=== PATIENT | female | born 1965 ===

== ENCOUNTER 2020-02-10 14:37 | Outpatient (REF) | payer OTHER, SELFPAY | END 2020-02-10 14:38 | disposition home or self-care (01) | LOC: HO.LAB 14:37 | PROVIDERS: PCP Internal Medicine; Visit Provider Internal Medicine | DX: Z20.828 Contact with and (suspected) exposure to other viral communicable diseases (principal) | CPT/HCPCS: C9803; U0003 ==

== ENCOUNTER 2020-03-18 16:35 | Outpatient (REF) | payer OTHER, SELFPAY ==
--- NOTE | 2020-03-18 16:38 | XR_ITS ---
EXAMINATION: XR CHEST CLINICAL INFORMATION: Shortness of breath COMPARISON: Chest x-ray 04/01/2015 TECHNIQUE: 2 views of the chest were obtained. FINDINGS: Lungs are clear. No pulmonary vascular congestion. There is no pleural effusion. The heart size is normal. The cardiac and mediastinal contours are normal. There are calcifications of the thoracic aorta. There are multilevel degenerative changes of dorsal spine. XR/XR chest 2V IMPRESSION: Unremarkable examination.
== END 2020-03-18 16:36 | disposition home or self-care (01) ==
LOC: HO.HMGCX 16:35
PROVIDERS: PCP Internal Medicine; Visit Provider Nurse Practitioner Family
DX: R06.02 Shortness of breath (principal)
CPT/HCPCS: 71046

== ENCOUNTER 2020-03-23 14:25 | Outpatient (REF) | payer OTHER, SELFPAY ==
[2020-03-23 15:33] LABS: Alanine Aminotransferase 51 U/L (0-31); Albumin Level 4.6 g/dL (3.5-5.0); Alkaline Phosphatase 137 U/L (39-117); Anion Gap 11 (12-20); Aspartate Amino Transferase 35 U/L (5-31); Bilirubin Total 0.4 mg/dL (0.0-1.0); Blood Urea Nitrogen 11 mg/dL (9-16); Calcium 9.3 mg/dL (8.4-10.2); Carbon Dioxide 26 mmol/L (22-29); Chloride 106 mmol/L (96-108); Estimated Glomerular Filt Rate > 60; Glucose Random 92 mg/dL (60-115); Potassium 4.2 mmol/l (3.3-5.1); Sodium 139 mmol/L (135-145); Total Protein 7.5 g/dL (6.5-8.0)
== END 2020-03-23 14:26 | disposition home or self-care (01) ==
LOC: HO.LAB 14:25
PROVIDERS: PCP Internal Medicine; Visit Provider Student in an Organized Health Care Education/Training Program
DX: M79.7 Fibromyalgia (principal)
CPT/HCPCS: 80053

== ENCOUNTER 2020-05-04 12:24 | Outpatient (REF) | payer OTHER, SELFPAY | END 2020-05-04 12:25 | disposition home or self-care (01) | LOC: HO.LAB 12:24 | PROVIDERS: Visit Provider Internal Medicine | DX: Z20.822 Contact with and (suspected) exposure to COVID-19 (principal) | CPT/HCPCS: 36415; C9803; U0003; U0005 ==

== ENCOUNTER 2020-05-26 15:35 | Outpatient (REF) | payer OTHER, SELFPAY | END 2020-05-26 15:36 | disposition home or self-care (01) | LOC: HO.LAB 15:35 | PROVIDERS: Visit Provider Internal Medicine | DX: Z20.822 Contact with and (suspected) exposure to COVID-19 (principal) | CPT/HCPCS: 36415; C9803; U0003; U0005 ==

== ENCOUNTER → 2020-06-25 11:29 | Outpatient (BNVA) | payer OTHER, SELFPAY | PROVIDERS: PCP Internal Medicine; Visit Provider Student in an Organized Health Care Education/Training Program | DX: M79.7 Fibromyalgia (principal) | CPT/HCPCS: 99212 ==

== ENCOUNTER → 2020-08-18 08:32 | Outpatient (BNVA) | payer OTHER, SELFPAY | PROVIDERS: PCP Internal Medicine; Visit Provider Obstetrics & Gynecology ==

== ENCOUNTER 2020-10-09 10:41 | Outpatient (REF) | payer OTHER, SELFPAY ==
--- NOTE | ~2020-10-09 | MM_ITS ---
EXAMINATION: MM SCREENING DIGITAL BREAST TOMOSYNTHESIS, BILATERAL CLINICAL INFORMATION: Screening. Asymptomatic. The lifetime risk of breast cancer based on the Tyrer-Cuzick Model is 6%. COMPARISON: Mammography: 08/13/2013, 04/16/2013 TECHNIQUE: Digital mammography is performed in craniocaudal and mediolateral oblique views along with computer-aided detection (CAD). Digital breast tomosynthesis is performed in implant-displaced craniocaudal and implant-displaced mediolateral oblique views along with computer-aided detection (CAD). Synthesized 2D images are generated from the tomosynthesis. FINDINGS: The breasts are heterogeneously dense, which may obscure small masses (ACR BI-RADS breast composition Category c). There are no significant masses, abnormal calcifications, or other abnormalities. There are bilateral silicone implants with smooth contours. Prior exam shows saline implants. The axilla are unremarkable. The skin contours are smooth. MM/MM tomosynthesis screen imp BI IMPRESSION: No mammographic evidence of malignancy. ASSESSMENT: BI-RADS 1: Negative RECOMMENDATION: Routine annual mammography screening. This patient's information was entered into a reminder system with a target due date for their next mammogram.
== END 2020-10-09 10:42 | disposition home or self-care (01) ==
LOC: HO.MAMMO 10:41
PROVIDERS: Visit Provider Obstetrics & Gynecology
DX: Z12.31 Encounter for screening mammogram for malignant neoplasm of breast (principal)
CPT/HCPCS: 77063; 77067

== ENCOUNTER 2020-12-12 14:42 | Outpatient (REF) | payer OTHER, SELFPAY ==
--- NOTE | ~2020-12-12 | XR_ITS ---
EXAMINATION: XR KNEE, RIGHT CLINICAL INFORMATION: Pain COMPARISON: Previous right knee x-ray March 2015 TECHNIQUE: Four views of the right knee. FINDINGS: Bone alignment is normal. No fracture or dislocation is seen. The femoral tibial joints are normal. There are small osteophytes at the patellofemoral joint. There is a small osteophyte at the quadriceps tendon insertion to the patella. There is no joint effusion. XR/XR knee RT 4V IMPRESSION: Mild degenerative changes at the patellofemoral joint.
== END 2020-12-12 14:43 | disposition home or self-care (01) ==
LOC: HO.HMGCX 14:42
PROVIDERS: PCP Internal Medicine; Visit Provider Physician Assistant Medical
DX: Z13.89 Encounter for screening for other disorder (principal)
CPT/HCPCS: 73564

== ENCOUNTER 2021-01-21 10:15 | Outpatient (REF) | payer OTHER, SELFPAY ==
[2021-01-21 10:27] LABS: MANUAL DIFF FLAG NO
[2021-01-21 11:03] LABS: Basophils Percent Auto 0.6 % (0-2); Eosinophils Absolute Auto 0.1 X10*3/uL (0.0-0.4); Eosinophils Percent Auto 1.1 % (0-4); Hematocrit 44.4 % (37-47); Imm Gran Abs Auto 0.03 X10*3/uL (0.00-0.03); Imm Gran Pct Auto 0.4 % (0.0-0.4); Lymphocytes Absolute Auto 2.6 X10*3/uL (1.2-4.9); Lymphocytes Percent Auto 36.7 % (20-40); Mean Corpuscular HGB Conc 31.5 g/dl (31.0-35.0); Mean Corpuscular Hemoglobin 27.5 pg (27.0-33.0); Mean Corpuscular Volume 87.1 fL (80-98); Mean Platelet Volume 11.4 fL (9.4-12.3); Monocytes Absolute Auto 0.8 X10*3/uL (0.1-1.2); Monocytes Percent Auto 10.8 % (2-11); Neutrophils Absolute Auto 3.6 X10*3/uL (2.0-8.3); Neutrophils Percent Auto 50.4 % (45-73); Platelet Count 265 X10*3/uL (160-400); Red Cell Distribution Width 13.5 % (11.0-16.0); White Blood Count 7.2 X10*3/uL (4.8-10.8)
[2021-01-21 11:59] LABS: Alanine Aminotransferase 34 U/L (0-31); Albumin Level 4.4 g/dL (3.5-5.0); Alkaline Phosphatase 112 U/L (39-117); Anion Gap 13 (12-20); Aspartate Amino Transferase 29 U/L (5-31); Bilirubin Total 0.4 mg/dL (0.0-1.0); Blood Urea Nitrogen 11 mg/dL (9-16); Calcium 9.5 mg/dL (8.4-10.2); Carbon Dioxide 25 mmol/L (22-29); Chloride 108 mmol/L (96-108); Cholesterol 214 mg/dL; Estimated Glomerular Filt Rate > 60; Glucose Fasting 103 mg/dL (60-99); HDL Cholesterol 45 mg/dL; LDL Cholesterol Calculated 135 mg/dl; Potassium 5.1 mmol/L (3.3-5.1); Sodium 141 mmol/L (135-145); Total Protein 7.2 g/dL (6.5-8.0); Triglycerides 172 mg/dL
[2021-01-21 12:02] LABS: TSH reflex Free T4 1.45 uIU/mL (0.32-4.0)
== END 2021-01-21 10:16 | disposition home or self-care (01) ==
LOC: HO.LAB 10:15
PROVIDERS: PCP Internal Medicine; Visit Provider Internal Medicine
DX: Z00.01 Encounter for general adult medical examination with abnormal findings (principal); E66.09 Other obesity due to excess calories
CPT/HCPCS: 36415; 80053; 80061; 84443; 85025

== ENCOUNTER → 2021-03-29 13:00 | Outpatient (BNVA) | payer OTHER, SELFPAY | PROVIDERS: PCP Internal Medicine; Referring Provider Internal Medicine; Visit Provider Nurse Practitioner Family | DX: Z12.11 Encounter for screening for malignant neoplasm of colon (principal); K21.9 Gastro-esophageal reflux disease without esophagitis; K58.1 Irritable bowel syndrome with constipation; K59.04 Chronic idiopathic constipation; R14.0 Abdominal distension (gaseous) | CPT/HCPCS: 99212 ==

== ENCOUNTER 2021-04-26 13:28 | Outpatient (REF) | payer OTHER, SELFPAY ==
[2021-04-26 15:47] LABS: Folate 11.8 ng/mL (> or = 4.0); Vitamin B12 536 pg/mL (200-900)
[2021-04-27 18:47] LABS: Transglutaminase Ab IgG <1.0 U/mL; Transglutaminase IgA <1.0 U/mL
[2021-04-30 13:45] LABS: Vitamin D 25-OH, D2 <4 ng/mL; Vitamin D 25-OH, D3 31 ng/mL; Vitamin D 25-OH, Total 31 ng/mL (30-100)
== END 2021-04-26 13:29 | disposition home or self-care (01) ==
LOC: HO.LAB 13:28
PROVIDERS: PCP Internal Medicine; Referring Provider Internal Medicine; Visit Provider Nurse Practitioner Family
DX: K58.1 Irritable bowel syndrome with constipation (principal); K58.0 Irritable bowel syndrome with diarrhea; R10.11 Right upper quadrant pain; K59.04 Chronic idiopathic constipation; R14.0 Abdominal distension (gaseous); K21.9 Gastro-esophageal reflux disease without esophagitis; E55.9 Vitamin D deficiency, unspecified; Z87.891 Personal history of nicotine dependence; Z12.11 Encounter for screening for malignant neoplasm of colon
CPT/HCPCS: 36415; 82306; 82607; 82746; 86364; 99212

== ENCOUNTER 2021-05-04 13:02 | Outpatient (REF) | payer OTHER, SELFPAY ==
--- NOTE | ~2021-05-04 | XR_ITS ---
EXAMINATION: XR CHEST CLINICAL INFORMATION: Cough COMPARISON: Previous chest x-ray February 2020 TECHNIQUE: 2 views of the chest were obtained. FINDINGS: The cardiac and mediastinal contours are stable. There is bilateral upper lobe linear scarring or chronic subsegmental atelectasis that appears unchanged. The lungs are otherwise clear. There is no pleural effusion or pneumothorax. There are mild degenerative changes of the spine. XR/XR chest 2V IMPRESSION: No evidence for acute disease in the chest.
[2021-05-04 14:02] LABS: Binax Internal Control QC Valid; Binax Now Covid-19 Ag Negative (Negative); Binax Performed by: HO.BONILM
== END 2021-05-04 13:03 | disposition home or self-care (01) ==
LOC: HO.HMGCX 13:02
PROVIDERS: PCP Internal Medicine; Visit Provider Physician Assistant
DX: Z20.822 Contact with and (suspected) exposure to COVID-19 (principal); R07.1 Chest pain on breathing; R05.9 Cough, unspecified
CPT/HCPCS: 71046

== ENCOUNTER 2021-05-27 16:54 | Emergency (ER) | payer OTHER, SELFPAY ==
[2021-05-27 17:28] VITALS: BP 152/65; PULSE 76; RESP 18; TEMP 36.8; O2SAT 98; BMI 32.2
--- NOTE | 2021-05-27 17:48 | ED_ITS ---
HPI - General Adult General Chief complaint: Eye Problems Stated complaint: redness in the eye Time Seen by Provider: 05/27/21 17:48 Source: patient Limitations: no limitations History of Present Illness HPI narrative: Patient awoke this a.m. with some redness in the light of her eye. Patient denies any recent trauma. Patient states she wears reading glasses. Patient states some slight achy pain. Of the left eye. Patient is also states slight headache. Patient does not wear contact lenses. Patient denies any nausea vomiting or similar symptoms in the past. Patient states she has never noticed any redness in the light of her. No other complaints this time Related Data Home Medications Medication Instructions Recorded Confirmed bupropion HCl 150 mg 24 hr tablet, 150 mg PO DAILY 03/18/20 01/05/21 extended release cyclobenzaprine 5 mg tablet 5 mg PO BEDTIME 03/18/20 01/05/21 flu vacc [id number] 6mos up(PF) ml IM 03/18/20 01/05/21 ketotifen fumarate 0.025 % (0.035 1 drp OPHTHALMIC (EYE) BID 03/18/20 01/05/21 %) eye drops loratadine 10 mg tablet 10 mg PO DAILY 03/18/20 01/05/21 propranolol 20 mg tablet 20 mg PO DAILY 03/18/20 01/05/21 sumatriptan succinate 100 mg tablet 0 mg PO 03/18/20 01/05/21 sumatriptan succinate 50 mg tablet 50 mg PO DAILY PRN 03/18/20 01/05/21 buspirone 5 mg tablet 5 mg PO BID 05/04/21 fluoxetine 10 mg capsule 10 mg PO DAILY 05/04/21 Previous Rx's Medication Instructions Recorded meloxicam 15 mg tablet 7.5 mg PO DAILY 14 Days #14 tab 12/12/20 docusate sodium 100 mg capsule 100 mg PO BEDTIME #30 cap 03/29/21 pantoprazole 40 mg tablet,delayed 40 mg PO DAILY #30 tab 03/29/21 release sennosides 8.6 mg tablet (Natural 8.6 mg PO BEDTIME #30 tab 03/29/21 Senna Laxative) famotidine 40 mg tablet 40 mg PO BEDTIME #30 tab 04/26/21 plecanatide 3 mg tablet (Trulance) 3 mg PO DAILY #30 tab 04/26/21 albuterol sulfate 90 mcg/actuation 1 inh INHALATION Q4-6H PRN #6.7 g 05/04/21 aerosol inhaler (ProAir HFA) prednisone 20 mg tablet 20 mg PO DAILY 5 Days #5 tab 05/04/21 acetaminophen 650 mg 650 mg PO Q8H #90 tab 05/05/21 tablet,extended release (Arthritis Pain Relief (acetaminophen) ER) Allergies Allergy/AdvReac Type Severity Reaction Status Date / Time tramadol [TRAMADOL] Allergy Severe SEIZURES Verified 05/27/21 17:28 WHEN TAKEN WITH OTHER MEDICATIONS duloxetine [From CYMBALTA] Allergy Intermediate VOMITING Verified 05/27/21 17:28 lamotrigine [LAMOTRIGINE] Allergy Intermediate RASH Verified 05/27/21 17:28 gabapentin Allergy Unknown seizures Verified 05/27/21 17:28 meloxicam [MELOXICAM] AdvReac Intermediate GI UPSET Verified 05/27/21 17:28 Lamotrigine Allergy Unknown rash Uncoded 01/06/21 11:59 SEAFOOD Allergy Unknown UNKNOWN Uncoded 01/06/21 11:59 Review of Systems Constitutional: Constitutional: Denies chills, Denies fever(s) and Reports headache(s) Eyes: Eyes: Reports blurry vision, Denies diplopia, Denies eye discharge and Denies loss of vision Comments: Redness in the white of the eye of the left ENT: Reports headache(s) Gastrointestinal: Gastrointestinal: Denies nausea and Denies vomiting Musculoskeletal: Musculoskeletal: Denies back pain Neurologic: Reports headache(s), Denies loss of vision, Denies convulsions and Denies seizure-like activity [facility] Past Medical History Medical History Arthritis Reversal of sterilization Surgical History H/O cosmetic surgery H/O tubal ligation Social History Social History Housing: House Alcohol intake: never Patient Tobacco Use Status: Former Tobacco user (40 years ago ) Advance Directives: No Advance Directives Information Provided: No Current occupational status: disabled Physical Exam ED Vital Signs: Vital Signs - 24 hr 05/27/21 17:28 Temperature 98.3 F Pulse Rate 76 Respiratory Rate 18 Blood Pressure 152/65 H Pulse Oximetry 98 BMI result Body Mass Index 32.2 vital signs have been reviewed as normal and appeared to be correct. Blood pressure normal. Heart rate normal. Respiration rate normal. Temperature normal. Oxygen saturation normal. Appearance: Alert. Oriented X3. No acute distress. Head: Normal external exam. Normocephalic. Atraumatic. No Perez signs noted. No raccoon eyes noted Eyes: PERRLA. EOMI. Left eye positive subconjunctival hemorrhage is noted. Red reflex is present. Visual acuity is grossly intact. ENT: Pharynx normal. Uvula midline. Neck: Soft full range of motion CVS: Heart regular rate and rhythm no murmurs and rubs Respiratory: Breath sounds are clear to auscultation bilaterally. No accessory muscle use noted. Back: Full range of motion noted. Skin: Skin is warm dry and intact no rashes ecchymosis noted. Extremities: No lower extremity edema. Extremities exhibit normal range of motion. Extremities nontender. Neuro: Oriented X 3. 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 Reflexes are intact. Course Course Course Narrative: Subconjunctival hemorrhage Glaucoma Conjunctivitis Iritis Intra-ocular pressures checked left eye 2 right eye 5 Symptoms are consistent with subconjunctival hemorrhage. Discharge Plan Discharge Clinical Impression: Subconjunctival hemorrhage Patient Disposition: Home, Self-Care Instructions: Subconjunctival Hemorrhage (ED) Additional Instructions: Follow-up with Ophthalmology his symptoms do not improve Prescriptions: No Action meloxicam 15 mg tablet 7.5 mg PO DAILY 14 Days Qty: 14 0RF sumatriptan succinate 100 mg tablet 0 mg PO 0RF ketotifen fumarate 0.025 % (0.035 %) drops 1 drp ophthalmic (eye) BID 0RF propranolol 20 mg tablet 20 mg PO DAILY 0RF Fluzone Quad [id number] (PF) 60 mcg (15 mcg x 4)/0.5 mL syringe IM 0RF cyclobenzaprine 5 mg tablet 5 mg PO BEDTIME 0RF sumatriptan succinate 50 mg tablet 50 mg PO DAILY PRN0RF loratadine 10 mg tablet 10 mg PO DAILY 0RF bupropion HCl 150 mg tablet extended release 24 hr 150 mg PO DAILY 0RF fluoxetine 10 mg capsule 10 mg PO DAILY 0RF buspirone 5 mg tablet 5 mg PO BID 0RF prednisone 20 mg tablet 20 mg PO DAILY 5 Days Qty: 5 0RF albuterol sulfate [ProAir HFA] 90 mcg/actuation HFA aerosol inhaler 1 inh inhalation Q4-6H PRN (Reason: shortness of breath or wheezing) Qty: 6.7 0RF acetaminophen [Arthritis Pain Relief (acetam)] 650 mg tablet extended release 650 mg PO Q8H Qty: 90 0RF Rx Instructions: one time refill, future refill from rheum or PCP Trulance 3 mg tablet 3 mg PO DAILY Qty: 30 3RF famotidine 40 mg tablet 40 mg PO BEDTIME Qty: 30 3RF docusate sodium 100 mg capsule 100 mg PO BEDTIME Qty: 30 3RF sennosides [Natural Senna Laxative] 8.6 mg tablet 8.6 mg PO BEDTIME Qty: 30 3RF pantoprazole 40 mg tablet,delayed release (DR/EC) 40 mg PO DAILY Qty: 30 2RF Rx Instructions: take one tablet half an hour before breakfast Referrals: Tyrel Christensen [Physician] - 2 days (Left eye subconjunctival hemorrhage)
== END 2021-05-27 18:19 | disposition home or self-care (01) ==
PROVIDERS: Emergency Provider Emergency Medicine Emergency Medical Services; PCP Internal Medicine
DX: H11.32 Conjunctival hemorrhage, left eye (principal); H57.12 Ocular pain, left eye
CPT/HCPCS: 99283

== ENCOUNTER 2021-06-02 09:00 | Outpatient (REF) | payer OTHER, SELFPAY | END 2021-06-02 09:01 | disposition home or self-care (01) | LOC: HO.LNP 09:00 | PROVIDERS: Visit Provider Nurse Practitioner Family | DX: A04.8 Other specified bacterial intestinal infections (principal) | CPT/HCPCS: 87338 ==

== ENCOUNTER 2021-06-03 13:23 | Outpatient (REF) | payer OTHER, SELFPAY | END 2021-06-03 13:24 | disposition home or self-care (01) | LOC: HO.LNP 13:23 | PROVIDERS: Visit Provider Nurse Practitioner Family | DX: Z13.89 Encounter for screening for other disorder (principal) ==

== ENCOUNTER → 2021-06-23 10:01 | Outpatient (BNVA) | payer OTHER, SELFPAY | PROVIDERS: PCP Internal Medicine; Referring Provider Internal Medicine; Visit Provider Nurse Practitioner Family | DX: Z12.11 Encounter for screening for malignant neoplasm of colon (principal); K21.9 Gastro-esophageal reflux disease without esophagitis; K59.04 Chronic idiopathic constipation; R14.0 Abdominal distension (gaseous) | CPT/HCPCS: 99212 ==

== ENCOUNTER 2021-06-25 08:49 | Outpatient (REF) | payer OTHER, SELFPAY ==
--- NOTE | ~2021-06-25 | XR_ITS ---
EXAMINATION: XR CHEST CLINICAL INFORMATION: Preprocedural. COMPARISON: Chest done on 05/04/2021. TECHNIQUE: 2 views of the chest were obtained. FINDINGS: No significant abnormality is noted involving the heart, lungs, mediastinum, bony thorax or soft tissues. XR/XR chest 2V IMPRESSION: Unremarkable examination. No significant change since 05/04/2021.
--- NOTE | ~2021-06-25 | MM_ITS ---
EXAMINATION: MM SCREENING DIGITAL BREAST TOMOSYNTHESIS, BILATERAL CLINICAL INFORMATION: Screening. Asymptomatic. The lifetime risk of breast cancer based on the Tyrer-Cuzick Model is 6%. COMPARISON: Mammography: 10/09/2020, 08/13/2013, 04/16/2013 TECHNIQUE: Digital mammography is performed in craniocaudal and mediolateral oblique views along with computer-aided detection (CAD). Digital breast tomosynthesis is performed in implant-displaced craniocaudal and implant-displaced mediolateral oblique views along with computer-aided detection (CAD). Synthesized 2D images are generated from the tomosynthesis. Additional left MLO view is provided. FINDINGS: The breasts are heterogeneously dense, which may obscure small masses (ACR BI-RADS breast composition Category c). There are bilateral implants. Implant contours are smooth, similar to prior exam. There are no significant masses, abnormal calcifications, or other abnormalities. The skin contours are smooth. No significant changes. MM/MM tomosynthesis screen imp BI IMPRESSION: No mammographic evidence of malignancy. ASSESSMENT: BI-RADS 1: Negative RECOMMENDATION: Routine annual mammography screening. This patient's information was entered into a reminder system with a target due date for their next mammogram.
--- NOTE | 2021-06-25 09:05 | ECG_ITS ---
Test Reason : preop Blood Pressure : / mmHG Vent. Rate : 064 BPM Atrial Rate : 064 BPM P-R Int : 152 ms QRS Dur : 082 ms QT Int : 412 ms P-R-T Axes : 012 012 -09 degrees QTc Int : 425 ms Normal sinus rhythm Nonspecific T wave abnormality Abnormal ECG When compared with ECG of 04-SEP-2017 07:28, No significant change was found Referred By: CONCETTA NIETO Electronically Signed By:STEVE BOYER
[2021-06-25 09:12] LABS: MANUAL DIFF FLAG NO
[2021-06-25 09:48] LABS: Appearance Urine CLEAR; Color Urine YELLOW; Glucose Urine UA NEG (NEG); Leukocyte Esterase Urine NEG (NEG); Nitrite Urine NEG (NEG); Specific Gravity - Urine >= 1.030 (1.005-1.025); UACC Culture Trigger NO; Urine Blood TRACE (NEG); Urine Ketones NEG (NEG); Urine Protein NEG (NEG-TRACE)
[2021-06-25 09:50] LABS: Basophils Percent Auto 0.4 % (0-2); Eosinophils Absolute Auto 0.1 X10*3/uL (0.0-0.4); Hematocrit 42.8 % (37.0-47.0); Imm Gran Abs Auto 0.01 X10*3/uL (0.00-0.03); Imm Gran Pct Auto 0.1 % (0.0-0.4); Lymphocytes Absolute Auto 2.9 X10*3/uL (1.2-4.9); Lymphocytes Percent Auto 40.1 % (20-40); Mean Corpuscular HGB Conc 32.7 g/dl (31.0-35.0); Mean Corpuscular Hemoglobin 28.7 pg (27.0-33.0); Mean Corpuscular Volume 87.7 fL (80.0-98.0); Mean Platelet Volume 11.2 fL (9.4-12.3); Monocytes Absolute Auto 0.7 X10*3/uL (0.1-1.2); Monocytes Percent Auto 9.3 % (2-11); Neutrophils Absolute Auto 3.5 x10*3/uL (2.0-8.3); Neutrophils Percent Auto 49.1 % (45-73); Platelet Count 240 X10*3/uL (160-400); Red Blood Count 4.88 X10*6/uL (4.20-5.50); Red Cell Distribution Width 13.4 % (11.0-16.0); White Blood Count 7.1 X10*3/uL (4.8-10.8)
[2021-06-25 09:52] LABS: INTERNATIONAL NORM RATIO 0.9 (0.9-1.1); Prothrombin Time 10.7 SEC (9.9-13.0)
[2021-06-25 09:55] LABS: Partial Thromboplastin Time 34.2 SEC (24.1-38.0)
[2021-06-25 10:01] LABS: Amorphous Sediment Urine 1+ /LPF; Bacteria Urine TRACE /LPF; Mucus Urine 1+ /LPF; RBC Urine 0-2 /HPF (0); Squamous Epithelial Cell Urine 2+ /LPF
[2021-06-25 10:13] LABS: HCG Quantitative < 2 mIU/mL
[2021-06-25 10:17] LABS: Alanine Aminotransferase 41 U/L (0-31); Albumin Level 4.5 g/dL (3.5-5.0); Alkaline Phosphatase 110 U/L (39-117); Anion Gap 13 (12-20); Aspartate Amino Transferase 29 U/L (5-31); Bilirubin Total 0.6 mg/dL (0.0-1.0); Blood Urea Nitrogen 12 mg/dL (9-16); Calcium 9.8 mg/dL (8.4-10.2); Carbon Dioxide 25 mmol/L (22-29); Chloride 106 mmol/L (96-108); Estimated Glomerular Filt Rate > 60; Glucose Random 111 mg/dL (60-115); Sodium 140 mmol/L (135-145); Total Protein 7.4 g/dL (6.5-8.0)
[2021-06-25 10:28] LABS: ~Hepatitis B Surface Antibody NONREACTIVE (Nonreactive); ~Hepatitis C Antibody Nonreactive (Nonreactive)
[2021-06-25 10:47] LABS: HBc Num1 0.04 S/CO (0.00-0.79); HIV AB/AG Nonreactive (Nonreactive); HIV Num 1 0.07 S/CO (0.00-0.99); Hepatitis A Antibody IgM 0.37 Index (0-0.79); Hepatitis B Core Antibody Nonreactive (Nonreactive); Hepatitis B Surface Antigen Negative (Negative); ~Hepatitis A Antibody IgM Nonreactive (Nonreactive)
== END 2021-06-25 08:50 | disposition home or self-care (01) ==
LOC: HO.MAMMO 08:49
PROVIDERS: Absent Provider Nurse Practitioner Family; PCP Internal Medicine; Visit Provider Internal Medicine
DX: Z01.818 Encounter for other preprocedural examination (principal); Z12.31 Encounter for screening mammogram for malignant neoplasm of breast; Z12.11 Encounter for screening for malignant neoplasm of colon; R30.0 Dysuria; R79.89 Other specified abnormal findings of blood chemistry; Z20.822 Contact with and (suspected) exposure to COVID-19
CPT/HCPCS: 36415; 71046; 77063; 77067; 80053; 81001; 84702; 85025; 85610; 85730; 86704; 86706; 86709; 86803; 87340; 87389; 93005; U0003; U0005

== ENCOUNTER → 2021-06-30 10:52 | Outpatient (BNVA) | payer OTHER, SELFPAY | PROVIDERS: PCP Internal Medicine; Visit Provider Nurse Practitioner Family | DX: M79.7 Fibromyalgia (principal) | CPT/HCPCS: 99212 ==

== ENCOUNTER 2021-10-20 09:00 | Outpatient (REF) | payer OTHER, SELFPAY ==
[2021-10-20 12:25] LABS: Hematocrit 41.4 % (37.0-47.0); Hemoglobin 13.3 g/dl (12.0-16.0); Mean Corpuscular HGB Conc 32.1 g/dl (31.0-35.0); Mean Corpuscular Hemoglobin 26.9 pg (27.0-33.0); Mean Corpuscular Volume 83.8 fL (80.0-98.0); Mean Platelet Volume 11.5 fL (9.4-12.3); Platelet Count 256 X10*3/uL (160-400); Red Blood Count 4.94 X10*6/uL (4.20-5.50); Red Cell Distribution Width 14.7 % (11.0-16.0); White Blood Count 6.6 X10*3/uL (4.8-10.8)
[2021-10-20 12:28] LABS: Appearance Urine HAZY; Color Urine YELLOW; Glucose Urine UA NEG (NEG); Leukocyte Esterase Urine NEG (NEG); Nitrite Urine NEG (NEG); Specific Gravity - Urine 1.015 (1.005-1.025); Urine Blood NEG (NEG); Urine Ketones NEG (NEG); Urine Protein NEG (NEG-TRACE)
[2021-10-20 13:04] LABS: Lipase 23 U/L (8-78)
[2021-10-20 14:15] LABS: Folate 7.8 ng/mL (> or = 4.0); Vitamin B12 253 pg/mL (200-900)
[2021-10-25 14:06] LABS: Vitamin D 25-OH, D2 <4 ng/mL; Vitamin D 25-OH, D3 28 ng/mL; Vitamin D 25-OH, Total 28 ng/mL (30-100)
[2021-10-28 09:57] LABS: HPV 16 RNA NOT DETECTED (NOT DETECTED); HPV mRNA E6/E7 rflx Detected (Not Detected)
== END 2021-10-20 09:01 | disposition home or self-care (01) ==
LOC: HO.LAB 09:00
PROVIDERS: Absent Provider Nurse Practitioner Family; PCP Internal Medicine; Visit Provider Obstetrics & Gynecology
DX: Z01.419 Encounter for gynecological examination (general) (routine) without abnormal findings (principal); Z11.51 Encounter for screening for human papillomavirus (HPV); E55.9 Vitamin D deficiency, unspecified; R30.0 Dysuria; R19.7 Diarrhea, unspecified; R10.9 Unspecified abdominal pain
CPT/HCPCS: 36415; 81003; 82306; 82607; 82746; 83690; 85027; 86003; 87624; 87625; 88142; 99212

== ENCOUNTER 2021-10-25 17:48 | Outpatient (REF) | payer OTHER, SELFPAY ==
[2021-11-01 20:48] LABS: Pancreatic Elastase-1 42 mcg/g
== END 2021-10-25 17:49 | disposition home or self-care (01) ==
LOC: HO.LNP 17:48
PROVIDERS: Visit Provider Nurse Practitioner Family
DX: R10.9 Unspecified abdominal pain (principal); K21.9 Gastro-esophageal reflux disease without esophagitis
CPT/HCPCS: 82656; 87338

== ENCOUNTER → 2021-10-26 10:02 | Outpatient (BNVA) | payer OTHER, SELFPAY | PROVIDERS: PCP Internal Medicine; Visit Provider Nurse Practitioner Family | DX: M47.816 Spondylosis without myelopathy or radiculopathy, lumbar region (principal) | CPT/HCPCS: 99212 ==

== ENCOUNTER 2021-10-28 07:45 | Outpatient (REF) | payer OTHER, SELFPAY ==
--- NOTE | ~2021-10-28 | XR_ITS ---
EXAMINATION: XR SACROILIAC JOINTS CLINICAL INFORMATION: Sacrococcygeal disorder, unspecified. COMPARISON: None TECHNIQUE: 3 views of the sacroiliac joints FINDINGS: No evidence of acute fractures or malalignment. Sacroiliac joints are symmetric with mild sclerosis. No erosive changes. No significant soft tissue abnormalities. XR/XR sacroiliac joint min 3V IMPRESSION: No acute fractures or malalignment. Symmetric SI joints with mild sclerosis.
--- NOTE | ~2021-10-28 | XR_ITS ---
EXAMINATION: XR LUMBOSACRAL SPINE CLINICAL INFORMATION: Low back pain. COMPARISON: Radiograph of the lumbar spine 06/19/2018. TECHNIQUE: Three views of the lumbosacral spine. FINDINGS: No acute compression deformity or malalignment. Anterior endplate osteophytes at L3-L4 and L4-L5 redemonstrated. Facet arthropathy at L5-S1, unchanged. No significant soft tissue finding. XR/XR lumbar spine 2-3V IMPRESSION: No acute fracture or malalignment. Lumbar spondylosis, not significantly changed.
[2021-10-28 08:51] LABS: Alanine Aminotransferase 25 U/L (0-31); Aspartate Amino Transferase 25 U/L (5-31); C Reactive Protein 0.33 mg/dL (< or = 0.50); Estimated Glomerular Filt Rate > 60
[2021-10-28 09:12] LABS: Erythrocyte Sedimentation Rate 8 MM/HR (0-20)
== END 2021-10-28 07:46 | disposition home or self-care (01) ==
LOC: HO.LAB 07:45
PROVIDERS: PCP Internal Medicine; Visit Provider Nurse Practitioner Family
DX: M54.50 Low back pain, unspecified (principal); M47.816 Spondylosis without myelopathy or radiculopathy, lumbar region; M53.3 Sacrococcygeal disorders, not elsewhere classified
CPT/HCPCS: 36415; 72100; 72202; 82565; 84450; 84460; 85652; 86140

== ENCOUNTER 2021-11-15 12:46 | Outpatient (REF) | payer OTHER, SELFPAY | END 2021-11-15 12:47 | disposition home or self-care (01) | LOC: HO.LAB 12:46 | PROVIDERS: PCP Internal Medicine; Visit Provider Obstetrics & Gynecology | DX: R87.810 Cervical high risk human papillomavirus (HPV) DNA test positive (principal) | CPT/HCPCS: 57454; 88305 ==

== ENCOUNTER → 2021-12-07 14:16 | Outpatient (BNVA) | payer OTHER, SELFPAY | PROVIDERS: PCP Internal Medicine; Visit Provider Obstetrics & Gynecology | DX: R87.810 Cervical high risk human papillomavirus (HPV) DNA test positive (principal) | CPT/HCPCS: 99212 ==

== ENCOUNTER 2022-02-01 09:26 | Emergency (ER) | payer OTHER, SELFPAY ==
--- NOTE | ~2022-02-01 | XR_ITS ---
EXAMINATION: XR HIP, RIGHT CLINICAL INFORMATION: Right hip pain. COMPARISON: None TECHNIQUE: Two views of the right hip. FINDINGS: Mild bilateral hip degenerative joint changes are seen, left greater than right. Ossified density along the superior margin of the greater trochanter. There is no acute fracture XR/XR hip RT w PEL1V IMPRESSION: 1. Mild bilateral hip osteoarthritis, left greater than right. 2. Ossified density along the superior margin of the right greater trochanter is nonspecific, but does not appear acute, likely degenerative in nature or secondary to old injury.
--- NOTE | ~2022-02-01 | XR_ITS ---
EXAMINATION: XR ELBOW, RIGHT CLINICAL INFORMATION: Right elbow pain. COMPARISON: None TECHNIQUE: AP, lateral, and oblique views of the right elbow. FINDINGS: There is no acute fracture or dislocation. The joint spaces are unremarkable. There is no joint effusion. Mild degenerative spurring off of the medial humeral epicondyle. The soft tissues are unremarkable. XR/XR elbow RT 2V IMPRESSION: Mild degenerative spurring off of the medial humeral epicondyle. No acute abnormality.
[2022-02-01 09:39] VITALS: BP 142/71; PULSE 73; RESP 20; TEMP 36.4; O2SAT 96; BMI 31.8
[2022-02-01 13:15] VITALS: BP 145/77; PULSE 63; RESP 18; TEMP 36.6; O2SAT 98
--- NOTE | 2022-02-01 13:24 | ED_ITS ---
HPI - General Adult General Chief complaint: Fall Stated complaint: Fall/R hip pain & R arm pain Time Seen by Provider: 02/01/22 12:36 Source: patient Mode of arrival: ambulatory Limitations: no limitations History of Present Illness HPI narrative: Patient is a 48-year-old female who presents to the emergency department for evaluation of right elbow and right hip pain. Onset of pain was just over 3 months ago when she had a mechanical slip and fall. She states she has been seen by her primary care provider, has been taking acetaminophen without relief, naproxen with some relief. But her pain persists. She denies any new injury. Denies any numbness or tingling to her extremities. Related Data Home Medications Medication Instructions Recorded Confirmed ketotifen fumarate 0.025 % (0.035 1 drp ophthalmic (eye) BID 03/18/20 01/07/22 %) eye drops loratadine 10 mg tablet 10 mg PO DAILY 03/18/20 01/07/22 Previous Rx's Medication Instructions Recorded docusate sodium 100 mg capsule 100 mg PO BEDTIME #30 caps 03/29/21 famotidine 40 mg tablet 40 mg PO BEDTIME #30 tabs 04/26/21 linaclotide 145 mcg capsule 145 mcg PO DAILY #30 caps 06/23/21 (Linzess) bisacodyl 5 mg tablet,delayed 10 mg PO ONCE 1 day #2 tabs 10/20/21 release (Dulcolax (bisacodyl)) esomeprazole magnesium 40 mg 40 mg PO DAILY #90 caps 10/20/21 capsule,delayed release (Nexium) polyethylene glycol 3350 17 238 g PO ONCE #238 grams 10/20/21 gram/dose oral powder (Miralax) acetaminophen 650 mg 650 mg PO Q12H #60 tabs 10/26/21 tablet,extended release (Arthritis Pain Relief (acetaminophen) ER) cyclobenzaprine 5 mg tablet 5 mg PO BEDTIME #30 tabs 10/26/21 naproxen 250 mg tablet 250 mg PO BID PRN pain #60 tabs 10/26/21 [id number] 1 cap PO QID #120 caps 01/11/22 12,000-38,000-60,000 unit capsule,delayed rel (Creon) Allergies Allergy/AdvReac Type Severity Reaction Status Date / Time lamotrigine [LAMOTRIGINE] Allergy Intermediate RASH Verified 01/07/22 10:08 tramadol [TRAMADOL] AdvReac Severe SEIZURES Verified 01/07/22 10:08 WHEN TAKEN WITH OTHER MEDICATIONS duloxetine [From CYMBALTA] AdvReac Intermediate VOMITING Verified 01/07/22 10:08 meloxicam [MELOXICAM] AdvReac Intermediate GI UPSET Verified 01/07/22 10:08 gabapentin AdvReac Unknown seizures Verified 01/07/22 10:08 SEAFOOD AdvReac Unknown UNKNOWN Uncoded 01/07/22 10:08 Review of Systems Review of Systems: Musculoskeletal: Positive right elbow and right hip pain as noted in HPI Yes all other systems are reviewed and are negative PMFSH Past Medical History Attestation statement: The following information was validated with the patient. Source: old records reviewed Medical History Arthritis Environmental allergies Fibromyalgia Reversal of sterilization Surgical History H/O cosmetic surgery H/O tubal ligation Hx of colonoscopy Family History Family History Father HTN (hypertension) Blood infection Heart disease Social History Social History Household Members Other:: daughter Housing: House Alcohol intake: never Patient Tobacco Use Status: Former Tobacco user Smoked in Last 30 Days: No Use of substances other than those prescribed or required for medical reasons: No Advance Directives: No Advance Directives Information Provided: No Patient : No Current occupational status: disabled Cognitive needs: No Hearing needs: No Vision needs: No Physical Exam ED Vital Signs: Vital Signs - 24 hr 02/01/22 09:39 02/01/22 13:15 Temperature 97.5 F 97.9 F Pulse Rate 73 63 Respiratory Rate 20 18 Blood Pressure 142/71 H 145/77 H Pulse Oximetry 96 98 Oxygen Delivery Method Room Air Room Air BMI result Body Mass Index 31.8 Appearance: Alert.?Oriented to person, place and time. No acute distress.?Normal affect. Eyes: Pupils equal, round and reactive to light.? ENT: Pharynx normal.?? Neck: Normal inspection.? Neck supple.?? CVS: Heart sounds normal. Normal heart rate and rhythm.? Pulses normal.?? Respiratory: No respiratory distress.? Lung sounds clear to auscultation bilaterally?? Abdomen: Soft and non-tender. Normoactive bowel sounds. Skin: Skin warm and dry.? Normal skin color.? ?? Extremities: No lower extremity edema.? No calf ttp?full range of motion to bilateral upper and lower extremities. Neuro: Moves all extremities spontaneously. Sensation intact bilaterally. No focal neuro deficits. Ambulates with normal steady gait. Course Course Course Narrative: Patient is a 56-year-old female with a past medical history of arthritis, fibromyalgia, presenting to the emergency department for evaluation chronic right elbow and right hip pain. X-rays obtained from triage revealed no acute fracture dislocation to either, there is however degenerative changes as noted in radiologic impressions. I discussed these findings with patient. Advised that for her chronic pain management she needs to continue follow-up with her primary care provider. Advised she can take naproxen up to 500 mg twice daily, she is also prescribed cyclobenzaprine, and she can continue the use of acetaminophen with this. Reviewed worsening signs and symptoms that she should return back to the emergency department for. All questions were answered. Patient was discharged in stable condition. Medical Decision Making Medical Records Medical records reviewed: Yes I reviewed the patient's medical records. Lab Data Lab results reviewed: Yes I reviewed the patient's lab results. Imaging Data XR elbow: Radiologist's impression: XR/XR elbow RT 2V IMPRESSION: Mild degenerative spurring off of the medial humeral epicondyle. No acute abnormality. XR hip: Radiologist's impression: XR/XR hip RT w PEL1V IMPRESSION: 1.? Mild bilateral hip osteoarthritis, left greater than right. 2.? Ossified density along the superior margin of the right greater trochanter is nonspecific, but does not appear acute, likely degenerative in nature or secondary to old injury. ? Discharge Plan Discharge Clinical Impression: Right elbow tendonitis, Arthritis of right hip Patient Disposition: Home, Self-Care Additional Instructions: As we discussed, your x-rays did not reveal any fractures or dislocations today. Your pain has been ongoing for a few months since your initial fall. You should continue taking acetaminophen and naproxen as advised by your primary care provider. In addition, please contact them to arrange for follow-up for further management. You may return to the emergency department any new or worsening symptoms or concerns. Prescriptions: No Action Creon 12,000-38,000 -60,000 unit capsule,delayed release(DR/EC) 1 cap PO QID Qty: 120 3RF Rx Instructions: administer with meals and/or snacks ketotifen fumarate 0.025 % (0.035 %) drops 1 drp ophthalmic (eye) BID loratadine 10 mg tablet 10 mg PO DAILY famotidine 40 mg tablet 40 mg PO BEDTIME Qty: 30 3RF docusate sodium 100 mg capsule 100 mg PO BEDTIME Qty: 30 3RF Linzess 145 mcg capsule 145 mcg PO DAILY Qty: 30 2RF bisacodyl [Dulcolax (bisacodyl)] 5 mg tablet,delayed release (DR/EC) 10 mg PO ONCE 1 Days Qty: 2 0RF Rx Instructions: take 2 tabs at noon the day before your colonoscopy polyethylene glycol 3350 [Miralax] 17 gram/dose powder 238 g PO ONCE Qty: 238 0RF Rx Instructions: As directed by gastroenterology department at [facility] esomeprazole magnesium [Nexium] 40 mg capsule,delayed release(DR/EC) 40 mg PO DAILY Qty: 90 5RF cyclobenzaprine 5 mg tablet 5 mg PO BEDTIME Qty: 30 2RF acetaminophen [Arthritis Pain Relief (acetam)] 650 mg tablet extended release 650 mg PO Q12H Qty: 60 1RF naproxen 250 mg tablet 250 mg PO BID PRN (Reason: pain) Qty: 60 1RF Referrals: Cole Austin MD [Primary Care Provider] - Interventions: ED Discharge Assessment Last Done: 02/01/22 14:02 Discharge Date/Time: 02/01/22 14:04
== END 2022-02-01 14:04 | disposition home or self-care (01) ==
PROVIDERS: Emergency Provider Emergency Medicine; PCP Internal Medicine
DX: M77.11 Lateral epicondylitis, right elbow (principal); M16.11 Unilateral primary osteoarthritis, right hip
CPT/HCPCS: 73070; 73502; 99283; 99284

== ENCOUNTER 2022-02-23 10:29 | Day surgery (SDC) | payer OTHER, SELFPAY ==
[2022-02-15 08:48] VITALS: BMI 31.8
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
[2022-02-23 10:50] VITALS: BP 117/70; PULSE 67; RESP 18; TEMP 36.6; O2SAT 98
[2022-02-23] MEDS: Lactated Ringers 1,000 ML 100 ML IVCONT (11:02)
--- NOTE | 2022-02-23 11:41 | MHC.SHP ---
Pre-Procedural Eval Section A Date of Service: 02/23/22 Section B Chief Complaint: screening,reflux Relevant Family History (Specify if Yes): No Relevant Social History: None Present Medications: see Short Stay Collaborative assessment Medical History: Significant History (Arthritis Environmental allergies Fibromyalgia Reversal of sterilization) History of Previous Operations: Relevant previous surgery/procedure and date(s) (H/O cosmetic surgery H/O tubal ligation Hx of colonoscopy) Allergies: Allergies Allergy/AdvReac Type Severity Reaction Status Date / Time lamotrigine [LAMOTRIGINE] Allergy Intermediate RASH Verified 01/07/22 10:08 tramadol [TRAMADOL] AdvReac Severe SEIZURES Verified 01/07/22 10:08 WHEN TAKEN WITH OTHER MEDICATIONS duloxetine [From CYMBALTA] AdvReac Intermediate VOMITING Verified 01/07/22 10:08 meloxicam [MELOXICAM] AdvReac Intermediate GI UPSET Verified 01/07/22 10:08 gabapentin AdvReac Unknown seizures Verified 01/07/22 10:08 SEAFOOD AdvReac Unknown UNKNOWN Uncoded 01/07/22 10:08 Review of Systems Sugical H&P ROS: Negative: Constitution, Cardiovascular, Respiratory, Neurological, Psychiatric, Hem-Onc, Allergic/Immunologic, Gastrointestinal, Genitourinary, Musculoskeletal, Integumentary, Endocrine and Eyes/Ears/Nose/Throat Exam Surgical H&P Exam: Normal: HEENT, Normal: Heart, Normal: Lungs, Normal: Extremities, Normal: Abdomen, Normal: Skin and Normal: Neurological Plan Diagnosis/Plan: Unchanged I have reviewed the history and physical and performed a pertinent physical examination on my patient. No changes have occurred unless specified.
--- NOTE | 2022-02-23 11:43 | P.OP_ITS ---
Operative Note Operative Note Date of Service: 02/23/22 Narrative: Operative Information Procedure Description: EGD, Colonoscopy Indication: reflux, screening colonoscopy Anesthesia: MAC FLEXIBLE TRANSORAL UPPER GASTROINTESTINAL ENDOSCOPY AND COLONOSCOPY PROCEDURE NOTE UPPER ENDOSCOPY Consent: Indications for the procedure and potential complications of bleeding, perforation, reaction to medications and missed diagnosis were discussed with the patient and informed consent was obtained. Instrument: Olympus GIF H 190 J mid size upper endoscope Monitoring: Vital signs and clinical assessment, continuous EKG monitoring, Pulse oximetry, Carbon Dioxide monitoring and blood pressure monitoring were done throughout the procedure. Procedure: The patient was placed in the left lateral decubitis position and pre-procedure medications were administered and a bite block was placed. The endoscope was inserted into the mouth and advanced under direct vision to the third part of duodenum. A careful inspection was made as the upper endoscope was withdrawn including a retroflexed examination of the proximal stomach; Findings and interventions are described below. Findings: Larynx:normal Esophagus: GE junction at 34 cm, diaphragm hiatus at 37 cm, consistent with 3 cm sliding hiatal hernia, bx taken from GEJ for possible short segment barretts and laso from distal esophagus. The LES was lax. Small esophageal inlet patch noted. Stomach: Streaky gastritis. Biopsies were obtained. Grade 2 flap valve on retroflexed examination of the cardia. the cardia seemed inflammed and irregular, bx taken Duodenum: Normal bulb and descending duodenum, bx taken Intervention: Biopsies as noted above COLONOSCOPY Instrument: Olympus variable stiffness pediatric scope 190L Colonoscopy Monitoring: Vital signs and clinical assessment, continuous EKG monitoring, Pulse oximetry, Carbon Dioxide monitoring and blood pressure monitoring were done throughout the procedure. Colon withdrawal time was 14 minutes. Procedure: The patient was placed in the left lateral decubitis position and pre-procedure medications were administered. After a digital rectal examination of the ano-rectum, the video colonoscope was inserted into the rectum and advanced through the colon to the cecum/TI. The colonoscope was slowly withdrawn in a retrograde panoramic fashion and the colon mucosa was carefully examined including a retroflexed view of the rectum. Findings and interventions are described below. Procedure Difficulty: easy Findings: Terminal Ileum-normal Cecum:normal Ascending Colon: 7-8 mm sessile polyp removed with cold forceps Transverse Colon -normal Descending Colon:normal Sigmoid Colon: normal Rectum: Retroflexion with small internal hemorrhoids, grade I Anorectum - normal Colon preparation: Parrish Bowel Preparation Scale Right colon; 1-2 Transverse colon: 1-2 Left colon; 1-2 (0 = Unprepared colon segment with mucosa not seen due to solid stool that can not be cleared. 1 = Portion of mucosa of the colon segment seen, but other areas of the colon segment not well seen due to staining, residual stool and/or opaque liquid. 2 = Minor amount of residual staining, small fragments of stool and/or opaque liquid, but mucosa of colon segment seen well. 3 = Entire mucosa of colon segment seen well with no residual staining, small fragments of stool or opaque liquid) Impression and Post Procedure Diagnosis: Endoscopy Findings: lax LES possible barretts hiatal hernia gastritis Colonoscopy Findings: polyp internal hemorrhoids Plan: Await Pathology results Repeat Colonoscopy in 1-2 years due to fair prep or earlier if clinically indicated High fiber diet leaflet avoid straining at stool, epsom salts and sitz bath, anusol supps or cream try to cut down on naprosyn use, make sure taking PPI correctly, reflux precautions, Above findings were reviewed with the patient and relevant handouts were provided if indicated.
[2022-02-23 12:24] VITALS: BP 111/70; PULSE 88; RESP 16; TEMP 36.7; O2SAT 98
[2022-02-23 12:39] VITALS: BP 129/76; PULSE 68; RESP 16; TEMP 36.6; O2SAT 99
[2022-02-23 12:54] VITALS: BP 120/71; PULSE 58; RESP 16; TEMP 36.6; O2SAT 99
[2022-02-23 13:09] VITALS: BP 129/57; PULSE 65; RESP 16; TEMP 36.4; O2SAT 100
== END 2022-02-23 13:48 | disposition home or self-care (01) ==
PROVIDERS: PCP Internal Medicine; Visit Provider Internal Medicine Gastroenterology
PROC: (CPT 45380; principal; 2022-02-23 12:00)
DX: Z12.11 Encounter for screening for malignant neoplasm of colon (principal); D12.2 Benign neoplasm of ascending colon; K64.0 First degree hemorrhoids; K21.9 Gastro-esophageal reflux disease without esophagitis; K29.80 Duodenitis without bleeding; K29.50 Unspecified chronic gastritis without bleeding; K44.9 Diaphragmatic hernia without obstruction or gangrene; K22.4 Dyskinesia of esophagus; M79.7 Fibromyalgia; Z91.09 Other allergy status, other than to drugs and biological substances; Z98.890 Other specified postprocedural states
CPT/HCPCS: 45380; 43239; 88305; 88342; J2250

== ENCOUNTER → 2022-03-09 11:04 | Outpatient (BNVA) | payer OTHER, SELFPAY | PROVIDERS: PCP Internal Medicine; Visit Provider Anesthesiology | DX: M15.9 Polyosteoarthritis, unspecified (principal); G89.4 Chronic pain syndrome; K86.89 Other specified diseases of pancreas; K21.9 Gastro-esophageal reflux disease without esophagitis; K59.04 Chronic idiopathic constipation; D36.9 Benign neoplasm, unspecified site | CPT/HCPCS: 99202; 99212 ==

== ENCOUNTER 2022-04-05 10:24 | Outpatient (REF) | payer OTHER, SELFPAY ==
[2022-04-05 14:13] LABS: MANUAL DIFF FLAG NO
[2022-04-05 14:27] LABS: Basophils Absolute Auto 0.1 X10*3/uL (0.0-0.2); Basophils Percent Auto 0.6 % (0-2); Eosinophils Absolute Auto 0.2 X10*3/uL (0.0-0.4); Eosinophils Percent Auto 2.1 % (0-4); Hematocrit 43.7 % (37.0-47.0); Imm Gran Abs Auto 0.02 X10*3/uL (0.00-0.03); Imm Gran Pct Auto 0.3 % (0.0-0.4); Lymphocytes Absolute Auto 3.1 X10*3/uL (1.2-4.9); Mean Corpuscular Volume 87.4 fL (80.0-98.0); Mean Platelet Volume 11.7 fL (9.4-12.3); Monocytes Absolute Auto 0.8 X10*3/uL (0.1-1.2); Monocytes Percent Auto 10.1 % (2-11); Neutrophils Absolute Auto 3.6 x10*3/uL (2.0-8.3); Neutrophils Percent Auto 46.9 % (45-73); Platelet Count 270 X10*3/uL (160-400); Red Cell Distribution Width 13.3 % (11.0-16.0); White Blood Count 7.8 X10*3/uL (4.8-10.8)
[2022-04-05 16:13] LABS: Alanine Aminotransferase 26 U/L (0-31); Albumin Level 4.4 g/dL (3.5-5.0); Alkaline Phosphatase 107 U/L (39-117); Anion Gap 11 (12-20); Aspartate Amino Transferase 25 U/L (5-31); Bilirubin Total 0.6 mg/dL (0.0-1.0); Blood Urea Nitrogen 14 mg/dL (9-16); Calcium 9.9 mg/dL (8.4-10.2); Carbon Dioxide 25 mmol/L (22-29); Chloride 109 mmol/L (96-108); Cholesterol 230 mg/dL; Estimated Glomerular Filt Rate > 60; Glucose Fasting 97 mg/dL (60-99); HDL Cholesterol 53 mg/dL; LDL Cholesterol Calculated 154 mg/dl; Potassium 4.6 mmol/L (3.3-5.1); Sodium 140 mmol/L (135-145); Total Protein 7.3 g/dL (6.5-8.0); Triglycerides 117 mg/dL
[2022-04-05 16:31] LABS: TSH reflex Free T4 1.17 uIU/mL (0.32-4.0)
== END 2022-04-05 10:25 | disposition home or self-care (01) ==
LOC: HO.HMGCLDS 10:24
PROVIDERS: PCP Internal Medicine; Visit Provider Internal Medicine
DX: Z00.01 Encounter for general adult medical examination with abnormal findings (principal); E66.09 Other obesity due to excess calories; G89.29 Other chronic pain; K59.01 Slow transit constipation; M54.50 Low back pain, unspecified; M77.11 Lateral epicondylitis, right elbow; E78.9 Disorder of lipoprotein metabolism, unspecified
CPT/HCPCS: 36415; 80053; 80061; 84443; 85025

== ENCOUNTER 2022-05-20 10:42 | Emergency (ER) | payer OTHER, SELFPAY ==
--- NOTE | ~2022-05-20 | XR_ITS ---
EXAMINATION: XR SHOULDER RT MIN 2V XR CLAVICLE RT XR RIBS RT MIN 3V W CXR1V, CLINICAL INFORMATION: Pain status post fall on right side COMPARISON: None. TECHNIQUE: 3 views of the right shoulder Single AP view of the right clavicle PA view of the chest at 3 dedicated views of the right hemithorax FINDINGS: RIGHT SHOULDER/CLAVICLE: No acute fracture or dislocation. Small marginal osteophytes of the acromioclavicular and glenohumeral joints. No suspicious osseous lesions. Soft tissues unremarkable. RIGHT RIBS: A BB marker is present along the right posterolateral chest wall between the 10th and 11th ribs. No displaced rib fractures. Normal symmetric lung volumes. No parenchymal consolidation. No pleural effusion. No pneumothorax. Cardiomediastinal silhouette and pulmonary vascularity are within normal limits. Aorta is atherosclerotic. XR/XR shoulder RT min 2V IMPRESSION: * No acute fracture or dislocation. * Mild glenohumeral and acromioclavicular arthrosis. * No displaced rib fractures.
--- NOTE | ~2022-05-20 | XR_ITS ---
EXAMINATION: XR SHOULDER RT MIN 2V XR CLAVICLE RT XR RIBS RT MIN 3V W CXR1V, CLINICAL INFORMATION: Pain status post fall on right side COMPARISON: None. TECHNIQUE: 3 views of the right shoulder Single AP view of the right clavicle PA view of the chest at 3 dedicated views of the right hemithorax FINDINGS: RIGHT SHOULDER/CLAVICLE: No acute fracture or dislocation. Small marginal osteophytes of the acromioclavicular and glenohumeral joints. No suspicious osseous lesions. Soft tissues unremarkable. RIGHT RIBS: A BB marker is present along the right posterolateral chest wall between the 10th and 11th ribs. No displaced rib fractures. Normal symmetric lung volumes. No parenchymal consolidation. No pleural effusion. No pneumothorax. Cardiomediastinal silhouette and pulmonary vascularity are within normal limits. Aorta is atherosclerotic. XR/XR clavicle RT IMPRESSION: * No acute fracture or dislocation. * Mild glenohumeral and acromioclavicular arthrosis. * No displaced rib fractures.
--- NOTE | ~2022-05-20 | XR_ITS ---
EXAMINATION: XR SHOULDER RT MIN 2V XR CLAVICLE RT XR RIBS RT MIN 3V W CXR1V, CLINICAL INFORMATION: Pain status post fall on right side COMPARISON: None. TECHNIQUE: 3 views of the right shoulder Single AP view of the right clavicle PA view of the chest at 3 dedicated views of the right hemithorax FINDINGS: RIGHT SHOULDER/CLAVICLE: No acute fracture or dislocation. Small marginal osteophytes of the acromioclavicular and glenohumeral joints. No suspicious osseous lesions. Soft tissues unremarkable. RIGHT RIBS: A BB marker is present along the right posterolateral chest wall between the 10th and 11th ribs. No displaced rib fractures. Normal symmetric lung volumes. No parenchymal consolidation. No pleural effusion. No pneumothorax. Cardiomediastinal silhouette and pulmonary vascularity are within normal limits. Aorta is atherosclerotic. XR/XR ribs RT min 3V w CXR1V IMPRESSION: * No acute fracture or dislocation. * Mild glenohumeral and acromioclavicular arthrosis. * No displaced rib fractures.
[2022-05-20 10:48] VITALS: BP 132/82; PULSE 75; RESP 18; TEMP 36.6; O2SAT 98; BMI 32.2
--- NOTE | 2022-05-20 12:33 | ED_ITS ---
HPI - Fall General Chief Complaint: Fall Stated Complaint: R side and shoulder pain due to fall Time Seen by Provider: 05/20/22 12:19 Source: patient Mode of arrival: ambulatory History of Present Illness HPI Narrative: 56-year-old female with a past medical history of arthritis, fibromyalgia, pancreatic insufficiency, tubular adenoma, presenting to the ED complaining of right shoulder/clavicular, and right-sided rib pain s/p mechanical trip and fall in house last night landing on right side. Denies head trauma or LOC. Denies taking anticoagulation. Denies symptoms prior to fall. Also reports right- sided low back pain radiating down lower extremities with associated tingling. Denies numbness, weakness, urinary incontinence/retention, fever, hematuria, SOB MD complaint: fall Onset (ago): day(s) Related Data Home Medications Medication Instructions Recorded Confirmed ketotifen fumarate 0.025 % (0.035 1 drp ophthalmic (eye) BID 03/18/20 04/13/22 %) eye drops loratadine 10 mg tablet 10 mg PO DAILY 03/18/20 04/13/22 buspirone 5 mg tablet 5 mg PO BID anxiety 04/13/22 04/13/22 fluoxetine 10 mg capsule 10 mg PO DAILY depressive disorder 04/13/22 04/13/22 Previous Rx's Medication Instructions Recorded docusate sodium 100 mg capsule 100 mg PO BEDTIME #30 caps 03/29/21 linaclotide 145 mcg capsule 145 mcg PO DAILY #30 caps 06/23/21 (Linzess) acetaminophen 650 mg 650 mg PO Q12H #60 tabs 10/26/21 tablet,extended release (Arthritis Pain Relief (acetaminophen) ER) cyclobenzaprine 5 mg tablet 5 mg PO BEDTIME #30 tabs 10/26/21 bisacodyl 5 mg tablet,delayed 10 mg PO BEDTIME #180 tabs 03/09/22 release (Dulcolax (bisacodyl)) celecoxib 100 mg capsule (Celebrex) 100 mg PO BID 30 days #60 caps 03/09/22 esomeprazole magnesium 40 mg 40 mg PO DAILY #90 caps 03/09/22 capsule,delayed release (Nexium) [id number] 2 cap PO QID #240 caps 03/09/22 12,000-38,000-60,000 unit capsule,delayed rel (Creon) sucralfate 1 gram tablet 1 g PO BEDTIME #90 tabs 03/09/22 gabapentin 300 mg capsule 300 mg PO BEDTIME 90 days #90 caps 04/13/22 acetaminophen 500 mg tablet 500 mg PO Q6H PRN fever or pain 05/20/22 (Tylenol Extra Strength) #14 tabs cyclobenzaprine 5 mg tablet 5 mg PO Q8H PRN pain (scale score 05/20/22 7-10) 5 days #14 tabs lidocaine 5 % topical patch 1 patch topical DAILY PRN pain #30 05/20/22 (Lidoderm) ea naproxen 500 mg tablet 500 mg PO BID PRN pain 10 days #20 05/20/22 tabs Allergies Allergy/AdvReac Type Severity Reaction Status Date / Time SEAFOOD AdvReac Unknown UNKNOWN Uncoded 05/20/22 10:48 Review of Systems 2 Review of Systems: Constitutional: No Fever, No Chills ENT/Mouth: No Ear Pain, No Nasal Congestion, No sore throat, No Rhinorrhea, No Swallowing Difficulty Cardiovascular: No Chest Pain, No SOB Respiratory: No Cough, No Sputum Gastrointestinal: No Nausea, No Vomiting, No Diarrhea, No Constipation, No Abdominal pain Genitourinary: No Dysuria, No Hematuria, No Urinary Incontinence/retention, No Flank Pain Musculoskeletal: + joint pain, No Myalgias, No Joint Swelling Skin: No Skin Lesions, No rash Neuro: No Weakness, No Numbness, + Paresthesias Yes all other systems are reviewed and are negative Constitutional: Constitutional: Reports as per [facility] Past Medical History Attestation statement: The following information was validated with the patient. Medical History Arthritis Environmental allergies Fibromyalgia Pancreatic insufficiency Reversal of sterilization Tubular adenoma Surgical History H/O cosmetic surgery H/O tubal ligation Hx of colonoscopy Family History Family History Father HTN (hypertension) Blood infection Heart disease Social History Social History Household Members Other:: daughter Housing: House Alcohol intake: never Patient Tobacco Use Status: Former Tobacco user e-Cigarette/Vaping Use: Never Used Advance Directives: No Advance Directives Information Provided: No Current occupational status: disabled Cognitive needs: No Hearing needs: No Vision needs: No Physical Exam Vital Signs: Vital Signs: Last Vital Signs Temp 98 F 05/20/22 10:48 Pulse 75 05/20/22 10:48 Resp 18 05/20/22 10:48 BP 132/82 05/20/22 10:48 Pulse Ox 98 05/20/22 10:48 O2 Del Method 05/20/22 10:48 BMI result Body Mass Index 32.2 Const: General: cooperative, healthy appearing and no acute distress Orientation/consciousness: patient oriented x3 Limitations: no limitations HEENT: Head: Yes normal to inspection and Yes atraumatic Ears: hearing grossly normal bilaterally General nose exam: Normal external nose present Face and sinus: Yes normal facial exam Eyes: General: appearance normal, both eyes and all related structures EOM: EOMs intact bilaterally Neck: Neck: Yes normal visual inspection and Yes no meningeal signs Chest: Other: + tenderness to posterior lateral right-sided lower ribs reproducing subjective complaint. No flail chest. No erythema Chest palpation & inspection: normal inspection of the chest, no crepitus and tenderness Resp: Effort & Inspection: normal respiratory effort and no respiratory distress Auscultation: clear to auscultation bilaterally Cardio: Rate: regular rate Heart sounds: S1 normal heart sound present and S2 normal heart sound present GI: Inspection: Yes normal to inspection Palpation (GI): Soft to palpation, nontender, no guarding and not rigid : General: Yes no CVA tenderness Back/Spine/Pelvis: Other: No midline thoracic/lumbar spinous tenderness/step-off or deformity. + bilateral MSK tenderness to palpation Back: no CVA tenderness Skin: Rashes: no rashes Wounds: no wounds Neuro: Other: Strength intact throughout. No saddle anesthesia. Sensation intact to light touch. Neurovascular intact distally General: patient oriented x3, gait normal, tone normal, moves all extremities, no meningeal signs and no focal motor deficits Gait exam (Neuro): Normal gait present Extrem: Other: Right clavicle with proximal swelling and. Right shoulder diffusely tender with limited ROM secondary to pain. NV intact distally. Humerus/elbow/forearm and hand/wrist nontender Course Course Course Narrative: XR shoulder RT min 2V/XR ribs RT min 3V w CXR1V/XR clavicle RT IMPRESSION: *? No acute fracture or dislocation. *? Mild glenohumeral and acromioclavicular arthrosis. *? No displaced rib fractures. Results discussed with patient including worrisome signs and symptoms and strict return precautions, and when to return to the emergency department. They verbalized understanding and feel safe for discharge at this time. Medications Administered Discontinued Medications Generic Name Dose Route Start Last Admin Trade Name Lambertq PRN Reason Stop Dose Admin Cyclobenzaprine HCl 10 mg 05/20/22 12:39 05/20/22 13:15 Cyclobenzaprine Hcl 10 Mg Tablet PO 05/20/22 12:40 10 mg ONCE ONE Administration Ketorolac Tromethamine 30 mg 05/20/22 12:39 05/20/22 13:15 Ketorolac Tromethamine 30 Mg/Ml Vial IM 05/20/22 12:40 30 mg ONCE ONE Administration Medical Decision Making Medical Decision Making MDM Narrative: 56-year-old female with a past medical history of arthritis, fibromyalgia, pancreatic insufficiency, tubular adenoma, presenting to the ED complaining of right shoulder/clavicular, and right-sided rib pain s/p mechanical trip and fall in house last night landing on right side. On exam vital signs stable, NAD, nontoxic appearing, physical exam as above with noted right clavicular/shoulder tenderness and right-sided posterior lateral rib tenderness. No crepitus, no flail chest. Abdomen soft nontender. No midline spinous tenderness or red flag symptoms. Concern for fractures versus contusions. Low suspicion for intra-abdominal bleeding/hemorrhage or intrathoracic bleeding. Low suspicion for cauda equina/cord compression or epidural abscess. Plan: X-rays, pain control Please refer to course for remaining clinical decision making, interpretation of labs/imaging results, and discussions with consultants and/or family members. Differential Diagnosis Differential Diagnoses: The differential diagnosis associated with the presentation includes As above Radiology Impression Discussion of test interpretation with radiology: I have reviewed the radiologist's reading. External Record Review External record reviewed: Office record, Outpatient record, Primary care record and Outside ED record Prescription Management I considered prescription management with: Pain Medication Discharge Plan Discharge Clinical Impression: Contusion of rib, AC (acromioclavicular) arthritis Patient Disposition: Home, Self-Care Instructions: Contusion in Adults (ED), Swollen Shoulder Joint (ED) Additional Instructions: Your pain is likely musculoskeletal, your x-rays do not show any fractures/broken bones Flexeril is a muscle relaxer, take at night as it makes you drowsy, do not drive, drink alcohol, or operate machinery while taking it Naproxen as an anti-inflammatory / pain medication, take with food Lidoderm patches are numbing patches, apply to painful area In addition take Tylenol at home If symptoms persist or worsen, pain becomes unbearable, you developed urinary retention or incontinence, or weakness return to the ED Prescriptions: New acetaminophen [Tylenol Extra Strength] 500 mg tablet 500 mg PO Q6H PRN (Reason: fever or pain) Qty: 14 0RF lidocaine [Lidoderm] 5 % adhesive patch,medicated 1 patch topical DAILY MDD remove after 12 hours PRN (Reason: pain) Qty: 30 0RF Rx Instructions: leave on most painful area for up to 12 hrs naproxen 500 mg tablet 500 mg PO BID PRN (Reason: pain) 10 Days Qty: 20 0RF cyclobenzaprine 5 mg tablet 5 mg PO Q8H PRN (Reason: pain (scale score 7-10)) 5 Days Qty: 14 0RF No Action ketotifen fumarate 0.025 % (0.035 %) drops 1 drp ophthalmic (eye) BID loratadine 10 mg tablet 10 mg PO DAILY buspirone 5 mg tablet 5 mg PO BID fluoxetine 10 mg capsule 10 mg PO DAILY gabapentin 300 mg capsule 300 mg PO BEDTIME 90 Days Qty: 90 0RF celecoxib [Celebrex] 100 mg capsule 100 mg PO BID 30 Days Qty: 60 4RF docusate sodium 100 mg capsule 100 mg PO BEDTIME Qty: 30 3RF Linzess 145 mcg capsule 145 mcg PO DAILY Qty: 30 2RF esomeprazole magnesium [Nexium] 40 mg capsule,delayed release(DR/EC) 40 mg PO DAILY Qty: 90 5RF sucralfate 1 gram tablet 1 g PO BEDTIME Qty: 90 2RF bisacodyl [Dulcolax (bisacodyl)] 5 mg tablet,delayed release (DR/EC) 10 mg PO BEDTIME Qty: 180 4RF Creon 12,000-38,000 -60,000 unit capsule,delayed release(DR/EC) 2 cap PO QID Qty: 240 3RF Rx Instructions: administer with meals and/or snacks cyclobenzaprine 5 mg tablet 5 mg PO BEDTIME Qty: 30 2RF acetaminophen [Arthritis Pain Relief (acetam)] 650 mg tablet extended release 650 mg PO Q12H Qty: 60 1RF Referrals: Cole Austin MD [Primary Care Provider] - 1 week Interventions: ED Discharge Assessment Last Done: 05/20/22 14:27 Discharge Date/Time: 05/20/22 14:29
[2022-05-20] MEDS: Ketorolac Tromethamine 30 MG/ML VIAL IM (13:15)
[2022-05-20] MEDS: Cyclobenzaprine HCl 10 MG TABLET PO (13:15)
== END 2022-05-20 14:29 | disposition home or self-care (01) ==
PROVIDERS: Emergency Provider Student in an Organized Health Care Education/Training Program; PCP Internal Medicine
DX: S20.213A Contusion of bilateral front wall of thorax, initial encounter (principal); M19.012 Primary osteoarthritis, left shoulder; M19.011 Primary osteoarthritis, right shoulder; M25.511 Pain in right shoulder; R07.81 Pleurodynia; W01.0XXA Fall on same level from slipping, tripping and stumbling without subsequent striking against object, initial encounter; Y93.9 Activity, unspecified; Y92.9 Unspecified place or not applicable; Y99.9 Unspecified external cause status; Z79.899 Other long term (current) drug therapy; Z87.891 Personal history of nicotine dependence
CPT/HCPCS: 71101; 73000; 73030; 96372; 99283; 99284; J1885

== ENCOUNTER → 2022-05-31 11:04 | Outpatient (BNVA) | payer OTHER, SELFPAY | PROVIDERS: PCP Internal Medicine; Visit Provider Physician Assistant | DX: M54.16 Radiculopathy, lumbar region (principal) | CPT/HCPCS: 99202 ==

== ENCOUNTER → 2022-06-14 08:40 | Outpatient (BNVA) | payer OTHER, SELFPAY | PROVIDERS: PCP Internal Medicine; Visit Provider Nurse Practitioner Family | DX: K44.9 Diaphragmatic hernia without obstruction or gangrene (principal); K86.89 Other specified diseases of pancreas; K59.01 Slow transit constipation; K31.84 Gastroparesis | CPT/HCPCS: 99212 ==

== ENCOUNTER → 2022-06-21 11:03 | Outpatient (BNVA) | payer OTHER, SELFPAY | PROVIDERS: PCP Internal Medicine; Visit Provider Surgery | DX: K86.89 Other specified diseases of pancreas (principal); K22.70 Barrett's esophagus without dysplasia; K31.84 Gastroparesis; K44.9 Diaphragmatic hernia without obstruction or gangrene; K59.01 Slow transit constipation; G89.29 Other chronic pain; M79.7 Fibromyalgia | CPT/HCPCS: 99202 ==

== ENCOUNTER → 2022-06-30 11:06 | Outpatient (BNVA) | payer OTHER, SELFPAY | PROVIDERS: PCP Internal Medicine; Visit Provider Nurse Practitioner Family | DX: M79.7 Fibromyalgia (principal); M47.816 Spondylosis without myelopathy or radiculopathy, lumbar region | CPT/HCPCS: 99212 ==

== ENCOUNTER → 2022-07-05 08:02 | Outpatient (REF) | payer OTHER, SELFPAY ==
--- NOTE | ~2022-07-05 | NM_ITS ---
EXAMINATION: RADIONUCLIDE SOLID FOOD GASTRIC EMPTYING 4-HOUR STUDY CLINICAL INFORMATION: Gastroesophageal reflux disease without esophagitis. COMPARISON: The previous solid food gastric emptying study dated 05/09/2013 is available for comparison. TECHNIQUE: A standard meal consisting of 4 oz of Egg Beaters brand equivalent tagged with 1 mCi Tc-99m Sulfur Colloid, 8 oz water and 2 slices of toast with jelly was administered orally to the patient. Images were obtained using a dual head gamma camera in the anterior and posterior projections over of the stomach immediately post ingestion and at hourly intervals up to 4 hours post ingestion. The anterior and posterior counts at each time interval were averaged using the geometric mean and expressed as percentage of the immediate post ingestion counts. FINDINGS: There is good visualization of activity in the stomach immediately post ingestion. As the study progresses, there is good clearance of activity from the stomach and visualization of progressively increasing small bowel activity. By the end of the study, there is almost no retention noted in the stomach. Retention in the stomach at each time interval was: 1 hour 78% (normal 37%-90%) 2 hours 40% (normal 30%-60%) 3 hours 14% 4 hours 1% (normal 0%-10%) Compared to the previous study dated 05/09/2013, gastric emptying is now much more rapid. On the previous study is 42% retention at 4 hours. NM/NM gastric emptying study IMPRESSION: Normal 4-hour solid food gastric emptying study.
== END ==
LOC: HO.NUCMED 08:02
PROVIDERS: PCP Internal Medicine; Visit Provider Nurse Practitioner Family
DX: K21.9 Gastro-esophageal reflux disease without esophagitis (principal)
CPT/HCPCS: 78264; A9541

== ENCOUNTER → 2022-07-20 13:48 | Outpatient (REF) | payer OTHER, SELFPAY ==
--- NOTE | ~2022-07-20 | XR_ITS ---
EXAMINATION: XR KNEE, RIGHT CLINICAL INFORMATION: Right knee pain. COMPARISON: Right knee 12/12/2020. TECHNIQUE: Four views of the right knee. FINDINGS: There is mild reduction in the medial and patellofemoral compartment joint space without any loose bodies or bony erosive changes. There is mild superior patellar spurring. No joint effusion or bony erosive changes. No acute fracture or dislocation. XR/XR knee RT 4V IMPRESSION: Mild degenerative changes right knee unchanged to previous study 12/12/2020. No loose bodies or joint effusion seen.
== END ==
LOC: HO.SL 13:48
PROVIDERS: Absent Provider Physician Assistant; PCP Internal Medicine; Visit Provider Surgery
DX: M25.561 Pain in right knee (principal); G47.19 Other hypersomnia; R06.83 Snoring; G47.8 Other sleep disorders
CPT/HCPCS: 73564; 95806

== ENCOUNTER 2022-07-26 13:47 | Emergency (ER) | payer OTHER, SELFPAY ==
--- NOTE | ~2022-07-26 | US_ITS ---
EXAMINATION: US PELVIS CLINICAL INFORMATION: Low pelvic pain COMPARISON: Ultrasound pelvis 08/10/2016 TECHNIQUE: Ultrasound of the pelvis is performed using both transabdominal and transvaginal transducers along with Doppler. Transvaginal imaging is performed due to inadequate visualization transabdominally. FINDINGS: LMP: Postmenopausal Uterus is anteverted , measuring 6.3 x 2.3 x 3.5 cm. No focal uterine lesion. Endometrial thickness 0.2 cm. Right ovary measures 1.3 x 1.3 x 1 cm. Volume 0.9 mL. Arterial and venous doppler flow demonstrated. Left ovary measures 1.7 x 1.2 x 0.9 cm. Volume 0.6 mL. Bilateral ovaries appear unremarkable. There is vascular flow seen. No significant free fluid in the cul-de-sac. US/US pelvic and transvaginal IMPRESSION: Unremarkable pelvic ultrasound.
--- NOTE | ~2022-07-26 | XR_ITS ---
EXAMINATION: XR PELVIS CLINICAL INFORMATION: Pelvic pain COMPARISON: CT scan abdomen pelvis 04/01/2015 TECHNIQUE: AP view of the pelvis. FINDINGS: Mild degenerative spurring of the superior lateral acetabular rim of both hips. Small corticated osseous density adjacent to the greater tuberosity of both right and left femur are chronic unchanged since 2016. Mild joint space narrowing of the hip joints. Mild subchondral sclerosis and spurring of the inferior sacroiliac joints without bony ankylosis. No acute osseous abnormality. No fracture. No focal bone lesion. No dilated bowel loop. Small calcified phleboliths right side of pelvis. XR/XR pelvis 1-2V IMPRESSION: 1. No acute abnormality. 2. Mild degenerative changes of the hips and sacroiliac joints.
[2022-07-26 13:59] VITALS: BP 133/69; PULSE 72; RESP 18; TEMP 36; O2SAT 98; BMI 32.2
--- NOTE | 2022-07-26 14:00 | ED.GENADULT ---
HPI - General Adult General Chief complaint: Extremity Injury, Lower <FREDRICK Engel - Last Filed: 07/26/22 14:02> Stated complaint: Fall/Pelvic pain <FREDRICK Engel - Last Filed: 07/26/22 14:02> Time Seen by Provider: 07/26/22 16:37 <FREDRICK Engel - Last Filed: 07/26/22 14:02> Source: patient, RN notes reviewed and old records reviewed <FREDRICK Billingsley - Last Filed: 07/26/22 18:40> Mode of arrival: ambulatory <FREDRICK Billingsley - Last Filed: 07/26/22 18:40> History of Present Illness HPI narrative: 57-year-old female with a past medical history of arthritis, fibromyalgia, gastroparesis, pancreatic insufficiency, tubular adenoma, osteoarthritis, presenting to the ED complaining of bilateral groin/pelvic pain s/p catching herself after mechanical slip yesterday. Denies falling all the way to ground, head trauma, or LOC. Reports pain worse with sitting, described as constant pressure. Admits to chronic back pain, unchanged, denies incontinence/retention. Denies nausea, vomiting, dysuria/hematuria, flank pain, vaginal bleeding, vaginal discharge, concern for STI <FREDRICK Billingsley - Last Filed: 07/26/22 18:40> Onset (ago): hour(s) <FREDRICK Billingsley - Last Filed: 07/26/22 18:40> Related Data Home medications: Home Medications Medication Instructions Recorded Confirmed ketotifen fumarate 0.025 % (0.035 1 drp ophthalmic (eye) BID 03/18/20 07/01/22 %) eye drops buspirone 5 mg tablet 5 mg PO BID anxiety 04/13/22 07/01/22 fluoxetine 10 mg capsule 10 mg PO DAILY depressive disorder 04/13/22 07/01/22 Previous Rx's Medication Instructions Recorded docusate sodium 100 mg capsule 100 mg PO BEDTIME #30 caps 03/29/21 linaclotide 145 mcg capsule 145 mcg PO DAILY #30 caps 06/23/21 (Linzess) bisacodyl 5 mg tablet,delayed 10 mg PO BEDTIME #180 tabs 03/09/22 release (Dulcolax (bisacodyl)) esomeprazole magnesium 40 mg 40 mg PO DAILY #90 caps 03/09/22 capsule,delayed release (Nexium) [id number] 2 cap PO QID #240 caps 03/09/22 12,000-38,000-60,000 unit capsule,delayed rel (Creon) sucralfate 1 gram tablet 1 g PO BEDTIME #90 tabs 03/09/22 acetaminophen 500 mg tablet 500 mg PO Q6H PRN fever or pain 05/20/22 (Tylenol Extra Strength) #14 tabs cyclobenzaprine 5 mg tablet 5 mg PO Q8H PRN pain (scale score 05/20/22 7-10) 5 days #14 tabs gabapentin 300 mg capsule 600 mg PO BEDTIME 90 days #180 caps 07/01/22 loratadine 10 mg tablet 10 mg PO DAILY #90 tabs 07/01/22 acetaminophen 500 mg tablet 500 mg PO Q6H PRN fever or pain 07/26/22 (Tylenol Extra Strength) #14 tabs cyclobenzaprine 5 mg tablet 5 mg PO Q8H PRN pain (scale score 07/26/22 7-10) 5 days #14 tabs lidocaine 5 % topical patch 1 patch topical DAILY PRN pain #30 07/26/22 (Lidoderm) ea naproxen 500 mg tablet 500 mg PO BID PRN pain 10 days #20 07/26/22 tabs <FREDRICK Engel - Last Filed: 07/26/22 14:02> Allergies/adverse reactions: Allergies Allergy/AdvReac Type Severity Reaction Status Date / Time SEAFOOD AdvReac Severe UNKNOWN Uncoded 07/26/22 13:59 <FREDRICK Engel - Last Filed: 07/26/22 14:02> Review of Systems Review of Systems: Constitutional: No Fever, No Chills, No Fatigue, No Malaise ENT/Mouth: No Ear Pain, No Swallowing Difficulty Cardiovascular: No Chest Pain, No SOB Respiratory: No Cough, No Sputum, No Dyspnea Gastrointestinal: No Nausea, No Vomiting, No Diarrhea, No Constipation, + suprapubic pain Genitourinary: No irregular bleeding, No Dysuria, No Urinary Frequency, No Hematuria, No Urinary Incontinence/retention, No Urgency, No Flank Pain, No Urinary Flow Changes Musculoskeletal: + joint pain, No Myalgias, No Joint Swelling Skin: No Skin Lesions, No rash Neuro: No Weakness, No Numbness, No Paresthesias, No Loss of Consciousness, No Dizziness, No Headache <FREDRICK Billingsley - Last Filed: 07/26/22 18:40> Yes all other systems are reviewed and are negative <FREDRICK Billingsley - Last Filed: 07/26/22 18:40> Constitutional: Constitutional: Reports as per HPI <FREDRIKC Billingsley - Last Filed: 07/26/22 18:40> Neurologic: Denies Sensory deficit (Neuro) <FREDRICK Billingsley Last Filed: 07/26/22 18:40> [facility] Past Medical History Attestation statement: The following information was validated with the patient. <FREDRICK Billingsley - Last Filed: 07/26/22 18:40> Medical History: Medical History Arthritis Environmental allergies Fibromyalgia Gastroparesis Pancreatic insufficiency Reversal of sterilization Tubular adenoma <FREDRICK Engel - Last Filed: 07/26/22 14:02> Surgical History: Surgical History H/O cosmetic surgery H/O tubal ligation Hx of colonoscopy <FREDRICK Engel - Last Filed: 07/26/22 14:02> Family History Family History: Family History Father HTN (hypertension) Blood infection Heart disease <FREDRICK Engel - Last Filed: 07/26/22 14:02> Social History Social History: Social History Household Members Other:: daughter Housing: House Alcohol intake: never Patient Tobacco Use Status: Former Tobacco user e-Cigarette/Vaping Use: Never Used Advance Directives: No Advance Directives Information Provided: No service: No Current occupational status: disabled Cognitive needs: No Hearing needs: No Vision needs: No <FREDRICK Engel Last Filed: 07/26/22 14:02> Physical Exam ED Vital Signs: Vital Signs - 24 hr 07/26/22 13:59 Temperature 96.8 F Pulse Rate 72 Respiratory Rate 18 Blood Pressure 133/69 Pulse Oximetry 98 Oxygen Delivery Method Room Air BMI result Body Mass Index 32.2 <FREDRICK Engel - Last Filed: 07/26/22 14:02> Vital Signs - 24 hr 07/26/22 13:59 Temperature 96.8 F Pulse Rate 72 Respiratory Rate 18 Blood Pressure 133/69 Pulse Oximetry 98 Oxygen Delivery Method Room Air BMI result Body Mass Index 32.2 <FREDRICK Billingsley Last Filed: 07/26/22 18:40> Const General: cooperative, healthy appearing, comfortable, no acute distress, alert and awake <FREDRICK Billingsley Last Filed: 07/26/22 18:40> Orientation/consciousness: patient oriented x3 <FREDRICK Billingsley - Last Filed: 07/26/22 18:40> Limitations: no limitations <FREDRICK Billingsley - Last Filed: 07/26/22 18:40> HENMT Head: Yes normal to inspection and Yes atraumatic <FREDRICK Billingsley - Last Filed: 07/26/22 18:40> Ears: hearing grossly normal bilaterally <FREDRICK Billingsley - Last Filed: 07/26/22 18:40> General nose exam: Normal external nose present <FREDRICK Billingsley Last Filed: 07/26/22 18:40> Face and sinus: Yes normal facial exam <FREDRICK Billingsley Last Filed: 07/26/22 18:40> Eyes General: appearance normal, both eyes and all related structures <FREDRICK Billingsley Last Filed: 07/26/22 18:40> EOM: EOMs intact bilaterally <FREDRICK Billingsley Last Filed: 07/26/22 18:40> Neck Neck: Yes normal visual inspection and Yes no meningeal signs <FREDRICK Billingsley Last Filed: 07/26/22 18:40> Resp Effort & Inspection: normal respiratory effort and no respiratory distress <FREDRICK Billingsley Last Filed: 07/26/22 18:40> Cardio Rate: regular rate <FREDRICK Billingsley - Last Filed: 07/26/22 18:40> Heart sounds: S1 normal heart sound present and S2 normal heart sound present <Khalida Pouljensent, PA - Last Filed: 07/26/22 18:40> GI Inspection: Yes normal to inspection <Khalida Pouljensent, PA - Last Filed: 07/26/22 18:40> Palpation (GI): Soft to palpation, Tenderness to palpation present (GI) suprapubicly; with no rebound tenderness, no guarding and not rigid <Khalida Pouljensent, PA - Last Filed: 07/26/22 18:40> General: Yes no CVA tenderness <Khalida Pouljensent, PA - Last Filed: 07/26/22 18:40> Back/Spine/Pelvis Other: No midline cervical/thoracic/lumbar spinous tenderness/step-off or deformity. + bilateral lower lumbar MSK and buttock tenderness to palpation <Khalida Haimt, PA - Last Filed: 07/26/22 18:40> Back: no CVA tenderness <Khalida Pouljensent, PA - Last Filed: 07/26/22 18:40> Pelvis: no pain with anterior-posterior compression <Khalida Pouljensent, PA - Last Filed: 07/26/22 18:40> Skin Rashes: no rashes <Khalida Haimt PA - Last Filed: 07/26/22 18:40> Wounds: no wounds <Khalida Pouljensent, PA - Last Filed: 07/26/22 18:40> Neuro Other: Strength intact throughout. No saddle anesthesia. Sensation intact to light touch. Neurovascular intact distally <Khalida Maryuri, PA - Last Filed: 07/26/22 18:40> General: patient oriented x3, gait normal, tone normal, moves all extremities, no meningeal signs and no focal motor deficits <Khalida Pouljensent PA - Last Filed: 07/26/22 18:40> Gait exam (Neuro): Normal gait present <Khalida Pouljensent, PA - Last Filed: 07/26/22 18:40> Motor exam (neuro): 5/5 motor strength present throughout <Khalida Pouljensent PA - Last Filed: 07/26/22 18:40> Sensory Exam: No Sensory deficit (Neuro) <Khailda Pouliot, PA - Last Filed: 07/26/22 18:40> Extrem General: Yes normal to inspection <FREDRICK Billingsley - Last Filed: 07/26/22 18:40> Left lower extremity: hip/thigh Details: normal to inspection and normal ROM; no tenderness and no crepitus <FREDRICK Billingsley - Last Filed: 07/26/22 18:40> Course Course Course Narrative: RME - 57 yo with history of fibromyalgia, chronic pain syndrome presents to the ER for evaluation of bilateral groin and pelvic pain after she slipped yesterday and almost fell. Pain kept her up all night and she states is 10/10, worse with sitting. She did not actually fall. No urinary symptoms. Plan: check pelvic XR and UA <FREDRICK Engel - Last Filed: 07/26/22 14:02> RME - 57 yo with history of fibromyalgia, chronic pain syndrome presents to the ER for evaluation of bilateral groin and pelvic pain after she slipped yesterday and almost fell. Pain kept her up all night and she states is 10/10, worse with sitting. She did not actually fall. No urinary symptoms. Plan: check pelvic XR and UA -1755--no leukocytosis. Labs otherwise unremarkable. UA not infected XR pelvis 1-2V IMPRESSION: 1.? No acute abnormality. 2.? Mild degenerative changes of the hips and sacroiliac joints. US pelvic and transvaginal IMPRESSION: Unremarkable pelvic ultrasound. ? Results discussed with patient including worrisome signs and symptoms and strict return precautions, and when to return to the emergency department. They verbalized understanding and feel safe for discharge at this time. <FREDRICK Billingsley - Last Filed: 07/26/22 18:40> Medications Administered Discontinued Medications Generic Name Dose Route Start Last Admin Trade Name Freq PRN Reason Stop Dose Admin Cyclobenzaprine HCl 10 mg 07/26/22 16:54 07/26/22 16:59 Cyclobenzaprine Hcl 10 Mg Tablet PO 07/26/22 16:55 10 mg ONCE ONE Administration <FREDRICK Engel - Last Filed: 07/26/22 14:02> Medications Administered Discontinued Medications Generic Name Dose Route Start Last Admin Trade Name Freq PRN Reason Stop Dose Admin Cyclobenzaprine HCl 10 mg 07/26/22 16:54 07/26/22 16:59 Cyclobenzaprine Hcl 10 Mg Tablet PO 07/26/22 16:55 10 mg ONCE ONE Administration <FREDRICK Billingsley - Last Filed: 07/26/22 18:40> Medical Decision Making Medical Decision Making [facility] Narrative: 57-year-old female with a past medical history of arthritis, fibromyalgia, gastroparesis, pancreatic insufficiency, tubular adenoma, osteoarthritis, presenting to the ED complaining of bilateral groin/pelvic pain s/p catching herself after mechanical slip yesterday. On exam vital signs stable, NAD, nontoxic appearing, no midline spinous tenderness throughout. Bilateral lower lumbar MSK and body tenderness to palpation. Abdomen soft with suprapubic tenderness, no rebound or guarding. Hips without noted deformity. Full range of motion intact. Pain elicited on movement and position change with patient. No red flag symptoms or saddle anesthesia. Concern for groin/hip strain vs osteoarthritis vs sciatica/MSK pain vs UTI vs ?Ovarian pathology/cyst. Lower suspicion for ovarian torsion/TOA or STI. Unlikely appendicitis/diverticulitis or renal stone Plan: Labs, UA, pelvic ultrasound, x-rays, CT/NG Please refer to course for remaining clinical decision making, interpretation of labs/imaging results, and discussions with consultants and/or family members. <FREDRICK Billingsley - Last Filed: 07/26/22 18:40> Differential Diagnosis Differential Diagnoses: The differential diagnosis associated with the presentation includes <FREDRICK Billingsley - Last Filed: 07/26/22 18:40> As above <FREDRICK Billingsley - Last Filed: 07/26/22 18:40> Admission/Observation Consideration of admission/observation: Escalation of care including admission/observation considered <FREDRICK Billingsley Last Filed: 07/26/22 18:40> Lab Data [facility] Lab Attestation statement: I reviewed the patient's lab results. <FREDRICK Billingsley - Last Filed: 07/26/22 18:40> Result Diagrams: 07/26/22 17:13 07/26/22 17:13 <FREDRICK Engel - Last Filed: 07/26/22 14:02> Labs: Lab Results 07/26/22 07/26/22 07/26/22 Range/Units 09:50 17:13 17:13 WBC 8.7 (4.8-10.8) X10*3/uL RBC 4.96 (4.20-5.50) X10*6/uL Hgb 13.9 (12.0-16.0) g/dl Hct 42.7 (37.0-47.0) % MCV 86.1 (80.0-98.0) fL MCH 28.0 (27.0-33.0) pg MCHC 32.6 (31.0-35.0) g/dl RDW 13.4 (11.0-16.0) % Plt Count 262 (160-400) X10*3/uL MPV 11.1 (9.4-12.3) fL Immature Gran % (Auto) 0.3 (0.0-0.4) % Neut % (Auto) 48.3 (45-73) % Lymph % (Auto) 39.6 (20-40) % [place] % (Auto) 9.9 (2-11) % Eos % (Auto) 1.3 (0-4) % Baso % (Auto) 0.6 (0-2) % Lymph # (Auto) 3.5 (1.2-4.9) X10*3/uL [place] # (Auto) 0.9 (0.1-1.2) X10*3/uL Eos # (Auto) 0.1 (0.0-0.4) X10*3/uL Baso # (Auto) 0.1 (0.0-0.2) X10*3/uL Abs Immat Gran (auto) 0.03 (0.00-0.03) X10*3/uL Absolute Neuts (auto) 4.2 (2.0-8.3) x10*3/uL Absolute Nucleated RBC 0.000 (0.0-0.012) X10*3/uL Nucleated RBC % (auto) 0.0 (0.0-0.2) /100WBC Sodium 140 (135-145) mmol/L Potassium 4.0 (3.3-5.1) mmol/L Chloride 107 (96-108) mmol/L Carbon Dioxide 28 (22-29) mmol/L Anion Gap 9 L (12-20) BUN 14 (9-16) mg/dL Creatinine 0.69 (0.5-1.4) mg/dL Estim Creat Clear Calc 89.3 Estimated GFR > 60 Random Glucose 99 (60-115) mg/dL Calcium 9.6 (8.4-10.2) mg/dL Magnesium 2.2 (1.6-2.6) mg/dL Total Bilirubin 0.3 (0.0-1.0) mg/dL Direct Bilirubin 0.1 (0.0-0.5) mg/dL AST 29 (5-31) U/L ALT 28 (0-31) U/L Alkaline Phosphatase 122 H (39-117) U/L Total Protein 7.6 (6.5-8.0) g/dL Albumin 4.6 (3.5-5.0) g/dL Lipase 29 (8-78) U/L Urine Color Yellow Urine Appearance Clear Urine pH 6.5 (5.0-9.0) Ur Specific [place] 1.020 (1.005-1.025) Urine Protein Negative (Neg-Trace) mg/dL Urine Glucose (UA) Negative (Negative) mg/dL Urine Ketones Negative (Negative) mg/dL Urine Blood Negative (Negative) Urine Nitrite Negative (Negative) Ur Leukocyte Esterase Negative (Negative) <FREDRICK Engel - Last Filed: 07/26/22 14:02> Lab Results 07/26/22 07/26/22 07/26/22 Range/Units 09:50 17:13 17:13 WBC 8.7 (4.8-10.8) X10*3/uL RBC 4.96 (4.20-5.50) X10*6/uL Hgb 13.9 (12.0-16.0) g/dl Hct 42.7 (37.0-47.0) % MCV 86.1 (80.0-98.0) fL MCH 28.0 (27.0-33.0) pg MCHC 32.6 (31.0-35.0) g/dl RDW 13.4 (11.0-16.0) % Plt Count 262 (160-400) X10*3/uL MPV 11.1 (9.4-12.3) fL Immature Gran % (Auto) 0.3 (0.0-0.4) % Neut % (Auto) 48.3 (45-73) % Lymph % (Auto) 39.6 (20-40) % [place] % (Auto) 9.9 (2-11) % Eos % (Auto) 1.3 (0-4) % Baso % (Auto) 0.6 (0-2) % Lymph # (Auto) 3.5 (1.2-4.9) X10*3/uL [place] # (Auto) 0.9 (0.1-1.2) X10*3/uL Eos # (Auto) 0.1 (0.0-0.4) X10*3/uL Baso # (Auto) 0.1 (0.0-0.2) X10*3/uL Abs Immat Gran (auto) 0.03 (0.00-0.03) X10*3/uL Absolute Neuts (auto) 4.2 (2.0-8.3) x10*3/uL Absolute Nucleated RBC 0.000 (0.0-0.012) X10*3/uL Nucleated RBC % (auto) 0.0 (0.0-0.2) /100WBC Sodium 140 (135-145) mmol/L Potassium 4.0 (3.3-5.1) mmol/L Chloride 107 (96-108) mmol/L Carbon Dioxide 28 (22-29) mmol/L Anion Gap 9 L (12-20) BUN 14 (9-16) mg/dL Creatinine 0.69 (0.5-1.4) mg/dL Estim Creat Clear Calc 89.3 Estimated GFR > 60 Random Glucose 99 (60-115) mg/dL Calcium 9.6 (8.4-10.2) mg/dL Magnesium 2.2 (1.6-2.6) mg/dL Total Bilirubin 0.3 (0.0-1.0) mg/dL Direct Bilirubin 0.1 (0.0-0.5) mg/dL AST 29 (5-31) U/L ALT 28 (0-31) U/L Alkaline Phosphatase 122 H (39-117) U/L Total Protein 7.6 (6.5-8.0) g/dL Albumin 4.6 (3.5-5.0) g/dL Lipase 29 (8-78) U/L Urine Color Yellow Urine Appearance Clear Urine pH 6.5 (5.0-9.0) Ur Specific [place] 1.020 (1.005-1.025) Urine Protein Negative (Neg-Trace) mg/dL Urine Glucose (UA) Negative (Negative) mg/dL Urine Ketones Negative (Negative) mg/dL Urine Blood Negative (Negative) Urine Nitrite Negative (Negative) Ur Leukocyte Esterase Negative (Negative) <FREDRICK Billingsley - Last Filed: 07/26/22 18:40> Radiology Impression Discussion of test interpretation with radiology: I have reviewed the radiologist's reading. <FREDRICK Billingsley - Last Filed: 07/26/22 18:40> External Record Review External record reviewed: Inpatient record, Office record, Outpatient record, Prior outpatient labs, Prior outpatient radiology, Primary care record and Outside ED record <FREDRICK Billingsley - Last Filed: 07/26/22 18:40> Discharge Plan Discharge Clinical Impression: Groin strain, Chronic back pain <FREDRICK Engel - Last Filed: 07/26/22 14:02> Patient Disposition: Home, Self-Care <FREDRICK Engel - Last Filed: 07/26/22 14:02> Instructions: Groin Strain (ED), Chronic Back Pain (DC) <FREDRICK Engel - Last Filed: 07/26/22 14:02> Additional Instructions: Your blood work was reassuring. Your pelvic ultrasound was unremarkable Your pelvic x-ray showed some arthritic changes Flexeril is a muscle relaxer, take at night as it makes you drowsy, do not drive, drink alcohol, or operate machinery while taking it Naproxen as an anti-inflammatory / pain medication, take with food Lidoderm patches are numbing patches, apply to painful area In addition take Tylenol at home If symptoms persist or worsen, pain becomes unbearable, you developed urinary retention or incontinence, or weakness return to the ED <FREDRICK Engel - Last Filed: 07/26/22 14:02> Prescriptions: New acetaminophen [Tylenol Extra Strength] 500 mg tablet 500 mg PO Q6H PRN (Reason: fever or pain) Qty: 14 0RF lidocaine [Lidoderm] 5 % adhesive patch,medicated 1 patch topical DAILY MDD remove after 12 hours PRN (Reason: pain) Qty: 30 0RF Rx Instructions: leave on most painful area for up to 12 hrs naproxen 500 mg tablet 500 mg PO BID PRN (Reason: pain) 10 Days Qty: 20 0RF cyclobenzaprine 5 mg tablet 5 mg PO Q8H PRN (Reason: pain (scale score 7-10)) 5 Days Qty: 14 0RF No Action acetaminophen [Tylenol Extra Strength] 500 mg tablet 500 mg PO Q6H PRN (Reason: fever or pain) Qty: 14 0RF cyclobenzaprine 5 mg tablet 5 mg PO Q8H PRN (Reason: pain (scale score 7-10)) 5 Days Qty: 14 0RF ketotifen fumarate 0.025 % (0.035 %) drops 1 drp ophthalmic (eye) BID buspirone 5 mg tablet 5 mg PO BID fluoxetine 10 mg capsule 10 mg PO DAILY gabapentin 300 mg capsule 600 mg PO BEDTIME 90 Days Qty: 180 0RF loratadine 10 mg tablet 10 mg PO DAILY Qty: 90 1RF docusate sodium 100 mg capsule 100 mg PO BEDTIME Qty: 30 3RF Linzess 145 mcg capsule 145 mcg PO DAILY Qty: 30 2RF esomeprazole magnesium [Nexium] 40 mg capsule,delayed release(DR/EC) 40 mg PO DAILY Qty: 90 5RF sucralfate 1 gram tablet 1 g PO BEDTIME Qty: 90 2RF bisacodyl [Dulcolax (bisacodyl)] 5 mg tablet,delayed release (DR/EC) 10 mg PO BEDTIME Qty: 180 4RF Creon 12,000-38,000 -60,000 unit capsule,delayed release(DR/EC) 2 cap PO QID Qty: 240 3RF Rx Instructions: administer with meals and/or snacks <FREDRICK Engel - Last Filed: 07/26/22 14:02> Referrals: Cole Austin MD [Primary Care Provider] - 3 days <FREDRICK Engel - Last Filed: 07/26/22 14:02>
[2022-07-26] MEDS: Cyclobenzaprine HCl 10 MG TABLET PO (16:59)
[2022-07-26 17:18] LABS: MANUAL DIFF FLAG NO
[2022-07-26 17:26] LABS: Basophils Absolute Auto 0.1 X10*3/uL (0.0-0.2); Basophils Percent Auto 0.6 % (0-2); Eosinophils Absolute Auto 0.1 X10*3/uL (0.0-0.4); Eosinophils Percent Auto 1.3 % (0-4); Hematocrit 42.7 % (37.0-47.0); Hemoglobin 13.9 g/dl (12.0-16.0); Imm Gran Abs Auto 0.03 X10*3/uL (0.00-0.03); Imm Gran Pct Auto 0.3 % (0.0-0.4); Lymphocytes Absolute Auto 3.5 X10*3/uL (1.2-4.9); Lymphocytes Percent Auto 39.6 % (20-40); Mean Corpuscular HGB Conc 32.6 g/dl (31.0-35.0); Mean Corpuscular Volume 86.1 fL (80.0-98.0); Mean Platelet Volume 11.1 fL (9.4-12.3); Monocytes Absolute Auto 0.9 X10*3/uL (0.1-1.2); Monocytes Percent Auto 9.9 % (2-11); Neutrophils Absolute Auto 4.2 x10*3/uL (2.0-8.3); Neutrophils Percent Auto 48.3 % (45-73); Platelet Count 262 X10*3/uL (160-400); Red Blood Count 4.96 X10*6/uL (4.20-5.50); Red Cell Distribution Width 13.4 % (11.0-16.0); White Blood Count 8.7 X10*3/uL (4.8-10.8)
[2022-07-26 17:33] LABS: Appearance Urine Clear; Color Urine Yellow; Glucose Urine UA Negative (Negative); Leukocyte Esterase Urine Negative (Negative); Nitrite Urine Negative (Negative); PH 6.5 (5.0-9.0); Urine Blood Negative (Negative); Urine Ketones Negative (Negative); Urine Protein Negative (Neg-Trace)
[2022-07-26 17:41] LABS: Alanine Aminotransferase 28 U/L (0-31); Albumin Level 4.6 g/dL (3.5-5.0); Alkaline Phosphatase 122 U/L (39-117); Anion Gap 9 (12-20); Aspartate Amino Transferase 29 U/L (5-31); Bilirubin Direct 0.1 mg/dL (0.0-0.5); Bilirubin Total 0.3 mg/dL (0.0-1.0); Blood Urea Nitrogen 14 mg/dL (9-16); Calcium 9.6 mg/dL (8.4-10.2); Carbon Dioxide 28 mmol/L (22-29); Chloride 107 mmol/L (96-108); Creatinine Clr Calc Pharmacy 89.3; Estimated Glomerular Filt Rate > 60; Glucose Random 99 mg/dL (60-115); Lipase 29 U/L (8-78); Magnesium 2.2 mg/dL (1.6-2.6); Sodium 140 mmol/L (135-145); Total Protein 7.6 g/dL (6.5-8.0)
[2022-07-27 08:38] LABS: CT PCR NOT DETECTED (Not Detect.); NG PCR NOT DETECTED (Not Detect.)
== END 2022-07-26 19:14 | disposition home or self-care (01) ==
PROVIDERS: Physician Assistant; Emergency Provider Emergency Medicine Emergency Medical Services; PCP Internal Medicine
DX: S39.011A Strain of muscle, fascia and tendon of abdomen, initial encounter (principal); M54.50 Low back pain, unspecified; R10.2 Pelvic and perineal pain; N89.8 Other specified noninflammatory disorders of vagina; X58.XXXA Exposure to other specified factors, initial encounter; Y93.9 Activity, unspecified; Y92.9 Unspecified place or not applicable; Y99.9 Unspecified external cause status; Z79.899 Other long term (current) drug therapy; Z87.891 Personal history of nicotine dependence
CPT/HCPCS: 0353U; 36415; 72170; 76830; 76856; 80048; 80076; 81003; 83690; 83735; 85025; 99284

== ENCOUNTER → 2022-08-09 08:50 | Outpatient (BNVA) | payer OTHER, SELFPAY | PROVIDERS: PCP Internal Medicine; Visit Provider Nurse Practitioner Family | DX: K86.89 Other specified diseases of pancreas (principal); K59.01 Slow transit constipation; K31.84 Gastroparesis; K44.9 Diaphragmatic hernia without obstruction or gangrene | CPT/HCPCS: 99212 ==

== ENCOUNTER 2022-08-10 08:32 | Outpatient (REF) | payer OTHER, SELFPAY ==
--- NOTE | ~2022-08-10 | FL_ITS ---
EXAMINATION: FL UPPER GI SERIES CLINICAL INFORMATION: Hiatal hernia noted on upper endoscopy. Difficulty swallowing. COMPARISON: None available. TECHNIQUE: Air-contrast upper GI examination with rapid sequence views of the pharynx and cervical esophagus. FINDINGS: There is normal apposition of the vocal cords while saying E . There is normal elevation of the soft palate while saying candy . The patient swallowed thin and thick barium and a 1/2 inch diameter barium tablet without difficulty. Rapid sequence views in AP and lateral views of the cervical esophagus were performed. No nasopharyngeal reflux or tracheal aspiration identified. No Zenker's diverticulum or significant cricopharyngeal hypertrophy is seen. There is some mild impression of the cervical esophagus from degenerative change in the cervical spine without significant narrowing. Esophageal motility appeared unremarkable. No persistent stricture identified. No mucosal abnormality is seen. There is a minimal sliding hiatal hernia present. No gastroesophageal reflux was seen including with the water siphon test. The stomach demonstrates normal distensibility without abnormal mass or ulceration. There was no delay in gastric emptying. The duodenal bulb and sweep appeared unremarkable. FLUOROSCOPY TIME: 2.1 minutes DOSE AREA PRODUCT: 19.046 Gy-cm2 (griffith-centimeter squared) FL/FL upper GI series IMPRESSION: Very small sliding hiatal hernia. Otherwise unremarkable air-contrast upper GI examination.
== END 2022-08-10 08:33 | disposition home or self-care (01) ==
LOC: HO.XRAY 08:32
PROVIDERS: PCP Internal Medicine; Visit Provider Surgery
DX: K31.84 Gastroparesis (principal); K44.9 Diaphragmatic hernia without obstruction or gangrene; K59.01 Slow transit constipation; K86.89 Other specified diseases of pancreas
CPT/HCPCS: 74240

== ENCOUNTER → 2022-08-16 08:24 | Outpatient (BNVA) | payer OTHER, SELFPAY | PROVIDERS: PCP Internal Medicine; Visit Provider Surgery | DX: K22.70 Barrett's esophagus without dysplasia (principal); K44.9 Diaphragmatic hernia without obstruction or gangrene; M62.08 Separation of muscle (nontraumatic), other site; K86.89 Other specified diseases of pancreas; G89.4 Chronic pain syndrome | CPT/HCPCS: 99212 ==

== ENCOUNTER 2022-08-29 10:13 | Outpatient (REF) | payer OTHER, SELFPAY ==
--- NOTE | ~2022-08-29 | MM_ITS ---
EXAMINATION: MM SCREENING DIGITAL BREAST TOMOSYNTHESIS, BILATERAL CLINICAL INFORMATION: Screening. Asymptomatic. The lifetime risk of breast cancer based on the Tyrer-Cuzick Model is 6%. COMPARISON: Mammography: 06/25/2021, 10/09/2020, 08/13/2013, 04/16/2013 TECHNIQUE: Digital mammography is performed in craniocaudal and mediolateral oblique views along with computer-aided detection (CAD). Digital breast tomosynthesis is performed in implant-displaced craniocaudal and implant-displaced mediolateral oblique views along with computer-aided detection (CAD). Synthesized 2D images are generated from the tomosynthesis. FINDINGS: The breasts are heterogeneously dense, which may obscure small masses (ACR BI-RADS breast composition Category c). There are bilateral implants. Implant contours are smooth and similar to prior studies. There is no significant mass or architectural abnormality or developing density. Bilateral scattered random calcifications are present, symmetrically slightly increased from prior recent exams. The axilla and skin contours are unremarkable. MM/MM tomosynthesis screen imp BI IMPRESSION: No significant changes from prior exams. ASSESSMENT: BI-RADS 2: Benign RECOMMENDATION: Routine annual mammography screening. This patient's information was entered into a reminder system with a target due date for their next mammogram.
== END 2022-08-29 10:14 | disposition home or self-care (01) ==
LOC: HO.MAMMO 10:13
PROVIDERS: PCP Internal Medicine; Visit Provider Internal Medicine
DX: Z12.31 Encounter for screening mammogram for malignant neoplasm of breast (principal)
CPT/HCPCS: 77063; 77067

== ENCOUNTER 2022-09-28 13:25 | Outpatient (REF) | payer OTHER, SELFPAY ==
--- NOTE | ~2022-09-28 | XR_ITS ---
EXAMINATION: XR FINGER, RIGHT CLINICAL INFORMATION: Pain in the right finger COMPARISON: None available. TECHNIQUE: 3 views of the right thumb. FINDINGS: These radiographs are focused on the thumb. Bones have normal alignment. No fracture, subluxation or focal soft tissue swelling. Small osteophytes of the thumb interphalangeal joint. No erosions or periostitis. Small osteophytes also present at other interphalangeal joints of the hand, including 3rd PIP joint. The visualized carpal bones are normal. XR/XR finger RT min 2V IMPRESSION: * No acute osseous injury in the right thumb. * Mild osteoarthrosis of several interphalangeal joints, including the thumb IP joint.
--- NOTE | ~2022-09-28 | XR_ITS ---
EXAMINATION: XR KNEE, RIGHT CLINICAL INFORMATION: Right knee pain COMPARISON: 07/20/2022 TECHNIQUE: Two views of the right knee. FINDINGS: Bones have normal alignment and joint spaces are maintained. No fracture, subluxation or joint effusion. Small patellar osteophytes are present at the patellofemoral joint. No intra-articular osteochondral body. XR/XR knee RT 2V IMPRESSION: * Mild osteoarthritis of the patellofemoral joint. * No new findings compared to 07/20/2022.
== END 2022-09-28 13:26 | disposition home or self-care (01) ==
LOC: HO.HMGCX 13:25
PROVIDERS: PCP Internal Medicine; Visit Provider Internal Medicine
DX: M25.561 Pain in right knee (principal); M79.644 Pain in right finger(s)
CPT/HCPCS: 73140; 73560

== ENCOUNTER 2022-10-24 09:12 | Outpatient (AMB) | payer OTHER, SELFPAY ==
--- NOTE | 2022-10-24 09:20 | A.OFFVIS_ITS ---
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 No complaints. Last Pap/HPV was negative/HPV 18/45 positive, colpo/ biopsy ECC negative Last Mammogram BI-RADS 2 in 09/16 Last Colonoscopy was in 02/15, the recommendation was to repeat in 1-2 years [facility] Medical History Arthritis Environmental allergies Fibromyalgia Gastroparesis Pancreatic insufficiency Reversal of sterilization Tubular adenoma Surgical History H/O cosmetic surgery H/O tubal ligation Hx of colonoscopy Family History Father HTN (hypertension) Blood infection Heart disease Social History Household Members Other:: daughter Housing: House Alcohol intake: never Patient Tobacco Use Status: Former Tobacco user e-Cigarette/Vaping Use: Never Used service: No Current occupational status: disabled Cognitive needs: No Hearing needs: No Vision needs: No Female Reproductive History Menstrual Age of Menarche: 10 control method: permanent sterilization Total pregnancies: 6 Full term: 5 Number of Living Children: 5 Ab spontaneous: 1 Date of last pap smear: 10/21/21 History of abnormal pap smear: Yes (HPV +) Review of Systems Const All systems reviewed & are unremarkable except as noted in HPI and below Card Reports as per HPI Resp Reports as per HPI GI Reports as per HPI and Reports no additional complaints Reports as per HPI Physical Exam Vital Signs: Last Vital Signs BP 106/66 10/24/22 09:21 BMI result Body Mass Index 32.1 Const General: cooperative, healthy appearing and comfortable Chest Chest palpation & inspection: normal inspection of the chest and normal palpation of entire chest wall Breast/axilla inspection: normal inspection of the breasts and normal inspection of the axillae Breast/axilla palpation: normal palpation of the breasts, normal palpation of the axillae and no axillary lymphadenopathy Resp Effort & Inspection: normal respiratory effort Auscultation: clear to auscultation bilaterally Percussion: percussion normal Cardio Palpation: normal PMI Rate: regular rate Rhythm: regular rhythm Heart sounds: no murmurs and no rubs Peripheral pulses: Peripheral pulses 2+ throughout GI Inspection: Yes normal to inspection Palpation (GI): Soft to palpation, nontender, no guarding, not rigid and No hepatosplenomegaly present Percussion: Yes normal to percussion Auscultation: normal bowel sounds Rectal Exam - Female: deferred General: Yes bladder normal to palpation External Female Exam: No lesion Speculum Exam - Vagina: normal appearance of the vagina, normal palpation, normal vaginal discharge and not erythematous Speculum Exam - Cervix: normal appearance of the cervix and normal palpation Bimanual exam- vagina & uterus: normal bimanual exam, normal palpation, uterine size normal, bladder normal to palpation, consistency normal and normal palpation Bimanual Exam- Adnexa, other: normal adnexae, no masses and no tenderness Assessment & Plan Assessment & Plan (1) Well woman exam: Code(s): Z01.419 - Encounter for gynecological examination (general) (routine) without abnormal findings Plan: Co testing done. Counseled the patient about the recommended dietary allowance of 1200 mg of Calcium & 600 IU of vitamin D. Instruction given to patient to schedule her next screen Mammogram in 09/17 , the patient has an appointment scheduled with GI soon for screening colonoscopy . The patient was instructed to perform monthly self-breast exams and schedule annual exam in a year; all questions answered and the patient verbalized understanding. Coding Level of Care Code Est Pt Prev Care 40-64y(07000) Diagnoses Well woman exam Z01.419
[2022-10-24 09:21] VITALS: BP 106/66; BMI 32.1
== END 2022-10-24 10:00 | disposition home or self-care (01) ==
LOC: HO.HWS 09:12
PROVIDERS: PCP Internal Medicine; Visit Provider Obstetrics & Gynecology
DX: Z01.419 Encounter for gynecological examination (general) (routine) without abnormal findings (principal)
CPT/HCPCS: 99396

== ENCOUNTER 2022-10-24 09:12 | Outpatient (REF) | payer OTHER, SELFPAY ==
[2022-10-28 06:10] LABS: HPV mRNA E6/E7 rflx Not Detected (Not Detected)
== END 2022-10-24 09:13 | disposition home or self-care (01) ==
LOC: HO.LNP 09:12
PROVIDERS: PCP Internal Medicine; Visit Provider Obstetrics & Gynecology
DX: Z01.419 Encounter for gynecological examination (general) (routine) without abnormal findings (principal); Z11.51 Encounter for screening for human papillomavirus (HPV)
CPT/HCPCS: 87624; 88142

== ENCOUNTER 2022-11-17 10:53 | Outpatient (AMB) | payer OTHER, SELFPAY ==
--- NOTE | 2022-11-17 12:37 | AM.OFFWIN_ITS ---
Intake Vital Signs 11/17/22 12:52 Weight 81.647 kg BP 118/62 Blood Pressure Location Rt brachial Position Sitting Pulse 70 Pulse Source Pulse Oximeter Temp 97.5 F Temp Source Temporal Artery Scan Pulse Oximetry (%) 98 Oxygen Delivery Method Room Air Intake Visit Reasons: EP, cough, headache, COVID+ 11/16 Intake Note: Patient here because she tested positive on a at home test yesterday but has been having symptoms for about 5 days already. she states she has been having cold sweats, bodyaches, cough and headaches. Patient Tobacco Use Status: Former Tobacco user Allergies SEAFOOD Adverse Reaction (Severe, Uncoded 11/17/22 12:37) UNKNOWN Do you need a note to return to daycare/school/sports/work: No HPI HPI Comments History of Present Illness Details 1300 57-year-old female presents with fatigue, malaise, shortness of breath, frontal headache described as tightness (no visual changes or dizziness), dry cough, myalgias for the past 10 days, symptoms have been particularly bad these last 5 days, patient reports daughter at home is sick with similar symptoms. She reports yesterday she took a COVID test at home which is positive. Patient denies chest pain, nausea, vomiting, abdominal pain, diarrhea, changes in urinary habits, vision changes, dizziness. Eating and drinking well. Vaccinated with vaccine x3 Physical exam benign. Breath sounds clear. Regular rate and rhythm. Abdomen soft nontender nondistended. Neuro exam nonfocal. NIH stroke scale 0 Likely COVID-19 versus viral illness. Unlikely stroke, posterior stroke, pneumonia, PE, ACS, intracranial hemorrhage Discussed shama w/ patient, patient's symptoms ongoing for 10 days, not appropriate for this patient. Requesting inhaler will given inhaler. Educated on supportive measures and CDC guidelines. Educated patient on diagnosis and treatment plan, answered all question, patient verbalizes understanding. At this time patient will be discharged home, advised to return with new or worsening symptoms. Educated on worrisome signs and symptoms and when to return. At this time I feel comfortable discharge home. [facility] Medical History Arthritis Environmental allergies Fibromyalgia Gastroparesis Pancreatic insufficiency Reversal of sterilization Tubular adenoma Surgical History H/O cosmetic surgery H/O tubal ligation Hx of colonoscopy Family History Father HTN (hypertension) Blood infection Heart disease Social History Household Members Other:: daughter Housing: House Alcohol intake: never Patient Tobacco Use Status: Former Tobacco user e-Cigarette/Vaping Use: Never Used service: No Current occupational status: disabled Cognitive needs: No Hearing needs: No Vision needs: No Female Reproductive History Menstrual Age of Menarche: 10 Review of Systems Const Details: Constitutional : No Weight loss, No Fever, No Chills, + Fatigue, + Malaise ENT/Mouth : No sore throat, No Rhinorrhea Eyes: No Eye Pain, No Swelling, No Redness Cardiovascular : No Chest Pain, + SOB, No Dyspnea on Exertion, No Orthopnea, No Edema, No Palpitations Respiratory : + Cough, No Sputum, No Wheezing Gastrointestinal : No Nausea, No Vomiting, No Diarrhea, No Constipation, No abdominal Pain, No Hematochezia, No Melena Genitourinary : No Dysuria, No Urinary Frequency, No Hematuria, Musculoskeletal : No joint pain, + Myalgias, No Joint Swelling Skin : No Skin Lesions, No rash Neuro : No Weakness, No Numbness, No Dizziness, No Headache Psych : No Anxiety/Panic, No Depression All other systems reviewed and are negative All systems reviewed & are unremarkable except as noted in HPI and below Physical Exam Vital Signs: Last Vital Signs Temp 97.5 F 11/17/22 12:52 Pulse 70 11/17/22 12:52 BP 118/62 11/17/22 12:52 Pulse Ox 98 11/17/22 12:52 Oxygen Delivery Method Room Air 11/17/22 12:52 Vital signs stable Appearance: Alert.? Oriented X3.? No acute distress.? Head: Normocephalic, atraumatic, no step-offs or deformities Eyes: Pupils equal, round and reactive to light. CVS: Normal heart rate and rhythm.? Pulses normal.? Respiratory: No respiratory distress.? Breath sounds normal.? Abdomen: Soft and nontender.? Skin: Skin warm and dry.? Normal skin color.? Normal skin turgor.? Extremities: No lower extremity edema.? No calf ttp. 5/5 strength to bilateral upper and lower extremities Neuro: Oriented X 3.? No motor deficit.? No sensory deficit. CN 2-12 intact Assessment & Plan Assessment & Plan (1) COVID-19: Code(s): U07.1 - COVID-19 Plan Take your medications as prescribed. If you were prescribed antibiotics today, it is important that you take your medication to their entirety, do not skip any doses, do not finish them early. Today you tested positive for COVID-19. Take Ibuprofen or Tylenol as needed for fevers or body aches. Quarantine for 5 days and ensure you wear a mask. After 5 days you should wear a mask for 5 days after that. Practice social distancing and good hand hygiene. Drink plenty of fluids. Follow-up with your primary care provider this week. Return to the emergency department with new or worsening symptoms. In case of emergency call 911 You can purchase a pulse oximeter from your local pharmacy or grocery store, and monitor your oxygen saturation if it goes below 94% you should return to the emergency department for further evaluation. Coding Level of Care Code Est Pt Level 3 (85455) Diagnoses COVID-19 U07.1
[2022-11-17 12:52] VITALS: BP 118/62; PULSE 70; TEMP 36.4; O2SAT 98
== END 2022-11-17 13:09 | disposition home or self-care (01) ==
PROVIDERS: PCP Internal Medicine; Visit Provider Physician Assistant
DX: U07.1 COVID-19 (principal)
CPT/HCPCS: 99213

== ENCOUNTER 2023-01-10 10:50 | Outpatient (AMB) | payer OTHER, SELFPAY ==
--- NOTE | 2023-01-10 10:57 | MHC.OFFVIS ---
Intake Vital Signs 01/10/23 11:01 Height 5 ft 3 in Weight 180 lb BMI 31.9 BP 114/66 Blood Pressure Location Lt brachial Position Sitting Pulse 99 Intake Visit Reasons: 3 month follow up Intake Note: Patient follow up for vomit Patient cc: Vomit on and off, she is having fatigue after eating and denies any other GI. Map Clerk Required: No Accompanied by: Self / Same As Patient Allergies SEAFOOD Adverse Reaction (Severe, Uncoded 11/17/22 12:37) UNKNOWN HPI 3 month follow up HPI Details LAST VISIT Pancreatic insufficiency Will increase Creon. Patient is doing well on current dose, however patient should be on the higher dose due to her weight. Constipation by delayed colonic transit Continue Linzess 145 mcg daily. Patient states that she is doing well with that. Patient was also encouraged to increase fluid intake and activity to promote better bowel motility Gastroparesis Almost no retention of food after 4 hours seen on gastric emptying study. Previously patient had gastric emptying study in 2013 that showed 42 % fluid retention in the stomach after for hours. Now patient is moving her bowels well, taking enzymes to help diet just her food better and she is doing well. Patient reports that she no longer feels like the food is stuck in her stomach. Gastroparesis diet given to patient any way. Hiatal hernia Follow with General surgery. Patient also reports umbilical hernia. Patient states that when she is bloated she noticed that her hernia got larger in the last couple months. Patient will mention this on her next appointment with her surgeon. Area evaluate did, no tenderness, pain. Patient had abdominal plasty many years ago. Possibility that she just has weakness of muscle around that area. Patient will be seen in 3 months, sooner on as needed basis. Patient is agreeable to this plan and verbalizes understanding of instructions. She was given the opportunity to ask questions and all questions answered. TODAY'S VISIT: Patient is here today for follow-up. Patient reports that she has been feeling much better since the last time I have seen her. Patient has eliminated lot food from her diet. She has been eating healthy. Patient states that she is making smoothies. Taking Creon with each meal and states that her symptoms of abdominal pain and bloating have improved. Patient is taking Linzess daily and states that she is moving her bowels much better. Seen by general surgeon for hernia evaluation and was told that she at this time does not require surgery as her hernia is too small and it is not causing her to have any issues. Patient reports occasionally when she eats she will feel nauseous. She does not vomit. Patient states that when she takes Nexium she feels like she has epigastric discomfort. Patient states that she is having trouble with sucralfate as well. Patient denies dyspepsia, dysphagia or odynophagia. Denies any melena, hematochezia, unintentional weight loss or ribbon like stools. [facility] Medical History Arthritis Environmental allergies Fibromyalgia Gastroparesis Pancreatic insufficiency Reversal of sterilization Tubular adenoma Surgical History Hx of colonoscopy H/O tubal ligation H/O cosmetic surgery Family History Father HTN (hypertension) Blood infection Heart disease Social History Household Members Other:: daughter Housing: House Alcohol intake: never Patient Tobacco Use Status: Former Tobacco user e-Cigarette/Vaping Use: Never Used service: No Current occupational status: disabled Cognitive needs: No Hearing needs: No Vision needs: No Female Reproductive History Menstrual Age of Menarche: 10 Review of Systems Const Denies weight gain and Denies weight loss ENT Reports no additional complaints, Denies dysphagia and Denies odynophagia Card Reports no additional complaints Resp Reports no additional complaints GI Denies abdominal pain, Denies belching, Denies melena, Denies bloating, Denies change in bowel habits, Denies dysphagia, Denies excessive flatus, Denies dyspepsia, Denies heartburn, Denies diarrhea, Denies loose stools, Denies nausea, Denies odynophagia and Denies vomiting Reports no additional complaints Musc Reports no additional complaints Neuro Reports no additional complaints Psych Reports no additional complaints Endo Reports no additional complaints Physical Exam Vital Signs: Last Vital Signs Pulse 99 01/10/23 11:01 BP 114/66 01/10/23 11:01 BMI result Body Mass Index 31.9 Const General: healthy appearing, no acute distress and well developed Nutritional Appearance: obese Orientation/consciousness: patient oriented x3 HEENT Head: Yes normal to inspection, Yes normocephalic and Yes atraumatic Face and sinus: Yes normal facial exam Mouth: Normal oral and palatal mucosa present Throat: Yes posterior oropharynx normal, Yes tonsils normal and Yes uvula midline Eyes General: appearance normal, both eyes and all related structures Neck Neck: Yes normal visual inspection, Yes full ROM and Yes trachea midline Thyroid: Thyroid normal Resp Effort & Inspection: normal respiratory effort, able to speak in complete sentences, no tracheal deviation and symmetric chest movement Auscultation: clear to auscultation bilaterally Cardio Rate: regular rate Heart sounds: S1 normal heart sound present and S2 normal heart sound present GI Inspection: Yes normal to inspection, No distended and Yes obesity Palpation (GI): Soft to palpation, not firm, nontender and No hepatosplenomegaly present Auscultation: normal bowel sounds General: Yes no CVA tenderness Back/Spine/Pelvis Back: no CVA tenderness Skin General skin exam: elasticity normal, turgor normal and dry skin Neuro General: patient oriented x3 Psych Appearance: grossly normal Mental Status: mental status grossly normal Assessment & Plan Assessment & Plan (1) Pancreatic insufficiency: Code(s): K86.89 - Other specified diseases of pancreas (2) Hiatal hernia: Code(s): K44.9 - Diaphragmatic hernia without obstruction or gangrene (3) Diastasis recti: Code(s): M62.08 - Separation of muscle (nontraumatic), other site (4) Constipation by delayed colonic transit: Code(s): K59.01 - Slow transit constipation (5) IBS (irritable bowel syndrome): Code(s): K58.9 - Irritable bowel syndrome without diarrhea Qualifiers: Irritable bowel syndrome type: without diarrhea Qualified Code(s): K58.9 - Irritable bowel syndrome without diarrhea Plan Patient will continue taking Creon with meals. Continue to eat smaller meals and more often. Patient will avoid dietary triggers and late night snacking. Staying upright for minimal 3 hours after meals discussed with patient. Patient will start taking famotidine twice a day and will call the office if she continue to have symptoms. Ideally patient should be on PPI, however tried couple different medications and she was not really tolerating them well. Patient was encouraged to continue taking Linzess daily. Patient was encouraged to increase fluid intake and activity to promote better bowel motility. Patient will be seen in the office in 3 months, sooner on as needed basis. Patient is agreeable to this plan and verbalizes understanding of instructions. She was given the opportunity to ask questions and all questions answered. Thank you for allowing to participate in her care Medications: New famotidine (Pepcid) 20 mg PO BID 60 tabs 3RF K29.70 - Gastritis, unspecified, without bleeding Changed From gnhldq-[id number]-[id number] 24,000-76,000 -120,000 unit (Creon) administer with meals and/or snacks 1 cap PO QID 120 caps 4RF K86.89 - Other specified diseases of pancreas To [id number]-[id number] 24,000-76,000 -120,000 unit (Creon) administer with meals and/or snacks 2 caps PO QID 240 caps 4RF K86.89 - Other specified diseases of pancreas Discontinued esomeprazole magnesium (Nexium) Discontinued Reason: Doctor's Order 40 mg PO DAILY 90 caps 5RF K21.9 - Gastro-esophageal reflux disease without esophagitis sucralfate Discontinued Reason: Doctor's Order 1 g PO BEDTIME 90 tabs 2RF R19.7 - Diarrhea, unspecified Coding Level of Care Code Est Pt Level 4 (64042) Diagnoses Pancreatic insufficiency K86.89 Hiatal hernia K44.9 Diastasis recti M62.08 Constipation by delayed colonic transit K59.01 Irritable bowel syndrome without diarrhea K58.9 Irritable bowel syndrome type: without diarrhea Time Spent (min) 40 Comment 25 minutes patient and additional 15 minutes spent reviewing her records.
[2023-01-10 11:01] VITALS: BP 114/66; PULSE 99; BMI 31.9
== END 2023-01-10 11:31 | disposition home or self-care (01) ==
PROVIDERS: PCP Internal Medicine; Visit Provider Nurse Practitioner Family
DX: K86.89 Other specified diseases of pancreas (principal); K44.9 Diaphragmatic hernia without obstruction or gangrene; M62.08 Separation of muscle (nontraumatic), other site; K59.01 Slow transit constipation; K58.9 Irritable bowel syndrome, unspecified
CPT/HCPCS: 99214

== ENCOUNTER → 2023-01-10 10:50 | Outpatient (BNVA) | payer OTHER, SELFPAY | PROVIDERS: PCP Internal Medicine; Visit Provider Nurse Practitioner Family | DX: K44.9 Diaphragmatic hernia without obstruction or gangrene (principal); K86.89 Other specified diseases of pancreas; K59.01 Slow transit constipation; K58.9 Irritable bowel syndrome, unspecified; M62.08 Separation of muscle (nontraumatic), other site | CPT/HCPCS: 99212 ==

== ENCOUNTER 2023-01-11 10:48 | Outpatient (AMB) | payer OTHER, SELFPAY ==
--- NOTE | 2023-01-11 10:53 | A.OFFPC_ITS ---
Vital Signs 01/11/23 10:56 Height 5 ft 3 in Weight 181 lb BMI 32.1 BP 112/56 L Blood Pressure Location Rt brachial Position Sitting Pulse 91 Pulse Source Pulse Oximeter Pulse Oximetry (%) 98 Oxygen Delivery Method Room Air Intake Visit Reasons: Annual PE Allergies SEAFOOD Adverse Reaction (Severe, Uncoded 11/17/22 12:37) UNKNOWN Medication List - Last Reconciled 01/11/23 by Cole Austin MD acetaminophen (Tylenol Extra Strength) 500 mg PO Q6H PRN albuterol sulfate 90 mcg/actuation 2 puffs inhalation Q6H PRN bisacodyl (Dulcolax (bisacodyl)) 10 mg (2 x 5 mg) PO BEDTIME buspirone 5 mg PO BID cyclobenzaprine 5 mg PO Q8H PRN 5 days docusate sodium 100 mg PO BEDTIME famotidine (Pepcid) 20 mg PO BID fluoxetine 20 mg PO DAILY gabapentin Two at night and 1 in the morning 90 days ketotifen fumarate 0.025%(0.035%) 1 drp ophthalmic (eye) BID lidocaine 5% (Lidoderm) 1 patch topical DAILY PRN MDD remove after 12 hours linaclotide (Linzess) 145 mcg PO DAILY [id number] 24,000-76,000 -120,000 unit (Creon) 2 caps PO QID loratadine 10 mg PO DAILY Tobacco use date assessed: 01/11/23 Dental Screening Dental Screen Date: 01/11/23 Did you have a dental visit in the last 12 months?: Yes Did you have a dental problem in the last 6 months where you did not have access to dental care?: No Was dental information given to patient?: Patient has dentist HPI Annual PE HPI Details Patient is a 57-year-old female with a history of fibromyalgia and chronic pain syndrome 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 Failed tandem walk as well uses cane to ambulate. Currently she is taking 600 mg of gabapentin at night and 300 in the morning And also taking muscle relaxer 1 at night and 1 in the morning Mammogram is up-to-date She goes to OBGYN for breast exam and Pap smear And patient is also stab list with Gastroenterology [facility] Taking medication for GERD through Gastroenterology She is on fluoxetine for depression And red written for allergies BMI is 32.1 need to lose weight Follow-up 3 month for medication refill [facility] Medical History Gastroparesis Tubular adenoma Pancreatic insufficiency Environmental allergies Reversal of sterilization Arthritis Fibromyalgia Surgical History Hx of colonoscopy H/O tubal ligation H/O cosmetic surgery Family History Father HTN (hypertension) Blood infection Heart disease Social History Household Members Other:: daughter Housing: House Alcohol intake: never Patient Tobacco Use Status: Former Tobacco user e-Cigarette/Vaping Use: Never Used service: No Current occupational status: disabled Cognitive needs: No Hearing needs: No Vision needs: No Female Reproductive History Menstrual Age of Menarche: 10 Questionnaire PHQ-9 Over the last 2 weeks, how often have you been bothered by any of the following problems? 1. Little interest or pleasure in doing things: several days 2. Feeling down, depressed, or hopeless: more than half the days 3. Trouble falling or staying asleep, or sleeping too much: several days 4. Feeling tired or having little energy: several days 5. Poor appetite or overeating: not at all 6. Feeling bad about yourself - or that you are a failure or have let yourself or your family down: several days 7. Trouble concentrating on things, such as reading the newspaper or watching television: several days 8. Moving or speaking so slowly that other people could have noticed. Or the opposite - being so fidgety or restless that you have been moving around a lot more than usual: several days 9. Thoughts that you would be better off or of hurting yourself in some way: several days Total score: 9 Depression Screening Interpretation: Negative Depression Screening Done: Yes [id number] - PHQ-9 Billing: Yes Source: Developed by Drs. Justin Munguia, Bonnie B.W. Nick Harding and colleagues, with an educational narda from [employer]. Thrive Questionnaire Date Thrive assessed: 04/13/22 AUDIT C Alcohol Use Questionnaire (AUDIT-C) 1. How often do you have a drink containing alcohol?: Never 3. How often do you have six or more drinks on one occasion?: Never Total Score: 0 Score Reviewed/Action Taken: Yes HEATHER-7 AMB Questionnaire HEATHER-7 Date HEATHER - 7 assessed: 04/13/22 Source: Developed by Drs. Justin Munguia, Nick Lange and colleagues, with an educational narda from [employer]. Review of Systems Const Denies chills and Denies fever(s) Eyes Denies blurry vision ENT Denies nasal discharge, Denies nasal obstruction, Denies odynophagia and Denies sinus pain Card Denies chest pain at rest and Denies chest pain with activity Resp Denies cough and Denies hemoptysis GI Denies diarrhea, Denies odynophagia, Denies vomiting and Denies hematemesis Reports as per HPI Skin/Breast Reports as per HPI Neuro Denies Neuro-related abnormal movements and Denies Abnormal speech present Psych Denies mood swings and Denies paranoia Endo Reports as per HPI Marlon/Lymph Reports as per HPI Aller/Immun Reports as per HPI Physical exam (Primary Care) Vital Signs: Last Vital Signs Pulse 91 01/11/23 10:56 BP 112/56 L 01/11/23 10:56 Pulse Ox 98 01/11/23 10:56 Oxygen Delivery Method Room Air 01/11/23 10:56 BMI result Body Mass Index 32.1 Tobacco/Smoking Status: Tobacco use Status Tobacco use date assessed 01/11/23 01/11/23 10:57 Patient Tobacco Use Status Former Tobacco user 01/11/23 10:57 e-Cigarette/Vaping Use Never Used 01/11/23 10:57 PHQ-9: PHQ-9 Score PHQ-9: Total score 9 01/11/23 11:19 Depression Screening Interpretation: Negative Thrive Assessment: Date of Thrive Assessment Date Thrive assessed 04/13/22 01/11/23 10:57 Const General: cooperative, comfortable and no acute distress Orientation/consciousness: patient oriented x3 HENMT Head: Yes normocephalic and Yes atraumatic Eyes General: appearance normal, both eyes and all related structures Pupils: Equal, round and reactive pupils present EOM: EOMs intact bilaterally Neck Neck: Yes supple and No lymphadenopathy Thyroid: Thyroid normal Lymphatic: no lymphadenopathy noted Resp Effort & Inspection: normal respiratory effort and able to speak in complete sentences Auscultation: clear to auscultation bilaterally Cardio Heart sounds: S1 normal heart sound present and S2 normal heart sound present GI Palpation (GI): Soft to palpation and nontender Auscultation: normal bowel sounds General: Yes no CVA tenderness Back/Spine/Pelvis Back: no CVA tenderness Skin General skin exam: elasticity normal and turgor normal Neuro Other: Uses cane for ambulation, balance is off with eyes close General: patient oriented x3 Cranial nerves: Yes Equal, round and reactive pupils present Speech: No Abnormal speech present Extrem Other: Patient was able to lift her arms but with discomfort General: Yes normal exam except as noted and No edema Office Procedures Flu Questionnaire Does the patient have a severe egg allergy?: No Does the patient have severe life threatening allergies?: No Does the patient have a fever or illness today?: No Has the patient ever had Guillain-[place] Syndrome?: No Has the patient ever had any past reaction to a flu shot?: No Immunizations flu vacc [id number] 6mos up(PF) 60 mcg(15 mcgx4)/0.5 mL IM syringe Performing Provider: Cole Austin MD Performing Location: [facility] Administered by: Ole Pablo CMA on 01/11/23 11:18 2 Dose Route Admin Location Dispensed Lot Number Expiration Date NDC Cash Clerk 0.5 mL IM Right Deltoid 0.5 mL [id number] 09/24/23 80036-922-45 [place] VIS Given Date VIS Provided VIS Publication Date 01/11/23 Single Vaccine 20 Eligibility Eligibility Date Funding Source Not [facility] Eligible 01/11/23 Private Assessment and Plan Assessment & Plan (1) Encounter for general adult medical examination with abnormal findings: Code(s): Z00.01 - Encounter for general adult medical examination with abnormal findings (2) Obesity due to excess calories: Code(s): E66.09 - Other obesity due to excess calories Qualifiers: Body mass index: BMI 32.0-32.9 Obesity classification: adult class 1 (BMI 30 - 34.9) Serious obesity comorbidity presence: without serious comorbidity Qualified Code(s): E66.09 - Other obesity due to excess calories; Z68.32 - Body mass index [BMI] 32.0-32.9, adult (3) Major depression, recurrent: Code(s): F33.9 - Major depressive disorder, recurrent, unspecified Qualifiers: Active/Remission status: in partial remission Qualified Code(s): F33.41 - Major depressive disorder, recurrent, in partial remission (4) Headache syndrome: Code(s): G44.89 - Other headache syndrome (5) Lipid disorder: Code(s): E78.9 - Disorder of lipoprotein metabolism, unspecified (6) Chronic lumbar pain: Code(s): M54.50 - Low back pain, unspecified; G89.29 - Other chronic pain Qualifiers: Back pain laterality: bilateral Sciatica laterality: bilateral sciatica Sciatica presence: with sciatica Qualified Code(s): M54.42 - Lumbago with sciatica, left side; M54.41 - Lumbago with sciatica, right side; G89.29 - Other chronic pain (7) Constipation by delayed colonic transit: Code(s): K59.01 - Slow transit constipation (8) Osteoarthritis, generalized: Code(s): M15.9 - Polyosteoarthritis, unspecified (9) Chronic pain syndrome: Code(s): G89.4 - Chronic pain syndrome (10) Fibromyalgia: Code(s): M79.7 - Fibromyalgia (11) Hiatal hernia: Code(s): K44.9 - Diaphragmatic hernia without obstruction or gangrene Plan Patient is a 57-year-old female with a history of fibromyalgia and chronic pain syndrome Currently seeing dining service worker also has seen [facility] and was told she has scoliosis in her back Continued to have stiff joints and difficulty walking due to chronic pain in muscles Her balance is also off she was not able to stand with her eyes closed. Failed tandem walk as well uses cane to ambulate. Currently she is taking 600 mg of gabapentin at night and 300 in the morning And also taking muscle relaxer 1 at night and 1 in the morning Mammogram is up-to-date She goes to OBGYN for breast exam and Pap smear And patient is also stab list with Gastroenterology [facility] Taking medication for GERD through Gastroenterology She is on fluoxetine for depression And red written for allergies BMI is 32.1 need to lose weight Follow-up 3 month for medication refill Orders: Orders Complete Blood Count Auto Diff Today E66.09 - Other obesity due to excess calories, E78.9 - Disorder of lipoprotein metabolism, unspecified, F33.9 - Major depressive disorder, recurrent, unspecified, G44.89 - Other headache syndrome, G89.29 - Other chronic pain, G89.4 - Chronic pain syndrome, K44.9 - Diaphragmatic hernia without obstruction or gangrene, K59.01 - Slow transit constipation, M15.9 - Polyosteoarthritis, unspecified, M54.50 - Low back pain, unspecified, M79.7 - Fibromyalgia, Z00.01 - Encounter for general adult medical examination with abnormal findings Comprehensive Met. Panel Today E66.09 - Other obesity due to excess calories, E78.9 - Disorder of lipoprotein metabolism, unspecified, F33.9 - Major depressive disorder, recurrent, unspecified, G44.89 - Other headache syndrome, G89.29 - Other chronic pain, G89.4 - Chronic pain syndrome, K44.9 - Diaphragmatic hernia without obstruction or gangrene, K59.01 - Slow transit constipation, M15.9 - Polyosteoarthritis, unspecified, M54.50 - Low back pain, unspecified, M79.7 - Fibromyalgia, Z00.01 - Encounter for general adult medical examination with abnormal findings LDL Cholesterol Direct Today E66.09 - Other obesity due to excess calories, E78.9 - Disorder of lipoprotein metabolism, unspecified, F33.9 - Major depressive disorder, recurrent, unspecified, G44.89 - Other headache syndrome, G89.29 - Other chronic pain, G89.4 - Chronic pain syndrome, K44.9 - Diaphragmatic hernia without obstruction or gangrene, K59.01 - Slow transit co nstipation, M15.9 - Polyosteoarthritis, unspecified, M54.50 - Low back pain, unspecified, M79.7 - Fibromyalgia, Z00.01 - Encounter for general adult medical examination with abnormal findings Vitamin D 25-OH (D2 and D3) Today E66.09 - Other obesity due to excess calories, E78.9 - Disorder of lipoprotein metabolism, unspecified, F33.9 - Major depressive disorder, recurrent, unspecified, G44.89 - Other headache syndrome, G89.29 - Other chronic pain, G89.4 - Chronic pain syndrome, K44.9 - Diaphragmatic hernia without obstruction or gangrene, K59.01 - Slow transit constipation, M15.9 - Polyosteoarthritis, unspecified, M54.50 - Low back pain, unspecified, M79.7 - Fibromyalgia, Z00.01 - Encounter for general adult medical examination with abnormal findings Influenza [id number] Immunization Today Z23 - Encounter for immunization TSH reflex Free T4 Today E66.09 - Other obesity due to excess calories, E78.9 - Disorder of lipoprotein metabolism, unspecified, F33.9 - Major depressive disorder, recurrent, unspecified, G44.89 - Other headache syndrome, G89.29 - Other chronic pain, G89.4 - Chronic pain syndrome, K44.9 - Diaphragmatic hernia without obstruction or gangrene, K59.01 - Slow transit constipation, M15.9 - Polyosteoarthritis, unspecified, M54.50 - Low back pain, unspecified, M79.7 - Fibromyalgia, Z00.01 - Encounter for general adult medical examination with abnormal findings Vitamin B12 Today E66.09 - Other obesity due to excess calories, E78.9 - Disorder of lipoprotein metabolism, unspecified, F33.9 - Major depressive disorder, recurrent, unspecified, G44.89 - Other headache syndrome, G89.29 - Other chronic pain, G89.4 - Chronic pain syndrome, K44.9 - Diaphragmatic hernia without obstruction or gangrene, K59.01 - Slow transit constipation, M15.9 - Polyosteoarthritis, unspecified, M54.50 - Low back pain, unspecified, M79.7 - Fibromyalgia, Z00.01 - Encounter for general adult medical examination with abnormal findings Medications: Changed From cyclobenzaprine 5 mg PO Q8H 5 days PRN 14 tabs 0RF pain (scale score 7-10) To cyclobenzaprine 5 mg PO BID PRN 60 tabs 0RF pain (scale score 7-10) 30 days Refilled gabapentin Two at night and 1 in the morning 270 caps 0RF 90 days Coding Level of Care Code Est Pt Prev Care 40-64y(66699) Diagnoses Encounter for general adult medical examination with abnormal findings Z00.01 Class 1 obesity due to excess calories without serious comorbidity with body mass index (BMI) of 32.0 to 32.9 in adult E66.09; Z68.32 Body mass index: BMI 32.0-32.9 Obesity classification: adult class 1 (BMI 30 - 34.9) Serious obesity comorbidity presence: without serious comorbidity Recurrent major depressive disorder, in partial remission F33.41 Active/Remission status: in partial remission Headache syndrome G44.89 Lipid disorder E78.9 Chronic bilateral low back pain with bilateral sciatica M54.42; M54.41; G89.29 Back pain laterality: bilateral Sciatica laterality: bilateral sciatica Sciatica presence: with sciatica Constipation by delayed colonic transit K59.01 Osteoarthritis, generalized M15.9 Chronic pain syndrome G89.4 Fibromyalgia M79.7 Hiatal hernia K44.9
[2023-01-11 10:56] VITALS: BP 112/56; PULSE 91; O2SAT 98; BMI 32.1
== END 2023-01-11 11:43 | disposition home or self-care (01) ==
PROVIDERS: Visit Provider Internal Medicine
DX: Z23 Encounter for immunization (principal)
CPT/HCPCS: 90471; 90686; 99396

== ENCOUNTER 2023-01-11 11:20 | Outpatient (REF) | payer OTHER, SELFPAY ==
[2023-01-11 13:22] LABS: MANUAL DIFF FLAG NO
[2023-01-11 14:03] LABS: Basophils Percent Auto 0.6 % (0-2); Eosinophils Absolute Auto 0.1 X10*3/uL (0.0-0.4); Eosinophils Percent Auto 0.8 % (0-4); Hematocrit 43.4 % (37.0-47.0); Hemoglobin 14.4 g/dl (12.0-16.0); Imm Gran Abs Auto 0.03 X10*3/uL (0.00-0.03); Imm Gran Pct Auto 0.4 % (0.0-0.4); Lymphocytes Absolute Auto 2.5 X10*3/uL (1.2-4.9); Lymphocytes Percent Auto 34.7 % (20-40); Mean Corpuscular HGB Conc 33.2 g/dl (31.0-35.0); Mean Corpuscular Hemoglobin 28.2 pg (27.0-33.0); Mean Corpuscular Volume 84.9 fL (80.0-98.0); Mean Platelet Volume 11.2 fL (9.4-12.3); Monocytes Absolute Auto 0.7 X10*3/uL (0.1-1.2); Monocytes Percent Auto 10.3 % (2-11); Neutrophils Absolute Auto 3.8 x10*3/uL (2.0-8.3); Neutrophils Percent Auto 53.2 % (45-73); Platelet Count 268 X10*3/uL (160-400); Red Blood Count 5.11 X10*6/uL (4.20-5.50); Red Cell Distribution Width 13.7 % (11.0-16.0); White Blood Count 7.1 X10*3/uL (4.8-10.8)
[2023-01-11 14:24] LABS: Alanine Aminotransferase 29 U/L (0-31); Albumin Level 4.4 g/dL (3.5-5.0); Alkaline Phosphatase 124 U/L (39-117); Anion Gap 14 (12-20); Aspartate Amino Transferase 26 U/L (5-31); Bilirubin Total 0.4 mg/dL (0.0-1.0); Blood Urea Nitrogen 12 mg/dL (9-16); Carbon Dioxide 20 mmol/L (22-29); Chloride 109 mmol/L (96-108); Estimated Glomerular Filt Rate > 60; Glucose Random 123 mg/dL (60-115); Sodium 139 mmol/L (135-145); Total Protein 7.8 g/dL (6.5-8.0)
[2023-01-11 14:32] LABS: TSH reflex Free T4 0.99 uIU/mL (0.32-4.0)
[2023-01-11 14:47] LABS: Vitamin B12 592 pg/mL (200-900)
[2023-01-12 12:53] LABS: LDL Cholesterol Direct 134 mg/dL (<100)
[2023-01-15 14:24] LABS: Vitamin D 25-OH, D2 <4 ng/mL; Vitamin D 25-OH, D3 29 ng/mL; Vitamin D 25-OH, Total 29 ng/mL (30-100)
== END 2023-01-11 11:21 | disposition home or self-care (01) ==
LOC: HO.HMGCLDS 11:20
PROVIDERS: PCP Internal Medicine; Visit Provider Internal Medicine
DX: Z00.01 Encounter for general adult medical examination with abnormal findings (principal); E66.09 Other obesity due to excess calories; G44.89 Other headache syndrome; E78.9 Disorder of lipoprotein metabolism, unspecified; G89.29 Other chronic pain; M54.50 Low back pain, unspecified; K59.01 Slow transit constipation; M15.9 Polyosteoarthritis, unspecified; G89.4 Chronic pain syndrome; F33.9 Major depressive disorder, recurrent, unspecified; M79.7 Fibromyalgia; K44.9 Diaphragmatic hernia without obstruction or gangrene
CPT/HCPCS: 36415; 80053; 82306; 82607; 83721; 84443; 85025

== ENCOUNTER 2023-03-07 10:07 | Outpatient (AMB) | payer OTHER, SELFPAY ==
--- NOTE | 2023-03-07 10:13 | MHC.OFFVIS ---
Intake Vital Signs 03/07/23 10:14 Height 5 ft 3 in Weight 184 lb 8.43 oz BMI 32.7 BP 118/70 Blood Pressure Location Rt brachial Position Sitting Pulse 78 Pulse Source Pulse Oximeter Temp 97.7 F Temp Source Skin Pulse Oximetry (%) 96 Oxygen Delivery Method Room Air Intake Visit Reasons: lumbar spondylosis Intake Note: Patient presents today to follow up on lumbar spondylosis. Motor Vehicle License Clerk Required: No Accompanied by: Self / Same As Patient Allergies SEAFOOD Adverse Reaction (Severe, Uncoded 03/07/23 10:14) UNKNOWN HPI HPI Comments History of Present Illness Details 56-year-old female patient presents for follow-up of fibromyalgia and low back pain. Last visit was June 2022. Patient reports continued head to toe pain. She admits to sleep disturbances with multiple wake up during the night. She states that her depression is well controlled and she follows with therapist. She is currently managing her symptoms with cyclobenzaprine, gabapentin and Tylenol prescribed through PCP. She is following with Pain Management and tried Celebrex but it upset her stomach. She follows with GI and is taking Linzess for constipation. She was evaluated by Orthopedics for left hip pain and was referred back to Pain Management for her spine. She states that her most prominent symptom is low back pain at this time, and given that multiple injections were not successful she cannot have a 2nd surgery. She she finds massage therapy to be helpful and would like to continue. She follows with neurology for a history of seizures. [facility] Medical History (Updated 03/07/23 @ 10:52 by Rae Schwartz [facility]) KRISTAL positive Gastroparesis Tubular adenoma Pancreatic insufficiency Environmental allergies Reversal of sterilization Arthritis Fibromyalgia Surgical History Hx of colonoscopy H/O tubal ligation H/O cosmetic surgery Family History Father HTN (hypertension) Blood infection Heart disease Social History Household Members Other:: daughter Housing: House Alcohol intake: never Patient Tobacco Use Status: Former Tobacco user e-Cigarette/Vaping Use: Never Used service: No Current occupational status: disabled Cognitive needs: No Hearing needs: No Vision needs: No Female Reproductive History Menstrual Age of Menarche: 10 Review of Systems Const All systems reviewed & are unremarkable except as noted in HPI and below Physical Exam Vital Signs: Last Vital Signs Temp 97.7 F 03/07/23 10:14 Pulse 78 03/07/23 10:14 BP 118/70 03/07/23 10:14 Pulse Ox 96 03/07/23 10:14 Oxygen Delivery Method Room Air 03/07/23 10:14 BMI result Body Mass Index 32.7 APPEARANCE: Patient in no acute distress, antalgic gait secondary to low back pain EYES: no redness, pupils equal and reactive to light, eyelids normal EARS: External ear normal, canal clear and tympanic membrane normal. NOSE/SINUS: Airflow through both nares, no nasal discharge, no bleeding THROAT: Oral mucosa moist, no ulcerations NECK: No thyromegaly or masses, no adenopathy, trachea midline. HEART: Regular rhythm, S1-S2 heard, no murmurs, rubs or gallops. LUNG: Clear to auscultation, respiratory rate regular nonlabored. EXTREMITIES: No edema, no calf tenderness, normal peripheral pulses. NEURO: Oriented and alert x3. No focal weakness. Gait normal. SKIN: No inflammatory or neoplastic lesions. Normal color and turgor JOINT EXAM:?? Hands: Normal pain-free range of motion without tenderness, swelling, increased warmth or erythema. Able to make a full fist and has a good core finisher strength. Wrists: Normal pain-free range of motion without tenderness, swelling, increased warmth or erythema. Elbows: Normal pain-free range of motion without tenderness, swelling, increased warmth or erythema. Shoulders:? Full range of motion without pain. No tenderness, weakness, swelling, increased warmth or erythema. Hip bursa:? No tenderness. Knees:? Normal pain-free range of motion without tenderness, swelling, increased warmth or erythema.? There is no effusion or crepitation. Widespread diffuse tenderness to palpation down both shins. Ankles: LEFT: Normal pain-free range of motion. no increased warmth or erythema. RIGHT: Normal pain-free range of motion, no swelling, erythema or warmth. Feet: Normal pain-free range of motion without tenderness, swelling, increased warmth or erythema. Tender points: Tenderness to digital palpation at the occiput, trapezius, second rib, lateral epicondyle, knees, greater trochanter and gluteal area bilaterally. Assessment & Plan Assessment & Plan (1) Fibromyalgia: Code(s): M79.7 - Fibromyalgia (2) Lumbar spondylosis: Code(s): M47.816 - Spondylosis without myelopathy or radiculopathy, lumbar region Plan: Continue follow-up with pain management. (3) KRISTAL positive: Code(s): R76.8 - Other specified abnormal immunological findings in serum Plan Fibromyalgia/lower back pain: Ms. Joiner has been previously worked up for connective tissue and inflammatory disease processes and serology at best was indeterminate. Her symptoms continued to be mechanical in nature such as mild osteoporosis but significantly lumbar spondylosis. Inflammatory markers are at goal and patient continues to not appear to have any evidence of inflammatory joint disease on exam today. She does continue to have low back pain despite trial of Celebrex, naproxen and continuation of gabapentin, Tylenol and cyclobenzaprine and patient is being followed with pain management. Patient with multiple fibromyalgia tender points on exam today. Advised incorporation of light daily activity as tolerated. Referral renewed for massage therapy. Patient has mild osteoarthritis to multiple joints, as noted in imaging. Continue Tylenol, gabapentin and cyclobenzaprine as prescribed by PCP. #+KRISTAL: Previous workup was indeterminate with ANA1:40 and DsDNA 7. I will do an updated set of labs to updated evaluation. I think at this point patient can return to Primary Care for management of her fibromyalgia. I discussed with patient that given that we are really not treating her for any autoimmune or inflammatory process, I am referring her back to primary care for management of her fibromyalgia. If she develops symptoms of inflammation to include unexplained joint swelling, redness and warmth that are prolonging for more than 6 weeks she can call us for further evaluation. Orders: Orders Anti Extractable Nuclear Ag Today R76.8 - Other specified abnormal immunological findings in serum DNA Double Stranded-Crithidia Today R76.8 - Other specified abnormal immunological findings in serum C Reactive Protein Today R76.8 - Other specified abnormal immunological findings in serum Erythrocyte Sedimentation Rate Today R76.8 - Other specified abnormal immunological findings in serum KRISTAL Reflex Titer and Pattern Today R76.8 - Other specified abnormal immunological findings in serum Anti DNA DS Antibody Today R76.8 - Other specified abnormal immunological findings in serum Referrals Massage Therapy Referral M79.7 - Fibromyalgia Coding Level of Care Code Est Pt Level 3 (99724) Diagnoses Fibromyalgia M79.7 Lumbar spondylosis M47.816 KRISTAL positive R76.8
[2023-03-07 10:14] VITALS: BP 118/70; PULSE 78; TEMP 36.5; O2SAT 96; BMI 32.7
== END 2023-03-07 10:29 | disposition home or self-care (01) ==
PROVIDERS: PCP Internal Medicine; Visit Provider Nurse Practitioner Family
DX: M79.7 Fibromyalgia (principal); M47.816 Spondylosis without myelopathy or radiculopathy, lumbar region; R76.8 Other specified abnormal immunological findings in serum
CPT/HCPCS: 99213

== ENCOUNTER → 2023-03-07 10:07 | Outpatient (BNVA) | payer OTHER, SELFPAY | PROVIDERS: Visit Provider Nurse Practitioner Family | DX: M47.816 Spondylosis without myelopathy or radiculopathy, lumbar region (principal); M79.7 Fibromyalgia; R76.8 Other specified abnormal immunological findings in serum | CPT/HCPCS: 99212 ==

== ENCOUNTER 2023-03-08 10:51 | Outpatient (AMB) | payer OTHER, SELFPAY ==
[2023-03-08 10:59] VITALS: BP 103/60; PULSE 75; BMI 32.6
--- NOTE | 2023-03-08 10:59 | MHC.OFFVIS ---
Intake Vital Signs 03/08/23 10:59 Height 5 ft 3 in Weight 183 lb 13.848 oz BMI 32.6 BP 103/60 Blood Pressure Location Lt brachial Position Sitting Pulse 75 Pulse Source Pulse Oximeter Intake Visit Reasons: 2 month follow up Intake Note: Pt presents to the office today for a 2 month follow up.Pt states she is feeling well. Pt states the medication has helped with her constipation. Pt states she does get right sided abdominal bloating after she eats. Pt does get nauseous occasionally but denies vomiting. Allergies SEAFOOD Adverse Reaction (Severe, Uncoded 03/08/23 11:06) UNKNOWN HPI 2 month follow up HPI Details LAST VISIT Pancreatic insufficiency Hiatal hernia Diastasis recti Constipation by delayed colonic transit IBS (irritable bowel syndrome) Plan Patient will continue taking Creon with meals. Continue to eat smaller meals and more often. Patient will avoid dietary triggers and late night snacking. Staying upright for minimal 3 hours after meals discussed with patient. Patient will start taking famotidine twice a day and will call the office if she continue to have symptoms. Ideally patient should be on PPI, however tried couple different medications and she was not really tolerating them well. Patient was encouraged to continue taking Linzess daily. Patient was encouraged to increase fluid intake and activity to promote better bowel motility. Patient will be seen in the office in 3 months, sooner on as needed basis. Patient is agreeable to this plan and verbalizes understanding of instructions. She was given the opportunity to ask questions and all questions answered. ? Thank you for allowing to participate in her care Medications New famotidine (Pepcid) 20 mg PO BID 60 tabs 3RF K29.70 Changed Changed From oxxaxc-ogmzocbz-ftgcbuw 24,000-76,000 -120,000 unit (Creon) administer with meals and/or snacks 1 cap PO QID 120 caps 4RF K86.89 Changed To khsxlu-grgwwdga-tvqdyuw 24,000-76,000 -120,000 unit (Creon) administer with meals and/or snacks 2 caps PO QID 240 caps 4RF K86.89 Discontinued esomeprazole magnesium (Nexium) Discontinued Reason: Doctor's Order 40 mg PO DAILY 90 caps 5RF K21.9 sucralfate Discontinued Reason: Doctor's Order 1 g PO BEDTIME 90 tabs 2RF R19.7 TODAY'S VISIT: Patient is here today for follow-up. Patient reports that she has been doing better. Takes to Creon capsules with meals and states that her symptoms of abdominal bloating are much better. Patient continues to have occasional right upper quadrant discomfort. Patient states that sometimes pain is there regardless what she eats. Patient reports also bloating in med area. Patient states that she is moving her bowels. She admits that she might not be emptying her bowels well. Has bowel movement almost every day. Patient is avoiding red meat. Taking more vegetables. Tries to eat healthier. Patient denies any dyspepsia, dysphagia or odynophagia. Patient reports that overall she is feeling much better. Patient no longer has gastroparesis. [facility] Medical History (Updated 03/08/23 @ 11:34 by Minda Inman, [facility]) Gastroparesis KRISTAL positive Tubular adenoma Pancreatic insufficiency Environmental allergies Reversal of sterilization Arthritis Fibromyalgia Surgical History Hx of colonoscopy H/O tubal ligation H/O cosmetic surgery Family History Father HTN (hypertension) Blood infection Heart disease Social History Household Members Other:: daughter Housing: House Alcohol intake: never Patient Tobacco Use Status: Former Tobacco user e-Cigarette/Vaping Use: Never Used service: No Current occupational status: disabled Cognitive needs: No Hearing needs: No Vision needs: No Female Reproductive History Menstrual Age of Menarche: 10 Review of Systems Const Denies weight gain and Denies weight loss ENT Reports no additional complaints, Denies dysphagia and Denies odynophagia Card Reports no additional complaints Resp Reports no additional complaints GI Reports abdominal pain (RUQ), Denies belching, Denies melena, Reports bloating, Denies change in bowel habits, Reports constipation (Occasional), Denies dysphagia, Denies excessive flatus, Denies dyspepsia, Denies heartburn, Denies diarrhea, Denies loose stools, Denies nausea, Denies odynophagia and Denies vomiting Reports no additional complaints Musc Reports no additional complaints Neuro Reports no additional complaints Psych Reports no additional complaints Endo Reports no additional complaints Physical Exam Vital Signs: Last Vital Signs Pulse 75 03/08/23 10:59 BP 103/60 03/08/23 10:59 BMI result Body Mass Index 32.6 Const General: healthy appearing, no acute distress and well developed Nutritional Appearance: obese Orientation/consciousness: patient oriented x3 HEENT Head: Yes normal to inspection, Yes normocephalic and Yes atraumatic Face and sinus: Yes normal facial exam Mouth: Normal oral and palatal mucosa present Throat: Yes posterior oropharynx normal, Yes tonsils normal and Yes uvula midline Eyes General: appearance normal, both eyes and all related structures Neck Neck: Yes normal visual inspection, Yes full ROM and Yes trachea midline Thyroid: Thyroid normal Resp Effort & Inspection: normal respiratory effort, able to speak in complete sentences, no tracheal deviation and symmetric chest movement Auscultation: clear to auscultation bilaterally Cardio Rate: regular rate GI Inspection: Yes normal to inspection, No distended and Yes obesity Palpation (GI): Soft to palpation, not firm, nontender and No hepatosplenomegaly present Auscultation: normal bowel sounds General: Yes no CVA tenderness Back/Spine/Pelvis Back: no CVA tenderness Skin General skin exam: elasticity normal, turgor normal and dry skin Neuro General: patient oriented x3 Psych Appearance: grossly normal Mental Status: mental status grossly normal Affect: normal affect Assessment & Plan Assessment & Plan (1) RUQ abdominal pain: Code(s): R10.11 - Right upper quadrant pain (2) Hiatal hernia: Code(s): K44.9 - Diaphragmatic hernia without obstruction or gangrene (3) Diastasis recti: Code(s): M62.08 - Separation of muscle (nontraumatic), other site (4) Constipation by delayed colonic transit: Code(s): K59.01 - Slow transit constipation (5) Pancreatic insufficiency: Code(s): K86.89 - Other specified diseases of pancreas (6) IBS (irritable bowel syndrome): Code(s): K58.9 - Irritable bowel syndrome without diarrhea Qualifiers: Irritable bowel syndrome type: without diarrhea Qualified Code(s): K58.9 - Irritable bowel syndrome without diarrhea Plan Continue Creon with meals. Patient reports to be feeling better after increasing her dose. To help her move her bowels patient was encouraged to try to take MiraLax daily. Her right upper quadrant pain might be muscular or it could be related to gas trapping in hepatic flexure. Will send patient for ultrasound. Patient reports that the pain sometimes is not necessarily related to her meals. It might happen hours to 2 hours after meals. Patient will continue by bisacodyl tablets as well. Continue famotidine twice a day. Discussed with patient avoiding dietary triggers in late night snacking. Staying upright for minimal 3 hours after meals discussed with patient. I will see her in 3 months, sooner on as needed basis. Patient is agreeable to this plan and verbalizes understanding of instructions. She was given the opportunity to ask questions and all questions answered. Thank you for allowing me to participate in her care Orders: Orders US abdomen complete Today R10.11 - Right upper quadrant pain, R10.9 - Unspecified abdominal pain Medications: New polyethylene glycol 3350 (Miralax) 17 grams PO DAILY 510 grams 2RF Coding Level of Care Code Est Pt Level 4 (89660) Diagnoses RUQ abdominal pain R10.11 Hiatal hernia K44.9 Diastasis recti M62.08 Constipation by delayed colonic transit K59.01 Pancreatic insufficiency K86.89 Irritable bowel syndrome without diarrhea K58.9 Irritable bowel syndrome type: without diarrhea Time Spent (min) 35 Comment 20 minutes spent with patient and additional 15 minutes spent reviewing her records
== END 2023-03-08 11:40 | disposition home or self-care (01) ==
PROVIDERS: PCP Internal Medicine; Visit Provider Nurse Practitioner Family
DX: R10.11 Right upper quadrant pain (principal); K44.9 Diaphragmatic hernia without obstruction or gangrene; M62.08 Separation of muscle (nontraumatic), other site; K59.01 Slow transit constipation; K86.89 Other specified diseases of pancreas; K58.9 Irritable bowel syndrome, unspecified
CPT/HCPCS: 99214

== ENCOUNTER → 2023-03-08 10:51 | Outpatient (BNVA) | payer OTHER, SELFPAY | PROVIDERS: PCP Internal Medicine; Visit Provider Nurse Practitioner Family | DX: K44.9 Diaphragmatic hernia without obstruction or gangrene (principal); K59.01 Slow transit constipation; K58.9 Irritable bowel syndrome, unspecified; K86.89 Other specified diseases of pancreas; M62.08 Separation of muscle (nontraumatic), other site; R10.11 Right upper quadrant pain | CPT/HCPCS: 99212 ==

== ENCOUNTER 2023-03-29 10:37 | Outpatient (REF) | payer OTHER, SELFPAY | END 2023-03-29 10:38 | disposition home or self-care (01) | LOC: HO.HMGCX 10:37 | PROVIDERS: PCP Internal Medicine; Visit Provider Nurse Practitioner Family | DX: R10.11 Right upper quadrant pain (principal) | CPT/HCPCS: 76700 ==

== ENCOUNTER 2023-04-12 12:40 | Outpatient (AMB) | payer OTHER, SELFPAY ==
--- NOTE | 2023-04-12 12:51 | A.OFFPC_ITS ---
Vital Signs 04/12/23 12:52 Height 5 ft 3 in Weight 186 lb BMI 32.9 BP 104/68 Blood Pressure Location Lt brachial Position Sitting Pulse 74 Pulse Source Pulse Oximeter Pulse Oximetry (%) 97 Oxygen Delivery Method Room Air Intake Visit Reasons: 3 month follow up Intake Note: Pt is here today for 3 months follow up visit. Allergies SEAFOOD Adverse Reaction (Severe, Uncoded 04/12/23 12:54) UNKNOWN Medication List - Last Reconciled 04/12/23 by Cole Austin MD acetaminophen (Tylenol Extra Strength) 500 mg PO Q6H PRN albuterol sulfate 90 mcg/actuation 2 puffs inhalation Q6H PRN bisacodyl (Dulcolax (bisacodyl)) 10 mg (2 x 5 mg) PO BEDTIME buspirone 5 mg PO BID cyclobenzaprine 5 mg PO BID PRN 30 days docusate sodium 100 mg PO BEDTIME famotidine 20 mg PO BID fluoxetine 20 mg PO DAILY gabapentin 600 mg (2 x 300 mg) PO Q8H 30 days ketotifen fumarate 0.025%(0.035%) 1 drp ophthalmic (eye) BID lidocaine 5% (Lidoderm) 1 patch topical DAILY PRN MDD remove after 12 hours linaclotide (Linzess) 145 mcg PO DAILY dubsmd-ywbigwni-dtufstl 24,000-76,000 -120,000 unit (Creon) 2 caps PO QID loratadine 10 mg PO DAILY polyethylene glycol 3350 (Miralax) 17 grams PO DAILY Tobacco use date assessed: 04/12/23 Dental Screening Dental Screen Date: 04/12/23 Did you have a dental visit in the last 12 months?: Yes Did you have a dental problem in the last 6 months where you did not have access to dental care?: No Was dental information given to patient?: Patient has dentist HPI 3 month follow up HPI Details Patient is a 57-year-old female with a history of fibromyalgia, obesity, major depression headache syndrome, lipid disorder, chronic lumbar caridad n, constipation, osteoarthritis multiple joints primary, chronic pain syndrome,, hiatal hernia, environmental allergies Came in today for her 3 month follow-up appointment Complaining of feeling chest pain off and on radiating to left arm with numbness and tingling in her hand EKG done today showed normal sinus rhythm , 66 beats per minute, no acute findings She is also seeing [facility] for her lower back and right knee pain She is currently taking gabapentin 600 mg at night which is helping her with her fibromyalgia and chronic pain syndrome. Continued to complain of pain multiple joints along with numbness and tingling, I am increasing the gabapentin to 600 t.i.d. Patient is to return in 3 months for follow-up appointment Other medications patient taking are for GERD through Gastroenterology She is on fluoxetine for depression Long-acting antihistamine for allergies BMI is 32.9 need to lose weight Follow-up 3 months [facility] Medical History Gastroparesis KRISTAL positive Tubular adenoma Pancreatic insufficiency Environmental allergies Reversal of sterilization Arthritis Fibromyalgia Surgical History Hx of colonoscopy H/O tubal ligation H/O cosmetic surgery Family History Father HTN (hypertension) Blood infection Heart disease Social History Household Members Other:: daughter Housing: House Alcohol intake: never Patient Tobacco Use Status: Never used Tobacco e-Cigarette/Vaping Use: Never Used service: No Current occupational status: disabled Cognitive needs: No Hearing needs: No Vision needs: No Female Reproductive History Menstrual Age of Menarche: 10 Questionnaire PHQ-9 Over the last 2 weeks, how often have you been bothered by any of the following problems? 1. Little interest or pleasure in doing things: several days 2. Feeling down, depressed, or hopeless: several days 3. Trouble falling or staying asleep, or sleeping too much: several days 4. Feeling tired or having little energy: more than half the days 5. Poor appetite or overeating: several days 6. Feeling bad about yourself - or that you are a failure or have let yourself or your family down: several days 7. Trouble concentrating on things, such as reading the newspaper or watching television: several days 8. Moving or speaking so slowly that other people could have noticed. Or the opposite - being so fidgety or restless that you have been moving around a lot more than usual: several days 9. Thoughts that you would be better off or of hurting yourself in some way: not at all Total score: 9 Depression Screening Interpretation: Negative Depression Screening Done: Yes 84111 - PHQ-9 Billing: Yes Source: Developed by Drs. Justin Munguia, Bonnie Harding, Nick Hartley and colleagues, with an educational narda from [employer]. Thrive Questionnaire Date Thrive assessed: 04/12/23 I am a: Patient What is your living situation today?: I have a steady place to live Within the past 12 months, did the food you bought not last and you didn't have the money to get more?: Sometimes True Within the past 12 months, did you worry whether your food would run out before you got money to buy more?: Sometimes True Do you have trouble paying for medicines?: No Do you have trouble getting transportation to medical appointments?: No Do you have trouble paying your heating and electricity bill?: Yes Do you have trouble taking care of your child, family member or friend?: No Do you have trouble with day-to-day activities such as bathing, preparing meals, shopping, managing finances, etc.?: Yes Are you currently unemployed and looking for a job?: No Are you interested in more education?: No Please select the resources that you would like help with: None Currently or been in a relationship where the following occur: no concerns reported AUDIT C Alcohol Use Questionnaire (AUDIT-C) 1. How often do you have a drink containing alcohol?: Never 3. How often do you have six or more drinks on one occasion?: Never Total Score: 0 HEATHER-7 AMB Questionnaire HEATHER-7 Date HEATHER - 7 assessed: 04/12/23 Feeling nervous, anxious, or on edge: 2 = More than half the days Not being able to stop or control worryin = More than half the days Worrying too much about different things: 2 = More than half the days Trouble relaxin = More than half the days Being so restless that it is hard to sit still: 2 = More than half the days Becoming easily annoyed or irritable: 3 = Nearly every day Feeling afraid as if something awful might happen: 2 = More than half the days Total HEATHER-7 score (0-4 normal; 5-9 mild; 10-14 moderate; 15-21 severe): 15 Source: Developed by Drs. Justin Munguia, Bonnie Harding, Nick Hartley and colleagues, with an educational narda from [employer]. HEATHER-7 Assessment Billing HEATHER-7 Assessment Tool: HEATHER-7 Assessment 18897 Review of Systems Const Denies chills and Denies fever(s) ENT Denies epistaxis and Denies nasal discharge Card Denies chest pain Resp Denies chest congestion, Denies cough and Denies hemoptysis GI Denies diarrhea and Denies nausea Skin/Breast Denies rash Neuro Reports no additional complaints Psych Reports no additional complaints Endo Reports no additional complaints Physical exam (Primary Care) Vital Signs: Last Vital Signs Pulse 74 04/12/23 12:52 BP 104/68 04/12/23 12:52 Pulse Ox 97 04/12/23 12:52 Oxygen Delivery Method Room Air 04/12/23 12:52 BMI result Body Mass Index 32.9 Tobacco/Smoking Status: Tobacco use Status Tobacco use date assessed 04/12/23 04/12/23 12:57 Patient Tobacco Use Status Never used Tobacco 04/12/23 12:57 e-Cigarette/Vaping Use Never Used 04/12/23 12:57 PHQ-9: PHQ-9 Score PHQ-9: Total score 9 04/12/23 13:18 Depression Screening Interpretation: Negative Thrive Assessment: Date of Thrive Assessment Date Thrive assessed 04/12/23 04/12/23 13:18 Currently or been in a relationship where the following occur: no concerns reported Const General: cooperative, comfortable and no acute distress Orientation/consciousness: patient oriented x3 HENUT Head: Yes normocephalic Eyes General: appearance normal, both eyes and all related structures Neck Neck: Yes supple Resp Effort & Inspection: normal respiratory effort, no cough and no stridor Cardio Rhythm: regular rhythm Heart sounds: S1 normal heart sound present and S2 normal heart sound present Skin General skin exam: turgor normal Neuro General: patient oriented x3, tone normal and moves all extremities Extrem Right lower extremity: no edema Left lower extremity: no edema Office Procedures EKG [id number], Complete Assessment and Plan Assessment & Plan (1) Chest pain: Code(s): R07.9 - Chest pain, unspecified Qualifiers: Chest pain type: unspecified Qualified Code(s): R07.9 - Chest pain, unspecified (2) Fibromyalgia: Code(s): M79.7 - Fibromyalgia (3) Chronic pain syndrome: Code(s): G89.4 - Chronic pain syndrome (4) Major depression, recurrent: Code(s): F33.9 - Major depressive disorder, recurrent, unspecified Qualifiers: Active/Remission status: in partial remission Qualified Code(s): F33.41 - Major depressive disorder, recurrent, in partial remission (5) Headache syndrome: Code(s): G44.89 - Other headache syndrome (6) Lipid disorder: Code(s): E78.9 - Disorder of lipoprotein metabolism, unspecified (7) Chronic lumbar pain: Code(s): M54.50 - Low back pain, unspecified; G89.29 - Other chronic pain Qualifiers: Back pain laterality: bilateral Sciatica laterality: bilateral sciatica Sciatica presence: with sciatica Qualified Code(s): M54.42 - Lumbago with sciatica, left side; M54.41 - Lumbago with sciatica, right side; G89.29 - Other chronic pain (8) Obesity due to excess calories: Code(s): E66.09 - Other obesity due to excess calories Qualifiers: Body mass index: BMI 32.0-32.9 Obesity classification: adult class 1 (BMI 30 - 34.9) Serious obesity comorbidity presence: without serious co morbidity Qualified Code(s): E66.09 - Other obesity due to excess calories; Z68.32 - Body mass index [BMI] 32.0-32.9, adult (9) Constipation by delayed colonic transit: Code(s): K59.01 - Slow transit constipation (10) Osteoarthritis, generalized: Code(s): M15.9 - Polyosteoarthritis, unspecified (11) Hiatal hernia: Code(s): K44.9 - Diaphragmatic hernia without obstruction or gangrene (12) Lumbar radiculopathy: Code(s): M54.16 - Radiculopathy, lumbar region (13) Environmental allergies: Code(s): Z91.09 - Other allergy status, other than to drugs and biological substances Plan Patient is a 57-year-old female with a history of fibromyalgia, obesity, major depression headache syndrome, lipid disorder, chronic lumbar pain, constipation, osteoarthritis multiple joints primary, chronic pain syndrome,, hiatal hernia, environmental allergies Came in today for her 3 month follow-up appointment Complaining of feeling chest pain off and on radiating to left arm with numbness and tingling in her hand EKG done today showed normal sinus rhythm , 66 beats per minute, no acute findings She is also seeing [facility] for her lower back and right knee pain She is currently taking gabapentin 600 mg at night which is helping her with her fibromyalgia and chronic pain syndrome. Continued to complain of pain multiple joints along with numbness and tingling, I am increasing the gabapentin to 600 t.i.d. Patient is to return in 3 months for follow-up appointment Other medications patient taking are for GERD through Gastroenterology She is on fluoxetine for depression Long-acting antihistamine for allergies BMI is 32.9 need to lose weight Follow-up 3 months Orders: Orders AMB EKG-In Office Today R07.9 - Chest pain, unspecified Medications: Changed From gabapentin Two at night and 1 in the morning 90 days 270 caps 0RF To gabapentin 600 mg (2 x 300 mg) PO Q8H 180 caps 2RF 30 days Coding Level of Care Code Est Pt Level 4 (26900) Diagnoses Chest pain, unspecified type R07.9 Chest pain type: unspecified Fibromyalgia M79.7 Chronic pain syndrome G89.4 Recurrent major depressive disorder, in partial remission F33.41 Active/Remission status: in partial remission Headache syndrome G44.89 Lipid disorder E78.9 Chronic bilateral low back pain with bilateral sciatica M54.42; M54.41; G89.29 Back pain laterality: bilateral Sciatica laterality: bilateral sciatica Sciatica presence: with sciatica Class 1 obesity due to excess calories without serious comorbidity with body mass index (BMI) of 32.0 to 32.9 in adult E66.09; Z68.32 Body mass index: BMI 32.0-32.9 Obesity classification: adult class 1 (BMI 30 - 34.9) Serious obesity comorbidity presence: without serious comorbidity Constipation by delayed colonic transit K59.01 Osteoarthritis, generalized M15.9 Hiatal hernia K44.9 Lumbar radiculopathy M54.16 Environmental allergies Z91.09 CPT Codes EKG - CPT: 03588-[id number], Complete ([id number]) Additional Codes HEATHER-7 Assessment Billing - HEATHER-7 Assessment Tool: HEATHER-7 Assessment 38832 ([id number])
[2023-04-12 12:52] VITALS: BP 104/68; PULSE 74; O2SAT 97; BMI 32.9
== END 2023-04-12 14:52 | disposition home or self-care (01) ==
PROVIDERS: PCP Internal Medicine; Visit Provider Internal Medicine
DX: R07.9 Chest pain, unspecified (principal)
CPT/HCPCS: 93000; 99214

== ENCOUNTER 2023-05-09 13:22 | Outpatient (REF) | payer OTHER, SELFPAY ==
[2023-05-09 14:41] LABS: Alanine Aminotransferase 25 U/L (0-31); Albumin Level 4.5 g/dL (3.5-5.0); Alkaline Phosphatase 120 U/L (39-117); Anion Gap 11 (12-20); Aspartate Amino Transferase 23 U/L (5-31); Bilirubin Total 0.4 mg/dL (0.0-1.0); Blood Urea Nitrogen 11 mg/dL (9-16); Calcium 9.7 mg/dL (8.4-10.2); Carbon Dioxide 26 mmol/L (22-29); Chloride 110 mmol/L (96-108); Cholesterol 216 mg/dL (<200); Estimated Glomerular Filt Rate > 60; Glucose Random 106 mg/dL (60-115); HDL Cholesterol 50 mg/dL (>40); LDL Cholesterol Calculated 142 mg/dL (<100); Potassium 4.2 mmol/L (3.3-5.1); Sodium 143 mmol/L (135-145); Total Protein 7.9 g/dL (6.5-8.0); Triglycerides 122 mg/dL (<150)
== END 2023-05-09 13:23 | disposition home or self-care (01) ==
LOC: HO.LAB 13:22
PROVIDERS: PCP Internal Medicine; Visit Provider Internal Medicine Cardiovascular Disease
DX: Z71.2 Person consulting for explanation of examination or test findings (principal)
CPT/HCPCS: 36415; 80053; 80061; 84443

== ENCOUNTER 2023-06-07 11:08 | Outpatient (AMB) | payer OTHER, SELFPAY ==
[2023-06-07 11:09] VITALS: BP 113/56; PULSE 88; BMI 32.3
--- NOTE | 2023-06-07 11:09 | A.OFFVIS_ITS ---
Intake Vital Signs 06/07/23 11:09 Height 5 ft 3 in Weight 182 lb 1.629 oz BMI 32.3 BP 113/56 L Blood Pressure Location Lt brachial Position Sitting Pulse 88 Pulse Source Pulse Oximeter Intake Visit Reasons: 3 month follow up Intake Note: Pt presents to the office today for a 3 month follow up for constipation. Pt states her constipation is much better since taking the medications that were prescribed. Pt states she has a bowel movement everyday and denies any other GI concerns at this time. Allergies SEAFOOD Adverse Reaction (Severe, Uncoded 06/07/23 11:11) UNKNOWN HPI 3 month follow up HPI Details LAST VISIT: RUQ abdominal pain Hiatal hernia Diastasis recti Constipation by delayed colonic transit Pancreatic insufficiency IBS (irritable bowel syndrome) Plan Continue Creon with meals. Patient reports to be feeling better after increasing her dose. To help her move her bowels patient was encouraged to try to take MiraLax daily. Her right upper quadrant pain might be muscular or it could be related to gas trapping in hepatic flexure. Will send patient for ultrasound. Patient reports that the pain sometimes is not necessarily related to her meals. It might happen hours to 2 hours after meals. Patient will continue by bisacodyl tablets as well. Continue famotidine twice a day. Discussed with patient avoiding dietary triggers in late night snacking. Staying upright for minimal 3 hours after meals discussed with patient. I will see her in 3 months, sooner on as needed basis. Patient is agreeable to this plan and verbalizes understanding of instructions. She was given the opportunity to ask questions and all questions answered. ? Thank you for allowing me to participate in her care Orders Orders US abdomen complete Today R10.11, R10.9 Medications New polyethylene glycol 3350 (Miralax) 17 grams PO DAILY 510 grams 2RF TODAY'S VISIT Patient is here today for follow-up and to discuss ultrasound results. No acute processes found on ultrasound. Patient reports that she has been doing better now that she is taking MiraLax every day. Patient takes Dulcolax on as-needed basis. Reports that she is moving her bowels better now. Patient also takes Linzess, however she does not take it daily. Patient feels like MiraLax is working for her. Patient is trying to lose weight. Certain food will still cause her acid reflux so she is trying to avoid them. Lactose containing products and particularly. Patient however is taking famotidine twice a day and her symptoms of acid reflux are suppressed for the most part. Patient denies any nausea or vomiting. Occasional dyspepsia depending on what she eats. Patient denies melena, hematochezia, unintentional weight loss or ribbon like stools. [facility] Medical History Gastroparesis KRISTAL positive Tubular adenoma Pancreatic insufficiency Environmental allergies Reversal of sterilization Arthritis Fibromyalgia Surgical History Hx of colonoscopy H/O tubal ligation H/O cosmetic surgery Family History Father HTN (hypertension) Blood infection Heart disease Social History Household Members Other:: daughter Housing: House Alcohol intake: never Patient Tobacco Use Status: Never used Tobacco e-Cigarette/Vaping Use: Never Used service: No Current occupational status: disabled Cognitive needs: No Hearing needs: No Vision needs: No Female Reproductive History Menstrual Age of Menarche: 10 Review of Systems Const Denies weight gain and Denies weight loss ENT Reports no additional complaints, Denies dysphagia and Denies odynophagia Card Reports no additional complaints Resp Reports no additional complaints GI Denies abdominal pain, Denies belching, Denies melena, Denies bloating, Reports constipation, Denies dysphagia, Denies excessive flatus, Denies dyspepsia, Reports heartburn (Occasional), Denies diarrhea, Denies loose stools, Denies nausea, Denies odynophagia and Denies vomiting Reports no additional complaints Musc Reports no additional complaints Neuro Reports no additional complaints Psych Reports no additional complaints Endo Reports no additional complaints Physical Exam Vital Signs: Last Vital Signs Pulse 88 06/07/23 11:09 BP 113/56 L 06/07/23 11:09 BMI result Body Mass Index 32.3 Const General: healthy appearing, no acute distress and well developed Nutritional Appearance: obese Orientation/consciousness: patient oriented x3 Resp Effort & Inspection: normal respiratory effort, able to speak in complete sentences, no tracheal deviation and symmetric chest movement Auscultation: clear to auscultation bilaterally Cardio Rate: regular rate GI Inspection: Yes normal to inspection, No distended and Yes obesity Palpation (GI): Soft to palpation, not firm, nontender and No hepatosplenomegaly present Auscultation: normal bowel sounds General: Yes no CVA tenderness Back/Spine/Pelvis Back: no CVA tenderness Skin General skin exam: elasticity normal, turgor normal and dry skin Neuro General: patient oriented x3 Psych Appearance: grossly normal Mental Status: mental status grossly normal Results Reviewed Results Reviewed: Laboratory Tests 01/11/23 05/09/23 05/09/23 11:25 13:41 13:41 AST 23 ALT 25 LDL Cholesterol Direct 134 H LDL Cholesterol, Calc 142 H ABDOMINAL US IMPRESSION: 1. Increased hepatic parenchymal heterogeneity and echogenicity could be associated with hepatocellular disease/hepatic steatosis and substantially limits visualization. Correlation with liver function tests and clinical exam recommended to determine further management. 2. Borderline gallbladder wall thickening of 0.3 cm, however, gallbladder is suboptimally distended, limiting evaluation. No gallstones are visualized. Per data integrity consultant, patient stated fasted prior to exam. 3. Left renal lower pole 0.9 cm cyst with benign features. There is no indication for followup imaging. Assessment & Plan Assessment & Plan (1) Hiatal hernia: Code(s): K44.9 - Diaphragmatic hernia without obstruction or gangrene (2) Diastasis recti: Code(s): M62.08 - Separation of muscle (nontraumatic), other site (3) Constipation by delayed colonic transit: Code(s): K59.01 - Slow transit constipation (4) Pancreatic insufficiency: Code(s): K86.89 - Other specified diseases of pancreas (5) RUQ abdominal pain: Code(s): R10.11 - Right upper quadrant pain (6) IBS (irritable bowel syndrome): Code(s): K58.9 - Irritable bowel syndrome without diarrhea Qualifiers: Irritable bowel syndrome type: without diarrhea Qualified Code(s): K58.9 - Irritable bowel syndrome without diarrhea (7) Hepatic steatosis: Code(s): K76.0 - Fatty (change of) liver, not elsewhere classified Plan Continue taking MiraLax daily. Use Dulcolax on as needed basis. Continue follow low FODMAP diet. Went over recommendation as well as food to avoid. Patient will avoid lactose and carbs. Patient was encouraged to lose weight, increased echogenicity of the liver suggesting hepatic steatosis. Patient has normal liver enzymes. We will do biannual ultrasound. Continue Creon with meals. Continue famotidine twice a day. Patient was encouraged to avoid dietary triggers and late night snacking. Staying upright for minimum 3 hours after meals discussed with patient. Patient will return in 2 months so we can discuss going for colonoscopy. Suboptimal prep in 2021 recommendation was made to repeat colonoscopy in 1-2 years. Patient denies any melena, hematochezia, unintentional weight loss or ribbon like stools. She is agreeable to current plan of care and verbalizes understanding of instructions. She was given the opportunity to ask questions and all questions answered. Thank you for allowing me to participate in care Medications: Refilled bisacodyl (Dulcolax (bisacodyl)) 10 mg (2 x 5 mg) PO BEDTIME 180 tabs 4RF famotidine 20 mg PO BID 180 tabs 3RF K29.70 - Gastritis, unspecified, without bleeding linaclotide (Linzess) 145 mcg PO DAILY 90 caps 2RF acetaminophen (Tylenol Extra Strength) 500 mg PO Q6H PRN 14 tabs 0RF fever or pain lrvyxt-[id number]-hwvxbdn 24,000-76,000 -120,000 unit (Creon) administer with meals and/or snacks 2 caps PO QID 240 caps 4RF K86.89 - Other specified diseases of pancreas Discontinued docusate sodium Discontinued Reason: Doctor's Order 100 mg PO BEDTIME 30 caps 3RF K59.00 - Constipation, unspecified Coding Level of Care Code Est Pt Level 4 (95831) Diagnoses Hiatal hernia K44.9 Diastasis recti M62.08 Constipation by delayed colonic transit K59.01 Pancreatic insufficiency K86.89 RUQ abdominal pain R10.11 Irritable bowel syndrome without diarrhea K58.9 Irritable bowel syndrome type: without diarrhea Hepatic steatosis K76.0 Time Spent (min) 35 Comment 20 minutes spent with patient and additional 15 minutes spent reviewing her records
== END 2023-06-07 11:29 | disposition home or self-care (01) ==
PROVIDERS: PCP Internal Medicine; Visit Provider Nurse Practitioner Family
DX: K44.9 Diaphragmatic hernia without obstruction or gangrene (principal); M62.08 Separation of muscle (nontraumatic), other site; K59.01 Slow transit constipation; K86.89 Other specified diseases of pancreas; R10.11 Right upper quadrant pain; K58.9 Irritable bowel syndrome, unspecified; K76.0 Fatty (change of) liver, not elsewhere classified
CPT/HCPCS: 99214

== ENCOUNTER → 2023-06-07 11:08 | Outpatient (BNVA) | payer OTHER, SELFPAY | PROVIDERS: PCP Internal Medicine; Visit Provider Nurse Practitioner Family | DX: K44.9 Diaphragmatic hernia without obstruction or gangrene (principal); K59.01 Slow transit constipation; K86.89 Other specified diseases of pancreas; R10.11 Right upper quadrant pain | CPT/HCPCS: 99212 ==

== ENCOUNTER 2023-07-11 08:27 | Outpatient (AMB) | payer OTHER, SELFPAY ==
--- NOTE | 2023-07-11 08:29 | MHC.PC.OV ---
Vital Signs 07/11/23 08:32 Height 5 ft 3 in Weight 186 lb BMI 32.9 BP 118/70 Blood Pressure Location Rt brachial Position Sitting Pulse 60 Pulse Source Pulse Oximeter Pulse Oximetry (%) 98 Oxygen Delivery Method Room Air Intake Visit Reasons: 6 month follow up Allergies SEAFOOD Adverse Reaction (Severe, Uncoded 07/11/23 08:32) UNKNOWN Medication List - Last Reconciled 07/11/23 by Cole Austin MD acetaminophen (Tylenol Extra Strength) 500 mg PO Q6H PRN albuterol sulfate 90 mcg/actuation 2 puffs inhalation Q6H PRN bisacodyl (Dulcolax (bisacodyl)) 10 mg (2 x 5 mg) PO BEDTIME [body wipes As directed] buspirone 5 mg PO BID cyclobenzaprine 5 mg PO BID PRN 30 days diaper,brief,adult,disposable As directed famotidine 20 mg PO BID fluoxetine 20 mg PO DAILY gabapentin 600 mg (2 x 300 mg) PO Q8H 30 days ketotifen fumarate 0.025%(0.035%) 1 drp ophthalmic (eye) BID lidocaine 5% (Lidoderm) 1 patch topical DAILY PRN MDD remove after 12 hours linaclotide (Linzess) 145 mcg PO DAILY [id number] 24,000-76,000 -120,000 unit (Creon) 2 caps PO QID loratadine 10 mg PO DAILY polyethylene glycol 3350 (Miralax) 17 grams PO DAILY Tobacco use date assessed: 04/12/23 Dental Screening Dental Screen Date: 04/12/23 HPI 6 month follow up HPI Details Patient is a 57-year-old female with a history of fibromyalgia, obesity, major depression, headache syndrome, lipid disorder, chronic lumbar pain, constipation, osteoarthritis multiple joints primary, hiatal hernia, environmental allergies Came in today for her 3 month follow-up appointment She is also seeing [facility] for her lower back and right knee pain She is currently taking gabapentin 600 mg at night which is helping her with her fibromyalgia and chronic pain syndrome. Continued to complain of pain multiple joints along with numbness and tingling, she is now seeing gabapentin 600 mg 3 times a day Other medications patient taking are for GERD through Gastroenterology She is on fluoxetine for depression Long-acting antihistamine for allergies BMI is elevated need to lose weight Labs were done earlier this month reviewed again Follow-up 3 months [facility] [place] Medical History Gastroparesis KRISTAL positive Tubular adenoma Pancreatic insufficiency Environmental allergies Reversal of sterilization Arthritis Fibromyalgia Surgical History Hx of colonoscopy H/O tubal ligation H/O cosmetic surgery Family History Father HTN (hypertension) Blood infection Heart disease Social History Household Members Other:: daughter Housing: House Alcohol intake: never Patient Tobacco Use Status: Never used Tobacco e-Cigarette/Vaping Use: Never Used service: No Current occupational status: disabled Cognitive needs: No Hearing needs: No Vision needs: No Female Reproductive History Menstrual Age of Menarche: 10 Questionnaire Thrive Questionnaire Date Thrive assessed: 04/12/23 HEATHER-7 AMB Questionnaire HEATHER-7 Date HEATHER - 7 assessed: 04/12/23 Source: Developed by Drs. Justin Munguia, Bonnie Harding, Nick Hartley and colleagues, with an educational narda from [employer]. Review of Systems Const Denies chills and Denies fever(s) ENT Denies epistaxis and Denies nasal discharge Resp Denies chest congestion, Denies cough and Denies hemoptysis GI Denies diarrhea and Denies nausea Skin/Breast Denies rash Neuro Reports no additional complaints Psych Reports no additional complaints Endo Reports no additional complaints Physical exam (Primary Care) Vital Signs: Last Vital Signs Pulse 60 07/11/23 08:32 BP 118/70 07/11/23 08:32 Pulse Ox 98 07/11/23 08:32 Oxygen Delivery Method Room Air 07/11/23 08:32 Tobacco/Smoking Status: Tobacco use Status Tobacco use date assessed 04/12/23 07/11/23 08:31 Patient Tobacco Use Status Never used Tobacco 07/11/23 08:31 e-Cigarette/Vaping Use Never Used 07/11/23 08:31 Thrive Assessment: Date of Thrive Assessment Date Thrive assessed 04/12/23 07/11/23 08:31 Const General: cooperative, comfortable and no acute distress Orientation/consciousness: patient oriented x3 HENMT Head: Yes normocephalic Eyes General: appearance normal, both eyes and all related structures Neck Neck: Yes supple Resp Effort & Inspection: normal respiratory effort, no cough and no stridor Cardio Rhythm: regular rhythm Heart sounds: S1 normal heart sound present and S2 normal heart sound present Skin General skin exam: turgor normal Neuro General: patient oriented x3, tone normal and moves all extremities Extrem Right lower extremity: no edema Left lower extremity: no edema Assessment and Plan Assessment & Plan (1) Fibromyalgia: Code(s): M79.7 - Fibromyalgia (2) Chronic pain syndrome: Code(s): G89.4 - Chronic pain syndrome (3) Major depression, recurrent: Code(s): F33.9 - Major depressive disorder, recurrent, unspecified Qualifiers: Active/Remission status: in partial remission Qualified Code(s): F33.41 - Major depressive disorder, recurrent, in partial remission (4) Headache syndrome: Code(s): G44.89 - Other headache syndrome (5) Lipid disorder: Code(s): E78.9 - Disorder of lipoprotein metabolism, unspecified (6) Chronic lumbar pain: Code(s): M54.50 - Low back pain, unspecified; G89.29 - Other chronic pain Qualifiers: Back pain laterality: bilateral Sciatica laterality: bilateral sciatica Sciatica presence: with sciatica Qualified Code(s): M54.42 - Lumbago with sciatica, left side; M54.41 - Lumbago with sciatica, right side; G89.29 - Other chronic pain (7) Obesity due to excess calories: Code(s): E66.09 - Other obesity due to excess calories Qualifiers: Body mass index: BMI 32.0-32.9 Obesity classification: adult class 1 (BMI 30 - 34.9) Serious obesity comorbidity presence: without serious comorbidity Qualified Code(s): E66.09 - Other obesity due to excess calories; Z68.32 - Body mass index [BMI] 32.0-32.9, adult (8) Constipation by delayed colonic transit: Code(s): K59.01 - Slow transit constipation (9) Osteoarthritis, generalized: Code(s): M15.9 - Polyosteoarthritis, unspecified (10) Hiatal hernia: Code(s): K44.9 - Diaphragmatic hernia without obstruction or gangrene (11) Lumbar radiculopathy: Code(s): M54.16 - Radiculopathy, lumbar region (12) Environmental allergies: Code(s): Z91.09 - Other allergy status, other than to drugs and biological substances (13) Paresthesia of both feet: Code(s): R20.2 - Paresthesia of skin (14) KRISTAL positive: Code(s): R76.8 - Other specified abnormal immunological findings in serum Plan Patient is a 57-year-old female with a history of fibromyalgia, obesity, major depression, headache syndrome, lipid disorder, chronic lumbar pain, constipation, osteoarthritis multiple joints primary, hiatal hernia, environmental allergies Came in today for her 3 month follow-up appointment She is also seeing [facility] for her lower back and right knee pain She is currently taking gabapentin 600 mg at night which is helping her with her fibromyalgia and chronic pain syndrome. Continued to complain of pain multiple joints along with numbness and tingling, she is now taking gabapentin 600 mg t.i.d. I see that they were labs to be done from February through Gastroenterology which were not done, I have reordered those labs along with metabolic profile and CBC Patient was notified to do all labs before next visit Have also ordered EMG nerve conduction study for her feet as she continued to complain of paresthesia Prednisone 20 mg sent to be taken once a day for 5 days for pain and swelling in the joints Patient was seeing Rheumatology but they discharged her in February stating that there is nothing much they can do for the patient Other medications patient taking are for GERD through Gastroenterology She is on fluoxetine for depression Long-acting antihistamine for allergies BMI is elevated need to lose weight Labs were done earlier this month reviewed again Follow-up 3 months Orders: Orders Anti Extractable Nuclear Ag Today G44.89 - Other headache syndrome, G89.4 - Chronic pain syndrome, M54.16 - Radiculopathy, lumbar region, M79.7 - Fibromyalgia, R20.2 - Paresthesia of skin, R76.8 - Other specified abnormal immunological findings in serum Erythrocyte Sedimentation Rate Today G44.89 - Other headache syndrome, G89.4 - Chronic pain syndrome, M54.16 - Radiculopathy, lumbar region, M79.7 - Fibromyalgia, R20.2 - Paresthesia of skin, R76.8 - Other specified abnormal immunological findings in serum Comprehensive Met. Panel Today G44.89 - Other headache syndrome, G89.4 - Chronic pain syndrome, M54.16 - Radiculopathy, lumbar region, M79.7 - Fibromyalgia, R20.2 - Paresthesia of skin, R76.8 - Other specified abnormal immunological findings in serum NE electromyogram (EMG) Today R20.2 - Paresthesia of skin NE nerve conduction velocity Today R20.2 - Paresthesia of skin KRISTAL Reflex Titer and Pattern Today G44.89 - Other headache syndrome, G89.4 - Chronic pain syndrome, M54.16 - Radiculopathy, lumbar region, M79.7 - Fibromyalgia, R20.2 - Paresthesia of skin, R76.8 - Other specified abnormal immunological findings in serum Anti DNA DS Antibody Today G44.89 - Other headache syndrome, G89.4 - Chronic pain syndrome, M54.16 - Radiculopathy, lumbar region, M79.7 - Fibromyalgia, R20.2 - Paresthesia of skin, R76.8 - Other specified abnormal immunological findings in serum C Reactive Protein Today G44.89 - Other headache syndrome, G89.4 - Chronic pain syndrome, M54.16 - Radiculopathy, lumbar region, M79.7 - Fibromyalgia, R20.2 - Paresthesia of skin, R76.8 - Other specified abnormal immunological findings in serum DNA Double Stranded-Crithidia Today G44.89 - Other headache syndrome, G89.4 - Chronic pain syndrome, M54.16 - Radiculopathy, lumbar region, M79.7 - Fibromyalgia, R20.2 - Paresthesia of skin, R76.8 - Other specified abnormal immunological findings in serum Complete Blood Count Auto Diff Today G44.89 - Other headache syndrome, G89.4 - Chronic pain syndrome, M54.16 - Radiculopathy, lumbar region, M79.7 - Fibromyalgia, R20.2 - Paresthesia of skin, R76.8 - Other specified abnormal immunological findings in serum LDL Cholesterol Direct Today G44.89 - Other headache syndrome, G89.4 - Chronic pain syndrome, M54.16 - Radiculopathy, lumbar region, M79.7 - Fibromyalgia, R20.2 - Paresthesia of skin, R76.8 - Other specified abnormal immunological findings in serum Vitamin D 25-OH (D2 and D3) Today G44.89 - Other headache syndrome, G89.4 - Chronic pain syndrome, M54.16 - Radiculopathy, lumbar region, M79.7 - Fibromyalgia, R20.2 - Paresthesia of skin, R76.8 - Other specified abnormal immunological findings in serum Vitamin B12 Today G44.89 - Other headache syndrome, G89.4 - Chronic pain syndrome, M54.16 - Radiculopathy, lumbar region, M79.7 - Fibromyalgia, R20.2 - Paresthesia of skin, R76.8 - Other specified abnormal immunological findings in serum Medications: New prednisone 20 mg PO DAILY 5 tabs 0RF 5 days Refilled loratadine 10 mg PO DAILY 90 tabs 1RF gabapentin 600 mg (2 x 300 mg) PO Q8H 180 caps 2RF 30 days Coding Level of Care Code Est Pt Level 5 (95642) Diagnoses Fibromyalgia M79.7 Chronic pain syndrome G89.4 Recurrent major depressive disorder, in partial remission F33.41 Active/Remission status: in partial remission Headache syndrome G44.89 Lipid disorder E78.9 Chronic bilateral low back pain with bilateral sciatica M54.42; M54.41; G89.29 Back pain laterality: bilateral Sciatica laterality: bilateral sciatica Sciatica presence: with sciatica Class 1 obesity due to excess calories without serious comorbidity with body mass index (BMI) of 32.0 to 32.9 in adult E66.09; Z68.32 Body mass index: BMI 32.0-32.9 Obesity classification: adult class 1 (BMI 30 - 34.9) Serious obesity comorbidity presence: without serious comorbidity Constipation by delayed colonic transit K59.01 Osteoarthritis, generalized M15.9 Hiatal hernia K44.9 Lumbar radiculopathy M54.16 Environmental allergies Z91.09 Paresthesia of both feet R20.2 KRISTAL positive R76.8 Time Spent (min) 41 Comment [id number] with the patient, reviewing rheumatology note, ordering labs, charting
[2023-07-11 08:32] VITALS: BP 118/70; PULSE 60; O2SAT 98; BMI 32.9
== END 2023-07-11 09:16 | disposition home or self-care (01) ==
PROVIDERS: PCP Internal Medicine; Visit Provider Internal Medicine
DX: M79.7 Fibromyalgia (principal); G89.4 Chronic pain syndrome; F33.41 Major depressive disorder, recurrent, in partial remission; G44.89 Other headache syndrome; E78.9 Disorder of lipoprotein metabolism, unspecified; M54.42 Lumbago with sciatica, left side; M54.41 Lumbago with sciatica, right side; G89.29 Other chronic pain; E66.09 Other obesity due to excess calories; Z68.32 Body mass index [BMI] 32.0-32.9, adult; K59.01 Slow transit constipation; M15.9 Polyosteoarthritis, unspecified
CPT/HCPCS: 99215

== ENCOUNTER 2023-07-25 09:01 | Outpatient (REF) | payer OTHER, SELFPAY ==
--- NOTE | 2023-07-25 09:03 | EMG_ITS ---
Left tibial and peroneal motor studies were performed. Left superficial peroneal, sural and median and lateral plantar sensory studies were performed. Tibial H-reflex was obtained and paraspinal muscles were tested with needle. 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 MD JAY Pearson/GREER / [id number]
== END 2023-07-25 09:02 | disposition home or self-care (01) ==
LOC: HO.NEURO 09:01
PROVIDERS: PCP Internal Medicine; Visit Provider Internal Medicine
DX: R20.2 Paresthesia of skin (principal)
CPT/HCPCS: 95886; 95909

== ENCOUNTER 2023-10-10 09:29 | Outpatient (AMB) | payer OTHER, SELFPAY ==
[2023-10-10 09:31] VITALS: BP 110/66; PULSE 84; O2SAT 97; BMI 32.8
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
== END 2023-10-10 10:47 | disposition home or self-care (01) ==
PROVIDERS: PCP Internal Medicine; Visit Provider Internal Medicine
DX: R32 Unspecified urinary incontinence (principal); Z91.09 Other allergy status, other than to drugs and biological substances; M47.816 Spondylosis without myelopathy or radiculopathy, lumbar region; F33.41 Major depressive disorder, recurrent, in partial remission; E78.9 Disorder of lipoprotein metabolism, unspecified; M54.42 Lumbago with sciatica, left side; M54.41 Lumbago with sciatica, right side; G89.29 Other chronic pain; M15.9 Polyosteoarthritis, unspecified; M79.7 Fibromyalgia; M54.16 Radiculopathy, lumbar region; R76.8 Other specified abnormal immunological findings in serum
CPT/HCPCS: 99214; G2211

== ENCOUNTER 2023-11-07 09:00 | Outpatient (AMB) | payer OTHER, SELFPAY ==
--- NOTE | 2023-11-07 09:06 | A.OFFVIS_ITS ---
Vital Signs 11/07/23 09:09 Height 5 ft 3 in Weight 184 lb 11.958 oz BMI 32.7 BP 104/58 L Blood Pressure Location Rt brachial Position Sitting Pulse 68 Pulse Source Pulse Oximeter Pulse Oximetry (%) 96 Oxygen Delivery Method Room Air Intake Visit Reasons: Discuss colonoscopy Intake Note: Kristal presents in office today for a scheduled FUV to discuss possible colo s/p CC; Pt reports that they have been doing better since their last visit. Pt has been avoiding their trigger foods and has been noticing a decrease in sx. Pt reports previous hx of colo s.p. approximately 2-3 years ago. Obstetrical Tech Required: No Allergies seafood Allergy (Severe, Unverified 11/07/23 09:08) Unknown HPI HPI Discuss colonoscopy: Details: LAST VISIT Hiatal hernia Diastasis recti Constipation by delayed colonic transit Pancreatic insufficiency RUQ abdominal pain IBS (irritable bowel syndrome) Hepatic steatosis Plan Continue taking MiraLax daily. Use Dulcolax on as needed basis. Continue follow low FODMAP diet. Went over recommendation as well as food to avoid. Patient will avoid lactose and carbs. Patient was encouraged to lose weight, increased echogenicity of the liver suggesting hepatic steatosis. Patient has normal liver enzymes. We will do biannual ultrasound. Continue Creon with meals. Continue famotidine twice a day. Patient was encouraged to avoid dietary triggers and late night snacking. Staying upright for minimum 3 hours after meals discussed with patient. Patient will return in 2 months so we can discuss going for colonoscopy. Suboptimal prep in 2021 recommendation was made to repeat co lonoscopy in 1-2 years. Patient denies any melena, hematochezia, unintentional weight loss or ribbon like stools. She is agreeable to current plan of care and verbalizes understanding of instructions. She was given the opportunity to ask questions and all questions answered. ? Thank you for allowing me to participate in care Medications Refilled bisacodyl (Dulcolax (bisacodyl)) 10 mg (2 x 5 mg) PO BEDTIME 180 tabs 4RF famotidine 20 mg PO BID 180 tabs 3RF K29.70 linaclotide (Linzess) 145 mcg PO DAILY 90 caps 2RF acetaminophen (Tylenol Extra Strength) 500 mg PO Q6H PRN 14 tabs 0RF fever or pain zwefiy-zpeugjgm-sylrcgk 24,000-76,000 -120,000 unit (Creon) administer with meals and/or snacks 2 caps PO QID 240 caps 4RF K86.89 Discontinued docusate sodium Discontinued Reason: Doctor's Order 100 mg PO BEDTIME 30 caps 3RF K59.00 TODAY'S VISIT Patient is here today for follow-up and to discuss going for colonoscopy. Suboptimal prep on colonoscopy in 2021. Patient reports that currently her symptoms are better. Patient states that she had to eliminate lot of food. No longer eating red meat, milk, bread. Patient tries to avoid carbs as much as possible. Patient currently is taking Linzess in the morning and Dulcolax at night time and she is moving her bowels better. Patient is taking famotidine twice a day and her symptoms of acid reflux are suppressed for the most part, however depending on what she eats she might have epigastric discomfort and nausea. Patient denies vomiting. Denies dyspepsia, dysphagia or odynophagia. Patient states that she is taking Creon and she is no longer experiencing bloating. Patient reports that frequently she will have right upper quadrant pain postprandially. Patient feels cramping in the right upper quadrant and distension in 1 area just below her ribcage. Patient denies having issues with anesthesia in the past no history of sleep apnea. Not on any anticoagulation medication denies any cardiac or respiratory symptoms. [facility] Medical History (Updated 11/07/23 @ 09:41 by LOIS Elias-) KRISTAL positive Tubular adenoma Pancreatic insufficiency Environmental allergies Reversal of sterilization Arthritis Fibromyalgia Surgical History Hx of colonoscopy H/O tubal ligation H/O cosmetic surgery Family History Father HTN (hypertension) Blood infection Heart disease Social History Household Members Other:: daughter Housing: House Alcohol intake: never Patient Tobacco Use Status: Never used Tobacco e-Cigarette/Vaping Use: Never Used service: No Current occupational status: disabled Cognitive needs: No Hearing needs: No Vision needs: No Female Reproductive History Menstrual Age of Menarche: 10 Review of Systems Const Denies weight gain and Denies weight loss ENT Reports no additional complaints, Denies dysphagia and Denies odynophagia Card Reports no additional complaints Resp Reports no additional complaints GI Denies abdominal pain, Denies belching, Denies melena, Denies bloating, Reports constipation (Occasional), Denies dysphagia, Denies excessive flatus, Denies dyspepsia, Reports heartburn (Occasional), Denies diarrhea, Denies loose stools, Denies nausea, Denies odynophagia and Denies vomiting Reports no additional complaints Musc Reports no additional complaints Neuro Reports no additional complaints Psych Reports no additional complaints Endo Reports no additional complaints Physical Exam Vital Signs: Last Vital Signs Pulse 68 11/07/23 09:09 BP 104/58 L 11/07/23 09:09 Pulse Ox 96 11/07/23 09:09 Oxygen Delivery Method Room Air 11/07/23 09:09 BMI result Body Mass Index 32.7 Const General: healthy appearing, no acute distress and well developed Nutritional Appearance: obese Orientation/consciousness: patient oriented x3 Resp Effort & Inspection: normal respiratory effort, able to speak in complete sentences, no tracheal deviation and symmetric chest movement Auscultation: clear to auscultation bilaterally Cardio Rate: regular rate GI Inspection: Yes normal to inspection, No distended and Yes obesity Palpation (GI): Soft to palpation, not firm, nontender and No hepatosplenomegaly present Auscultation: normal bowel sounds General: Yes no CVA tenderness Back/Spine/Pelvis Back: no CVA tenderness Skin General skin exam: elasticity normal, turgor normal and dry skin Neuro General: patient oriented x3 Psych Appearance: grossly normal Mental Status: mental status grossly normal Assessment & Plan Assessment & Plan (1) Hiatal hernia: Code(s): K44.9 - Diaphragmatic hernia without obstruction or gangrene Category: Medical (2) Diastasis recti: Code(s): M62.08 - Separation of muscle (nontraumatic), other site Category: Medical (3) Constipation by delayed colonic transit: Code(s): K59.01 - Slow transit constipation Category: Medical (4) Pancreatic insufficiency: Code(s): K86.89 - Other specified diseases of pancreas Category: Medical (5) Colon cancer screening: Code(s): Z12.11 - Encounter for screening for malignant neoplasm of colon Category: Medical (6) RUQ abdominal pain: Code(s): R10.11 - Right upper quadrant pain (7) IBS (irritable bowel syndrome): Code(s): K58.9 - Irritable bowel syndrome without diarrhea Qualifiers: Irritable bowel syndrome type: with constipation Qualified Code(s): K58.1 - Irritable bowel syndrome with constipation (8) Hepatic steatosis: Code(s): K76.0 - Fatty (change of) liver, not elsewhere classified (9) GERD (gastroesophageal reflux disease): Code(s): K21.9 - Gastro-esophageal reflux disease without esophagitis Qualifiers: Esophagitis presence: esophagitis presence not specified Qualified Code(s): K21.9 - Gastro-esophageal reflux disease without esophagitis Plan Patient will continue taking famotidine as ordered. Continue avoiding dietary triggers. Low FODMAP diet as discussed on previous visits. Linzess and Dulcolax to manage her bowels. Patient continues with right upper quadrant pain, no tenderness on exam, will order HIDA scan to rule out biliary dyskinesia. Patient will be sent for upper endoscopy and colonoscopy. What to expect before during and after procedure discussed with her. Stressed the importance of clear liquid diet and good bowel prep. Patient will do 2 days of clear and split MiraLax with Dulcolax. I will see patient after the procedure, sooner on as needed basis. Patient is agreeable to this plan and verbalizes understanding of instructions. She was given the opportunity to ask questions and all questions answered. Thank you for allowing me to participate in her care Orders: Orders NM hepatobiliary w pharm Today R10.11 - Right upper quadrant pain Medications: New polyethylene glycol 3350 (Miralax) As directed by [facility] at [facility] 238 grams PO ONCE 238 grams 0RF Z12.11 - Encounter for screening for malignant neoplasm of colon Refilled bisacodyl (Dulcolax (bisacodyl)) 10 mg (2 x 5 mg) PO BEDTIME 180 tabs 4RF linaclotide (Linzess) 145 mcg PO DAILY 90 caps 2RF Coding Level of Care Code Est Pt Level 4 (06951) Diagnoses Hiatal hernia K44.9 Diastasis recti M62.08 Constipation by delayed colonic transit K59.01 Pancreatic insufficiency K86.89 Colon cancer screening Z12.11 RUQ abdominal pain R10.11 Irritable bowel syndrome with constipation K58.1 Irritable bowel syndrome type: with constipation Hepatic steatosis K76.0 Gastroesophageal reflux disease, unspecified whether esophagitis present K21.9 Esophagitis presence: esophagitis presence not specified Time Spent (min) 35 Comment 20 minutes spent with patient and additional 15 minutes spent her records
[2023-11-07 09:09] VITALS: BP 104/58; PULSE 68; O2SAT 96; BMI 32.7
== END 2023-11-07 09:48 | disposition home or self-care (01) ==
PROVIDERS: PCP Internal Medicine; Visit Provider Nurse Practitioner Family
DX: K44.9 Diaphragmatic hernia without obstruction or gangrene (principal); M62.08 Separation of muscle (nontraumatic), other site; K59.01 Slow transit constipation; K86.89 Other specified diseases of pancreas; Z12.11 Encounter for screening for malignant neoplasm of colon; R10.11 Right upper quadrant pain; K58.1 Irritable bowel syndrome with constipation; K76.0 Fatty (change of) liver, not elsewhere classified; K21.9 Gastro-esophageal reflux disease without esophagitis
CPT/HCPCS: 99214

== ENCOUNTER → 2023-11-07 09:00 | Outpatient (BNVA) | payer OTHER, SELFPAY | PROVIDERS: PCP Internal Medicine; Visit Provider Nurse Practitioner Family | DX: K44.9 Diaphragmatic hernia without obstruction or gangrene (principal); M62.08 Separation of muscle (nontraumatic), other site; K59.01 Slow transit constipation; K58.1 Irritable bowel syndrome with constipation; K21.9 Gastro-esophageal reflux disease without esophagitis; K76.0 Fatty (change of) liver, not elsewhere classified; R10.11 Right upper quadrant pain; K86.89 Other specified diseases of pancreas; Z12.11 Encounter for screening for malignant neoplasm of colon | CPT/HCPCS: 99212 ==

== ENCOUNTER 2023-12-11 08:32 | Outpatient (AMB) | payer OTHER, SELFPAY ==
[2023-12-11 08:33] VITALS: BP 110/70; BMI 32.4
--- NOTE | 2023-12-11 08:33 | MHC.OFFVIS ---
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 No complaints. Last Pap/HPV was negative in 11/16 Last Mammogram was BI-RADS 2 in 09/16 Last screening colonoscopy was in 02/15 the recommendation was to repeat in 1-2 years, the patient is scheduled for another screening colonoscopy in 03/19 [facility] Medical History KRISTAL positive Tubular adenoma Pancreatic insufficiency Environmental allergies Reversal of sterilization Arthritis Fibromyalgia Surgical History Hx of colonoscopy H/O tubal ligation H/O cosmetic surgery Family History Father HTN (hypertension) Blood infection Heart disease Social History Household Members Other:: daughter Housing: House Alcohol intake: never Patient Tobacco Use Status: Never used Tobacco e-Cigarette/Vaping Use: Never Used service: No Current occupational status: disabled Cognitive needs: No Hearing needs: No Vision needs: No Female Reproductive History Menstrual Age of Menarche: 10 control method: permanent sterilization Total pregnancies: 9 Full term: 5 Ab spontaneous: 4 Date of last pap smear: 10/25/22 Date of Mammogram: 08/29/22 Review of Systems Const All systems reviewed & are unremarkable except as noted in HPI and below Card Reports as per HPI Resp Reports as per HPI GI Reports as per HPI and Reports no additional complaints Reports as per HPI Physical Exam Vital Signs: Last Vital Signs BP 110/70 12/11/23 08:33 BMI result Body Mass Index 32.4 Const General: cooperative, healthy appearing and comfortable Chest Chest palpation & inspection: normal inspection of the chest and normal palpation of entire chest wall Breast/axilla inspection: normal inspection of the breasts and normal inspection of the axillae Breast/axilla palpation: normal palpation of the breasts, normal palpation of the axillae and no axillary lymphadenopathy Resp Effort & Inspection: normal respiratory effort Auscultation: clear to auscultation bilaterally Percussion: percussion normal Cardio Palpation: normal PMI Rate: regular rate Rhythm: regular rhythm Heart sounds: no murmurs and no rubs Peripheral pulses: Peripheral pulses 2+ throughout GI Inspection: Yes normal to inspection Palpation (GI): Soft to palpation, nontender, no guarding, not rigid and No hepatosplenomegaly present Percussion: Yes normal to percussion Auscultation: normal bowel sounds Rectal Exam - Female: deferred General: Yes bladder normal to palpation External Female Exam: No lesion Speculum Exam - Vagina: normal appearance of the vagina, normal palpation, normal vaginal discharge and not erythematous Speculum Exam - Cervix: normal appearance of the cervix and normal palpation Bimanual exam- vagina & uterus: normal bimanual exam, normal palpation, uterine size normal, bladder normal to palpation, consistency normal and normal palpation Bimanual Exam- Adnexa, other: normal adnexae, no masses and no tenderness Assessment & Plan Assessment & Plan (1) Well woman exam: Code(s): Z01.419 - Encounter for gynecological examination (general) (routine) without abnormal findings Category: Medical Plan: Co testing not indicated this year. Counseled the patient about the recommended dietary allowance of 1200 mg of Calcium & 600 IU of vitamin D. Mammogram ordered. T The patient was instructed to perform monthly self-breast exams and schedule annual exam in a year. All questions answered and the patient verbalized understanding. Orders: Orders MM tomosynthesis screening BI Today Z12.31 - Encounter for screening mammogram for malignant neoplasm of breast Coding Level of Care Code Est Pt Prev Care 40-64y(73580) Diagnoses Well woman exam Z01.419
== END 2023-12-11 08:55 | disposition home or self-care (01) ==
LOC: HO.HWS 08:32
PROVIDERS: PCP Internal Medicine; Visit Provider Obstetrics & Gynecology
DX: Z01.419 Encounter for gynecological examination (general) (routine) without abnormal findings (principal)
CPT/HCPCS: 99396

== ENCOUNTER → 2023-12-11 08:32 | Outpatient (BNVA) | payer OTHER, SELFPAY | PROVIDERS: PCP Internal Medicine; Visit Provider Obstetrics & Gynecology ==

== ENCOUNTER 2023-12-12 09:51 | Outpatient (AMB) | payer OTHER, SELFPAY ==
--- NOTE | 2023-12-12 10:00 | A.OFFVIS_ITS ---
Intake Visit Reasons: nocturia/ urinary incontinence Intake Note: New Patient presents for initial visit for Incontinence and Nocturia Urology Medications: none Blood Thinner: none PVR: 0ml's Rn Urgent Care Required: No Accompanied by: Self / Same As Patient Allergies seafood Allergy (Severe, Unverified 12/12/23 10:35) Unknown Medication List - Last Reconciled 12/12/23 by LOIS Franco-ROSA acetaminophen (Tylenol Extra Strength) 500 mg PO Q6H PRN albuterol sulfate 90 mcg/actuation 2 puffs inhalation Q6H PRN bisacodyl (Dulcolax (bisacodyl)) 10 mg (2 x 5 mg) PO BEDTIME [body wipes As directed] buspirone 5 mg PO BID cyclobenzaprine 5 mg PO BID PRN 30 days diaper,brief,adult,disposable As directed famotidine 20 mg PO BID fluoxetine 20 mg PO DAILY gabapentin 600 mg (2 x 300 mg) PO Q8H 30 days ketotifen fumarate 0.025%(0.035%) 1 drp ophthalmic (eye) BID lidocaine 5% (Lidoderm) 1 patch topical DAILY PRN MDD remove after 12 hours linaclotide (Linzess) 145 mcg PO DAILY aghmuu-hnuwtltz-krgcgoy 24,000-76,000 -120,000 unit (Creon) 2 caps PO QID loratadine 10 mg PO DAILY polyethylene glycol 3350 (Miralax) 17 grams PO DAILY polyethylene glycol 3350 (Miralax) 238 grams PO ONCE HPI Comments Details: Jolene is a very pleasant 58-year-old female patient of Dr. Austin. She has a past medical history of fibromyalgia and arthritis. She presents to the office today as a new patient for nocturia as well as mixed urinary incontinence. In discussion with the patient today she reports symptoms have been present for quite some time however feels they are worsening giving her decreased mobility related to her arthritis and fibromyalgia. She reports having seeked emergency room care after a fall in the middle of the night when waking up to utilize the bathroom. She reports having followed up with her PCP regarding this issue at which time recommendations were made for urology referral for further assessment evaluation. She does endorse to be drinking fluids up until/prior to bed as well as in the middle of the night as she reports many of her medications for her fibromyalgia and arthritis caused her dry mouth. In office urinalysis results reviewed with the patient today. Microscopic hematuria noted. She denies any previous history of nicotine dependence and or workplace chemical exposure. PVR 0 mL. We discussed at length potential causes of mixed urinary incontinence patient is experiencing as well as nocturia. We discussed further treatment options to include retroperitoneal ultrasound for further assessment evaluation. We also discussed pelvic floor therapy versus med management. Patient discusses her reluctancy to taking more medications. She discusses utilizing bed pads to decrease episodes of falls at night. We discussed possible near future in office cystoscopy and or urodynamics for further assessment evaluation. She otherwise denies urinary urgency, urinary frequency, hematuria, dysuria, foul smelling urine, changes to urinary stream, flank pain, fever, and or chills. [facility] Medical History KRISTAL positive Tubular adenoma Pancreatic insufficiency Environmental allergies Reversal of sterilization Arthritis Fibromyalgia Surgical History Hx of colonoscopy H/O tubal ligation H/O cosmetic surgery Family History Father HTN (hypertension) Blood infection Heart disease Social History Household Members Other:: daughter Housing: House Alcohol intake: never Patient Tobacco Use Status: Never used Tobacco e-Cigarette/Vaping Use: Never Used service: No Current occupational status: disabled Cognitive needs: No Hearing needs: No Vision needs: No Female Reproductive History Menstrual Age of Menarche: 10 Review of Systems Const All systems reviewed & are unremarkable except as noted in HPI and below Physical Exam Const General: cooperative, healthy appearing, comfortable, no acute distress, well developed, alert and awake Orientation/consciousness: patient oriented x3 Limitations: no limitations HEENT Head: Yes normal to inspection, Yes normocephalic and Yes atraumatic Ears: hearing grossly normal bilaterally Eyes General: appearance normal, both eyes and all related structures Neck Neck: Yes normal visual inspection and Yes trachea midline Chest Chest palpation & inspection: normal inspection of the chest Resp Effort & Inspection: normal respiratory effort and able to speak in complete sentences Cardio Rate: regular rate GI Inspection: Yes normal to inspection General: Yes no CVA tenderness Back/Spine/Pelvis Back: no CVA tenderness Skin General skin exam: no rashes or lesions noted Neuro General: patient oriented x3 Extrem General: Yes normal to inspection Psych Appearance: grossly normal and well kempt Mental Status: mental status grossly normal Speech and movement: Normal speech and movement present and Clear speech present Affect: normal affect Attitude: cooperative Thought process: Normal thought process present Thought content: Normal thought content present Insight: Fair insight present (Psych) Judgement: Fair judgement present (Psych) Office Procedures Post Void Residual Post Residual Void Post Void Residual (PVR): 0 27439-Evsz Void Residual by ultrasound Results AMB Urinalysis, Automated UA Leukoctes 0 Van/uL Last Edit by Javier Manzo on 12/12/23 10:20 UA Nitrite Last Edit by Javier MadsenCloudability on 12/12/23 10:20 UA Urobilinogen 0.2 mg/dL Last Edit by [employer] on 12/12/23 10:20 UA Protein 0 mg/dL Last Edit by Chandra[employer] Harbors[employer]in MadsenCloudability on 12/12/23 10:20 UA pH 6.0 Last Edit by ChandrakantEpicrisis Tena[employer] on 12/12/23 10:20 UA Blood 10 Alessio/uL Last Edit by Javier Manzo on 12/12/23 10:20 UA Specific [place] 1.025 Last Edit by Chandrak[employer] Harborsmartin MadsenCloudability on 12/12/23 10:20 UA Ketone Last Edit by [employer] on 12/12/23 10:20 UA Bilirubin 0 mg/dL Last Edit by [employer] on 12/12/23 10:20 UA Glucose 1 mg/dL Last Edit by [employer] on 12/12/23 10:20 Results Reviewed Results Reviewed: Laboratory Last Values Urine pH (Auto) 6.0 12/12/23 10:08 Specific [place] (Auto) 1.025 12/12/23 10:08 Urine Protein (Auto) 0 mg/dL 12/12/23 10:08 Glucose (UA)(Auto) 1 mg/dL 12/12/23 10:08 Urine Blood (Auto) 10 Alessio/uL 12/12/23 10:08 Urine Bilirubin (Auto) 0 mg/dL 12/12/23 10:08 Urine Urobilinogen (Auto) 0.2 mg/dL 12/12/23 10:08 Leukocyte Esterase (Auto) 0 Van/uL 12/12/23 10:08 Assessment & Plan Assessment & Plan (1) Urine incontinence: Code(s): R32 - Unspecified urinary incontinence Category: Medical Qualifiers: Urinary Incontinence type: unspecified incontinence Qualified Code(s): R32 - Unspecified urinary incontinence (2) Nocturia: Code(s): R35.1 - Nocturia Category: Medical (3) Mixed incontinence urge and stress: Code(s): N39.46 - Mixed incontinence Category: Medical (4) Microscopic hematuria: Code(s): R31.29 - Other microscopic hematuria Category: Medical Plan In office urinalysis results reviewed with the patient today; as noted above. PVR-0ml's. Will send for urine cytology. Discussed at length potential causes of nocturia, mixed urinary incontinence, and microscopic hematuria; we discussed further workup to include retroperitoneal ultrasound, urine cytology, and in office cystoscopy; risks and benefits of these interventions were discussed. Will send supplies to [facility] for incontinent pads. Discussed possible near future in office urodynamics for further assessment evaluation. Discussed pelvic floor exercises; information provided; also discussed pelvic floor therapy. Patient does not wish to currently undergo further treatment options for mixed urinary incontinence. Were discussed bladder triggers/irritants. Discussed, educated, stressed the importance of limiting fluids 2-3 hours prior to bed to decrease episodes of nocturia. Follow-up in 1-3 months with imaging to be completed prior; or sooner with any issues, concerns, and or questions. Orders: Orders AMB Post Void Residual by ultrasound Today R32 - Unspecified urinary incontinence Urine Cytology Today Z13.9 - Encounter for screening, unspecified AMB Urinalysis Automated Today Z13.9 - Encounter for screening, unspecified US retroperitoneal comp Today N39.46 - Mixed incontinence, R32 - Unspecified urinary incontinence, R35.1 - Nocturia Patient Instructions: The patient had an opportunity to ask questions regarding the treatment plan. All questions were answered. Physical exam, labs, and imaging were discussed and reviewed in detail. As well as risks, benefits, and discussion of treatment choices. No major barriers to understanding were identified. The patient expressed understanding and agreement with the above treatment plan. The patient was made aware they should contact our office by phone for worsening of their current condition, the appearance of new symptoms, or with any questions or concerns. Compliance is encouraged with any medications and follow up testing that is ordered. It is a privilege to be allowed the opportunity to participate in? your urological care.? Again, if you have any questions or concerns If you have any questions or concerns please do not hesitate to contact me. The office is [phone]. This note is constructed using voice recognition software. While every effort has been made to ensure accuracy quarter inspector errors may have been included. Yours sincerely, PATSY Franco Coding Level of Care Code New Pt Level 4 (62980) Diagnoses Urinary incontinence, unspecified type R32 Urinary Incontinence type: unspecified incontinence Nocturia R35.1 Mixed incontinence urge and stress N39.46 Microscopic hematuria R31.29 CPT Codes Post Residual Void - PVR CPT Code: 22522-Ltqe Void Residual by ultrasound ([id number]) Time Spent (min) 35
== END 2023-12-12 10:36 | disposition home or self-care (01) ==
PROVIDERS: PCP Internal Medicine; Visit Provider Nurse Practitioner Family
DX: N39.46 Mixed incontinence (principal); R35.1 Nocturia; R31.29 Other microscopic hematuria; Z13.9 Encounter for screening, unspecified; R32 Unspecified urinary incontinence
CPT/HCPCS: 99204

== ENCOUNTER 2023-12-12 09:51 | Outpatient (REF) | payer OTHER, SELFPAY ==
[2023-12-12 16:45] LABS: Urine Cytology See Pathology rpt
== END 2023-12-12 09:52 | disposition home or self-care (01) ==
LOC: HO.LNP 09:51
PROVIDERS: PCP Internal Medicine; Visit Provider Nurse Practitioner Family
DX: N39.46 Mixed incontinence (principal); R35.1 Nocturia; R31.29 Other microscopic hematuria
CPT/HCPCS: 51798; 81003; 88112; 99202

== ENCOUNTER → 2023-12-18 07:56 | Outpatient (REF) | payer OTHER, SELFPAY | LOC: HO.NUCMED 07:56 | PROVIDERS: PCP Internal Medicine; Visit Provider Nurse Practitioner Family | DX: Z13.89 Encounter for screening for other disorder (principal) ==

== ENCOUNTER 2023-12-22 10:41 | Outpatient (REF) | payer OTHER, SELFPAY ==
--- NOTE | ~2023-12-22 | MM_ITS ---
EXAMINATION: MM SCREENING DIGITAL BREAST TOMOSYNTHESIS, BILATERAL CLINICAL INFORMATION: Screening. Asymptomatic. COMPARISON: Mammography: Comparison is made with relevant avialable priors. TECHNIQUE: Digital mammography is performed in craniocaudal and mediolateral oblique views along with computer-aided detection (CAD). Digital breast tomosynthesis is performed in implant-displaced craniocaudal and implant-displaced mediolateral oblique views along with computer-aided detection (CAD). FINDINGS: The breasts are heterogeneously dense, which may obscure small masses (ACR BI-RADS breast composition Category c). Bilateral prepectoral slightly distorted implants are stable from priors. Left: There are no significant masses, abnormal calcifications, or other abnormalities. Right: Focal asymmetry upper outer breast posterior depth only seen on implant displaced views. No suspicious calcifications or other abnormal findings. MM/MM tomosynthesis screen imp BI IMPRESSION: Focal asymmetry in the upper outer right breast. Additional imaging is recommended at this time. ASSESSMENT: BI-RADS BI-RADS 0 - Incomplete: Needs additional Imaging. RECOMMENDATION: 1. Additional views of the right breast 2. Targeted ultrasound if warranted after review of the additional views. 3. Radiology department staff will contact the patient for additional imaging. Additional Imaging required This patient's information was entered into a reminder system with a target due date for their next mammogram. Electronically signed by: Nadiya Dietz DO 01/01/2024 05:56 PM EDT
== END 2023-12-22 10:42 | disposition home or self-care (01) ==
LOC: HO.MAMMO 10:41
PROVIDERS: PCP Internal Medicine; Visit Provider Obstetrics & Gynecology
DX: Z12.31 Encounter for screening mammogram for malignant neoplasm of breast (principal)
CPT/HCPCS: 77063; 77067

== ENCOUNTER → 2023-12-22 10:45 | Outpatient (BNV) | payer OTHER, SELFPAY | PROVIDERS: PCP Internal Medicine; Visit Provider Internal Medicine | DX: Z12.31 Encounter for screening mammogram for malignant neoplasm of breast (principal) | CPT/HCPCS: 77063; 77067 ==

== ENCOUNTER 2024-01-03 10:50 | Outpatient (REF) | payer OTHER, SELFPAY ==
--- NOTE | ~2024-01-03 | US_ITS ---
EXAMINATION: MM DIAGNOSTIC DIGITAL BREAST TOMOSYNTHESIS, RIGHT US BREAST LIMITED, RIGHT MAMMOGRAPHY: CLINICAL INFORMATION: Evaluate focal asymmetric density right breast seen on implant displaced CC and MLO views, posterior depth, upper outer quadrant. COMPARISON: Mammography: Screening mammography 12/22/2023. 08/29/2022. 06/25/2021, and 10/09/2020. TECHNIQUE: Digital breast tomosynthesis is performed in the following views: Implant displaced 3-D right CC and MLO views x2. Computer-aided diagnosis was used for this study. This was followed by targeted right breast ultrasound. FINDINGS: The breasts are heterogeneously dense, which may obscure small masses (ACR BI-RADS breast composition Category c). Spot compression views demonstrate 2 circumscribed oval masses in the upper outer right breast, the larger measuring 11 mm, the smaller measuring 10 mm. These correlate with the original mammographic finding of concern. These will be evaluated with ultrasound. ULTRASOUND: CLINICAL INFORMATION: As above. COMPARISON: None TECHNIQUE: Targeted sonographic evaluation was performed using a high frequency linear transducer. Attention was given to the upper outer quadrant of the right breast. Selected archived documentation. FINDINGS: RIGHT BREAST: There is a minimally complicated cysts measuring 1.1 x 0.5 x 1.1 cm in the 9:00 axis right breast, with good through transmission, a few low-level specular echoes internally, but no suspicious features. This is benign. There is a second similar minimally complicated cyst in the 11:00 axis right breast, measuring 1.2 x 0.5 x 0.8 cm. This also demonstrates good through transmission, a few low-level specular echoes internally, but no suspicious features. This is benign. Both of these findings correlate with the findings on diagnostic mammography described above. Grossly no implant abnormality noted. US/US breast RT limited mamm only IMPRESSION: -There are no findings suspicious for malignancy right breast. -There are 2 benign cysts on ultrasound correlating with mammographic foci of concern. No further follow-up recommended. -Recommend the patient return to routine annual screening. OVERALL ASSESSMENT: Mammography: BI-RADS 2 - Benign Findings Ultrasound: BI-RADS 2 - Benign Findings RECOMMENDATION: 1 year F/U This patient's information was entered into a reminder system with a target due date for their next mammogram. . Electronically signed by: Balta Martinez MD 01/03/2024 12:34 PM EDT RP
== END 2024-01-03 10:51 | disposition home or self-care (01) ==
LOC: HO.MAMMO 10:50
PROVIDERS: PCP Internal Medicine; Visit Provider Obstetrics & Gynecology
DX: N64.89 Other specified disorders of breast (principal)
CPT/HCPCS: 76642; 77061; 77065

== ENCOUNTER → 2024-01-03 11:00 | Outpatient (BNV) | payer OTHER, SELFPAY | PROVIDERS: PCP Internal Medicine; Visit Provider Radiology Diagnostic Radiology | DX: N63.15 Unspecified lump in the right breast, overlapping quadrants (principal) | CPT/HCPCS: 76642; 77065; G0279 ==

== ENCOUNTER 2024-01-19 09:57 | Outpatient (AMB) | payer OTHER, SELFPAY ==
[2024-01-19 10:03] VITALS: BP 110/68; PULSE 73; O2SAT 97; BMI 32.3
--- NOTE | 2024-01-19 10:03 | MHC.PC.OV ---
Vital Signs 01/19/24 10:03 Height 5 ft 3 in Weight 182 lb 8 oz BMI 32.3 BP 110/68 Blood Pressure Location Rt brachial Position Sitting Pulse 73 Pulse Source Pulse Oximeter Pulse Oximetry (%) 97 Oxygen Delivery Method Room Air Intake Visit Reasons: Annual PE Allergies seafood Allergy (Severe, Verified 01/19/24 10:04) Unknown Medication List - Last Reconciled 01/19/24 by Cole Austin MD acetaminophen (Tylenol Extra Strength) 500 mg PO Q6H PRN albuterol sulfate 90 mcg/actuation 2 puffs inhalation Q6H PRN bisacodyl (Dulcolax (bisacodyl)) 10 mg (2 x 5 mg) PO BEDTIME [body wipes As directed] buspirone 5 mg PO BID cyclobenzaprine 5 mg PO BID PRN 30 days diaper,brief,adult,disposable As directed famotidine 20 mg PO BID fluoxetine 20 mg PO DAILY gabapentin 600 mg (2 x 300 mg) PO Q8H 30 days ketotifen fumarate 0.025%(0.035%) 1 drp ophthalmic (eye) BID linaclotide (Linzess) 145 mcg PO DAILY heuoie-hoyokwrc-suthipq 24,000-76,000 -120,000 unit (Creon) 2 caps PO QID loratadine 10 mg PO DAILY polyethylene glycol 3350 (Miralax) 17 grams PO DAILY polyethylene glycol 3350 (Miralax) 238 grams PO ONCE underpads (Maxicare Underpads) As directed, 3 nightly Tobacco use date assessed: 01/19/24 Dental Screening Dental Screen Date: 01/19/24 Did you have a dental visit in the last 12 months?: Yes Did you have a dental problem in the last 6 months where you did not have access to dental care?: No Was dental information given to patient?: Patient has dentist HPI Annual PE HPI Details Patient is 58-year-old female came in today for physical examination She has a history of fibromyalgia, obesity, major depression, headache syndrome, lipid disorder, chronic lumbar pain, constipation, osteoarthritis multiple joints primary, hiatal hernia, environmental allergies Established with [facility] for lumbar radiculitis left side which continues She is currently taking gabapentin 600 mg t.i.d. for fibromyalgia and whole-body pain through PCP office Other medications patient taking are for GERD through Gastroenterology She is on fluoxetine for depression Long-acting antihistamine for allergies BMI is elevated need to lose weight Lab order placed to be done fasting Mammogram is up-to-date [facility] Patient is established with gastroenterology as well Follow-up 3 months [facility] Medical History KRISTAL positive Tubular adenoma Pancreatic insufficiency Environmental allergies Reversal of sterilization Arthritis Fibromyalgia Surgical History Hx of colonoscopy H/O tubal ligation H/O cosmetic surgery Family History Father HTN (hypertension) Blood infection Heart disease Social History Household Members Other:: daughter Housing: House Alcohol intake: never Patient Tobacco Use Status: Never used Tobacco e-Cigarette/Vaping Use: Never Used service: No Current occupational status: disabled Cognitive needs: No Hearing needs: No Vision needs: No Female Reproductive History Menstrual Age of Menarche: 10 Questionnaire Thrive Questionnaire Date Thrive assessed: 10/10/23 I am a: Patient What is your living situation today?: I have a place to live, but I am worried about losing it in the future Within the past 12 months, did the food you bought not last and you didn't have the money to get more?: Often true Within the past 12 months, did you worry whether your food would run out before you got money to buy more?: Often true Do you have trouble paying for medicines?: Yes Do you have trouble getting transportation to medical appointments?: No Do you have trouble paying your heating and electricity bill?: Yes Do you have trouble taking care of your child, family member or friend?: No Do you have trouble with day-to-day activities such as bathing, preparing meals, shopping, managing finances, etc.?: Yes Are you currently unemployed and looking for a job?: No Are you interested in more education?: No THRIVE Score: 4 HEATHER-7 AMB Questionnaire HEATHER-7 Date HEATHER - 7 assessed: 10/10/23 Source: Developed by Drs. Justin Munguia, Bonnie B.W. Nick Harding and colleagues, with an educational narda from [employer] Review of Systems Const Denies chills, Denies fever(s) and Denies headache(s) Eyes Denies blurry vision ENT Denies headache(s), Denies nasal discharge, Denies nasal obstruction, Denies odynophagia and Denies sinus pain Card Denies chest pain at rest and Denies chest pain with activity Resp Denies cough and Denies hemoptysis GI Denies diarrhea, Denies odynophagia, Denies vomiting and Denies hematemesis Reports as per HPI Skin/Breast Reports as per HPI Neuro Denies Abnormal speech present and Denies headache(s) Psych Denies mood swings and Denies paranoia Endo Reports as per HPI Marlon/Lymph Reports as per HPI Aller/Immun Reports as per HPI Physical exam (Primary Care) Vital Signs: Last Vital Signs Pulse 73 01/19/24 10:03 BP 110/68 01/19/24 10:03 Pulse Ox 97 01/19/24 10:03 Oxygen Delivery Method Room Air 01/19/24 10:03 BMI result Body Mass Index 32.3 Tobacco/Smoking Status: Tobacco use Status Tobacco use date assessed 01/19/24 01/19/24 10:08 Patient Tobacco Use Status Never used Tobacco 01/19/24 10:08 e-Cigarette/Vaping Use Never Used 01/19/24 10:08 Thrive Assessment: Date of Thrive Assessment Date Thrive assessed 10/10/23 01/19/24 10:08 Const General: cooperative, comfortable and no acute distress Orientation/consciousness: patient oriented x3 HENMT Head: Yes normocephalic and Yes atraumatic Eyes General: appearance normal, both eyes and all related structures Pupils: Equal, round and reactive pupils present EOM: EOMs intact bilaterally Neck Neck: Yes supple and No lymphadenopathy Thyroid: Thyroid normal Lymphatic: no lymphadenopathy noted Resp Effort & Inspection: normal respiratory effort and able to speak in complete sentences Auscultation: clear to auscultation bilaterally Cardio Heart sounds: S1 normal heart sound present and S2 normal heart sound present GI Palpation (GI): Soft to palpation and nontender Auscultation: normal bowel sounds General: Yes no CVA tenderness Back/Spine/Pelvis Back: no CVA tenderness Skin General skin exam: elasticity normal and turgor normal Neuro General: patient oriented x3 Cranial nerves: Yes Equal, round and reactive pupils present Speech: No Abnormal speech present Coordination: tandem gait normal and Romberg test negative Extrem General: Yes normal exam except as noted and No edema Coding Level of Care Code Est Pt Level 3 (95791) Est Pt Prev Care 40-64y(50215) Diagnoses Encounter for general adult medical examination with abnormal findings Z00.01 Fibromyalgia M79.7 Environmental allergies Z91.09 Lumbar radiculopathy M54.16 Chronic pain syndrome G89.4 Osteoarthritis, generalized M15.9 Lipid disorder E78.9 Abnormal tandem walk R26.9 Balance problem R26.89 Assessment & Plan Assessment & Plan (1) Encounter for general adult medical examination with abnormal findings: Code(s): Z00.01 - Encounter for general adult medical examination with abnormal findings Category: Medical (2) Fibromyalgia: Code(s): M79.7 - Fibromyalgia Category: Medical (3) Environmental allergies: Code(s): Z91.09 - Other allergy status, other than to drugs and biological substances Category: Medical (4) Lumbar radiculopathy: Code(s): M54.16 - Radiculopathy, lumbar region Category: Medical (5) Chronic pain syndrome: Code(s): G89.4 - Chronic pain syndrome Category: Medical (6) Osteoarthritis, generalized: Code(s): M15.9 - Polyosteoarthritis, unspecified Category: Medical (7) Lipid disorder: Code(s): E78.9 - Disorder of lipoprotein metabolism, unspecified Category: Medical (8) Abnormal tandem walk: Code(s): R26.9 - Unspecified abnormalities of gait and mobility Category: Medical (9) Balance problem: Code(s): R26.89 - Other abnormalities of gait and mobility Category: Medical Plan Patient is 58-year-old female came in today for physical examination She has a history of fibromyalgia, obesity, major depression, headache syndrome, lipid disorder, chronic lumbar pain, constipation, osteoarthritis multiple joints primary, hiatal hernia, environmental allergies Established with [facility] for lumbar radiculitis left side which continues She is currently taking gabapentin 600 mg t.i.d. for fibromyalgia and whole-body pain through PCP office Other medications patient taking are for GERD through Gastroenterology She is on fluoxetine for depression Long-acting antihistamine for allergies BMI is elevated need to lose weight Lab order placed to be done fasting Mammogram is up-to-date [facility] Patient is established with gastroenterology as well Her balance is off patient was not able to perform Romberg's test or tandem walk She uses cane for ambulation Follow-up 3 months Orders: Orders Vitamin D 25-OH (D2 and D3) Today E78.9 - Disorder of lipoprotein metabolism, unspecified, M15.9 - Polyosteoarthritis, unspecified, M54.16 - Radiculopathy, lumbar region, M79.7 - Fibromyalgia, R26.89 - Other abnormalities of gait and mobility, R26.9 - Unspecified abnormalities of gait and mobility, Z91.09 - Other allergy status, other than to drugs and biological substances Vitamin B12 Today E78.9 - Disorder of lipoprotein metabolism, unspecified, M15.9 - Polyosteoarthritis, unspecified, M54.16 - Radiculopathy, lumbar region, M79.7 - Fibromyalgia, R26.89 - Other abnormalities of gait and mobility, R26.9 - Unspecified abnormalities of gait and mobility, Z91.09 - Other allergy status, other than to drugs and biological substances UA CC w/rflx Micro + Cult Today E78.9 - Disorder of lipoprotein metabolism, unspecified, M15.9 - Polyosteoarthritis, unspecified, M54.16 - Radiculopathy, lumbar region, M79.7 - Fibromyalgia, R26.89 - Other abnormalities of gait and mobility, R26.9 - Unspecified abnormalities of gait and mobility, Z91.09 - Other allergy status, other than to drugs and biological substances Complete Blood Count Auto Diff Today E78.9 - Disorder of lipoprotein metabolism, unspecified, M15.9 - Polyosteoarthritis, unspecified, M54.16 - Radiculopathy, lumbar region, M79.7 - Fibromyalgia, R26.89 - Other abnormalities of gait and mobility, R26.9 - Unspecified abnormalities of gait and mobility, Z91.09 - Other allergy status, other than to drugs and biological substances Comprehensive [place]. Panel Fast Today E78.9 - Disorder of lipoprotein metabolism, unspecified, M15.9 - Polyosteoarthritis, unspecified, M54.16 - Radiculopathy, lumbar region, M79.7 - Fibromyalgia, R26.89 - Other abnormalities of gait and mobility, R26.9 - Unspecified abnormalities of gait and mobility, Z91.09 - Other allergy status, other than to drugs and biological substances Lipid Panel Today E78.9 - Disorder of lipoprotein metabolism, unspecified, M15.9 - Polyosteoarthritis, unspecified, M54.16 - Radiculopathy, lumbar region, M79.7 - Fibromyalgia, R26.89 - Other abnormalities of gait and mobility, R26.9 - Unspecified abnormalities of gait and mobility, Z91.09 - Other allergy status, other than to drugs and biological substances Medications: Refilled gabapentin 600 mg (2 x 300 mg) PO Q8H 30 days 180 caps 2RF Discontinued polyethylene glycol 3350 (Miralax) Discontinued Reason: Duplicate 17 grams PO DAILY 510 grams 2RF
== END 2024-01-19 11:54 | disposition home or self-care (01) ==
PROVIDERS: PCP Internal Medicine; Visit Provider Internal Medicine
DX: Z00.00 Encounter for general adult medical examination without abnormal findings (principal); M79.7 Fibromyalgia; Z91.09 Other allergy status, other than to drugs and biological substances; M54.16 Radiculopathy, lumbar region; G89.4 Chronic pain syndrome; M15.9 Polyosteoarthritis, unspecified; E78.9 Disorder of lipoprotein metabolism, unspecified; R26.89 Other abnormalities of gait and mobility

== ENCOUNTER → 2024-01-19 09:57 | Outpatient (BNVA) | payer OTHER, SELFPAY | PROVIDERS: PCP Internal Medicine; Visit Provider Internal Medicine | DX: Z00.01 Encounter for general adult medical examination with abnormal findings (principal); M79.7 Fibromyalgia; M54.16 Radiculopathy, lumbar region; M15.9 Polyosteoarthritis, unspecified; G89.4 Chronic pain syndrome; E78.9 Disorder of lipoprotein metabolism, unspecified; R26.9 Unspecified abnormalities of gait and mobility; R26.89 Other abnormalities of gait and mobility; Z91.09 Other allergy status, other than to drugs and biological substances | CPT/HCPCS: 99396 ==

== ENCOUNTER 2024-01-22 12:34 | Outpatient (REF) | payer OTHER, SELFPAY ==
[2024-01-22 12:50] LABS: MANUAL DIFF FLAG NO
[2024-01-22 13:02] LABS: Basophils Percent Auto 0.6 % (0-2); Eosinophils Absolute Auto 0.1 X10*3/uL (0.0-0.4); Hematocrit 42.7 % (37.0-47.0); Hemoglobin 14.1 g/dl (12.0-16.0); Imm Gran Abs Auto 0.02 X10*3/uL (0.00-0.03); Imm Gran Pct Auto 0.3 % (0.0-0.4); Lymphocytes Absolute Auto 2.5 X10*3/uL (1.2-4.9); Lymphocytes Percent Auto 35.6 % (20-40); Mean Corpuscular Hemoglobin 28.5 pg (27.0-33.0); Mean Corpuscular Volume 86.4 fL (80.0-98.0); Mean Platelet Volume 10.7 fL (9.4-12.3); Monocytes Absolute Auto 0.7 X10*3/uL (0.1-1.2); Monocytes Percent Auto 10.3 % (2-11); Neutrophils Absolute Auto 3.7 x10*3/uL (2.0-8.3); Neutrophils Percent Auto 52.2 % (45-73); Platelet Count 262 X10*3/uL (160-400); Red Blood Count 4.94 X10*6/uL (4.20-5.50); Red Cell Distribution Width 13.7 % (11.0-16.0)
[2024-01-22 13:15] LABS: Appearance Urine Clear; Color Urine Yellow; Glucose Urine UA Negative (Negative); Leukocyte Esterase Urine Negative (Negative); Nitrite Urine Negative (Negative); Specific Gravity - Urine 1.015 (1.005-1.025); Urine Blood Negative (Negative); Urine Ketones Negative (Negative); Urine Protein Negative (Neg-Trace)
[2024-01-22 13:38] LABS: Erythrocyte Sedimentation Rate 8 MM/HR (0-20)
[2024-01-22 13:47] LABS: Alanine Aminotransferase 31 U/L (0-31); Albumin Level 4.4 g/dL (3.5-5.0); Alkaline Phosphatase 102 U/L (39-117); Anion Gap 11 (12-20); Aspartate Amino Transferase 28 U/L (5-31); Bilirubin Total 0.5 mg/dL (0.0-1.0); Blood Urea Nitrogen 10 mg/dL (9-16); C Reactive Protein 0.19 mg/dL (< or = 0.50); Calcium 9.7 mg/dL (8.4-10.2); Carbon Dioxide 23 mmol/L (22-29); Chloride 109 mmol/L (96-108); Cholesterol 214 mg/dL (<200); Estimated Glomerular Filt Rate > 60; Glucose Fasting 104 mg/dL (60-99); Glucose Random 105 mg/dL (60-115); HDL Cholesterol 51 mg/dL (>40); LDL Cholesterol Calculated 145 mg/dL (<100); Sodium 139 mmol/L (135-145); Total Protein 7.6 g/dL (6.5-8.0); Triglycerides 92 mg/dL (<150)
[2024-01-22 14:04] LABS: TSH reflex Free T4 1.58 uIU/mL (0.32-4.0)
[2024-01-22 14:10] LABS: Vitamin B12 977 pg/mL (200-900)
[2024-01-23 14:28] LABS: Anti DNA DS Antibody 4 IU/mL; SM/Ribonucleoprotein Ab <1.0 NEG AI (<1.0 NEG); Smith Protein <1.0 NEG AI (<1.0 NEG)
[2024-01-23 19:19] LABS: LDL Cholesterol Direct 145 mg/dL (<100)
[2024-01-25 12:08] LABS: Anti Nuclear Antibody Screen NEGATIVE (NEGATIVE)
[2024-01-25 17:49] LABS: DNAds, Crithidia Antibody Negative (Negative)
[2024-01-26 14:19] LABS: Vitamin D 25-OH, D2 <4 ng/mL; Vitamin D 25-OH, D3 23 ng/mL; Vitamin D 25-OH, Total 23 ng/mL (30-100)
== END 2024-01-22 12:35 | disposition home or self-care (01) ==
LOC: HO.LAB 12:34
PROVIDERS: PCP Internal Medicine; Visit Provider Internal Medicine
DX: Z00.01 Encounter for general adult medical examination with abnormal findings (principal); R76.8 Other specified abnormal immunological findings in serum; R20.2 Paresthesia of skin; M79.7 Fibromyalgia; M54.16 Radiculopathy, lumbar region; G89.4 Chronic pain syndrome; G44.89 Other headache syndrome; E66.09 Other obesity due to excess calories; E78.9 Disorder of lipoprotein metabolism, unspecified; R26.9 Unspecified abnormalities of gait and mobility; R26.89 Other abnormalities of gait and mobility; Z91.09 Other allergy status, other than to drugs and biological substances; M15.9 Polyosteoarthritis, unspecified
CPT/HCPCS: 36415; 80053; 80061; 81003; 82306; 82607; 83721; 84443; 85025; 85652; 86038; 86140; 86225; 86235; 86255

== ENCOUNTER → 2024-01-29 07:49 | Outpatient (REF) | payer OTHER, SELFPAY ==
--- NOTE | ~2024-01-29 | NM_ITS ---
EXAMINATION: BILIARY TRACT IMAGING STUDY WITH CCK CLINICAL INFORMATION: Right upper quadrant pain.. COMPARISON: None. TECHNIQUE: Serial gamma scintillation camera images were obtained over the abdomen for a total observation period of 90 minutes following the intravenous administration of 5.2 mCi Tc-99m mebrofenin. FINDINGS: There is good concentration of activity in the liver by 5 minutes post injection. Biliary activity is visualized by 30 minutes. The gallbladder is well visualized by 25 minutes. Small bowel is well visualized by 30 minutes. At 6 minutes post radiopharmaceutical injection, a 30-minute infusion of 1.7 micrograms Sincalide was then begun and an additional 40 minutes of images were obtained. There is good emptying of the gallbladder. By the end of the study there is good clearance of activity from the liver and visualization of diffuse small bowel activity. The calculated gallbladder ejection fraction is 92% (normal gallbladder ejection fraction is greater than 35%). NM/NM hepatobiliary w pharm IMPRESSION: Visualization of the gallbladder is evidence of a patent cystic duct and strong evidence against the diagnosis of acute cholecystitis. The common bile duct is patent. Gallbladder emptying and ejection fraction are normal. Liver function appears normal. Electronically signed by: Kuldip Rouse MD 01/29/2024 04:17 PM [facility]
== END ==
LOC: HO.NUCMED 07:49
PROVIDERS: PCP Internal Medicine; Visit Provider Nurse Practitioner Family
DX: R10.11 Right upper quadrant pain (principal)
CPT/HCPCS: 78227; A9537; J2805

== ENCOUNTER 2024-02-05 08:52 | Outpatient (REF) | payer OTHER, SELFPAY | END 2024-02-05 08:53 | disposition home or self-care (01) | LOC: HO.HMGCX 08:52 | PROVIDERS: PCP Internal Medicine; Visit Provider Nurse Practitioner Family | DX: R35.1 Nocturia (principal); N39.46 Mixed incontinence | CPT/HCPCS: 76775 ==

== ENCOUNTER 2024-02-06 09:34 | Outpatient (REF) | payer OTHER, SELFPAY ==
--- NOTE | ~2024-02-06 | US_ITS ---
EXAMINATION: US PELVIS LIMITED (BLADDER) CLINICAL INFORMATION: Incontinence, nocturia and urgency. COMPARISON: None available. TECHNIQUE: Real-time imaging of the bladder. FINDINGS: BLADDER: Well distended and normal. Bilateral ureteral jets are demonstrated. Prevoid bladder volume is 472 mL. Postvoid bladder volume is 2.1 mL. US/US bladder IMPRESSION: Normal-appearing bladder. Electronically signed by: Sen English MD 02/26/2024 10:03 PM [facility]
== END 2024-02-06 09:35 | disposition home or self-care (01) ==
LOC: HO.HMGCX 09:34
PROVIDERS: PCP Internal Medicine; Visit Provider Nurse Practitioner Family
DX: N39.46 Mixed incontinence (principal); R35.1 Nocturia; M54.50 Low back pain, unspecified
CPT/HCPCS: 76857; 81003; 99212

== ENCOUNTER 2024-02-06 10:28 | Outpatient (AMB) | payer OTHER, SELFPAY ==
[2024-02-06 11:46] VITALS: BP 116/70; PULSE 65; TEMP 36.6; O2SAT 97; BMI 32.4
--- NOTE | 2024-02-06 11:46 | MHC.OFFWIV ---
Intake Vital Signs 02/06/24 11:46 Height 5 ft 3 in Weight 183 lb BMI 32.4 BP 116/70 Blood Pressure Location Rt brachial Position Sitting Pulse 65 Pulse Source Pulse Oximeter Temp 97.9 F Temp Source Oral Pulse Oximetry (%) 97 Oxygen Delivery Method Room Air Intake Visit Reasons: EP Back pain spreading to hips [phone] Intake Note: Pt is here today c/o Rt side of hip pain into abdomen Patient Tobacco Use Status: Never used Tobacco Allergies seafood Allergy (Severe, Verified 02/06/24 11:49) Unknown HPI HPI Comments History of Present Illness Details Patient is a 58-year-old female complaining of 5 days of left-sided low back pain that radiates into her abdomen and groin. She tells me that she has had this kind of pain before many times. She tells me she has been the last 5 days in bed because of the pain. She says the pain is worse when she tries to stand up and with movement. She told me she has used ?all the creams in her house and Tylenol and ibuprofen and it does not help at all. She denies a history of kidney stones or blood in her urine, she denies any fevers, nausea, vomiting, changes in her urinary habits or bowel habits. She states she can eat and drink normally. [facility] Medical History KRISTAL positive Tubular adenoma Pancreatic insufficiency Environmental allergies Reversal of sterilization Arthritis Fibromyalgia Surgical History Hx of colonoscopy H/O tubal ligation H/O cosmetic surgery Family History Father HTN (hypertension) Blood infection Heart disease Social History Household Members Other:: daughter Housing: House Alcohol intake: never Patient Tobacco Use Status: Never used Tobacco e-Cigarette/Vaping Use: Never Used service: No Current occupational status: disabled Cognitive needs: No Hearing needs: No Vision needs: No Female Reproductive History Menstrual Age of Menarche: 10 Review of Systems Const All systems reviewed & are unremarkable except as noted in HPI and below Physical Exam Vital Signs: Last Vital Signs Temp 97.9 F 02/06/24 11:46 Pulse 65 02/06/24 11:46 BP 116/70 02/06/24 11:46 Pulse Ox 97 02/06/24 11:46 Oxygen Delivery Method Room Air 02/06/24 11:46 BMI result Body Mass Index 32.4 Const General: cooperative, healthy appearing and comfortable Orientation/consciousness: patient oriented x3 HEENT Head: Yes normal to inspection and Yes normocephalic General nose exam: Normal external nose present Face and sinus: Yes normal facial exam Eyes General: appearance normal, both eyes and all related structures Resp Effort & Inspection: normal respiratory effort and able to speak in complete sentences General: Yes CVA tenderness on the left Back/Spine/Pelvis Back: CVA tenderness Cervical Spine: normal cervical lordosis, cervical ROM normal and No Cervical spine tenderness Thoracic/Lumbar Spine: thoracic and lumbar spine normal to inspection, paraspinal muscle tenderness on the left, thoraco-lumbar ROM limited, No thoracic spinal tenderness and No lumbar spinal tenderness Neuro General: patient oriented x3 Extrem Other: Straight leg raise test negative on right; Straight leg raise test negative on left; Reflexes normal ankle and knee bilaterally; motor strength normal bilaterally Results AMB Urinalysis, Automated UA Leukoctes 0 Van/uL Last Edit by Ole Pablo CMA on 02/06/24 12:22 UA Nitrite Negative Last Edit by Ole Pablo CMA on 02/06/24 12:22 UA Urobilinogen 0.2 mg/dL Last Edit by Ole Pablo CMA on 02/06/24 12:22 UA Protein 0 mg/dL Last Edit by Ole Pablo CMA on 02/06/24 12:22 UA pH 6.0 Last Edit by Ole Pablo CMA on 02/06/24 12:22 UA Blood 0 Alessio/uL Last Edit by Ole Pablo CMA on 02/06/24 12:22 UA Specific [place] 1.025 Last Edit by Ole Pablo CMA on 02/06/24 12:22 UA Ketone Negative Last Edit by Ole Pablo CMA on 02/06/24 12:22 UA Bilirubin 0 mg/dL Last Edit by Ole Pablo CMA on 02/06/24 12:22 UA Glucose 0 mg/dL Last Edit by Ole Pablo CMA on 02/06/24 12:22 Results Reviewed Results Reviewed: Laboratory Last Values Urine pH (Auto) 6.0 02/06/24 12:21 Specific [place] (Auto) 1.025 02/06/24 12:21 Urine Protein (Auto) 0 mg/dL 02/06/24 12:21 Glucose (UA)(Auto) 0 mg/dL 02/06/24 12:21 Urine Ketones (Auto) Negative 02/06/24 12:21 Urine Blood (Auto) 0 Alessio/uL 02/06/24 12:21 Urine Nitrite (Auto) Negative 02/06/24 12:21 Urine Bilirubin (Auto) 0 mg/dL 02/06/24 12:21 Urine Urobilinogen (Auto) 0.2 mg/dL 02/06/24 12:21 Leukocyte Esterase (Auto) 0 Van/uL 02/06/24 12:21 Assessment & Plan Assessment & Plan (1) Back pain: Code(s): M54.9 - Dorsalgia, unspecified Qualifiers: Back pain laterality: left Back pain location: low back pain Chronicity: acute Sciatica presence: without sciatica Qualified Code(s): M54.50 - Low back pain, unspecified Plan: Vital signs stable, patient appears to be in a fair amount of pain, urinalysis negative for blood, no history of kidney stones though she was CVA positive on the left side. We will prescribe meloxicam, encouraged patient to continue with her gabapentin and Tylenol. If no relief in her symptoms, she may need physical therapy so she should follow up with her PCP. Plan See above Orders: Orders AMB Urinalysis Automated 02/06/24 Z13.9 - Encounter for screening, unspecified Medications: New meloxicam 15 mg PO DAILY 10 tabs 0RF Coding Level of Care Code Est Pt Level 4 (26846) Diagnoses Acute left-sided low back pain without sciatica M54.50 Back pain laterality: left Back pain location: low back pain Chronicity: acute Sciatica presence: without sciatica
== END 2024-02-06 13:03 | disposition home or self-care (01) ==
PROVIDERS: PCP Internal Medicine; Visit Provider Physician Assistant
DX: M54.50 Low back pain, unspecified (principal)

== ENCOUNTER 2024-02-13 11:25 | Outpatient (AMB) | payer OTHER, SELFPAY ==
--- NOTE | 2024-02-13 11:27 | A.OFFVIS_ITS ---
Intake Visit Reasons: 2m/US(set) Intake Note: Patient presents for follow up on: Incontinence, Nocturia, and ultrasound results Imaging Completed: 02/06/24 Urology Medications: none Blood Thinner: none PVR: 0ml's Physician Recruiter Required: No Accompanied by: Self / Same As Patient Allergies seafood Allergy (Severe, Verified 02/13/24 22:32) Unknown Medication List - Last Reconciled 02/13/24 by LOIS Franco-ROSA acetaminophen (Tylenol Extra Strength) 500 mg PO Q6H PRN albuterol sulfate 90 mcg/actuation 2 puffs inhalation Q6H PRN bisacodyl (Dulcolax (bisacodyl)) 10 mg (2 x 5 mg) PO BEDTIME [body wipes As directed] buspirone 5 mg PO BID diaper,brief,adult,disposable As directed famotidine 20 mg PO BID fluoxetine 20 mg PO DAILY gabapentin 600 mg (2 x 300 mg) PO Q8H 30 days ketotifen fumarate 0.025%(0.035%) 1 drp ophthalmic (eye) BID qfzpyy-wjyjkyhs-asivezx 24,000-76,000 -120,000 unit (Creon) 2 caps PO QID loratadine 10 mg PO DAILY meloxicam 15 mg PO DAILY polyethylene glycol 3350 (Miralax) 238 grams PO ONCE underpads (Maxicare Underpads) As directed, 3 nightly HPI Comments Details: Jolene is a very pleasant 58-year-old female patient of Dr. Austin. She has a past medical history of fibromyalgia and arthritis. She presents to the office today for follow-up. Of note, patient was seen approximately 2 months ago as a new patient for nocturia as well as mixed urinary incontinence at which time a retroperitoneal ultrasound was ordered for further assessment evaluation. These results were reviewed with the patient today. The bladder is well distended and normal. Bladder jets are demonstrated. Pre void bladder volume is approximately 470 mL. Postvoid bladder volume is approximately 2 mL. Normal appearing bladder. We discussed further treatment options of mixed urinary incontinence as well as nocturia. However patient does not feel symptoms are bothersome at this time and would like to continue with surveillance monitoring. She discusses her ongoing issues with her fibromyalgia and bilateral lower extremity weakness. In office urinalysis results reviewed with the patient today. Microscopic hematuria noted. She denies any previous history of nicotine dependence and or workplace chemical exposure. PVR 0 mL. Patient continues to discusses her reluctancy to taking more medications. She discusses utilizing bed pads to decrease episodes of falls at night. We discussed in office cystoscopy and or urodynamics for further assessment evaluation however she declines at this. Previous urine cytology results reviewed with the patient today 12/18 Negative for high-grade urothelial carcinoma. She otherwise denies urinary urgency, urinary frequency, hematuria, dysuria, foul smelling urine, changes to urinary stream, flank pain, fever, and or chills. [facility] Medical History KRISTAL positive Tubular adenoma Pancreatic insufficiency Environmental allergies Reversal of sterilization Arthritis Fibromyalgia Surgical History Hx of colonoscopy H/O tubal ligation H/O cosmetic surgery Family History Father HTN (hypertension) Blood infection Heart disease Social History Household Members Other:: daughter Housing: House Alcohol intake: never Patient Tobacco Use Status: Never used Tobacco e-Cigarette/Vaping Use: Never Used service: No Current occupational status: disabled Cognitive needs: No Hearing needs: No Vision needs: No Female Reproductive History Menstrual Age of Menarche: 10 Review of Systems Const All systems reviewed & are unremarkable except as noted in HPI and below Physical Exam Const General: cooperative, healthy appearing, comfortable, no acute distress, well developed, alert and awake Orientation/consciousness: patient oriented x3 Limitations: no limitations HEENT Head: Yes normal to inspection, Yes normocephalic and Yes atraumatic Ears: hearing grossly normal bilaterally Eyes General: appearance normal, both eyes and all related structures Neck Neck: Yes normal visual inspection and Yes trachea midline Chest Chest palpation & inspection: normal inspection of the chest Resp Effort & Inspection: normal respiratory effort and able to speak in complete sentences Cardio Rate: regular rate GI Inspection: Yes normal to inspection General: Yes no CVA tenderness Back/Spine/Pelvis Back: no CVA tenderness Skin General skin exam: no rashes or lesions noted Neuro General: patient oriented x3 Extrem General: Yes normal to inspection Psych Appearance: grossly normal and well kempt Mental Status: mental status grossly normal Speech and movement: Normal speech and movement present and Clear speech present Affect: normal affect Attitude: cooperative Thought process: Normal thought process present Thought content: Normal thought content present Insight: Fair insight present (Psych) Judgement: Fair judgement present (Psych) Office Procedures Post Void Residual Post Residual Void Post Void Residual (PVR): 0 [id number] Void Residual by ultrasound Results AMB Urinalysis, Automated UA Leukoctes 0 Van/uL Last Edit by [employer] on 02/13/24 11:50 UA Nitrite Last Edit by [employer] on 02/13/24 11:50 UA Urobilinogen 0.2 mg/dL Last Edit by [employer] on 02/13/24 11:50 UA Protein 0 mg/dL Last Edit by [employer] on 02/13/24 11:50 UA pH 6.0 Last Edit by [employer] on 02/13/24 11:50 UA Blood 10 Alessio/uL Last Edit by [employer] on 02/13/24 11:50 UA Specific [place] 1.030 Last Edit by [employer] on 02/13/24 11:50 UA Ketone Last Edit by [employer] on 02/13/24 11:50 UA Bilirubin 0 mg/dL Last Edit by [employer] on 02/13/24 11:50 UA Glucose 0 mg/dL Last Edit by [employer] on 02/13/24 11:50 Results Reviewed Results Reviewed: Laboratory Last Values Urine pH (Auto) 6.0 02/13/24 11:49 Specific [place] (Auto) 1.030 02/13/24 11:49 Urine Protein (Auto) 0 mg/dL 02/13/24 11:49 Glucose (UA)(Auto) 0 mg/dL 02/13/24 11:49 Urine Blood (Auto) 10 Alessio/uL 02/13/24 11:49 Urine Bilirubin (Auto) 0 mg/dL 02/13/24 11:49 Urine Urobilinogen (Auto) 0.2 mg/dL 02/13/24 11:49 Leukocyte Esterase (Auto) 0 Van/uL 02/13/24 11:49 Date of Service: 02/06/24 EXAMINATION: US PELVIS LIMITED (BLADDER) FINDINGS: BLADDER: Well distended and normal. Bilateral ureteral jets are demonstrated. Prevoid bladder volume is 472 mL. Postvoid bladder volume is 2.1 mL. IMPRESSION: Normal-appearing bladder. Assessment & Plan Assessment & Plan Plan In office urinalysis results reviewed with the patient today; as noted above. PVR 0 mL. Previous urine cytology results reviewed with the patient today; as noted above. Reason retroperitoneal ultrasound results reviewed with the patient today; as noted above. Patient does not wish to undergo further treatment options of mixed urinary incontinence at this time. We discussed in office cystoscopy and or urodynamics for further assessment evaluation. Follow-up in 6 months with PVR; or sooner with any issues, concerns, and or questions. Orders: Orders AMB Urinalysis Automated 02/13/24 Z13.9 - Encounter for screening, unspecified AMB Post Void Residual by ultrasound 02/13/24 N39.46 - Mixed incontinence Patient Instructions: The patient had an opportunity to ask questions regarding the treatment plan. All questions were answered. Physical exam, labs, and imaging were discussed and reviewed in detail. As well as risks, benefits, and discussion of treatment choices. No major barriers to understanding were identified. The patient expressed understanding and agreement with the above treatment plan. The patient was made aware they should contact our office by phone for worsening of their current condition, the appearance of new symptoms, or with any questions or concerns. Compliance is encouraged with any medications and follow up testing that is ordered. It is a privilege to be allowed the opportunity to participate in? your urological care.? Again, if you have any questions or concerns If you have any questions or concerns please do not hesitate to contact me. The office is [phone]. This note is constructed using voice recognition software. While every effort has been made to ensure accuracy visual design lead errors may have been included. Yours sincerely, PATSY Franco Coding Level of Care Code Est Pt Level 3 (07499) CPT Codes Post Residual Void - PVR CPT Code: 08442-Egtk Void Residual by ultrasound ([id number])
== END 2024-02-13 12:00 | disposition home or self-care (01) ==
PROVIDERS: PCP Internal Medicine; Visit Provider Nurse Practitioner Family
DX: Z13.9 Encounter for screening, unspecified (principal)

== ENCOUNTER → 2024-02-13 11:25 | Outpatient (BNVA) | payer OTHER, SELFPAY | PROVIDERS: PCP Internal Medicine; Visit Provider Nurse Practitioner Family | DX: N39.46 Mixed incontinence (principal); R35.1 Nocturia | CPT/HCPCS: 51798; 81003; 99212 ==

== ENCOUNTER 2024-03-05 07:32 | Day surgery (SDC) | payer OTHER, SELFPAY ==
[2024-03-01 14:40] VITALS: BMI 32.4
--- NOTE | 2024-03-04 09:01 | HO.ANESPROP2 ---
Documented by User: Denisse Blakely NP 03/04/24 09:02 HPI - Anesthesia Eval Consult details Narrative: 58yo F for Upper Endoscopy and Colonoscopy PMFSH Active Problems Active Problems: All Active Problems Back pain (Acute) Balance problem (Acute) Abnormal tandem walk (Acute) Microscopic hematuria (Acute) Nocturia (Acute) Mixed incontinence urge and stress (Acute) Urine incontinence (Acute) Paresthesia of both feet (Acute) Chest pain (Acute) Pain of right thumb (Acute) Knee pain, right (Acute) Hiatal hernia (Acute) Diastasis recti (Acute) Hip pain, left (Acute) Non-restorative sleep (Acute) Lumbar radiculopathy (Acute) Major depression, recurrent (Acute) Fibromyalgia (Acute) Elbow pain, right (Acute) Hip pain, right (Acute) Chronic pain syndrome (Acute) Osteoarthritis, generalized (Acute) Constipation by delayed colonic transit (Acute) Chronic lumbar pain (Acute) Right tennis elbow (Acute) Lipid disorder (Acute) Cervical high risk HPV (human papillomavirus) test positive (Acute) Lumbar spondylosis (Acute) Maxillary sinusitis, acute (Acute) Breast screening (Acute) Pre-op evaluation (Acute) Headache syndrome (Acute) Colon cancer screening (Acute) Encounter for general adult medical examination with abnormal findings (Acute) Obesity due to excess calories (Acute) Knee pain (Acute) Well woman exam (Acute) Shortness of breath (Acute) KRISTAL positive (Acute) Environmental allergies (Acute) Fibromyalgia (Acute) Tubular adenoma (Acute) Pancreatic insufficiency (Acute) Past Medical History Medical History (Updated 03/01/24 @ 14:37 by Jill Murrieta RN) Dyslipidemia Depression Lumbar radiculopathy KRISTAL positive Tubular adenoma Pancreatic insufficiency Environmental allergies Arthritis Fibromyalgia Family History Family History Father HTN (hypertension) Blood infection Heart disease Family history of problems with anesthesia: No Surgical History Surgical History (Updated 03/01/24 @ 14:37 by Jill Murrieta RN) History of reversal of tubal ligation Hx of colonoscopy H/O tubal ligation H/O cosmetic surgery History of Problems with Anesthesia: No Social History Social History Household Members Other:: daughter Housing: House Alcohol intake: never Patient Tobacco Use Status: Former Tobacco user e-Cigarette/Vaping Use: Never Used Use of substances other than those prescribed or required for medical reasons: No Are you DNR?: No Advance Directives: No Advance Directives Information Provided: Yes Recently lost weight without trying: No service: No Current occupational status: disabled Cognitive needs: No Hearing needs: No Vision needs: No Meds Allergies Allergy/AdvReac Type Severity Reaction Status Date / Time seafood Allergy Severe Unknown Verified 02/13/24 22:32 adhesive tape AdvReac Redness of Verified 03/05/24 08:00 Skin Home Medications ?Medication ?Instructions ?Recorded ?Confirmed ?Last Taken ?Type ketotifen fumarate 0.025 % (0.035 1 drp ophthalmic (eye) BID 03/18/20 03/05/24 Unknown History %) eye drops buspirone 5 mg tablet 5 mg PO BID anxiety 04/13/22 03/05/24 Unknown History fluoxetine 20 mg capsule 20 mg PO DAILY 01/11/23 03/05/24 Unknown History Exam Height,Weight and Vital Signs: Height 5 ft 3 in Weight 83.007 kg Assessment and Plan Assessment Anesthesia Assessment: Chart Reviewed Final Anesthetic Review Family History of Problems with Anesthesia: No History of Problems with Anesthesia: No Documented by User: Emilio Joyce MD 03/05/24 08:33 [facility] Past Medical History Medical History (Updated 03/01/24 @ 14:37 by Jill Murrieta RN) Dyslipidemia Depression Lumbar radiculopathy KRISTAL positive Tubular adenoma Pancreatic insufficiency Environmental allergies Arthritis Fibromyalgia Family History Family History Father HTN (hypertension) Blood infection Heart disease Surgical History Surgical History (Updated 03/01/24 @ 14:37 by Jill Murrieta RN) History of reversal of tubal ligation Hx of colonoscopy H/O tubal ligation H/O cosmetic surgery Social History Social History Household Members Other:: daughter Housing: House Alcohol intake: never Patient Tobacco Use Status: Former Tobacco user e-Cigarette/Vaping Use: Never Used Use of substances other than those prescribed or required for medical reasons: No Are you DNR?: No Advance Directives: No Advance Directives Information Provided: Yes Recently lost weight without trying: No service: No Current occupational status: disabled Cognitive needs: No Hearing needs: No Vision needs: No Meds Allergies Allergy/AdvReac Type Severity Reaction Status Date / Time seafood Allergy Severe Unknown Verified 02/13/24 22:32 adhesive tape AdvReac Redness of Verified 03/05/24 08:00 Skin Home Medications ?Medication ?Instructions ?Recorded ?Confirmed ?Last Taken ?Type ketotifen fumarate 0.025 % (0.035 1 drp ophthalmic (eye) BID 03/18/20 03/05/24 Unknown History %) eye drops buspirone 5 mg tablet 5 mg PO BID anxiety 04/13/22 03/05/24 Unknown History fluoxetine 20 mg capsule 20 mg PO DAILY 01/11/23 03/05/24 Unknown History Exam Airway Mallampati Class: II TM Dist: >3cm Neck ROM: Full Assessment and Plan Assessment Anesthesia Assessment: Anesthesia Plan Discussed Final Anesthetic Review NPO: Yes ASA Class: II Final Preanesthetic Review: No Changes in Pt Med Stat, Meds/Allgs Chart Reviewed, Consent Obtained/Reviewed and Anes Risks/Benef Reviewed Patient Risk: Low Procedure Risk: Low Anesthetic Plan Anesthetic Plan: TIVA Disposition: Standard PACU
[2024-03-05] VITALS (13 sets, daily range): BP systolic 104–137; BP diastolic 64–86; PULSE 60–96; RESP 15–32; TEMP 36.2–36.9; O2SAT 86–99; BMI 31.7
--- NOTE | 2024-03-05 08:13 | P.HPSUR_ITS ---
Pre-Procedural Eval Section A - 24 Hr Update-Section A only Date of Service: 03/05/24 Section B - Complete if H&P > 30 days Chief Complaint: IBS,gerd,Slow transit constipation,R upper pain Relevant Family History (Specify if Yes): No Relevant Social History: None Present Medications: see Short Stay Collaborative assessment Medical History: Significant History (Dyslipidemia Depression Lumbar radiculopat hy KRISTAL positive Tubular adenoma Pancreatic insufficiency Environmental allergies Arthritis Fibromyalgia) History of Previous Operations: Relevant previous surgery/procedure and date(s) (History of reversal of tubal ligation Hx of colonoscopy H/O tubal ligation H/O cosmetic surgery) Allergies: Allergies Allergy/AdvReac Type Severity Reaction Status Date / Time seafood Allergy Severe Unknown Verified 02/13/24 22:32 adhesive tape AdvReac Redness of Verified 03/05/24 08:00 Skin Review of Systems Sugical H&P ROS: Negative: Constitution, Cardiovascular, Respiratory, Neurological, Psychiatric, Hem-Onc, Allergic/Immunologic, Gastrointestinal, G enitourinary, Musculoskeletal, Integumentary, Endocrine and Eyes/Ears/Nose/Throat Exam Surgical H&P Exam: Normal: HEENT, Normal: Heart, Normal: Lungs, Normal: Extremities, Normal: Abdomen, Normal: Skin and Normal: Neurological Plan Diagnosis/Plan: Unchanged I have reviewed the history and physical and performed a pertinent physical examination on my patient. No changes have occurred unless specified. Time Spent With Patient Time: Total time managing care of this patient today ____ minutes.
[2024-03-05] MEDS: Lactated Ringers 1,000 ML 100 ML IVCONT (08:36)
--- NOTE | 2024-03-05 09:43 | P.OP_ITS ---
Operative Note Operative Note Date of Service: 03/05/24 Narrative: Operative Information Procedure Description: EGD, Colonoscopy Indication: hx of barretts, hx of colon polyp Anesthesia: MAC FLEXIBLE TRANSORAL UPPER GASTROINTESTINAL ENDOSCOPY AND COLONOSCOPY PROCEDURE NOTE UPPER ENDOSCOPY Consent: Indications for the procedure and potential complications of bleeding, perforation, reaction to medications and missed diagnosis were discussed with the patient and informed consent was obtained. Instrument: Olympus GIF H 190 J mid size upper endoscope Monitoring: Vital signs and clinical assessment, continuous EKG monitoring, Pulse oximetry, Carbon Dioxide monitoring and blood pressure monitoring were done throughout the procedure. Procedure: The patient was placed in the left lateral decubitis position and pre-procedure medications were administered and a bite block was placed. The endoscope was inserted into the mouth and advanced under direct vision to the third part of duodenum. A careful inspection was made as the upper endoscope was withdrawn including a retroflexed examination of the proximal stomach; Findings and interventions are described below. Findings: Larynx:normal Esophagus: GE junction at 34 cm, diaphragm hiatus at 37 cm, consistent with 3 cm sliding hiatal hernia, bx taken from GEJ for possible short segment barretts and also from distal and proximal esophagus. The LES was lax. Small esophageal inlet patch noted. Stomach: Streaky gastritis in mid stomach. Biopsies were obtained. Grade 2 flap valve on retroflexed examination of the cardia. Duodenum: Normal bulb and descending duodenum, Intervention: Biopsies as noted above--sent for tissue cypher as well COLONOSCOPY Instrument: Olympus variable stiffness pediatric scope 190L Colonoscopy Monitoring: Vital signs and clinical assessment, continuous EKG monitoring, Pulse oximetry, Carbon Dioxide monitoring and blood pressure monitoring were done throughout the procedure. Colon withdrawal time was 9 minutes. Procedure: The patient was placed in the left lateral decubitis position and pre-procedure medications were administered. After a digital rectal examination of the ano-rectum, the video colonoscope was inserted into the rectum and advanced through the colon to the cecum/TI. The colonoscope was slowly withdrawn in a retrograde panoramic fashion and the colon mucosa was carefully examined including a retroflexed view of the rectum. Findings and interventions are described below. Procedure Difficulty:moderate Findings: Terminal Ileum-not intubated Cecum:normal Ascending Colon: 8-9 mm sessile polyp removed with cold snare Transverse Colon -normal Descending Colon:normal Sigmoid Colon: normal Rectum: Retroflexion with small internal hemorrhoids, grade I Anorectum - normal Colon preparation: [place] Bowel Preparation Scale Right colon; 1-2 Transverse colon: 2 Left colon; 1-2 (0 = Unprepared colon segment with mucosa not seen due to solid stool that cannot be cleared. 1 = Portion of mucosa of the colon segment seen, but other areas of the colon segment not well seen due to staining, residual stool and/or opaque liquid. 2 = Minor amount of residual staining, small fragments of stool and/or opaque liquid, but mucosa of colon segment seen well. 3 = Entire mucosa of colon segment seen well with no residual staining, small fragments of stool or opaque liquid) Impression and Post Procedure Diagnosis: Endoscopy Findings: possible barretts hiatal hernia gastritis Colonoscopy Findings: polyp internal hemorrhoids Plan: Await Pathology results Repeat Colonoscopy in 1 year due to fair prep or earlier if clinically indicated High fiber diet leaflet avoid straining at stool, epsom salts and sitz bath, anusol supps or cream Above findings were reviewed with the patient and relevant handouts were provided if indicated.
[2024-03-05] MEDS: Midazolam HCl/PF 2 MG/2 ML VIAL IVPUSH (10:19)
[2024-03-05] MEDS: Midazolam HCl/PF 2 MG/2 ML VIAL 1 MG IVPUSH (10:51)
--- OUTSIDE RECORDS SUMMARY | 2024-03-06 18:35 | XMS_ITS | Continuity of Care Document ---
Author Organization [facility] Address [address] [place] [address] Phone Care Team Providers Care Development Geologist Name Role Phone Huey SNYDER, RVT, KASSANDRA, [...] E&M Established 15 Mins [facility], [address] [place] [address] Dr Eli 1000SuTrever abdalla [place], [id number], [place] tel:[phone] [place] Venous insufficiency (chronic) (peripheral)Ne vus, non-neoplastic 4 Huey SNYDER RVT, KASSANDRA Anderson. [address] [place] [address], [facility], [place], [id number] , [place]. tel: [phone] [facility], [address] [place] [address] Dr Eli [address]Suite [place], [id number], [place] tel:[phone] [place] Nevus, non-neoplastic 4 Mollperico Garces . [address] [place] [address], [facility], [place], [id number] , [place]. tel: [phone] Office/Outpt E&M Established 15 Mins [facility], [address] [place] [address] Dr Eli 1000SuTrever abdalla [place], [id number], [place] tel:[phone] [place] Venous insufficiency (chronic) (peripheral)Ne vus, non-neoplastic 4 Huey SNYDER RVT, KASSANDRA Anderson. [address] [place] [address], [facility], [place], [id number] , [place]. tel: [phone] Office/Outpt E&M Established 15 Mins [facility], [address] [place] [address] Dr Eli 1000SuTrever abdalla [place], [id number], [place] tel:[phone] CV[place] Chronic venous hypertension (idiopathic) without complications of left lower extremityObesi ty, unspecified 4 Huey SNYDER RVT, KASSANDRA Anderson. [address] [place] [address], [place] [address], [facility], [place], [id number] , [place]. tel: [phone] [facility] MD M[place], [address] [place] [address] Dr Eli 1000SuTrever abdalla [place], [id number], [place] tel:[phone] [place] Varicose veins of left lower extremity with pain 4 Huey SNYDER RVT, RPVI Robert. [address] [place] [address], Suite [facility], [facility] [place] [place], [id number] , [place]. tel:[phone] Referring Provider: Justin Arzate MD, RVT, KASSANDRA, [address] [place] [address] [facility], [place], [address] . tel:[phone] [facility], [address] [place] [address] Dr Eli [address] 1000[place]ver [place], [id number], [place] tel:[phone] [place] Encounter for follow-up examination after completed treatment for conditions other than malignant neoplasm 3 Hung Betancourt. [address] [place] [address], [place] [address], [facility] [place], [address], [place]. tel:[phone] Referring Provider: Justin Arzate MD, RVT, KASSANDRA, [address] [place] [address] [facility], [place], [address] . tel:[phone] [facility], [address] [place] [address] Dr Eli [address] 1000[place], [id number], tel:[phone] CVR [place] Varicose veins of left lower extremity with inflammation 3 Huey SNYDER RVT, RPVI Robert. [address] [place] [address], [place], [id number] , [place]. tel:[phone] Referring Provider: Justin Arzate MD, RVT, KASSANDRA, [address] [place] [address] [facility], [place], [address] . tel:[phone] [facility], [address] [place] [address] Dr Eli [address] 1000[place], [id number], tel:[phone] [place] Chronic venous hypertension (idiopathic) with inflammation of left lower extremity 3 Huey SNYDER RVT, RPVI Robert. [address] [place] [address], [place] [address], [facility] [place] [place], [id number] , [place]. [phone] Referring Provider: Justin Arzate MD, RVT, [facility], [address] [place] [address], [place], [address] . tel:[phone] Offic/outpt E&m Estab 5 Min Trial - Telemedicine [facility], [address] [place] [address] [facility] [address], [place], [id number], [place] tel:[phone] CV[place] Chronic venous hypertension (idiopathic) with other complications of bilateral lower extremity Oct-2 3- 3 Huey SNYDER, RVT, FABIO Anderson. [address] [place] [address], [place] [address], [place], [id number] , [place]. tel:[phone] Referring Provider: Avelino Persaud MD FACS T [facility], [address] [place] [address], [place], [address]. tel:[phone] [facility], [address] [place] [address] [address], [place], [id number], [place] tel:[phone] CV[place] Chronic venous htn w oth comp of bilateral low extrm Sep-0 3 Hung SNYDER FACS DEBBIE Betancourt. [address] [place] [address], [place] [address], [place], [address], [place]. tel:[phone] Referring Provider: Avelino Persaud MD FACS T [facility], [address] [place] [address], [place], [address]. tel:[phone] Office/Oupt E&M New Pt 30 Mins [facility], [address] [place] [address] [address], [id number], [place] tel:[phone] CV[place] Varicose veins of left lower extremities w oth complicationsL ocalized edemaCramp and spasmPruritus, unspecified Sep-0 8- 3 Hung BOSST KASSANDRA Betancourt. [address] [place] [address], [place] [address], [facility] [place], [address], [place]. tel:[phone] Referring Provider: Avelino Persaud MD FACS T [facility], [address], [place], [address]. tel:[phone] Family History Family Member Type Diagnosis Age At Onset No Information Payers Payer name Insurance type Covered republican ID Authorbell tiankur(s) Self Pay 09 Social History Type [...] Body mass index (BMI) 32.0-32.9, adult) ordered Appointment Marisel Davey BOOKED Appointment Marisel Davey BOOKED History Of Present Illness Encounter Date Complaint [...] of bilateral lower extremity assessment Nevus, non-neoplastic 4 Patient Care Teams Name Effective Dates (start - stop) Status Members No Information
== END 2024-03-05 12:47 | disposition home or self-care (01) ==
PROVIDERS: PCP Internal Medicine; Visit Provider Internal Medicine Gastroenterology
PROC: (CPT 45385; principal; 2024-03-05 09:10)
DX: Z12.11 Encounter for screening for malignant neoplasm of colon (principal); Z86.0101 Personal history of adenomatous and serrated colon polyps; D12.2 Benign neoplasm of ascending colon; K64.0 First degree hemorrhoids; K59.01 Slow transit constipation; K58.1 Irritable bowel syndrome with constipation; R10.11 Right upper quadrant pain; K29.50 Unspecified chronic gastritis without bleeding; K20.80 Other esophagitis without bleeding; K21.9 Gastro-esophageal reflux disease without esophagitis; K44.9 Diaphragmatic hernia without obstruction or gangrene; K86.89 Other specified diseases of pancreas; Z87.19 Personal history of other diseases of the digestive system; Q39.8 Other congenital malformations of esophagus; M79.7 Fibromyalgia; E78.5 Hyperlipidemia, unspecified; F32.A Depression, unspecified; L23.1 Allergic contact dermatitis due to adhesives
CPT/HCPCS: 45385; 43239; 88305; 88313; 88342; J1100; J1596; J2003; J2250; J2704

== ENCOUNTER → 2024-03-05 07:32 | Outpatient (BNV) | payer OTHER, SELFPAY | PROVIDERS: PCP Internal Medicine; Visit Provider Internal Medicine Gastroenterology | DX: Z12.11 Encounter for screening for malignant neoplasm of colon (principal); Z86.0100 Personal history of colon polyps, unspecified; K64.0 First degree hemorrhoids; K29.70 Gastritis, unspecified, without bleeding; D12.2 Benign neoplasm of ascending colon | CPT/HCPCS: 43239; 45385 ==

== ENCOUNTER 2024-03-18 12:56 | Outpatient (AMB) | payer OTHER, SELFPAY ==
--- NOTE | 2024-03-18 13:07 | A.OFFVIS_ITS ---
Vital Signs 03/18/24 13:08 Height 5 ft 3 in Weight 182 lb 8.684 oz BMI 32.3 BP 98/54 L Blood Pressure Location Rt brachial Position Sitting Pulse 76 Pulse Source Pulse Oximeter Pulse Oximetry (%) 96 Oxygen Delivery Method Room Air Intake Visit Reasons: s/p egd/colon Intake Note: ESTABLISHED PATIENT Kristal presents in office today for a scheduled s/p FUV. Meds and Allergies reviewed? Y No recent or relevant surgeries? Duo w/ TH Any significant concerns or new changes? Pt reports having palpitations and fatigue w/ any consumption. However, she states that sx are worse with any intake of carbs. Pt has seen cardio previously Pharmacy verified? [facility] [employer] [facility] Required: No Allergies seafood Allergy (Severe, Verified 03/18/24 13:09) Unknown adhesive tape Adverse Reaction (Verified 03/18/24 13:09) Redness of Skin HPI HPI s/p egd/colon: Details: LAST VISIT: Hiatal hernia Diastasis recti Constipation by delayed colonic transit Pancreatic insufficiency Colon cancer screening RUQ abdominal pain IBS (irritable bowel syndrome) Hepatic steatosis GERD (gastroesophageal reflux disease) Plan Patient will continue taking famotidine as ordered. Continue avoiding dietary triggers. Low FODMAP diet as discussed on previous visits. Linzess and Dulcolax to manage her bowels. Patient continues with right upper quadrant pain, no tenderness on exam, will order HIDA scan to rule out biliary dyskinesia. Patient will be sent for upper endoscopy and colonoscopy. What to expect before during and after procedure discussed with her. Stressed the importance of clear liquid diet and good bowel prep. Patient will do 2 days of clear and split MiraLax with Dulcolax. I will see patient after the procedure, sooner on as needed basis. Patient is agreeable to this plan and verbalizes understanding of instructions. She was given the opportunity to ask questions and all questions answered. ? Thank you for allowing me to participate in her care Orders Orders NM hepatobiliary w pharm Today R10.11 Medications New polyethylene glycol 3350 (Miralax) As directed by gastroenterology department at [facility] 238 grams PO ONCE 238 grams 0RF Z12.11 Refilled bisacodyl (Dulcolax (bisacodyl)) 10 mg (2 x 5 mg) PO BEDTIME 180 tabs 4RF linaclotide (Linzess) 145 mcg PO DAILY 90 caps 2RF UPPER ENDOSCOPY AND COLONOSCOPY: Findings: Larynx:normal Esophagus: GE junction at 34 cm, diaphragm hiatus at 37 cm, consistent with 3 cm sliding hiatal hernia, bx taken from GEJ for possible short segment barretts and also from distal and proximal esophagus. The LES was lax. Small esophageal inlet patch noted. Stomach: Streaky gastritis in mid stomach. Biopsies were obtained. Grade 2 flap valve on retroflexed examination of the cardia. Duodenum: Normal bulb and descending duodenum, Intervention: Biopsies as noted above--sent for tissue cypher as well COLONOSCOPY Instrument: Olympus variable stiffness pediatric scope 190L Colonoscopy Monitoring: Vital signs and clinical assessment, continuous EKG monitoring, Pulse oximetry, Carbon Dioxide monitoring and blood pressure monitoring were done throughout the procedure. Colon withdrawal time was 9 minutes. Procedure: The patient was placed in the left lateral decubitis position and pre-procedure medications were administered. After a digital rectal examination of the ano-rectum, the video colonoscope was inserted into the rectum and advanced through the colon to the cecum/TI. The colonoscope was slowly withdrawn in a retrograde panoramic fashion and the colon mucosa was carefully examined including a retroflexed view of the rectum. Findings and interventions are described below. Procedure Difficulty:moderate Findings: Terminal Ileum-not intubated Cecum:normal Ascending Colon: 8-9 mm sessile polyp removed with cold snare Transverse Colon -normal Descending Colon:normal Sigmoid Colon: normal Rectum: Retroflexion with small internal hemorrhoids, grade I Anorectum - normal Colon preparation: [place] Bowel Preparation Scale Right colon; 1-2 Transverse colon: 2 Left colon; 1-2 (0 = Unprepared colon segment with mucosa not seen due to solid stool that cannot be cleared. 1 = Portion of mucosa of the colon segment seen, but other areas of the colon segment not well seen due to staining, residual stool and/or opaque liquid. 2 = Minor amount of residual staining, small fragments of stool and/or opaque liquid, but mucosa of colon segment seen well. 3 = Entire mucosa of colon segment seen well with no residual staining, small fragments of stool or opaque liquid) Impression and Post Procedure Diagnosis: Endoscopy Findings: possible barretts hiatal hernia gastritis Colonoscopy Findings: polyp internal hemorrhoids Plan: Await Pathology results Repeat Colonoscopy in 1 year due to fair prep or earlier if clinically indicated High fiber diet leaflet avoid straining at stool, epsom salts and sitz bath, anusol supps or cream PATHOLOGY RESULTS: Diagnosis A. GE junction, biopsy: - Cardiac-type mucosa with moderate chronic inactive inflammation; no intestinal metaplasia seen. - Squamous mucosa within normal limits. B. Esophagus, distal, biopsy: Squamous mucosa within normal limits. C. Esophagus, proximal, biopsy: Squamous mucosa within normal limits. D. Stomach, biopsy: Antral-type mucosa with moderate chronic inactive inflammation and focal intestinal metaplasia; negative for dysplasia; no Helicobacter organisms seen. E. Colon, ascending, polypectomy: Tubular adenoma; negative for high-grade dysplasia or carcinoma TODAY'S VISIT Patient is here today for follow-up and to discuss upper endoscopy and colonosc opy results. Patient denies any ill effects from the prep, anesthesia or procedure itself. Patient reports to be feeling well. However patient does report that she feels like she gets palpitations and dizziness when she eats carbs. However patient does reports that she suffers from anxiety. Patient has seen cardiology in the past. Patient denies any shortness of breath or chest pain with or without activities. Reports that her bloating has gone much better. However she still is having trouble moving her bowels. Patient is taking MiraLax and Dulcolax. Patient had suboptimal prep and will have to repeat colonoscopy in 1 year. One tubular adenoma saw in ascending colon. No high-grade dysplasia or carcinoma. Biopsy of GE junction showed moderate chronic inactive inflammation without intestinal metaplasia. Normal esophagus. Patient reports that her symptoms of acid reflux are suppressed for the most part. She is taking famotidine twice a day. Patient is taking Creon with meals and bloating has been improved. Patient denies dyspepsia, dysphagia or odynophagia. [facility] Medical History Dyslipidemia Depression Lumbar radiculopathy KRISTAL positive Tubular adenoma Pancreatic insufficiency Environmental allergies Arthritis Fibromyalgia Surgical History History of reversal of tubal ligation Hx of colonoscopy H/O tubal ligation H/O cosmetic surgery Family History Father HTN (hypertension) Blood infection Heart disease Social History Household Members Other:: daughter Housing: House Alcohol intake: never Patient Tobacco Use Status: Former Tobacco user e-Cigarette/Vaping Use: Never Used service: No Current occupational status: disabled Cognitive needs: No Hearing needs: No Vision needs: No Female Reproductive History Menstrual Age of Menarche: 10 Review of Systems Const Denies weight gain and Denies weight loss ENT Reports no additional complaints, Denies dysphagia and Denies odynophagia Card Reports no additional complaints Resp Reports no additional complaints GI Denies abdominal pain, Denies belching, Denies melena, Reports bloating, Reports constipation (Occasional), Denies dysphagia, Denies excessive flatus, Denies dyspepsia, Reports heartburn (Occasional), Denies diarrhea, Denies loose stools, Denies nausea, Denies odynophagia and Denies vomiting Reports no additional complaints Musc Reports no additional complaints Neuro Reports no additional complaints Psych Reports no additional complaints Endo Reports no additional complaints Physical Exam Vital Signs: Last Vital Signs Pulse 76 03/18/24 13:08 BP 98/54 L 03/18/24 13:08 Pulse Ox 96 03/18/24 13:08 Oxygen Delivery Method Room Air 03/18/24 13:08 BMI result Body Mass Index 32.3 Const General: healthy appearing, no acute distress and well developed Nutritional Appearance: obese Orientation/consciousness: patient oriented x3 Resp Effort & Inspection: normal respiratory effort, able to speak in complete sentences, no tracheal deviation and symmetric chest movement Auscultation: clear to auscultation bilaterally Cardio Rate: regular rate GI Inspection: Yes normal to inspection, No distended and Yes obesity Palpation (GI): Soft to palpation, not firm, nontender and No hepatosplenomegaly present Auscultation: normal bowel sounds General: Yes no CVA tenderness Back/Spine/Pelvis Back: no CVA tenderness Skin General skin exam: elasticity normal, turgor normal and dry skin Neuro General: patient oriented x3 Psych Appearance: grossly normal Mental Status: mental status grossly normal Assessment & Plan Assessment & Plan (1) Hiatal hernia: Code(s): K44.9 - Diaphragmatic hernia without obstruction or gangrene Category: Medical (2) Diastasis recti: Code(s): M62.08 - Separation of muscle (nontraumatic), other site Category: Medical (3) Constipation by delayed colonic transit: Code(s): K59.01 - Slow transit constipation Category: Medical (4) Pancreatic insufficiency: Code(s): K86.89 - Other specified diseases of pancreas Category: Medical (5) Colon cancer screening: Code(s): Z12.11 - Encounter for screening for malignant neoplasm of colon Category: Medical (6) RUQ abdominal pain: Code(s): R10.11 - Right upper quadrant pain (7) IBS (irritable bowel syndrome): Code(s): K58.9 - Irritable bowel syndrome, unspecified Qualifiers: Irritable bowel syndrome type: with constipation Qualified Code(s): K58.1 - Irritable bowel syndrome with constipation (8) Hepatic steatosis: Code(s): K76.0 - Fatty (change of) liver, not elsewhere classified (9) GERD (gastroesophageal reflux disease): Code(s): K21.9 - Gastro-esophageal reflux disease without esophagitis Qualifiers: Esophagitis presence: without esophagitis Qualified Code(s): K21.9 - Gastro-esophageal reflux disease without esophagitis Plan Patient will continue taking famotidine twice a day. Avoid dietary triggers and late night snacking. Staying upright for minimum 3 hours after meals discussed with patient. Patient will follow low FODMAP diet. List of food recommended as well as list of food to avoid discussed with her. Patient will start taking Trulance and will add Dulcolax in the evening if no bowel movement. Patient was also recommended to try Benefiber with probiotic. Increase fluid intake and activity to promote better bowel motility. Patient will follow-up in 3 months, sooner on as needed basis. She is agreeable to this plan and verbalizes understanding of instructions. She was given the opportunity to ask questions and all questions answered. Thank you for allowing me to participate in her care Medications: New plecanatide (Trulance) 3 mg PO DAILY 30 tabs 3RF K59.09 - Other constipation bisacodyl (Dulcolax (bisacodyl)) 10 mg (2 x 5 mg) PO BEDTIME 180 tabs 4RF wheat dextrin (Benefiber Sugar Free (dextrin)) chew thoroughly before swallowing; do not swallow whole 1 tab PO DAILY 90 tabs 1RF lactobacillus combination no.9 (Adult 50 Plus Probiotic) administer with a meal 4,000 mmu cells PO DAILY 90 caps 3RF Coding Level of Care Code Est Pt Level 4 (48169) Complex EM visit Add On G2211 Diagnoses Hiatal hernia K44.9 Diastasis recti M62.08 Constipation by delayed colonic transit K59.01 Pancreatic insufficiency K86.89 Colon cancer screening Z12.11 RUQ abdominal pain R10.11 Irritable bowel syndrome with constipation K58.1 Irritable bowel syndrome type: with constipation Hepatic steatosis K76.0 Gastroesophageal reflux disease without esophagitis K21.9 Esophagitis presence: without esophagitis Time Spent (min) 35 Comment 25 minutes spent with patient and additional 10 minutes spent reviewing her records
[2024-03-18 13:08] VITALS: BP 98/54; PULSE 76; O2SAT 96; BMI 32.3
== END 2024-03-18 13:49 | disposition home or self-care (01) ==
PROVIDERS: PCP Internal Medicine; Visit Provider Nurse Practitioner Family
DX: K58.1 Irritable bowel syndrome with constipation (principal); K21.9 Gastro-esophageal reflux disease without esophagitis; K86.89 Other specified diseases of pancreas; K76.0 Fatty (change of) liver, not elsewhere classified; M62.08 Separation of muscle (nontraumatic), other site
CPT/HCPCS: 99214; G2211

== ENCOUNTER → 2024-03-18 12:56 | Outpatient (BNVA) | payer OTHER, SELFPAY | PROVIDERS: PCP Internal Medicine; Visit Provider Nurse Practitioner Family | DX: Z12.11 Encounter for screening for malignant neoplasm of colon (principal); K58.1 Irritable bowel syndrome with constipation; M62.08 Separation of muscle (nontraumatic), other site; K59.01 Slow transit constipation; K44.9 Diaphragmatic hernia without obstruction or gangrene; K86.89 Other specified diseases of pancreas; K76.0 Fatty (change of) liver, not elsewhere classified; K21.9 Gastro-esophageal reflux disease without esophagitis; R10.11 Right upper quadrant pain | CPT/HCPCS: 99212 ==

== ENCOUNTER 2024-04-12 11:43 | Outpatient (AMB) | payer OTHER, SELFPAY ==
[2024-04-12 11:53] VITALS: BP 110/72; PULSE 89; O2SAT 97; BMI 33.7
--- NOTE | 2024-04-12 11:53 | A.OFFPC_ITS ---
Vital Signs 04/12/24 11:53 Height 5 ft 2 in Weight 184 lb 2 oz BMI 33.7 BP 110/72 Blood Pressure Location Lt brachial Position Sitting Pulse 89 Pulse Source Pulse Oximeter Pulse Oximetry (%) 97 Oxygen Delivery Method Room Air Intake Visit Reasons: 3 month f/u Allergies seafood Allergy (Severe, Verified 04/12/24 11:54) Unknown adhesive tape Adverse Reaction (Verified 04/12/24 11:54) Redness of Skin Medication List - Last Reconciled 04/12/24 by Cole Austin MD acetaminophen (Tylenol Extra Strength) 500 mg PO Q6H PRN albuterol sulfate 90 mcg/actuation 2 puffs inhalation Q6H PRN bisacodyl (Dulcolax (bisacodyl)) 10 mg (2 x 5 mg) PO BEDTIME [body wipes As directed] buspirone 5 mg PO BID diaper,brief,adult,disposable As directed famotidine 20 mg PO BID fluoxetine 20 mg PO DAILY gabapentin 600 mg (2 x 300 mg) PO Q8H 30 days ketotifen fumarate 0.025%(0.035%) 1 drp ophthalmic (eye) BID lactobacillus combination no.9 (Adult 50 Plus Probiotic) 4,000 mmu cells PO DAILY [id number] 24,000-76,000 -120,000 unit (Creon) 2 caps PO QID loratadine 10 mg PO DAILY meloxicam 15 mg PO DAILY plecanatide (Trulance) 3 mg PO DAILY underpads (Maxicare Underpads) As directed, 3 nightly wheat dextrin (Benefiber Sugar Free (dextrin)) 1 tab PO DAILY Tobacco use date assessed: 04/12/24 Dental Screening Dental Screen Date: 04/12/24 Did you have a dental visit in the last 12 months?: Yes Did you have a dental problem in the last 6 months where you did not have access to dental care?: No Was dental information given to patient?: Patient has dentist HPI 3 month f/u HPI Details Patient is a 58-year-old female with a history of fibromyalgia, obesity, major depression, headache syndrome, lipid disorder, chronic lumbar pain, constipation, osteoarthritis multiple joints primary, hiatal hernia, environmental allergies Came in today for her 3 month follow-up appointment Requesting script for Flonase nasal spray Continued to have pain all over her body she has a diagnosis of fibromyalgia has been evaluated by Rheumatology once Complaining of joint pains all over body and is requesting follow-up with Rheumatology again Patient also have a urine incontinence and at night she can not hold her urine She is also seeing [facility] for her lower back and right knee pain She is currently taking gabapentin 600 mg at night 300 mg in the morning and 300 mg in the afternoon which is helping her with her fibromyalgia and chronic pain syndrome. Other medications patient taking are for GERD through Gastroenterology She is on fluoxetine for depression Long-acting antihistamine for allergies BMI is elevated need to lose weight Follow-up 3 months [facility] Medical History Dyslipidemia Depression Lumbar radiculopathy KRISTAL positive Tubular adenoma Pancreatic insufficiency Environmental allergies Arthritis Fibromyalgia Surgical History History of reversal of tubal ligation Hx of colonoscopy H/O tubal ligation H/O cosmetic surgery Family History Father HTN (hypertension) Blood infection Heart disease Social History Household Members Other:: daughter Housing: House Alcohol intake: never Patient Tobacco Use Status: Former Tobacco user e-Cigarette/Vaping Use: Never Used service: No Current occupational status: disabled Cognitive needs: No Hearing needs: No Vision needs: No Female Reproductive History Menstrual Age of Menarche: 10 Questionnaire PHQ-9 Over the last 2 weeks, how often have you been bothered by any of the following problems? 1. Little interest or pleasure in doing things: several days 2. Feeling down, depressed, or hopeless: several days 3. Trouble falling or staying asleep, or sleeping too much: nearly every day 4. Feeling tired or having little energy: several days 5. Poor appetite or overeating: more than half the days 6. Feeling bad about yourself - or that you are a failure or have let yourself or your family down: several days 7. Trouble concentrating on things, such as reading the newspaper or watching television: more than half the days 8. Moving or speaking so slowly that other people could have noticed. Or the opposite - being so fidgety or restless that you have been moving around a lot more than usual: several days 9. Thoughts that you would be better off or of hurting yourself in some way: not at all Total score: 12 Depression Screening Interpretation: Positive Depression Screening Follow-up: Existing condition and In treatment Depression Screening Done: Yes 32665 - PHQ-9 Billing: Yes Source: Developed by Drs. Justin Munguia, Bonnie Harding, Nick Hartley and colleagues, with an educational narda from [employer]. Thrive Questionnaire Date Thrive assessed: 04/12/24 I am a: Patient What is your living situation today?: I have a place to live, but I am worried about losing it in the future Within the past 12 months, did the food you bought not last and you didn't have the money to get more?: Sometimes True Within the past 12 months, did you worry whether your food would run out before you got money to buy more?: Sometimes True Do you have trouble paying for medicines?: Yes Do you have trouble getting transportation to medical appointments?: I choose not to answer this question Do you have trouble paying your heating and electricity bill?: Yes Do you have trouble taking care of your child, family member or friend?: I choose not to answer this question Do you have trouble with day-to-day activities such as bathing, preparing meals, shopping, managing finances, etc.?: Yes Are you currently unemployed and looking for a job?: No Are you interested in more education?: No Please select the resources that you would like help with: Food, Utilities and Daily support Currently or been in a relationship where the following occur: Controlled Financially THRIVE Score: 5 AUDIT C Alcohol Use Questionnaire (AUDIT-C) 1. How often do you have a drink containing alcohol?: Never 3. How often do you have six or more drinks on one occasion?: Never Total Score: 0 Score Reviewed/Action Taken: Yes HEATHER-7 AMB Questionnaire HEATHER-7 Date HEATHER - 7 assessed: 04/12/24 Feeling nervous, anxious, or on edge: 1 = Several days Not being able to stop or control worryin = Several days Worrying too much about different things: 1 = Several days Trouble relaxin = Several days Being so restless that it is hard to sit still: 1 = Several days Becoming easily annoyed or irritable: 1 = Several days Feeling afraid as if something awful might happen: 1 = Several days Total HEATHER-7 score (0-4 normal; 5-9 mild; 10-14 moderate; 15-21 severe): 7 Source: Developed by Drs. Justin Munguia, Bonnie Harding, Nick Hartley and colleagues, with an educational narda from [employer]. HEATHER-7 Assessment Billing HEATHER-7 Assessment Tool: HEATHER-7 Assessment 22577 Review of Systems Const Denies chills and Denies fever(s) ENT Denies epistaxis Card Denies chest pain Resp Denies chest congestion, Denies cough and Denies hemoptysis GI Denies diarrhea and Denies nausea Skin/Breast Denies rash Neuro Reports no additional complaints Psych Reports no additional complaints Endo Reports no additional complaints Physical exam (Primary Care) Vital Signs: Last Vital Signs Pulse 89 04/12/24 11:53 BP 110/72 04/12/24 11:53 Pulse Ox 97 04/12/24 11:53 Oxygen Delivery Method Room Air 04/12/24 11:53 BMI result Body Mass Index 33.7 Tobacco/Smoking Status: Tobacco use Status Tobacco use date assessed 04/12/24 04/12/24 11:56 Patient Tobacco Use Status Former Tobacco user 04/12/24 11:56 e-Cigarette/Vaping Use Never Used 04/12/24 11:56 PHQ-9: PHQ-9 Score PHQ-9: Total score 12 04/12/24 12:12 Depression Screening Interpretation: Positive Depression Screening Follow-up: Existing condition and In treatment Thrive Assessment: Date of Thrive Assessment Date Thrive assessed 04/12/24 04/12/24 11:56 Currently or been in a relationship where the following occur: Controlled Financially Const General: cooperative, comfortable and no acute distress Orientation/consciousness: patient oriented x3 HENMT Head: Yes normocephalic Eyes General: appearance normal, both eyes and all related structures Neck Neck: Yes supple Resp Effort & Inspection: normal respiratory effort, no cough and no stridor Cardio Rhythm: regular rhythm Heart sounds: S1 normal heart sound present and S2 normal heart sound present Skin General skin exam: turgor normal Neuro General: patient oriented x3, tone normal and moves all extremities Extrem Right lower extremity: no edema Left lower extremity: no edema Coding Level of Care Code Est Pt Level 4 (82322) Complex EM visit Add On G2211 Diagnoses Multiple joint pain M25.50 Fibromyalgia M79.7 Environmental allergies Z91.09 Lumbar radiculopathy M54.16 Chronic pain syndrome G89.4 Osteoarthritis, generalized M15.9 Lipid disorder E78.9 Urinary incontinence, unspecified type R32 Urinary Incontinence type: unspecified incontinence KRISTAL positive R76.8 Additional Codes HEATHER-7 Assessment Billing - HEATHER-7 Assessment Tool: HEATHER-7 Assessment 79919 ([id number]) PHQ-9 - 29328 - PHQ-9 Billing: Yes ([id number]) Assessment & Plan Assessment & Plan (1) Multiple joint pain: Code(s): M25.50 - Pain in unspecified joint Category: Medical (2) Fibromyalgia: Code(s): M79.7 - Fibromyalgia Category: Medical (3) Environmental allergies: Code(s): Z91.09 - Other allergy status, other than to drugs and biological substances Category: Medical (4) Lumbar radiculopathy: Code(s): M54.16 - Radiculopathy, lumbar region Category: Medical (5) Chronic pain syndrome: Code(s): G89.4 - Chronic pain syndrome Category: Medical (6) Osteoarthritis, generalized: Code(s): M15.9 - Polyosteoarthritis, unspecified Category: Medical (7) Lipid disorder: Code(s): E78.9 - Disorder of lipoprotein metabolism, unspecified Category: Medical (8) Urine incontinence: Code(s): R32 - Unspecified urinary incontinence Category: Medical Qualifiers: Urinary Incontinence type: unspecified incontinence Qualified Code(s): R32 - Unspecified urinary incontinence (9) KRISTAL positive: Code(s): R76.8 - Other specified abnormal immunological findings in serum Category: Medical Plan Patient is a 58-year-old female with a history of fibromyalgia, obesity, major depression, headache syndrome, lipid disorder, chronic lumbar pain, constipation, osteoarthritis multiple joints primary, hiatal hernia, environmental allergies Came in today for her 3 month follow-up appointment Requesting script for Flonase nasal spray Continued to have pain all over her body she has a diagnosis of fibromyalgia has been evaluated by Rheumatology once Complaining of joint pains all over body and is requesting follow-up with Rheumatology again Patient also have a urine incontinence and at night she can not hold her urine She is also seeing [facility] for her lower back and right knee pain She is currently taking gabapentin 600 mg at night 300 mg in the morning and 300 mg in the afternoon which is helping her with her fibromyalgia and chronic pain syndrome. Other medications patient taking are for GERD through Gastroenterology She is on fluoxetine for depression Long-acting antihistamine for allergies BMI is elevated need to lose weight Follow-up 3 months Orders: Referrals Rheumatology Referral M25.50 - Pain in unspecified joint Medications: New fluticasone propionate 50 mcg/actuation (Flonase Allergy Relief) administer into each nostril 1 spray intranasal DAILY 16 grams 0RF Discontinued meloxicam Discontinued Reason: Doctor's Order 15 mg PO DAILY 10 tabs 0RF
== END 2024-04-12 14:08 | disposition home or self-care (01) ==
PROVIDERS: PCP Internal Medicine; Visit Provider Internal Medicine
DX: M25.50 Pain in unspecified joint (principal); M79.7 Fibromyalgia; Z91.09 Other allergy status, other than to drugs and biological substances; M54.16 Radiculopathy, lumbar region; G89.4 Chronic pain syndrome; M15.9 Polyosteoarthritis, unspecified; E78.9 Disorder of lipoprotein metabolism, unspecified; R32 Unspecified urinary incontinence; R76.8 Other specified abnormal immunological findings in serum

== ENCOUNTER → 2024-04-12 11:43 | Outpatient (BNVA) | payer OTHER, SELFPAY | PROVIDERS: PCP Internal Medicine; Visit Provider Internal Medicine | DX: M25.50 Pain in unspecified joint (principal); M79.7 Fibromyalgia; M54.16 Radiculopathy, lumbar region; G89.4 Chronic pain syndrome; M15.9 Polyosteoarthritis, unspecified; E78.9 Disorder of lipoprotein metabolism, unspecified; R32 Unspecified urinary incontinence; E76.8 Other disorders of glucosaminoglycan metabolism; Z91.09 Other allergy status, other than to drugs and biological substances | CPT/HCPCS: 96127; 99212 ==

== ENCOUNTER 2024-04-24 08:01 | Outpatient (AMB) | payer OTHER, SELFPAY ==
--- OUTSIDE RECORDS SUMMARY | 2024-04-24 08:06 | XMS_ITS | Clinical Summary ---
Author Organization [facility] Address [address] [place] [address] Care Team Providers Care Hospital Wellness Coordinator Name Role Phone Pcp, No Primary Care Provider Unavailabl e Social History Tobacco Use Types Packs/Day Years Used Date Smoking Tobacco: Never Assessed Sex and Gender Information Value Date Recorded Sex Assigned at Not on file Gender Identity Not on file Sexual Orientation Not on file Plan of Treatment Health Maintenance Due Date Last Done Comments Hepatitis C Virus Screening 1965 HIV Screening 07/16/1976 DTaP/Tdap/Td Vaccines (1 - Tdap) 07/16/1982 Pneumococcal Vaccines 50+ (1 of 1 - PCV) 07/16/2013 Zoster (Shingles) Vaccine (1 of 2) 07/16/2013 COVID-19 Vaccine ( - 2023-2 5 season) 2023 RSV Vaccine 60 years and old er and Patients (1 - 1-dose 75+ series) 07/16/2038 Hepatitis B Vaccines Aged Out No long er eligible based on patient's age to complete this topic Pneumococcal Vaccine: Pediat leighton (0-5 Years) and At-Risk Patients (6 to 49 Years) Aged Out No longer eligible b ased on patient's age to complete this topic Care Teams Hospital Wellness Coordinator Relationship Specialty Start Date End Date Pcp, No PCP - General General Medicine 04/18/23
--- OUTSIDE RECORDS SUMMARY | 2024-04-24 08:06 | XMS_ITS | Continuity of Care Document ---
Author Organization [facility] Address [address] [place] [address] Phone Care Team Providers Care Civil Cad Designer Name Role Phone Huey SNYDER, RVT, KASSANDRA, [...] E&M Established 15 Mins [facility], [address] [place] [address] Dr Eli [address] [place]alla [place], [id number], [place] tel:[phone] CVR [place] Venous insufficiency (chronic) (peripheral)Ne vus, non-neoplastic 4 Huey SNYDER RVT, KASSANDRA Anderson. [address] [place] [address], [facility], [place], [id number] , [place]. tel: [phone] [facility], [address] [place] [address] Dr Eli [address] [place], [id number], [place] tel:[phone] CVR [place] Nevus, non-neoplastic 4 Mollperico Garces . [address] [place] [address], [facility], [place], [id number] , [place]. tel: [phone] Office/Outpt E&M Established 15 Mins [facility], [address] [place] [address] Dr Eli [address] abdalla [place], [id number], [place] tel:[phone] CV[place] Venous insufficiency (chronic) (peripheral)Ne vus, non-neoplastic 4 Huey SNYDER RVT, KASSANDRA Anderson. [address] [place] [address], [facility], [place], [id number] , [place]. tel: [phone] Office/Outpt E&M Established 15 Mins [facility], [address] [place] [address] Dr Eli [address]Su[address], [id number], [place] tel:[phone] CV[place] Chronic venous hypertension (idiopathic) without complications of left lower extremityObesi ty, unspecified 4 Huey SNYDER RVT, KASSANDRA Anderson. [address] [place] [address], [place] [address], [facility], [place], [id number] , [place]. tel: [phone] [facility], [address] [place] [address] Dr Eli [address]Su[address]ver [place]alla [place], [id number], [place] tel:[phone] CVR [place] Varicose veins of left lower extremity with pain 4 Huey SNYDER RVT, RPVI Robert. [address] [place] [address], [address] [facility], [facility] [place], [id number] , [place]. tel:[phone] Referring Provider: Justin Arzate MD, RVT, KASSANDRA, [address] [place] [address] Suite [facility], [place], [address] . tel:[phone] [facility], [address] [place] [address] Dr Eli [address], [id number], [place] tel:[phone] CV[place] Encounter for follow-up examination after completed treatment for conditions other than malignant neoplasm 3 Hung Betancourt. [address] [place] [address], [place] [address], [facility] [place], [address], [place]. tel:[phone] Referring Provider: Justin Arzate MD, RVT, KASSANDRA, [address] [place] [address] Suite [facility], [place], [address] . tel:[phone] [place] [facility], [address] [place] [address] Dr Eli [address], [id number], tel:[phone] CVR [place] Varicose veins of left lower extremity with inflammation 3 Huey SNYDER RVT, RPVI Robert. [address] [place] [address], [place], [id number] , [place]. tel:[phone] Referring Provider: Justin Arzate MD, RVT, KASSANDRA, [address] [place] [address] Suite [facility], [facility] [place], [address] . tel:[phone] [facility], [address] [place] [address] Dr Eli [address], [id number], tel:[phone] CV[place] Chronic venous hypertension (idiopathic) with inflammation of left lower extremity 3 Huey SNYDER RVT, RPVI Robert. [address] [place] [address], [place] [address], [facility] [place] [place], [id number] , [place]. [phone] Referring Provider: Justin Arzate MD, RVT, [facility], [address] [place] [address], [place], [address] . tel:[phone] Offic/outpt E&m Estab 5 Min Trial - Telemedicine [facility], [address] [place] [address] [facility] [address], [place], [id number], [place] tel:[phone] CVR - [place] Chronic venous hypertension (idiopathic) with other complications of bilateral lower extremity Oct-2 3- 3 Huey SNYDER, RVT, FABIO Anderson. [address] [place] [address], [place] [address], [place], [id number] , [place]. tel:[phone] Referring Provider: Avelino Persaud MD FACS T [facility], [address] [place] [address], [place], [address]. tel:[phone] [place] [facility], [address] [place] [address] [address], [place], [id number], [place] tel:[phone] CVR - [place] Chronic venous htn w oth comp of bilateral low extrm Sep-0 3 Hung SNYDER FACS DEBBIE Betancourt. [address] [place] [address], [place] [address], [place], [address], [place]. tel:[phone] Referring Provider: Avelino Persaud MD FACS T [facility], [address] [place] [address], [place], [address]. tel:[phone] Office/Oupt E&M New Pt 30 Mins [facility], [address] [place] [address] [address], [id number], [place] tel:[phone] [place] Varicose veins of left lower extremities w oth complicationsL ocalized edemaCramp and spasmPruritus, unspecified Sep-0 8- 3 Hung BOSST KASSANDRA Betancourt. [address] [place] [address], [place] [address], [facility] [place], [address], [place]. tel:[phone] Referring Provider: Avelino Persaud MD FACS RVT [facility], [address], [place], [address]. tel:[phone] Family History Family Member Type Diagnosis Age [...]
--- NOTE | 2024-04-24 08:13 | MHC.OFFVIS ---
Intake Visit Reasons: left breast lump ok per dr. schaffer White Sugar Supervisor: White Sugar Supervisor Present (Dora) Accompanied by: Self / Same As Patient Allergies seafood Allergy (Severe, Verified 04/24/24 08:21) Unknown adhesive tape Adverse Reaction (Verified 04/24/24 08:21) Redness of Skin HPI Comments Details: Presenting complaining of bilateral breast tender lumps. Last mammogram/ultrasound in 01/17 was BI-RADS 2, no additional symptoms no nipple discharge PFSH Medical History Dyslipidemia Depression Lumbar radiculopathy KRISTAL positive Tubular adenoma Pancreatic insufficiency Environmental allergies Arthritis Fibromyalgia Surgical History History of reversal of tubal ligation Hx of colonoscopy H/O tubal ligation H/O cosmetic surgery Family History Father HTN (hypertension) Blood infection Heart disease Social History Household Members Other:: daughter Housing: House Alcohol intake: never Patient Tobacco Use Status: Former Tobacco user e-Cigarette/Vaping Use: Never Used service: No Current occupational status: disabled Cognitive needs: No Hearing needs: No Vision needs: No Female Reproductive History Menstrual Age of Menarche: 10 Physical Exam Chest Chest palpation & inspection: normal inspection of the chest Breast/axilla inspection: normal inspection of the breasts Breast/axilla palpation: abnormal palpation of the breast (R breast @ 3', 3 cm from the nipple L breast@ 5 , 12 cm from the nipple) Assessment & Plan Assessment & Plan (1) Breast lump: Comment: Right breast @ 3', 3 cm from the nipple Left breast@ 5 , 12 cm from the nipple Code(s): N63.0 - Unspecified lump in unspecified breast Category: Medical Plan: Discussed with the patient the finding on Breast exam (bilateral breast lumps, ) .The differential diagnosis includes but not limited to lump/cyst/pre cancer/cancer or dense breast tissue. The work up includes breast US and diagnostic mammogram and referred the patient for surgical breast consult. Orders: Orders US breast RT complete Today N63.0 - Unspecified lump in unspecified breast MM tomosynthesis diag imp BI Today N63.0 - Unspecified lump in unspecified breast US breast LT complete Today N63.0 - Unspecified lump in unspecified breast Referrals General Surgery Referral N63.0 - Unspecified lump in unspecified breast Coding Level of Care Code Est Pt Level 3 (22799) Diagnoses Breast lump N63.0
== END 2024-04-24 08:31 | disposition home or self-care (01) ==
LOC: HO.HWS 08:01
PROVIDERS: PCP Internal Medicine; Visit Provider Obstetrics & Gynecology
DX: N63.0 Unspecified lump in unspecified breast (principal)
CPT/HCPCS: 99213

== ENCOUNTER → 2024-04-24 08:01 | Outpatient (BNVA) | payer OTHER, SELFPAY | PROVIDERS: PCP Internal Medicine; Visit Provider Obstetrics & Gynecology | DX: N63.25 Unspecified lump in the left breast, overlapping quadrants (principal); N63.15 Unspecified lump in the right breast, overlapping quadrants | CPT/HCPCS: 99212 ==

== ENCOUNTER → 2024-05-01 14:24 | Outpatient (REF) | payer OTHER, SELFPAY ==
--- NOTE | ~2024-05-01 | US_ITS ---
EXAMINATION: MM DIAGNOSTIC DIGITAL BREAST TOMOSYNTHESIS, BILATERAL Bilateral Limited ultrasound. CLINICAL INFORMATION: Bilateral palpable breast lumps. COMPARISON: Mammography: Comparison is made with available prior examinations. TECHNIQUE: Digital mammography is performed in craniocaudal and mediolateral oblique views. Digital breast tomosynthesis is performed in implant-displaced craniocaudal and implant-displaced mediolateral oblique views. Synthesized 2D images are generated from the tomosynthesis. Computer-aided detection (CAD) is performed for this exam. Bilateral Limited ultrasound. FINDINGS: The breasts are heterogeneously dense, which may obscure small masses (ACR BI-RADS breast composition Category c). Right:: Right prepectoral implant is stable appearing. BB marker in the lower outer right breast without underlying abnormality. Oval mass in the upper outer right breast again seen not significant change from prior. No suspicious masses calcifications or other abnormal findings. Targeted color Doppler ultrasound scanning in the lower outer quadrant 4- 8:00 area of patient's palpable lump demonstrates normal fibronodular breast tissue. Targeted color Doppler ultrasound scanning in the upper outer quadrant demonstrates again seen at 9:00 2 adjacent minimally complicated simple cysts which are benign measuring up to 13 mm and 12 mm. Left: Distorted prepectoral implant is changed from prior consistent with probable implant rupture. No suspicious masses calcifications or other abnormal findings. Targeted color Doppler ultrasound scanning in the area the patient's palpable lump from 4- 8: Demonstrates normal fibroglandular breast tissue. Results are provided to the patient at time of visit by the technologist. US/US breast BI limited mamm only IMPRESSION: Right: 1. No mammographic or sonographic abnormality to account for the patient's palpable lump. Recommend clinical evaluation and follow-up. 2. Simple to minimally complicated cysts at 9:00 on ultrasound. Benign. Left: 1. No mammographic or sonographic abnormality to account for the patient's palpable lump. Recommend clinical evaluation and follow-up. 2. Findings of probable left implant rupture. Recommend clinical evaluation follow-up. ASSESSMENT: BI-RADS BI-RADS 2 - Benign Findings RECOMMENDATION: 1 year F/U Clinical evaluation and follow-up. This patient's information was entered into a reminder system with a target due date for their next mammogram. Electronically signed by: Nadiya Dietz DO 05/02/2024 08:03 AM JAE HILLIARD
--- OUTSIDE RECORDS SUMMARY | 2024-05-01 15:35 | XMS_ITS | Continuity of Care Document ---
Author Organization [facility] Address [address] [place] [address] Phone Care Team Providers Care Teenage Babysitter Name Role Phone Huey SNYDER, RVT, KASSANDRA, [...] Established 15 Mins May Sngl/mx Inj Scleros-veins; [facility] Office/Outpt E&M Established 15 Mins Mar No [...] E&M Established 15 Mins [facility], [address] [place] [address] Dr Eli 1000SuTrever abdalla [place], [id number], [place] tel:[phone] [place] Venous insufficiency (chronic) (peripheral)Ne vus, non-neoplastic 4 Huey SNYDER RVT, KASSANDRA Anderson. [address] [place] [address], [facility], [place], [id number] , [place]. tel: [phone] [facility], [address] [place] [address] Dr Eli 1000Suite [place], [id number], [place] tel:[phone] [place] Nevus, non-neoplastic 4 Mollperico Garces . [address] [place] [address], [facility], [place], [id number] , [place]. tel: [phone] Office/Outpt E&M Established 15 Mins [facility], [address] [place] [address] Dr Eli 1000SuTrever abdalla MD, [id number], [place] tel:[phone] [place] Venous insufficiency (chronic) (peripheral)Ne vus, non-neoplastic 4 Huey SNYDER RVT, KASSANDRA Anderson. [address] [place] [address], [facility], [place], [id number] , [place]. tel: [phone] Office/Outpt E&M Established 15 Mins [facility], [address] [place] [address] Dr Eli 1000SuTrever abdalla MD, [id number], [place] tel:[phone] [place] Chronic venous hypertension (idiopathic) without complications of left lower extremityObesi ty, unspecified 4 Huey SNYDER RVT, KASSANDRA Anderson. [address] [place] [address], [place] [address], [facility], [place], [id number] , [place]. tel: [phone] [facility], [address] [place] [address] Dr Eli 1000SuTrever abdalla MD, [id number], [place] tel:[phone] [place] Varicose veins of left lower extremity with pain 4 Huey SNYDER RVT, RPVI Robert. [address] [place] [address], Suite [facility], [facility] [place], [id number] , [place]. tel:[phone] Referring Provider: Justin Arzate MD, RVT, KASSANDRA, [address] [place] [address] Suite [facility], [place], [address] . tel:[phone] [facility], [address] [place] [address] Dr Eli [address] 1000[place]ver [place], [id number], [place] tel:[phone] [place] Encounter for follow-up examination after completed treatment for conditions other than malignant neoplasm 3 Hung Betancourt. [address] [place] [address], [place] [address], [place], [address], [place]. tel:[phone] Referring Provider: Justin Arzate MD, RVT, KASSANDRA, [address] [place] [address] Suite [facility], [place], [address] . tel:[phone] [facility], [address] [place] [address] Dr Eli [address] 1000[place], [id number], tel:[phone] [place] Varicose veins of left lower extremity with inflammation 3 Huey SNYDER RVT, RPVI Robert. [address] [place] [address], [place], [id number] , [place]. tel:[phone] Referring Provider: Justin Arzate MD, RVT, KASSANDRA, [address] [place] [address] Suite [facility], [place], [address] . tel:[phone] [facility], [address] [place] [address] Dr Eli [address] 1000[place], [id number], tel:[phone] [place] Chronic venous hypertension (idiopathic) with inflammation of left lower extremity 3 Huey SNYDER RVT, RPVI Robert. [address] [place] [address], [place] [address], [facility] [place] [place], [id number] , [place]. [phone] Referring Provider: Justin Arzate MD, RVT, [facility], [address] [place] [address], [place], [address] . tel:[phone] Offic/outpt E&m Estab 5 Min Trial - Telemedicine [facility], [address] [place] [address] [facility] [address], [place], [id number], [place] tel:[phone] [place] Chronic venous hypertension (idiopathic) with other complications of bilateral lower extremity Oct-2 3- 3 Huey SNYDER, RVT, FABIO Anderson. [address] [place] [address], [place] [address], [place], [id number] , [place]. tel:[phone] Referring Provider: Avelino Persaud MD FACS T [facility], [address] [place] [address], [place], [address]. tel:[phone] [place] [facility], [address] [place] [address] [address], [place], [id number], [place] tel:[phone] [place] Chronic venous htn w oth comp of bilateral low extrm Sep-0 3 Hung SNYDER FACS DEBBIE Betancourt. [address] [place] [address], [place] [address], [place], [address], [place]. tel:[phone] Referring Provider: Avelino Persaud MD FACS T [facility], [address] [place] [address], [place], [address]. tel:[phone] Office/Oupt E&M New Pt 30 Mins [facility], [address] [place] [address] [address], [id number], [place] tel:[phone] [place] Varicose veins of left lower extremities w oth complicationsL ocalized edemaCramp and spasmPruritus, unspecified Sep-0 8- 3 Hung BOSST KASSANDRA Betancourt. [address] [place] [address], [place] [address], [place], [address], [place]. tel:[phone] Referring Provider: Avelino Persaud MD FACS RVT [facility], [address], [place], [address]. tel:[phone] Family History Family Member Type Diagnosis Age At Onset No Information Payers Payer name Insurance type Covered democrat ID Authoriza tiankur(s) Self Pay 09 Social [...]
--- OUTSIDE RECORDS SUMMARY | 2024-05-01 15:35 | XMS_ITS | Clinical Summary ---
Author Organization [facility] Address [address] [place] [address] Care Team Providers Care General Farmer Name Role Phone Pcp, No Primary Care [...] age to complete this topic Care Teams General Farmer Relationship Specialty Start Date End Date Pcp, No PCP - General General Medicine 04/18/23
== END | disposition home or self-care (01) ==
LOC: HO.MAMMO 14:24
PROVIDERS: PCP Internal Medicine; Visit Provider Obstetrics & Gynecology
DX: N60.01 Solitary cyst of right breast (principal); N63.25 Unspecified lump in the left breast, overlapping quadrants; Z98.82 Breast implant status
CPT/HCPCS: 76642; 77062; 77066

== ENCOUNTER → 2024-05-01 14:30 | Outpatient (BNV) | payer OTHER, SELFPAY | PROVIDERS: PCP Internal Medicine; Visit Provider Internal Medicine | DX: N63.10 Unspecified lump in the right breast, unspecified quadrant (principal); N63.20 Unspecified lump in the left breast, unspecified quadrant | CPT/HCPCS: 76642; 77066; G0279 ==

== ENCOUNTER 2024-05-08 10:21 | Outpatient (REF) | payer OTHER, SELFPAY ==
--- NOTE | 2024-05-08 | ECG_ITS ---
Test Reason : preop Blood Pressure : */* mmHG Vent. Rate : 65 BPM Atrial Rate : 65 BPM P-R Int : 156 ms QRS Dur : 80 ms QT Int : 426 ms P-R-T Axes : 10 7 2 degrees QTcB Int : 443 ms Normal sinus rhythm Normal ECG When compared with ECG of 25-Jun-2021 09:20, No significant change was found Referred By: Anitra Malin Electronically Signed By: MELANIE HUYNH MD
--- NOTE | ~2024-05-08 | XR_ITS ---
EXAMINATION: XR CHEST CLINICAL INFORMATION: PREPROCEDURAL, BREAST AUGMENTATION COMPARISON: May 20, 2022 TECHNIQUE: 2 views of the chest were obtained. FINDINGS: No consolidation, pleural effusion or pneumothorax. Cardiomegaly is to silhouette size is normal. Calcified plaque thoracic aortic arch. Multilevel thoracic and upper lumbar spondylosis. Degenerative changes in the shoulders. Probable breast implants bilaterally. XR/XR chest 2V IMPRESSION: No acute airspace disease. Electronically signed by: Flash Best MD 05/08/2024 11:29 AM JAE HILLIARD
[2024-05-08 10:47] LABS: MANUAL DIFF FLAG NO
[2024-05-08 12:03] LABS: Basophils Percent Auto 0.6 % (0-2); Eosinophils Absolute Auto 0.1 X10*3/uL (0.0-0.4); Eosinophils Percent Auto 1.3 % (0-4); Hematocrit 42.1 % (37.0-47.0); Hemoglobin 13.8 g/dl (12.0-16.0); Imm Gran Abs Auto 0.01 X10*3/uL (0.00-0.03); Imm Gran Pct Auto 0.1 % (0.0-0.4); Lymphocytes Absolute Auto 2.6 X10*3/uL (1.2-4.9); Lymphocytes Percent Auto 38.4 % (20-40); Mean Corpuscular HGB Conc 32.8 g/dl (31.0-35.0); Mean Corpuscular Hemoglobin 28.7 pg (27.0-33.0); Mean Corpuscular Volume 87.5 fL (80.0-98.0); Mean Platelet Volume 11.4 fL (9.4-12.3); Monocytes Absolute Auto 0.6 X10*3/uL (0.1-1.2); Monocytes Percent Auto 9.4 % (2-11); Neutrophils Absolute Auto 3.4 x10*3/uL (2.0-8.3); Neutrophils Percent Auto 50.2 % (45-73); Platelet Count 275 X10*3/uL (160-400); Red Blood Count 4.81 X10*6/uL (4.20-5.50); Red Cell Distribution Width 13.4 % (11.0-16.0); White Blood Count 6.8 X10*3/uL (4.8-10.8)
[2024-05-08 12:06] LABS: INTERNATIONAL NORM RATIO 0.9 (0.9-1.1); Prothrombin Time 10.5 SEC (10.9-12.4)
[2024-05-08 12:09] LABS: Partial Thromboplastin Time 30.6 SEC (26.0-36.8)
--- OUTSIDE RECORDS SUMMARY | 2024-05-08 12:09 | XMS_ITS | Clinical Summary ---
Author Organization [facility] Address [address] [place] [address] Care Team Providers Care Senior Design Engineering Specialist Name Role Phone Pcp, No Primary Care [...] age to complete this topic Care Teams Senior Design Engineering Specialist Relationship Specialty Start Date End Date Pcp, No PCP - General General Medicine 04/18/23
--- OUTSIDE RECORDS SUMMARY | 2024-05-08 12:09 | XMS_ITS | Continuity of Care Document ---
Author Organization [facility] Address [address] [place] [address] Phone Care Team Providers Care Director Of Outpatient Services Name Role Phone Huey SNYDRE, RVT, KASSANDRA, Justin Unavailable U navailable Allergies, [...] E&M Established 15 Mins [facility], [address] [place] [address] Dr Eli 1000SuTrever abdalla MD, [id number], [place] tel:[phone] CVR - [place] Venous insufficiency (chronic) (peripheral)Ne vus, non-neoplastic 4 Huey SNYDER RVT, KASSANDRA Anderson. [address] [place] [address], [facility], [place], [id number] , [place]. tel: [phone] [facility], [address] [place] [address] Dr Eli 1000Suite [place], [id number], [place] tel:[phone] CVR - [place] Nevus, non-neoplastic 4 Mollperico Garces . [address] [place] [address], [facility], [place], [id number] , [place]. tel: [phone] Office/Outpt E&M Established 15 Mins [facility], [address] [place] [address] Dr Eli 1000SuTrever abdalla MD, [id number], [place] tel:[phone] CVR - [place] Venous insufficiency (chronic) (peripheral)Ne vus, non-neoplastic 4 Huey SNYDER RVT, KASSANDRA Anderson. [address] [place] [address], [facility], [place], [id number] , [place]. tel: [phone] Office/Outpt E&M Established 15 Mins [facility], [address] [place] [address] Dr Eli 1000SuTrever abdalla MD, [id number], [place] tel:[phone] [place] Chronic venous hypertension (idiopathic) without complications of left lower extremityObesi ty, unspecified 4 Huey SNYDER RVT, KASSANDRA Anderson. [address] [place] [address], [place] [address], [facility], [place], [id number] , [place]. tel: [phone] [facility], [address] [place] [address] Dr Eli 1000SuTrever abdalla [place], [id number], [place] tel:[phone] [place] Varicose veins of left lower extremity with pain 4 Huey SNYDER RVT, RPVI Robert. [address] [place] [address], Suite [facility], [facility] [place] [place], [id number] , [place]. tel:[phone] Referring Provider: Justin Arzate MD, RVT, KASSANDRA, [address] [place] [address] Suite [facility], [place], [address] . tel:[phone] [facility], [address] [place] [address] Dr Eli [address] 1000[place], [id number], [place] tel:[phone] CVR - [place] Encounter for follow-up examination after completed treatment for conditions other than malignant neoplasm 3 Hung Betancourt. [address] [place] [address], [place] [address], [facility] [place], [address], [place]. tel:[phone] Referring Provider: Justin Arzate MD, RVT, KASSANDRA, [address] [place] [address] Suite [facility], [place], [address] . tel:[phone] [facility], [address] [place] [address] Dr Eli [address] 1000[place], [id number], tel:[phone] [place] Varicose veins of left lower extremity with inflammation 3 Huey SNYDER RVT, RPVI Robert. [address] [place] [address], [place], [id number] , [place]. tel:[phone] Referring Provider: Justin Arzate MD, RVT, KASSANDRA, [address] [place] [address] Suite [facility], [facility] [place], [address] . tel:[phone] [facility], [address] [place] [address] Dr Eli [address] 1000[place], [id number], tel:[phone] [place] Chronic venous hypertension (idiopathic) with inflammation of left lower extremity 3 Huey SNYDER RVT, RPVI Robert. [address] [place] [address], [place] [address], [facility] [place] [place], [id number] , [place]. [phone] Referring Provider: Justin Arzate MD, RVT, [facility], [address] [place] [address], [place], [address] . tel:[phone] Offic/outpt E&m Estab 5 Min Trial - Telemedicine [facility], [address] [place] [address] [facility] [address], [place], [id number], [place] tel:[phone] CV[place] Chronic venous hypertension (idiopathic) with other complications of bilateral lower extremity Oct-2 3- 3 Huey SNYDER, RVT, FABIO Anderson. [address] [place] [address], [place] [address], [place], [id number] , [place]. tel:[phone] Referring Provider: Avelino Persaud MD FACS T [facility], [address] [place] [address], [place], [address]. tel:[phone] [facility] [place] [facility], [address] [place] [address] [address], [place], [id number], [place] tel:[phone] [place] Chronic venous htn w oth comp of bilateral low extrm Sep-0 3 Hung SNYDER FACS DEBBIE Betancourt. [address] [place] [address], [place] [address], [place], [address], [place]. tel:[phone] Referring Provider: Avelino Persaud MD FACS T [facility], [address] [place] [address], [place], [address]. tel:[phone] Office/Oupt E&M New Pt 30 Mins [facility], [address] [place] [address] [address] 1000[place], [id number], [place] tel:[phone] [place] Varicose veins of left lower extremities w oth complicationsL ocalized edemaCramp and spasmPruritus, unspecified Sep-0 8- 3 Hung BOSST KASSANDRA Betancourt. [address] [place] [address], [place] [address], [facility] [place], [address], [place]. tel:[phone] Referring Provider: Avelino Persaud MD FACS RVT [facility], [address], [place], [address]. tel:[phone] Family History Family Member Type Diagnosis Age At Onset No Information Payers Payer name Insurance type Covered alliance party ID Authoriza tiankur(s) Self Pay 09 [...]
[2024-05-08 12:20] LABS: Alanine Aminotransferase 32 U/L (0-31); Albumin Level 4.2 g/dL (3.5-5.0); Alkaline Phosphatase 101 U/L (39-117); Anion Gap 12 (12-20); Aspartate Amino Transferase 28 U/L (5-31); Bilirubin Total 0.4 mg/dL (0.0-1.0); Blood Urea Nitrogen 13 mg/dL (9-16); Calcium 9.1 mg/dL (8.4-10.2); Carbon Dioxide 24 mmol/L (22-29); Chloride 109 mmol/L (96-108); Estimated Glomerular Filt Rate > 60; Glucose Random 90 mg/dL (60-115); Potassium 3.8 mmol/L (3.3-5.1); Sodium 141 mmol/L (135-145); Total Protein 7.6 g/dL (6.5-8.0)
[2024-05-08 12:30] LABS: HCG Quantitative < 2 mIU/mL
[2024-05-08 12:44] LABS: Appearance Urine Clear; Color Urine Yellow; Glucose Urine UA Negative (Negative); Leukocyte Esterase Urine Negative (Negative); Nitrite Urine Negative (Negative); Specific Gravity - Urine 1.025 (1.005-1.025); Urine Blood Negative (Negative); Urine Ketones Negative (Negative); Urine Protein Negative (Neg-Trace)
[2024-05-12 19:13] LABS: HIV RNA PCR Qn Copies Not Detected Copies/mL; HIV RNA PCR Qn Log Copies Not Detected Log cps/mL
== END 2024-05-08 10:22 | disposition home or self-care (01) ==
LOC: HO.XRAY 10:21
PROVIDERS: PCP Internal Medicine; Visit Provider Specialist
DX: Z01.812 Encounter for preprocedural laboratory examination (principal)
CPT/HCPCS: 36415; 71046; 80053; 81003; 84702; 85025; 85610; 85730; 87536; 87900; 93005

== ENCOUNTER → 2024-05-08 10:28 | Outpatient (BNV) | payer OTHER, SELFPAY | PROVIDERS: PCP Internal Medicine; Visit Provider Internal Medicine Cardiovascular Disease | DX: T85.43XA Leakage of breast prosthesis and implant, initial encounter (principal) | CPT/HCPCS: 93010 ==

== ENCOUNTER → 2024-05-08 10:52 | Outpatient (BNV) | payer OTHER, SELFPAY | PROVIDERS: PCP Internal Medicine; Visit Provider Radiology Diagnostic Radiology | DX: Z41.1 Encounter for cosmetic surgery (principal) | CPT/HCPCS: 71046 ==

== ENCOUNTER 2024-05-09 09:37 | Outpatient (AMB) | payer OTHER, SELFPAY ==
--- NOTE | 2024-05-09 09:41 | MHC.OFFVIS ---
Intake Visit Reasons: breast U/S follow up Diamond Setter Apprentice: Diamond Setter Apprentice Present (Dora) Accompanied by: Self / Same As Patient Allergies seafood Allergy (Severe, Verified 05/09/24 09:42) Unknown adhesive tape Adverse Reaction (Verified 05/09/24 09:42) Redness of Skin HPI Comments Details: Presenting for bilateral breast ultrasound and diagnostic mammogram follow-up which showed the following: IMPRESSION: Right: 1. No mammographic or sonographic abnormality to account for the patient's palpable lump. Recommend clinical evaluation and follow-up. 2. Simple to minimally complicated cysts at 9:00 on ultrasound. Benign. Left: 1. No mammographic or sonographic abnormality to account for the patient's palpable lump. Recommend clinical evaluation and follow-up. 2. Findings of probable left implant rupture. Recommend clinical evaluation follow-up. ASSESSMENT: BI-RADS BI-RADS 2 - Benign Findings RECOMMENDATION: 1 year F/U Clinical evaluation and follow-up. This patient's information was entered into a reminder system with a target due date for their next mammogram. The patient has an appointment schedule with General surgery soon for a consult and an appointment with plastic surgeon who performed her breast implants for further management [facility] Medical History Dyslipidemia Depression Lumbar radiculopathy KRISTAL positive Tubular adenoma Pancreatic insufficiency Environmental allergies Arthritis Fibromyalgia Surgical History History of reversal of tubal ligation Hx of colonoscopy H/O tubal ligation H/O cosmetic surgery Family History Father HTN (hypertension) Blood infection Heart disease Social History Household Members Other:: daughter Housing: House Alcohol intake: never Patient Tobacco Use Status: Former Tobacco user e-Cigarette/Vaping Use: Never Used service: No Current occupational status: disabled Cognitive needs: No Hearing needs: No Vision needs: No Female Reproductive History Menstrual Age of Menarche: 10 Review of Systems Const All systems reviewed & are unremarkable except as noted in HPI and below Reports as per HPI and Reports no additional complaints GI Reports no additional complaints Reports no additional complaints Assessment & Plan Assessment & Plan (1) Cyst of right breast: Code(s): N60.01 - Solitary cyst of right breast Category: Medical Plan: Discussed with the patient the results the bilateral mammogram and ultrasound, BI-RADS 2, the sensitivity, specificity, false-positive false-negative rate were discussed with the patient. Also discussed with the patient the to minimally complicated cyst of the right breast, the patient has an appointment with General surgery for further management. All questions answered, the patient verbalized understanding (2) Ruptured left breast implant: Code(s): T85.43XA - Leakage of breast prosthesis and implant, initial encounter Category: Medical Plan: Discussed with the patient the rupture of the left breast implant, the patient has an appointment schedule with her plastic surgeon for further management. Coding Level of Care Code Est Pt Level 3 (15806) Diagnoses Cyst of right breast N60.01 Ruptured left breast implant T85.43XA
--- OUTSIDE RECORDS SUMMARY | 2024-05-09 10:09 | XMS_ITS | Continuity of Care Document ---
Author Organization [facility] Address [address] [place] [address] Phone Care Team Providers Care Engagement Engineer Name Role Phone Huey SNYEDR, RVT, KASSANDRA, Justin Unavailable U navailable Allergies, [...] E&M Established 15 Mins [facility], [address] [place] [address] Dr Eli 1000SuTrever abdalla [place], [id number], [place] tel:[phone] [place] Venous insufficiency (chronic) (peripheral)Ne vus, non-neoplastic 4 Huey SNYDER RVT, KASSANDRA Anderson. [address] [place] [address], [facility], [place], [id number] , [place]. tel: [phone] [facility], [address] [place] [address] Dr Eli 1000Suite [place], [id number], [place] tel:[phone] CVR - [place] Nevus, non-neoplastic 4 Mollperico Garces . [address] [place] [address], [facility], [place], [id number] , [place]. tel: [phone] Office/Outpt E&M Established 15 Mins [facility], [address] [place] [address] Dr Eli 1000SuTrever abdalla MD, [id number], [place] tel:[phone] CVR [place] Venous insufficiency (chronic) (peripheral)Ne vus, non-neoplastic 4 Huey SNYDER RVT, KASSANDRA Anderson. [address] [place] [address], [facility], [place], [id number] , [place]. tel: [phone] Office/Outpt E&M Established 15 Mins [facility], [address] [place] [address] Dr Eli 1000SuTrever abdalla [place], [id number], [place] tel:[phone] CVR - [place] Chronic venous hypertension (idiopathic) without complications of left lower extremityObesi ty, unspecified 4 Huey SNYDER RVT, KASSANDRA Anderson. [address] [place] [address], [place] [address], [facility], [place], [id number] , [place]. tel: [phone] [facility], [address] [place] [address] Dr Eli 1000SuTrever abdalla [place], [id number], [place] tel:[phone] CVR - [place] Varicose veins of left lower extremity with pain 4 Huey SNYDER RVT, RPVI Robert. [address] [place] [address], Suite [facility] [place] [place], [id number] , [place]. tel:[phone] Referring Provider: Justin Arzate MD, RVT, KASSANDRA, [address] [place] [address] Suite [facility], [place], [address] . tel:[phone] [facility], [address] [place] [address] Dr Eli 1000[address] 1000[place], [id number], [place] tel:[phone] CVR [place] Encounter for follow-up examination after completed treatment for conditions other than malignant neoplasm 3 Hung Betancourt. [address] [place] [address], [place] [address], [facility] [place], [address], [place]. tel:[phone] Referring Provider: Justin Arzate MD, RVT, KASSANDRA, [address] [place] [address] Suite [facility], [place], [address] . tel:[phone] [facility], [address] [place] [address] Dr Eli 1000[address] 1000[place], [id number], tel:[phone] CVR - [place] Varicose veins of left lower extremity with inflammation 3 Huey SNYDER RVT, RPVI Robert. [address] [place] [address], [place], [id number] , [place]. tel:[phone] Referring Provider: Justin Arzate MD, RVT, KASSANDRA, [address] [place] [address] Suite [facility] [place], [address] . tel:[phone] [facility], [address] [place] [address] Dr Eli 1000Suite 1000[place], [id number], tel:[phone] CVR - [place] Chronic venous hypertension (idiopathic) with inflammation of left lower extremity 3 Huey SNYDER RVT, RPVI Robert. [address] [place] [address], [place] [address], [facility] [place] [place], [id number] , [place]. [phone] Referring Provider: Justin Arzate MD, RVT, [facility], [address] [place] [address], [place], [address] . tel:[phone] Offic/outpt E&m Estab 5 Min Trial - Telemedicine [facility], [address] [place] [address] [facility] [address], [place], [id number], [place] tel:[phone] CVR - [place] Chronic venous hypertension (idiopathic) with other complications of bilateral lower extremity Oct-2 3- 3 Huey SNYDER, RVT, FABIO Anderson. [address] [place] [address], [place] [address], [place], [id number] , [place]. tel:[phone] Referring Provider: Avelino Persaud MD FACS T [facility], [address] [place] [address], [place], [address]. tel:[phone] [facility], [address] [place] [address] [address], [place], [id number], [place] tel:[phone] CVR - [place] Chronic venous htn w oth comp of bilateral low extrm Sep-0 3 Hung SNYDER FACS DEBBIE Betancourt. [address] [place] [address], [place] [address], [place], [address], [place]. tel:[phone] Referring Provider: Avelino Persaud MD FACS T [facility], [address] [place] [address], [place], [address]. tel:[phone] Office/Oupt E&M New Pt 30 Mins [facility], [address] [place] [address] [address], [id number], [place] tel:[phone] CVR - [place] Varicose veins of left lower extremities w oth complicationsL ocalized edemaCramp and spasmPruritus, unspecified Sep-0 8- 3 Hung BOSST KASSANDRA Betancourt. [address] [place] [address], [place] [address], [facility] [place], [address], [place]. tel:[phone] Referring Provider: Avelino Persaud MD FACS RVT [facility], [address], [place], [address]. tel:[phone] Family History Family Member Type Diagnosis Age At Onset No Information Payers Payer name Insurance type Covered green party ID Authoriza tiankur(s) Self Pay 09 [...]
--- OUTSIDE RECORDS SUMMARY | 2024-05-09 10:09 | XMS_ITS | Clinical Summary ---
Author Organization [facility] Address [address] [place] [address] Care Team Providers Care Photogravure Press Operator Name Role Phone Pcp, No Primary Care [...] age to complete this topic Care Teams Photogravure Press Operator Relationship Specialty Start Date End Date Pcp, No PCP - General General Medicine 04/18/23
== END 2024-05-09 09:54 | disposition home or self-care (01) ==
LOC: HO.HWS 09:37
PROVIDERS: PCP Internal Medicine; Visit Provider Obstetrics & Gynecology
DX: N60.01 Solitary cyst of right breast (principal); T85.43XA Leakage of breast prosthesis and implant, initial encounter
CPT/HCPCS: 99213

== ENCOUNTER → 2024-05-09 09:37 | Outpatient (BNVA) | payer OTHER, SELFPAY | PROVIDERS: PCP Internal Medicine; Visit Provider Obstetrics & Gynecology | DX: T85.43XA Leakage of breast prosthesis and implant, initial encounter (principal); N60.01 Solitary cyst of right breast | CPT/HCPCS: 99212 ==

== ENCOUNTER 2024-05-10 08:41 | Outpatient (AMB) | payer OTHER, SELFPAY ==
[2024-05-10 08:43] VITALS: BP 100/66; PULSE 73; TEMP 36.6; O2SAT 97; BMI 33.5
--- NOTE | 2024-05-10 08:43 | MHC.PC.OV ---
Vital Signs 05/10/24 08:43 Height 5 ft 2 in Weight 183 lb BMI 33.5 BP 100/66 Blood Pressure Location Lt brachial Position Sitting Pulse 73 Pulse Source Pulse Oximeter Temp 97.8 F Temp Source Oral Pulse Oximetry (%) 97 Intake Visit Reasons: Implant breast surgery on 05/20 Allergies seafood Allergy (Severe, Verified 05/10/24 08:44) Unknown adhesive tape Adverse Reaction (Verified 05/10/24 08:44) Redness of Skin Medication List - Last Reconciled 05/10/24 by Cole Austin MD acetaminophen (Tylenol Extra Strength) 500 mg PO Q6H PRN albuterol sulfate 90 mcg/actuation 2 puffs inhalation Q6H PRN bisacodyl (Dulcolax (bisacodyl)) 10 mg (2 x 5 mg) PO BEDTIME [body wipes As directed] buspirone 5 mg PO BID diaper,brief,adult,disposable As directed famotidine 20 mg PO BID fluoxetine 20 mg PO DAILY fluticasone propionate 50 mcg/actuation (Flonase Allergy Relief) 1 spray intranasal DAILY gabapentin 600 mg (2 x 300 mg) PO Q8H 30 days ketotifen fumarate 0.025%(0.035%) 1 drp ophthalmic (eye) BID lactobacillus combination no.9 (Adult 50 Plus Probiotic) 4,000 mmu cells PO DAILY sccpxt-vyyececp-myjjykf 24,000-76,000 -120,000 unit (Creon) 2 caps PO QID loratadine 10 mg PO DAILY plecanatide (Trulance) 3 mg PO DAILY underpads (Maxicare Underpads) As directed, 3 nightly wheat dextrin (Benefiber Sugar Free (dextrin)) 1 tab PO DAILY Tobacco use date assessed: 04/12/24 Dental Screening Dental Screen Date: 04/12/24 HPI Implant breast surgery on 05/20 HPI Details Patient is a 58-year-old female with a history of fibromyalgia, obesity, major depression, headache syndrome, lipid disorder, chronic lumbar pain, constipation, osteoarthritis multiple joints primary, hiatal hernia, environmental allergies Came in for preop clearance Patient will be having breast implants removed later in this month in [place] Labs reviewed Chest x-ray reviewed Breast ultrasound and mammogram up-to-date EKG up-to-date Some of the labs are pending rechecked them later today Patient is stable for breast implant removal surgery later this month. [facility] Medical History Dyslipidemia Depression Lumbar radiculopathy KRISTAL positive Tubular adenoma Pancreatic insufficiency Environmental allergies Arthritis Fibromyalgia Surgical History History of reversal of tubal ligation Hx of colonoscopy H/O tubal ligation H/O cosmetic surgery Family History Father HTN (hypertension) Blood infection Heart disease Social History Household Members Other:: daughter Housing: House Alcohol intake: never Patient Tobacco Use Status: Former Tobacco user e-Cigarette/Vaping Use: Never Used service: No Current occupational status: disabled Cognitive needs: No Hearing needs: No Vision needs: No Female Reproductive History Menstrual Age of Menarche: 10 Questionnaire Thrive Questionnaire Date Thrive assessed: 04/12/24 I am a: Patient What is your living situation today?: I have a place to live, but I am worried about losing it in the future Within the past 12 months, did the food you bought not last and you didn't have the money to get more?: Sometimes True Within the past 12 months, did you worry whether your food would run out before you got money to buy more?: Sometimes True Do you have trouble paying for medicines?: Yes Do you have trouble getting transportation to medical appointments?: I choose not to answer this question Do you have trouble paying your heating and electricity bill?: Yes Do you have trouble taking care of your child, family member or friend?: I choose not to answer this question Do you have trouble with day-to-day activities such as bathing, preparing meals, shopping, managing finances, etc.?: Yes Are you currently unemployed and looking for a job?: No Are you interested in more education?: No Currently or been in a relationship where the following occur: Controlled Financially THRIVE Score: 5 AUDIT C Alcohol Use Questionnaire (AUDIT-C) 3. How often do you have six or more drinks on one occasion?: Never Total Score: 0 HEATHER-7 AMB Questionnaire HEATHER-7 Date HEATHER - 7 assessed: 04/12/24 Source: Developed by Drs. Justin Munguia, Bonnie Harding, Nick Hartley and colleagues, with an educational narda from [employer]. Review of Systems Const Denies chills, Denies fever(s) and Denies headache(s) Eyes Denies blurry vision ENT Denies headache(s), Denies nasal discharge, Denies nasal obstruction, Denies odynophagia and Denies sinus pain Card Denies chest pain at rest and Denies chest pain with activity Resp Denies cough and Denies hemoptysis GI Denies diarrhea, Denies odynophagia, Denies vomiting and Denies hematemesis Reports as per HPI Musc Denies abnormal gait Skin/Breast Reports as per HPI Neuro Denies Neuro-related abnormal movements, Denies Abnormal speech present, Denies abnormal gait and Denies headache(s) Psych Denies mood swings and Denies paranoia Endo Reports as per HPI Marlon/Lymph Reports as per HPI Aller/Immun Reports as per HPI Physical exam (Primary Care) Vital Signs: Last Vital Signs Temp 97.8 F 05/10/24 08:43 Pulse 73 05/10/24 08:43 BP 100/66 05/10/24 08:43 Pulse Ox 97 05/10/24 08:43 BMI result Body Mass Index 33.5 Tobacco/Smoking Status: Tobacco use Status Tobacco use date assessed 04/12/24 05/10/24 08:46 Patient Tobacco Use Status Former Tobacco user 05/10/24 08:46 e-Cigarette/Vaping Use Never Used 05/10/24 08:46 Thrive Assessment: Date of Thrive Assessment Date Thrive assessed 04/12/24 05/10/24 08:46 Currently or been in a relationship where the following occur: Controlled Financially Const General: cooperative, comfortable and no acute distress Orientation/consciousness: patient oriented x3 HENMT Head: Yes normocephalic and Yes atraumatic Eyes General: appearance normal, both eyes and all related structures Pupils: Equal, round and reactive pupils present EOM: EOMs intact bilaterally Neck Neck: Yes supple and No lymphadenopathy Thyroid: Thyroid normal Lymphatic: no lymphadenopathy noted Resp Effort & Inspection: normal respiratory effort and able to speak in complete sentences Auscultation: clear to auscultation bilaterally Cardio Heart sounds: S1 normal heart sound present and S2 normal heart sound present GI Palpation (GI): Soft to palpation and nontender Auscultation: normal bowel sounds General: Yes no CVA tenderness Back/Spine/Pelvis Back: no CVA tenderness Skin General skin exam: elasticity normal and turgor normal Neuro General: patient oriented x3 and gait normal Cranial nerves: Yes Equal, round and reactive pupils present Speech: No Abnormal speech present Coordination: tandem gait normal and Romberg test negative Extrem General: Yes normal exam except as noted and No edema Coding Level of Care Code Est Pt Level 5 (05388) Diagnoses Pre-op evaluation Z01.818 Rupture of implant of left breast, initial encounter T85.43XA Encounter type: initial encounter Assessment & Plan Assessment & Plan (1) Pre-op evaluation: Code(s): Z01.818 - Encounter for other preprocedural examination Category: Medical (2) Ruptured left breast implant: Code(s): T85.43XA - Leakage of breast prosthesis and implant, initial encounter Category: Medical Qualifiers: Encounter type: initial encounter Qualified Code(s): T85.43XA - Leakage of breast prosthesis and implant, initial encounter Plan Patient is a 58-year-old female with a history of fibromyalgia, obesity, major depression, headache syndrome, lipid disorder, chronic lumbar pain, constipation, osteoarthritis multiple joints primary, hiatal hernia, environmental allergies Came in for preop clearance Patient will be having breast implants removed later in this month in [place] Labs reviewed Chest x-ray reviewed Breast ultrasound and mammogram up-to-date EKG up-to-date Some of the labs are pending rechecked them later today Patient is stable for breast implant removal surgery later this month. 45 minute spent in care of this patient, [id number], reviewing all labs imaging, documentation, gathering all documents for the patient Medications: Changed From gabapentin 600 mg (2 x 300 mg) PO Q8H 30 days 180 caps 2RF To gabapentin 300 mg PO Q8H 90 caps 2RF 30 days
--- OUTSIDE RECORDS SUMMARY | 2024-05-10 08:56 | XMS_ITS | Clinical Summary ---
Author Organization [facility] Address [address] [place] [address] Care Team Providers Care Well Puller Name Role Phone Pcp, No Primary Care [...] age to complete this topic Care Teams Well Puller Relationship Specialty Start Date End Date Pcp, No PCP - General General Medicine 04/18/23
--- OUTSIDE RECORDS SUMMARY | 2024-05-10 08:56 | XMS_ITS | Continuity of Care Document ---
Author Organization [facility] Address [address] [place] [address] Phone Care Team Providers Care Cold Type Artist Name Role Phone Huey SNYDER, RVT, KASSANDRA, [...] E&M Established 15 Mins [facility], [address] [place] [address] Dr Eli 1000SuTrever abdalla [place], [id number], [place] tel:[phone] CVR - [place] Venous insufficiency (chronic) (peripheral)Ne vus, non-neoplastic 4 Huey SNYDER RVT, KASSANDRA Anderson. [address] [place] [address], [facility], [place], [id number] , [place]. tel: [phone] [facility], [address] [place] [address] Dr Eli 1000Suite [place], [id number], [place] tel:[phone] CVR - [place] Nevus, non-neoplastic 4 Mollperico Garces . [address] [place] [address], [facility], [place], [id number] , [place]. tel: [phone] Office/Outpt E&M Established 15 Mins [facility], [address] [place] [address] Dr Eli 1000SuTrever abdalla MD, [id number], [place] tel:[phone] CVR - [place] Venous insufficiency (chronic) (peripheral)Ne vus, non-neoplastic 4 Huey SNYDER RVT, KASSANDRA Anderson. [address] [place] [address], [facility], [place], [id number] , [place]. tel: [phone] Office/Outpt E&M Established 15 Mins [facility], [address] [place] [address] Dr Eli 1000SuTrever abdalla MD, [id number], [place] tel:[phone] CVR - [place] Chronic venous hypertension (idiopathic) without complications of left lower extremityObesi ty, unspecified 4 Huey SNYDER RVT, KASSANDRA Anderson. [address] [place] [address], [place] [address], [facility], [place], [id number] , [place]. tel: [phone] [facility], [address] [place] [address] Dr Eli 1000SuTrever abdalla [place], [id number], [place] tel:[phone] CVR - [place] Varicose veins of left lower extremity with pain 4 Huey SNYDER RVT, RPVI Robert. [address] [place] [address], Suite [facility] [place] [place], [id number] , [place]. tel:[phone] Referring Provider: Justin Arzate MD, RVT, KASSANDRA, [address] [place] [address] Suite [facility], [place], [address] . tel:[phone] [facility], [address] [place] [address] Dr Eli 1000[address] 1000[place]ver [place], [id number], [place] tel:[phone] CV[place] Encounter for follow-up examination after completed treatment for conditions other than malignant neoplasm 3 Hung Betancourt. [address] [place] [address], [place] [address], [facility] [place], [address], [place]. tel:[phone] Referring Provider: Justin Arzate MD, RVT, KASSANDRA, [address] [place] [address] Suite [facility], [place], [address] . tel:[phone] [facility], [address] [place] [address] Dr Eli 1000[address] 1000[place], [id number], tel:[phone] CVR - [place] Varicose veins of left lower extremity with inflammation 3 Huey SNYDER RVT, RPVI Robert. [address] [place] [address], [place], [id number] , [place]. tel:[phone] Referring Provider: Justin Arzate MD, RVT, KASSANDRA, [address] [place] [address] Suite [facility] [place], [address] . tel:[phone] [facility], [address] [place] [address] Dr Eli 1000Suite 1000[place] MD, [id number], tel:[phone] CVR - [place] Chronic venous hypertension (idiopathic) with inflammation of left lower extremity 3 Huey SNYDER RVT, RPVI Robert. [address] [place] [address], [place] [address], [facility] [place], [id number] , [place]. [phone] Referring Provider: Justin Arzate MD, RVT, [facility], [address] [place] [address], [place], [address] . tel:[phone] Offic/outpt E&m Estab 5 Min Trial - Telemedicine [facility], [address] [place] [address] [facility] [address], [place], [id number], [place] tel:[phone] CVR - [place] Chronic venous hypertension (idiopathic) with other complications of bilateral lower extremity Oct-2 3- 3 Huey SNYDER, RVT, FABIO Anderson. [address] [place] [address], [place] [address], [place], [id number] , [place]. tel:[phone] Referring Provider: Avelino Persaud MD FACS T [facility], [address] [place] [address], [place], [address]. tel:[phone] [facility], [address] [place] [address] [address], [place], [id number], [place] tel:[phone] CVR - [place] Chronic venous htn w oth comp of bilateral low extrm Sep-0 3 Hung SNYDER FACS DEBBIE Betancourt. [address] [place] [address], [place] [address], [place], [address], [place]. tel:[phone] Referring Provider: Avelino Persaud MD FACS T [facility], [address] [place] [address], [place], [address]. tel:[phone] Office/Oupt E&M New Pt 30 Mins [facility], [address] [place] [address] [address] 1000[place], [id number], [place] tel:[phone] CVR - [place] Varicose veins of left lower extremities w oth complicationsL ocalized edemaCramp and spasmPruritus, unspecified Sep-0 8- 3 Hung BOSST KASSANDRA Betancourt. [address] [place] [address], [place] [address], [facility] [place], [address], [place]. tel:[phone] Referring Provider: Avelino Persaud MD FACS RVT [facility], [address], [place], [address]. tel:[phone] Family History Family Member Type Diagnosis Age At Onset No Information Payers Payer name Insurance type Covered green party ID Authoriza tion(s) Self Pay 09 [...]
== END 2024-05-10 10:34 | disposition home or self-care (01) ==
PROVIDERS: PCP Internal Medicine; Visit Provider Internal Medicine
DX: T85.43XA Leakage of breast prosthesis and implant, initial encounter (principal); Z01.818 Encounter for other preprocedural examination

== ENCOUNTER → 2024-05-10 08:41 | Outpatient (BNVA) | payer OTHER, SELFPAY | PROVIDERS: PCP Internal Medicine; Visit Provider Internal Medicine | DX: Z01.818 Encounter for other preprocedural examination (principal); T85.43XA Leakage of breast prosthesis and implant, initial encounter | CPT/HCPCS: 99212 ==

== ENCOUNTER 2024-06-17 11:44 | Outpatient (AMB) | payer OTHER, SELFPAY ==
--- NOTE | 2024-06-17 11:46 | MHC.OFFVIS ---
Vital Signs 06/17/24 11:57 Height 5 ft 2 in Weight 181 lb 3.52 oz BMI 33.1 BP 114/56 L Blood Pressure Location Rt brachial Position Sitting Pulse 68 Pulse Source Pulse Oximeter Pulse Oximetry (%) 98 Oxygen Delivery Method Room Air Intake Visit Reasons: 3 month follow up Intake Note: ESTABLISHED PATIENT mgmt of GERD, CIC Chief Complaint; Pt reports sx well controlled currently. Confirmed taking all GI meds as instructed. Avoiding trigger foods (ie certain proteins, processed foods, spices, etc.) No additional notes or concerns at this time. Whipped Topping Mixer Required: No Accompanied by: Self / Same As Patient Allergies seafood Allergy (Severe, Verified 06/17/24 11:46) Unknown adhesive tape Adverse Reaction (Verified 06/17/24 11:46) Redness of Skin HPI HPI 3 month follow up: Details: LAST VISIT Hiatal hernia Diastasis recti Constipation by delayed colonic transit Pancreatic insufficiency Colon cancer screening RUQ abdominal pain IBS (irritable bowel syndrome) Hepatic steatosis GERD (gastroesophageal reflux disease) Plan Patient will continue taking famotidine twice a day. Avoid dietary triggers and late night snacking. Staying upright for minimum 3 hours after meals discussed with patient. Patient will follow low FODMAP diet. List of food recommended as well as list of food to avoid discussed with her. Patient will start taking Trulance and will add Dulcolax in the evening if no bowel movement. Patient was also recommended to try Benefiber with probiotic. Increase fluid intake and activity to promote better bowel motility. Patient will follow-up in 3 months, sooner on as needed basis. She is agreeable to this plan and verbalizes understanding of instructions. She was given the opportunity to ask questions and all questions answered. ? Thank you for allowing me to participate in her care Medications New plecanatide (Trulance) 3 mg PO DAILY 30 tabs 3RF K59.09 bisacodyl (Dulcolax (bisacodyl)) 10 mg (2 x 5 mg) PO BEDTIME 180 tabs 4RF wheat dextrin (Benefiber Sugar Free (dextrin)) chew thoroughly before swallowing; do not swallow whole 1 tab PO DAILY 90 tabs 1RF lactobacillus combination no.9 (Adult 50 Plus Probiotic) administer with a meal 4,000 mmu cells PO DAILY 90 caps 3RF TODAY'S VISIT: Patient is here today for follow-up. Patient reports that since last time I have seen her she has been doing better. Patient is avoiding dietary triggers. Patient is avoiding lactose, fast food. Reports that she is moving her bowels better now that she is taking Trulance in the morning and occasionally Dulcolax in the afternoon. Patient is taking Creon with meals. Denies dyspepsia, dysphagia or odynophagia. Her acid reflux has been controlled she is taking famotidine 20 mg twice a day. Patient denies any dyspepsia, dysphagia or odynophagia. Denies any melena, hematochezia, unintentional weight loss or ribbon like stools. Patient reports to be doing fairly well. Denies any postprandial abdominal bloating, however only when she eats certain food. [facility] Medical History Dyslipidemia Depression Lumbar radiculopathy KRISTAL positive Tubular adenoma Pancreatic insufficiency Environmental allergies Arthritis Fibromyalgia Surgical History History of reversal of tubal ligation Hx of colonoscopy H/O tubal ligation H/O cosmetic surgery Family History Father HTN (hypertension) Blood infection Heart disease Social History Household Members Other:: daughter Housing: House Alcohol intake: never Patient Tobacco Use Status: Former Tobacco user e-Cigarette/Vaping Use: Never Used service: No Current occupational status: disabled Cognitive needs: No Hearing needs: No Vision needs: No Female Reproductive History Menstrual Age of Menarche: 10 Review of Systems Const Denies weight gain and Denies weight loss ENT Reports no additional complaints, Denies dysphagia and Denies odynophagia Card Reports no additional complaints Resp Reports no additional complaints GI Denies abdominal pain, Denies belching, Denies melena, Denies bloating, Denies change in bowel habits, Denies dysphagia, Denies excessive flatus, Denies dyspepsia, Denies heartburn, Denies diarrhea, Denies loose stools, Denies nausea, Denies odynophagia and Denies vomiting Musc Reports no additional complaints Neuro Reports no additional complaints Psych Reports no additional complaints Endo Reports no additional complaints Physical Exam Vital Signs: Last Vital Signs Pulse 68 06/17/24 11:57 BP 114/56 L 06/17/24 11:57 Pulse Ox 98 06/17/24 11:57 Oxygen Delivery Method Room Air 06/17/24 11:57 BMI result Body Mass Index 33.1 Const General: healthy appearing, no acute distress and well developed Nutritional Appearance: obese Orientation/consciousness: patient oriented x3 Resp Effort & Inspection: normal respiratory effort, able to speak in complete sentences, no tracheal deviation and symmetric chest movement Auscultation: clear to auscultation bilaterally Cardio Rate: regular rate GI Inspection: Yes normal to inspection, No distended and Yes obesity Palpation (GI): Soft to palpation, not firm, nontender and No hepatosplenomegaly present Auscultation: normal bowel sounds General: Yes no CVA tenderness Back/Spine/Pelvis Back: no CVA tenderness Skin General skin exam: elasticity normal, turgor normal and dry skin Neuro General: patient oriented x3 Psych Appearance: grossly normal Mental Status: mental status grossly normal Assessment & Plan Assessment & Plan (1) Hiatal hernia: Code(s): K44.9 - Diaphragmatic hernia without obstruction or gangrene Category: Medical (2) Diastasis recti: Code(s): M62.08 - Separation of muscle (nontraumatic), other site Category: Medical (3) Constipation by delayed colonic transit: Code(s): K59.01 - Slow transit constipation Category: Medical (4) Pancreatic insufficiency: Code(s): K86.89 - Other specified diseases of pancreas Category: Medical (5) Colon cancer screening: Code(s): Z12.11 - Encounter for screening for malignant neoplasm of colon Category: Medical (6) RUQ abdominal pain: Code(s): R10.11 - Right upper quadrant pain (7) IBS (irritable bowel syndrome): Code(s): K58.9 - Irritable bowel syndrome, unspecified Qualifiers: Irritable bowel syndrome type: without diarrhea Qualified Code(s): K58.9 - Irritable bowel syndrome, unspecified (8) Hepatic steatosis: Code(s): K76.0 - Fatty (change of) liver, not elsewhere classified (9) GERD (gastroesophageal reflux disease): Code(s): K21.9 - Gastro-esophageal reflux disease without esophagitis Qualifiers: Esophagitis presence: esophagitis presence not specified Qualified Code(s): K21.9 - Gastro-esophageal reflux disease without esophagitis Plan Continue famotidine twice a day. Avoid dietary triggers and late night snacking. Staying upright for minimum 3 hours after meals discussed with patient. Patient will continue taking Creon with meals. Continue low FODMAP diet. Will refill her Trulance, patient can take Dulcolax as needed. Increase fluid intake and activity to promote better bowel motility. Patient will return in 6 months we will discuss going for colonoscopy. She is agreeable to this plan and verbalizes understanding of instructions. She was given the opportunity to ask questions and all questions answered. Thank you for allowing me to participate in her care Medications: Changed From cybxfx-kfkaiagc-zezcrdn 24,000-76,000 -120,000 unit administer with meals and/or snacks 2 caps PO QID 240 caps 4RF K86.89 - Other specified diseases of pancreas To fioesu-dohzmhcq-dqtouql 24,000-76,000 -120,000 unit (Creon) administer with meals and/or snacks 2 caps PO QID 240 caps 4RF K86.89 - Other specified diseases of pancreas Refilled famotidine 20 mg PO BID 180 tabs 3RF K29.70 - Gastritis, unspecified, without bleeding plecanatide (Trulance) 3 mg PO DAILY 90 tabs 3RF K59.09 - Other constipation bisacodyl (Dulcolax (bisacodyl)) 10 mg (2 x 5 mg) PO BEDTIME 180 tabs 4RF Coding Level of Care Code Est Pt Level 4 (22381) Complex EM visit Add On G2211 Diagnoses Hiatal hernia K44.9 Diastasis recti M62.08 Constipation by delayed colonic transit K59.01 Pancreatic insufficiency K86.89 Colon cancer screening Z12.11 RUQ abdominal pain R10.11 Irritable bowel syndrome without diarrhea K58.9 Irritable bowel syndrome type: without diarrhea Hepatic steatosis K76.0 Gastroesophageal reflux disease, unspecified whether esophagitis present K21.9 Esophagitis presence: esophagitis presence not specified Time Spent (min) 40 Comment 25 minutes spent with patient and additional 15 minutes spent reviewing her records
[2024-06-17 11:57] VITALS: BP 114/56; PULSE 68; O2SAT 98; BMI 33.1
== END 2024-06-17 12:18 | disposition home or self-care (01) ==
LOC: HO.HGI 11:45
PROVIDERS: PCP Internal Medicine; Visit Provider Nurse Practitioner Family
DX: K21.9 Gastro-esophageal reflux disease without esophagitis (principal); K86.89 Other specified diseases of pancreas; K58.1 Irritable bowel syndrome with constipation; K76.0 Fatty (change of) liver, not elsewhere classified; M62.08 Separation of muscle (nontraumatic), other site
CPT/HCPCS: 99214; G2211

== ENCOUNTER → 2024-06-17 11:44 | Outpatient (BNVA) | payer OTHER, SELFPAY | PROVIDERS: PCP Internal Medicine; Visit Provider Nurse Practitioner Family | DX: K21.9 Gastro-esophageal reflux disease without esophagitis (principal); K44.9 Diaphragmatic hernia without obstruction or gangrene; M62.08 Separation of muscle (nontraumatic), other site; K58.1 Irritable bowel syndrome with constipation; K59.01 Slow transit constipation; K86.89 Other specified diseases of pancreas; R10.11 Right upper quadrant pain; K76.0 Fatty (change of) liver, not elsewhere classified; K29.70 Gastritis, unspecified, without bleeding; K59.09 Other constipation | CPT/HCPCS: 99212 ==

== ENCOUNTER 2024-08-12 10:27 | Outpatient (REF) | payer OTHER, SELFPAY ==
--- OUTSIDE RECORDS SUMMARY | 2024-08-12 11:28 | XMS_ITS | Clinical Summary ---
Author Organization [facility] Address [address] [place] [address] Care Team Providers Care Decorator Mannequin Name Role Phone Pcp, No Primary Care [...] age to complete this topic Care Teams Decorator Mannequin Relationship Specialty Start Date End Date Pcp, No PCP - General General Medicine 04/18/23
--- OUTSIDE RECORDS SUMMARY | 2024-08-12 11:28 | XMS_ITS | Continuity of Care Document ---
Author Organization [facility] Address [address] [place] [address] Phone Care Team Providers Care Eyeglass Maker Name Role Phone Huey SNYDER, RVT, KASSANDRA, [...] Scan-extrem Veins; Uni/ Duplex Scan-extrem Veins; Uni/ 23 Varithena, Single Truncal Vein Varithena, Multiple Truncal [...] Established 15 Mins [facility], [address] [place] [address] Dr Eli 1000SuTrever abdalla [place], [id number], [place] tel:[phone] CVR - [place] Venous insufficiency (chronic) (peripheral)Ne vus, non-neoplastic 4 Huey SNYDER RVT, KASSANDRA Anderson. [address] [place] [address], [facility], [place], [id number] , [place]. tel: [phone] [facility], [address] [place] [address] Dr Eli [address]Suite [place], [id number], [place] tel:[phone] CVR - [place] Nevus, non-neoplastic 4 Mollperico Garces . [address] [place] [address], [facility], [place], [id number] , [place]. tel: [phone] Office/Outpt E&M Established 15 Mins [facility], [address] [place] [address] Dr Eli 1000SuTrever abdalla [place], [id number], [place] tel:[phone] CVR - [place] Venous insufficiency (chronic) (peripheral)Ne vus, non-neoplastic 4 Huey SNYDER RVT, KASSANDRA Anderson. [address] [place] [address], [facility], [place], [id number] , [place]. tel: [phone] Office/Outpt E&M Established 15 Mins [facility], [address] [place] [address] Dr Eli 1000SuTrever abdalla [place], [id number], [place] tel:[phone] CVR - [place] Chronic venous hypertension (idiopathic) without complications of left lower extremityObesi ty, unspecified 4 Huey SNYDER RVT, KASSANDRA Anderson. [address] [place] [address], [place] [address], [facility], [place], [id number] , [place]. tel: [phone] [facility], [address] [place] [address] Dr Eli 1000SuTrever abdalla [place], [id number], [place] tel:[phone] CVR - [place] Varicose veins of left lower extremity with pain 4 Huey SNYDER RVT, RPVI Robert. [address] [place] [address], Suite [facility] [place] [place], [id number] , [place]. tel:[phone] Referring Provider: Justin Arzate MD, RVT, KASSANDRA, [address] [place] [address] Suite [facility], [place], [address] . tel:[phone] [facility], [address] [place] [address] Dr Eli [address] 1000[place], [id number], [place] tel:[phone] CVR - [place] Encounter for follow-up examination after completed treatment for conditions other than malignant neoplasm 3 Hung Betancourt. [address] [place] [address], [place] [address], [facility] [place], [address], [place]. tel:[phone] Referring Provider: Justin Arzate MD, RVT, KASSANDRA, [address] [place] [address] Suite [facility], [place], [address] . tel:[phone] [facility], [address] [place] [address] Dr Eli [address] 1000[place]ver [place], [id number], tel:[phone] CVR - [place] Varicose veins of left lower extremity with inflammation 3 Huey SNYDER RVT, RPVI Robert. [address] [place] [address], [place], [id number] , [place]. tel:[phone] Referring Provider: Justin Arzate MD, RVT, KASSANDRA, [address] [place] [address] Suite [facility], [place], [address] . tel:[phone] [facility], [address] [place] [address] Dr Eli [address] 1000[place], [id number], tel:[phone] CVR - [place] Chronic venous hypertension (idiopathic) with inflammation of left lower extremity 3 Huey SNYDER RVT, RPVI Robert. [address] [place] [address], [place] [address], [facility] [place], [id number] , [place]. [phone] Referring Provider: Justin Arzate MD, RVT, [facility], [address] [place] [address], [place], [address] . tel:[phone] Offic/outpt E&m Estab 5 Min Trial - Telemedicine [facility], [address] [place] [address] [facility] [address], [place], [id number], [place] tel:[phone] CVR - [place] Chronic venous hypertension (idiopathic) with other complications of bilateral lower extremity Oct-2 3- 3 Huey SNYDER, RVT, FABIO Anderson. [address] [place] [address], [place] [address], [place], [id number] , [place]. tel:[phone] Referring Provider: Avelino Persaud MD FACS T [facility], [address] [place] [address], [place], [address]. tel:[phone] [facility], [address] [place] [address] [address], [place], [id number], [place] tel:[phone] CVR - [place] Chronic venous htn w oth comp of bilateral low extrm Sep-0 3 Hung SNYDER FACS DEBBIE Betancourt. [address] [place] [address], [place] [address], [place], [address], [place]. tel:[phone] Referring Provider: Avelino Persaud MD FACS T [facility], [address] [place] [address], [place], [address]. tel:[phone] Office/Oupt E&M New Pt 30 Mins [facility], [address] [place] [address] [address], [id number], [place] tel:[phone] CVR - [place] Varicose veins of left lower extremities w oth complicationsL ocalized edemaCramp and spasmPruritus, unspecified Sep-0 8- 3 Hung BOSST KASSANDRA Betancourt. [address] [place] [address], [place] [address], [facility] [place], [address], [place]. tel:[phone] Referring Provider: Avelino Persaud MD FACS RVT [facility], [address], [place], [address]. tel:[phone] Family History Family Member Type Diagnosis Age At Onset No Information Payers Payer name Insurance type Covered republican ID Authoriza tiankur(s) Self Pay 09 Social [...]
== END 2024-08-12 10:28 | disposition home or self-care (01) ==
LOC: HO.LAB 10:27
PROVIDERS: PCP Internal Medicine; Visit Provider Nurse Practitioner Family
DX: N39.46 Mixed incontinence (principal); N39.0 Urinary tract infection, site not specified; R30.0 Dysuria
CPT/HCPCS: 51798; 81003; 87086; 99212

== ENCOUNTER 2024-08-12 10:27 | Outpatient (AMB) | payer OTHER, SELFPAY ==
--- NOTE | 2024-08-12 10:32 | A.OFFVIS_ITS ---
Intake Visit Reasons: 6m/PVR Intake Note: Pt presents to the office today for a 6 month follow up/PVR. Urology Meds:None PVR:0ml Allergies seafood Allergy (Severe, Verified 08/12/24 10:57) Unknown adhesive tape Adverse Reaction (Verified 08/12/24 10:57) Redness of Skin Medication List - Last Reconciled 08/12/24 by LOIS Franco- acetaminophen (Tylenol Extra Strength) 500 mg PO Q6H PRN albuterol sulfate 90 mcg/actuation 2 puffs inhalation Q6H PRN bisacodyl (Dulcolax (bisacodyl)) 10 mg (2 x 5 mg) PO BEDTIME [body wipes As directed] buspirone 5 mg PO BID diaper,brief,adult,disposable As directed famotidine 20 mg PO BID fluoxetine 20 mg PO DAILY fluticasone propionate 50 mcg/actuation (Flonase Allergy Relief) 1 spray intr anasal DAILY gabapentin 300 mg PO Q8H 30 days ketotifen fumarate 0.025%(0.035%) 1 drp ophthalmic (eye) BID lactobacillus combination no.9 (Adult 50 Plus Probiotic) 4,000 mmu cells PO DAILY ygfbwk-xvtjkytp-qhqhgrj 24,000-76,000 -120,000 unit (Creon) 2 caps PO QID loratadine 10 mg PO DAILY phenazopyridine (Azo Urinary Pain Relief) 99.5 mg PO TID PRN plecanatide (Trulance) 3 mg PO DAILY sodium fluoride-pot nitrate 1.1-5 % 1 appl PO DAILY underpads (Maxicare Underpads) As directed, 3 nightly wheat dextrin (Benefiber Sugar Free (dextrin)) 1 tab PO DAILY HPI Comments Details: Marisel is a very pleasant 59-year-old female patient of Dr. Austin. She has a past medical history of fibromyalgia and arthritis. She presents to the office today for follow-up. In discussion with the patient today she reports noting episodes of urinary urgency, urinary frequency, feeling of incomplete bladder emptying, and dysuria over the last 1-2 weeks. She reports having initiated azo etjz-wfr-rhzifip without relief. She discusses knowing she had today's appointment and therefore did not seek any medical treatment. In office urinalysis results reviewed with the patient today 2+ leukocytes positive nitrates no microscopic hematuria noted. We discussed potential for urinary tract infection and will send urine today for urine culture. PVR today 0 mL. Previous workup has included a retroperitoneal ultrasound 02/17 noting the bladder is well distended and normal. Bladder jets are demonstrated. Pre void bladder volume is approximately 470 mL. Postvoid bladder volume is approximately 2 mL. Normal appearing bladder. Right kidney with no calculus, hydronephrosis, or masses noted. Left kidney with lower pole 0.9 mm cyst otherwise no hydronephrosis or masses noted. She continues to experience mixed urinary incontinence as well as nocturia. We discussed further treatment options of mixed urinary incontinence as well as nocturia. However patient does not feel symptoms are bothersome at this time and would like to continue with surveillance monitoring. She discusses her ongoing issues with her fibromyalgia and bilateral lower extremity weakness. Patient continues to discusses her reluctancy to taking more medications. She discusses utilizing bed pads to decrease episodes of falls at night. We discussed in office cystoscopy and or urodynamics for further assessment evaluation however she declines at this. Previous urine cytology results reviewed with the patient today 12/18 Negative for high-grade urothelial carcinoma. She otherwise denies gross/visible hematuria, foul smelling urine, changes to urinary stream, fever, and or chills. [facility] Medical History Dyslipidemia Depression Lumbar radiculopathy MARISEL positive Tubular adenoma Pancreatic insufficiency Environmental allergies Arthritis Fibromyalgia Surgical History History of reversal of tubal ligation Hx of colonoscopy H/O tubal ligation H/O cosmetic surgery Family History Father HTN (hypertension) Blood infection Heart disease Social History Household Members Other:: daughter Housing: House Alcohol intake: never Patient Tobacco Use Status: Former Tobacco user e-Cigarette/Vaping Use: Never Used service: No Current occupational status: disabled Cognitive needs: No Hearing needs: No Vision needs: No Female Reproductive History Menstrual Age of Menarche: 10 Review of Systems Const All systems reviewed & are unremarkable except as noted in HPI and below Physical Exam Const General: cooperative, healthy appearing, comfortable, no acute distress, well developed, alert and awake Orientation/consciousness: patient oriented x3 Limitations: no limitations HEENT Head: Yes normal to inspection, Yes normocephalic and Yes atraumatic Ears: hearing grossly normal bilaterally Eyes General: appearance normal, both eyes and all related structures Neck Neck: Yes normal visual inspection and Yes trachea midline Chest Chest palpation & inspection: normal inspection of the chest Resp Effort & Inspection: normal respiratory effort and able to speak in complete sentences Cardio Rate: regular rate GI Inspection: Yes normal to inspection General: Yes no CVA tenderness Back/Spine/Pelvis Back: no CVA tenderness Skin General skin exam: no rashes or lesions noted Neuro General: patient oriented x3 Extrem General: Yes normal to inspection Psych Appearance: grossly normal and well kempt Mental Status: mental status grossly normal Speech and movement: Normal speech and movement present and Clear speech present Affect: normal affect Attitude: cooperative Thought process: Normal thought process present Thought content: Normal thought content present Insight: Fair insight present (Psych) Judgement: Fair judgement present (Psych) Office Procedures Post Void Residual Post Residual Void Post Void Residual (PVR): 0 [id number] Void Residual by ultrasound Results AMB Urinalysis, Automated UA Leukoctes 125 Van/uL Last Edit by Pao Madrid CMA on 08/12/24 10:41 UA Nitrite Positive Last Edit by Pao Madrid CMA on 08/12/24 10:41 UA Urobilinogen 2 mg/dL Last Edit by Pao Madrid CMA on 08/12/24 10:41 UA Protein 15 mg/dL Last Edit by Pao Madrid CMA on 08/12/24 10:41 UA pH 6.0 Last Edit by Pao Madrid CMA on 08/12/24 10:41 UA Blood 0 Alessio/uL Last Edit by Pao Madrid CMA on 08/12/24 10:41 UA Specific [place] 1.020 Last Edit by Pao Madrid CMA on 08/12/24 10:41 UA Ketone Positive Last Edit by Pao Madrid CMA on 08/12/24 10:41 UA Bilirubin 2 mg/dL Last Edit by Pao Madrid CMA on 08/12/24 10:41 UA Glucose 100 mg/dL Last Edit by Pao Madrid CMA on 08/12/24 10:41 Results Reviewed Results Reviewed: Laboratory Last Values Urine pH (Auto) 6.0 08/12/24 10:39 Specific [place] (Auto) 1.020 08/12/24 10:39 Urine Protein (Auto) 15 mg/dL 08/12/24 10:39 Glucose (UA)(Auto) 100 mg/dL 08/12/24 10:39 Urine Ketones (Auto) Positive 08/12/24 10:39 Urine Blood (Auto) 0 Alessio/uL 08/12/24 10:39 Urine Nitrite (Auto) Positive 08/12/24 10:39 Urine Bilirubin (Auto) 2 mg/dL 08/12/24 10:39 Urine Urobilinogen (Auto) 2 mg/dL 08/12/24 10:39 Leukocyte Esterase (Auto) 125 Van/uL 08/12/24 10:39 Assessment & Plan Assessment & Plan (1) Mixed incontinence urge and stress: Code(s): N39.46 - Mixed incontinence Category: Medical (2) Urinary tract infection: Code(s): N39.0 - Urinary tract infection, site not specified Category: Medical (3) Dysuria: Code(s): R30.0 - Dysuria Category: Medical Plan In office urinalysis results reviewed with the patient today; as noted above; will send for urine culture. PVR 0 mL. We discussed importance of calling office with UTI like symptoms when they arise. Start Bactrim as discussed and prescribed. We discussed further treatment options of mixed urinary incontinence and risks and benefits of these interventions. Will obtain renal ultrasound for further assessment evaluation. We discussed importance of adequate hydration relation to lower urinary tract symptoms as well as overall health and well-being We also discussed worsening symptoms. Follow-up in 1-3 months with imaging and PVR; or sooner with any issues, concerns, and or questions. Orders: Orders AMB Post Void Residual by ultrasound Today R32 - Unspecified urinary incontinence Urine Culture Today R32 - Unspecified urinary incontinence AMB Urinalysis Automated Today R20.2 - Paresthesia of skin US renal BI Today N20.0 - Calculus of kidney Medications: New sulfamethoxazole-trimethoprim 800-160 mg (Bactrim DS) 1 tab PO BID 10 tabs 0RF 5 days N39.0 - Urinary tract infection, site not specified Patient Instructions: The patient had an opportunity to ask questions regarding the treatment plan. All questions were answered. Physical exam, labs, and imaging were discussed and reviewed in detail. As well as risks, benefits, and discussion of treatment choices. No major barriers to understanding were identified. The patient expressed understanding and agreement with the above treatment plan. The patient was made aware they should contact our office by phone for worsening of their current condition, the appearance of new symptoms, or with any questions or concerns. Compliance is encouraged with any medications and follow up testing that is ordered. It is a privilege to be allowed the opportunity to participate in? your urological care.? Again, if you have any questions or concerns If you have any questions or concerns please do not hesitate to contact me. The office is [phone]. This note is constructed using voice recognition software. While every effort has been made to ensure accuracy powerhouse electrician errors may have been included. Yours sincerely, PATSY Franco Coding Level of Care Code Est Pt Level 4 (17367) Complex EM visit Add On G2211 Diagnoses Mixed incontinence urge and stress N39.46 Urinary tract infection N39.0 Dysuria R30.0 CPT Codes Post Residual Void - PVR CPT Code: 66023-Akhf Void Residual by ultrasound ([id number])
--- OUTSIDE RECORDS SUMMARY | 2024-08-12 11:03 | XMS_ITS | Clinical Summary ---
Author Organization [facility] Address [address] [place] [address] Care Team Providers Care Ornament Maker Hand Name Role Phone Pcp, No Primary Care Provider Unavailabl e Social History Tobacco Use Types Packs/Day Years Used Date Smoking Tobacco: Never Assessed Comments Unknown Sex and Gender Information Value Date Recorded Sex Assigned at Not on file Legal Sex Female 6:34 PM EST Gender Identity Not on file Sexual Orientation [...] age to complete this topic Care Teams Ornament Maker Hand Relationship Specialty Start Date End Date Pcp, No PCP - General General Medicine 04/18/23
== END 2024-08-12 10:57 | disposition home or self-care (01) ==
LOC: HO.HUSH 10:28
PROVIDERS: PCP Internal Medicine; Visit Provider Nurse Practitioner Family
DX: N39.46 Mixed incontinence (principal); N39.0 Urinary tract infection, site not specified; R30.0 Dysuria; R20.2 Paresthesia of skin
CPT/HCPCS: 99214; G2211

== ENCOUNTER 2024-11-06 07:37 | Outpatient (REF) | payer OTHER, SELFPAY ==
--- NOTE | ~2024-11-06 | US_ITS ---
CLINICAL HISTORY: N20.0 - Calculus of kidney US Renal Comparison: US/SR - US KIDNEY BILATERAL - 02/05/24 08:59 EST Findings: Right kidney normal size and echotexture, 11.6 cm length. Left kidney normal size and echotexture, 11.3 cm length. 1 cm lower pole cyst. No collecting system dilatation of either kidney. Normal color Doppler. IMPRESSION: No evidence of kidney stone. This document has been electronically signed by: Eleazar Lopez MD on 11/06/2024 12:39:27
--- OUTSIDE RECORDS SUMMARY | 2024-11-06 07:39 | XMS_ITS | Clinical Summary ---
Author Organization [facility] Address [address] [place] [address] Care Team Providers Care Business Intelligence Reporting Analyst Name Role Phone Pcp, No Primary Care [...] age to complete this topic Care Teams Business Intelligence Reporting Analyst Relationship Specialty Start Date End Date Pcp, No PCP - General General Medicine 04/18/23
== END 2024-11-06 07:38 | disposition home or self-care (01) ==
LOC: HO.US 07:37
PROVIDERS: PCP Internal Medicine; Visit Provider Nurse Practitioner Family
DX: N20.0 Calculus of kidney (principal)
CPT/HCPCS: 76775

== ENCOUNTER → 2024-11-06 07:39 | Outpatient (BNV) | payer OTHER, SELFPAY | PROVIDERS: PCP Internal Medicine; Visit Provider Nuclear Medicine | DX: N28.1 Cyst of kidney, acquired (principal) | CPT/HCPCS: 76775 ==

== ENCOUNTER 2024-11-13 09:22 | Outpatient (REF) | payer OTHER, SELFPAY | END 2024-11-13 09:23 | disposition home or self-care (01) | LOC: HO.LAB 09:22 | PROVIDERS: PCP Internal Medicine; Visit Provider Nurse Practitioner Family | DX: R31.29 Other microscopic hematuria (principal); N39.0 Urinary tract infection, site not specified; R30.0 Dysuria; Z13.89 Encounter for screening for other disorder; Z79.899 Other long term (current) drug therapy; N32.81 Overactive bladder | CPT/HCPCS: 51798; 81003; 88112; 99212 ==

== ENCOUNTER 2024-11-13 09:22 | Outpatient (AMB) | payer OTHER, SELFPAY ==
--- OUTSIDE RECORDS SUMMARY | 2023-05-30 08:45 | XMS_ITS | Continuity of Care Document ---
Author Organization [facility] Address [address] [place] [address] Phone Care Team Providers Care Seo Expert Name Role Phone Huey SNYDER, RVT, KASSANDRA, [...] E&M Established 15 Mins [facility], [address] [place] [address] Dr Eli 1000SuTrever abdalla [place], [id number], [place] tel:[phone] CVR - [place] - [place] Venous insufficiency (chronic) (peripheral)Ne vus, non-neoplastic 4 Huey SNYDER RVT, KASSANDRA Anderson. [address] [place] [address], [facility], [place], [id number] , [place]. tel: [phone] [facility], [address] [place] [address] Dr Eli 1000Suite [place], [id number], [place] tel:[phone] CVR - [place] Nevus, non-neoplastic 4 Mollperico Garces . [address] [place] [address], [facility], [place], [id number] , [place]. tel: [phone] Office/Outpt E&M Established 15 Mins [facility], [address] [place] [address] Dr Eli 1000SuTrever abdalla [place], [id number], [place] tel:[phone] CVR - [place] Venous insufficiency (chronic) (peripheral)Ne vus, non-neoplastic 4 Huey SNYDER RVT, KASSANDRA Anderson. [address] [place] [address], [facility], [place], [id number] , [place]. tel: [phone] Office/Outpt E&M Established 15 Mins [facility], [address] [place] [address] Dr Eli 1000SuTrever abdalla [place], [id number], [place] tel:[phone] CVR - [place] Chronic venous hypertension (idiopathic) without complications of left lower extremityObesi ty, unspecified 4 Huey SNYDER RVT, KASSANDRA Anderson. [address] [place] [address], [place] [address], [facility], [place], [id number] , [place]. tel: [phone] [facility] MD MOMIN, [address] [place] [address] Dr Eli 1000SuTrever abdalla [place], [id number], [place] tel:[phone] CVR - [place] Varicose veins of left lower extremity with pain 4 Huey SNYDER RVT, RPVI Robert. [address] [place] [address], Suite [facility], [facility] [place] [place], [id number] , [place]. tel:[phone] Referring Provider: Justin Arzate MD, RVT, KASSANDRA, [address] [place] [address] Suite [facility], [place], [address] . tel:[phone] [facility], [address] [place] [address] Dr Eli [address] 1000[place]ver [place], [id number], [place] tel:[phone] CVR - [place] Encounter for follow-up examination after completed treatment for conditions other than malignant neoplasm 3 Hung Betancourt. [address] [place] [address], [place] [address], [facility] [place], [address], [place]. tel:[phone] Referring Provider: Justin Arzate MD, RVT, KASSANDRA, [address] [place] [address] Suite [facility], [place], [address] . tel:[phone] [facility], [address] [place] [address] Dr Eli [address] 1000[place]ver [place], [id number], tel:[phone] CVR - [place] Varicose veins of left lower extremity with inflammation 3 Huey SNYDER RVT, RPVI Robert. [address] [place] [address], [place], [id number] , [place]. tel:[phone] Referring Provider: Justin Arzate MD, RVT, KASSANDRA, [address] [place] [address] Suite [facility], [facility] [place], [address] . tel:[phone] [facility], [address] [place] [address] Dr Eli [address] 1000[place]ver [place], [id number], tel:[phone] CVR - [place] Chronic venous hypertension (idiopathic) with inflammation of left lower extremity 3 Huey SNYDER RVT, RPVI Robert. [address] [place] [address], [place] [address], [facility] [place] [place], [id number] , [place]. [phone] Referring Provider: Justin Arzate MD, RVT, [facility], [address] [place] [address], [place], [address] . tel:[phone] Offic/outpt E&m Estab 5 Min Trial - Telemedicine [facility], [address] [place] [address] [facility] [address], [place], [id number], [place] tel:[phone] CVR - [place] Chronic venous hypertension (idiopathic) with other complications of bilateral lower extremity Oct-2 3- 3 Huey SNYDER, RVT, FABIO Anderson. [address] [place] [address], [place] [address], [place], [id number] , [place]. tel:[phone] Referring Provider: Avelino Persaud MD FACS T [facility], [address] [place] [address], [place], [address]. tel:[phone] [facility], [address] [place] [address] [address], [place], [id number], [place] tel:[phone] CVR - [place] Chronic venous htn w oth comp of bilateral low extrm Sep-0 3 Hung SNYDER FACS DEBBIE Betancourt. [address] [place] [address], [place] [address], [place], [address], [place]. tel:[phone] Referring Provider: Avelino Persaud MD FACS T [facility], [address] [place] [address], [place], [address]. tel:[phone] Office/Oupt E&M New Pt 30 Mins [facility], [address] [place] [address] [address], [id number], [place] tel:[phone] CVR - [place] Varicose veins of left lower extremities w oth complicationsL ocalized edemaCramp and spasmPruritus, unspecified Sep-0 8- 3 Hung BOSST KASSANDRA Betancourt. [address] [place] [address], [place] [address], [facility] [place], [address], [place]. tel:[phone] Referring Provider: Avelino Persaud MD FACS RVT [facility], [address], [place], [address]. tel:[phone] Family History Family Member Type Diagnosis Age At Onset No Information Payers Payer name Insurance type Covered constitution party ID Authoriza tiankur(s) Self Pay 09 Social History Type Description [...] adult Patient education booklet given Related to Chrn Vns Hyprtnsn w/Compl (Pain Edema Swelling); BILAT Continue compression stocking us e Related to [...]
--- NOTE | 2024-11-13 09:26 | A.OFFVIS_ITS ---
Intake Visit Reasons: 3m/US/PVR Intake Note: Patient is present for 3M/US/PVR Urology Medication:NONE Antibiotic Allergy:NONE Blood Thinner:NONE Last PVR:OML'S Todays PVR:0ML'S Communication Studies Professor Required: No Allergies seafood Allergy (Severe, Verified 11/13/24 12:39) Unknown adhesive tape Adverse Reaction (Verified 11/13/24 12:39) Redness of Skin Medication List - Last Reconciled 11/13/24 by PATSY Franco acetaminophen (Tylenol Extra Strength) 500 mg PO Q6H PRN bisacodyl (Dulcolax (bisacodyl)) 10 mg (2 x 5 mg) PO BEDTIME buspirone 5 mg PO BID diaper,brief,adult,disposable As directed estradiol 0.01%(0.1mg/gram) (Estrace) 1 g vaginal 3XW 90 days famotidine 20 mg PO BID fluoxetine 20 mg PO DAILY fluticasone propionate 50 mcg/actuation (Flonase Allergy Relief) 1 spray intranasal DAILY gabapentin 300 mg PO Q8H 30 days ketotifen fumarate 0.025%(0.035%) 1 drp ophthalmic (eye) BID kgyvoa-yzvyrscy-nqisfcy 24,000-76,000 -120,000 unit (Creon) 2 caps PO QID loratadine 10 mg PO DAILY phenazopyridine (Azo Urinary Pain Relief) 99.5 mg PO TID PRN plecanatide (Trulance) 3 mg PO DAILY sodium fluoride-pot nitrate 1.1-5 % 1 appl PO DAILY sulfamethoxazole-trimethoprim 400-80 mg (Bactrim) 1 tab PO BID 7 days underpads (Maxicare Underpads) As directed, 3 nightly. wheat dextrin (Benefiber Sugar Free (dextrin)) 1 tab PO DAILY HPI Comments Details: Marisel is a very pleasant 59-year-old female patient of Dr. Austin. She has a past medical history of fibromyalgia, dyslipidemia, depression, lumbar radiculopathy, environmental allergies and arthritis. She presents to the office today for follow-up. In discussion with the patient today she reports noting episodes of urinary urgency, urinary frequency, feeling of incomplete bladder emptying, and dysuria over the last week. She reports after her last office visit here she had completed antibiotic therapy as prescribed and felt symptoms improved however most recently has been experiencing bladder pressure and straining with urination. In office urinalysis results reviewed with the patient today 1+ leukocytes positive nitrates. During last office visit urine culture noted 08/18 noted 50,000 to 100,000 cfu/ml Mixed bacterial flor characteristic of urogenital contamination. Recent renal imaging results reviewed with the patient today. Bilateral kidneys are normal in size and echotexture. No collecting system dilatation of either kidney. Normal color Doppler. 1 cm lower pole renal cysts. She does also continue to report mixed urinary incontinence as well as nocturia. We did discussed further treatment options of these urological conditions as well as risks and benefits of these interventions. Patient continues to discusses her reluctancy to taking more medications. She discusses utilizing bed pads to decrease episodes of falls at night. We discussed in office cystoscopy and or urodynamics for further assessment evaluation however she declines at this. Previous urine cytology results reviewed with the patient today 12/18 Negative for high-grade urothelial carcinoma. She otherwise denies gross/visible hematuria, foul smelling urine, changes to urinary stream, fever, and or chills. [facility] Medical History Dyslipidemia Depression Lumbar radiculopathy MARISEL positive Tubular adenoma Pancreatic insufficiency Environmental allergies Arthritis Fibromyalgia Surgical History History of reversal of tubal ligation Hx of colonoscopy H/O tubal ligation H/O cosmetic surgery Family History Father HTN (hypertension) Blood infection Heart disease Social History Household Members Other:: daughter Housing: House Alcohol intake: never Patient Tobacco Use Status: Former Tobacco user e-Cigarette/Vaping Use: Never Used service: No Current occupational status: disabled Cognitive needs: No Hearing needs: No Vision needs: No Female Reproductive History Menstrual Age of Menarche: 10 Review of Systems Const All systems reviewed & are unremarkable except as noted in HPI and below Physical Exam Const General: cooperative, healthy appearing, comfortable, no acute distress, well developed, alert and awake Orientation/consciousness: patient oriented x3 Limitations: no limitations HEENT Head: Yes normal to inspection, Yes normocephalic and Yes atraumatic Ears: hearing grossly normal bilaterally Eyes General: appearance normal, both eyes and all related structures Neck Neck: Yes normal visual inspection and Yes trachea midline Chest Chest palpation & inspection: normal inspection of the chest Resp Effort & Inspection: normal respiratory effort and able to speak in complete sentences Cardio Rate: regular rate GI Inspection: Yes normal to inspection General: Yes no CVA tenderness Back/Spine/Pelvis Back: no CVA tenderness Skin General skin exam: no rashes or lesions noted Neuro General: patient oriented x3 Extrem General: Yes normal to inspection Psych Appearance: grossly normal and well kempt Mental Status: mental status grossly normal Speech and movement: Normal speech and movement present and Clear speech present Affect: normal affect Attitude: cooperative Thought process: Normal thought process present Thought content: Normal thought content present Insight: Fair insight present (Psych) Judgement: Fair judgement present (Psych) Office Procedures Post Void Residual Post Residual Void Post Void Residual (PVR): 0 59622-[id number] Void Residual by ultrasound Results AMB Urinalysis, Automated UA Leukoctes 70 Van/uL Last Edit by ZECHARIAH Yu on 11/13/24 12:27 UA Nitrite Positive Last Edit by ZECHARIAH Yu on 11/13/24 12:27 UA Urobilinogen 1 mg/dL Last Edit by ZECHARIAH Yu on 11/13/24 12:27 UA Protein 15 mg/dL Last Edit by ZECHARIAH Yu on 11/13/24 12:27 UA pH 6.0 Last Edit by ZECHARIAH Yu on 11/13/24 12:27 UA Blood 0 Alessio/uL Last Edit by ZECHARIAH Yu on 11/13/24 12:27 UA Specific [place] 1.025 Last Edit by ZECHARIAH Yu on 11/13/24 12: 27 UA Ketone Negative Last Edit by ZECHARIAH Yu on 11/13/24 12:27 UA Bilirubin 1 mg/dL Last Edit by ZECHARIAH Yu on 11/13/24 12:27 UA Glucose 0 mg/dL Last Edit by Brandon Painting CCM on 11/13/24 12:27 Results Reviewed Results Reviewed: Laboratory Last Values Urine pH (Auto) 6.0 11/13/24 10:24 Specific [place] (Auto) 1.025 11/13/24 10:24 Urine Protein (Auto) 15 mg/dL 11/13/24 10:24 Glucose (UA)(Auto) 0 mg/dL 11/13/24 10:24 Urine Ketones (Auto) Negative 11/13/24 10:24 Urine Blood (Auto) 0 Alessio/uL 11/13/24 10:24 Urine Nitrite (Auto) Positive 11/13/24 10:24 Urine Bilirubin (Auto) 1 mg/dL 11/13/24 10:24 Urine Urobilinogen (Auto) 1 mg/dL 11/13/24 10:24 Leukocyte Esterase (Auto) 70 Van/uL 11/13/24 10:24 Date of Service: 11/06/24 Procedure(s): US renal BI Findings: Right kidney normal size and echotexture, 11.6 cm length. Left kidney normal size and echotexture, 11.3 cm length. 1 cm lower pole cyst. No collecting system dilatation of either kidney. Normal color Doppler. IMPRESSION: No evidence of kidney stone. Assessment & Plan Assessment & Plan (1) Microscopic hematuria: Code(s): R31.29 - Other microscopic hematuria Category: Medical Plan In office urinalysis results reviewed with the patient today; as noted above; will send for microgen PVR 0 mL. Recent renal imaging results reviewed with the patient today; as noted above. Start Bactrim as discussed and prescribed. Start Estrace cream as discussed and prescribed. We discussed correlation of constipation in urinary tract infections. Discussed UTI prevention with D mannose supplement, vitamin-C, increasing fluid intake, behavioral therapy with timed voiding, perineal hygiene and postcoital voiding, and management of constipation with stool softeners and increased fiber intake. Follow-up in 1-2 months with PVR; or sooner with any issues, concerns, and or questions. Orders: Orders AMB Urinalysis Automated Today Z13.9 - Encounter for screening, unspecified Urine Cytology Today R31.29 - Other microscopic hematuria Medications: New estradiol 0.01%(0.1mg/gram) (Estrace) Apply a PSAs amount to urethra daily x1 month and then 3 times per week thereafter 1 g vaginal 3XW 42.5 grams 1RF 90 days sulfamethoxazole-trimethoprim 400-80 mg (Bactrim) 1 tab PO BID 14 tabs 0RF 7 days N32.81 - Overactive bladder, N39.0 - Urinary tract infection, site not specified Patient Instructions: The patient had an opportunity to ask questions regarding the treatment plan. All questions were answered. Physical exam, labs, and imaging were discussed and reviewed in detail. As well as risks, benefits, and discussion of treatment choices. No major barriers to understanding were identified. The patient expres sed understanding and agreement with the above treatment plan. The patient was made aware they should contact our office by phone for worsening of their current condition, the appearance of new symptoms, or with any questions or concerns. Compliance is encouraged with any medications and follow up testing that is ordered. It is a privilege to be allowed the opportunity to participate in? your urological care.? Again, if you have any questions or concerns If you have any questions or concerns please do not hesitate to contact me. The office is [phone]. This note is constructed using voice recognition software. While every effort has been made to ensure accuracy honey blender errors may have been included. Yours sincerely, PATSY Franco Coding Level of Care Code Est Pt Level 4 (43060) Complex EM visit Add On G2211 Diagnoses Microscopic hematuria R31.29 CPT Codes Post Residual Void - PVR CPT Code: 00618-Syzu Void Residual by ultrasound ([id number])
--- OUTSIDE RECORDS SUMMARY | 2024-11-13 10:05 | XMS_ITS | Clinical Summary ---
Author Organization [facility] Address [address] [place] [address] Care Team Providers Care Desulfurizer Operator Name Role Phone Pcp, No Primary [...] age to complete this topic Care Teams Desulfurizer Operator Relationship Specialty Start Date End Date Pcp, No PCP - General General Medicine 04/18/23
== END 2024-11-13 10:10 | disposition home or self-care (01) ==
LOC: HO.HUSH 09:23
PROVIDERS: PCP Internal Medicine; Visit Provider Nurse Practitioner Family
DX: R31.29 Other microscopic hematuria (principal); Z13.9 Encounter for screening, unspecified
CPT/HCPCS: 99214; G2211

== ENCOUNTER 2024-12-18 08:45 | Outpatient (AMB) | payer OTHER, SELFPAY ==
--- NOTE | 2024-12-18 08:52 | A.OFFVIS_ITS ---
Vital Signs 12/18/24 09:01 Height 5 ft 2 in Weight 180 lb BMI 32.9 BP 90/56 L Blood Pressure Location Rt brachial Position Sitting Pulse 74 Pulse Source Pulse Oximeter Pulse Oximetry (%) 96 Oxygen Delivery Method Room Air Intake Visit Reasons: 6 mo f/u Gerd, Discuss [place] Intake Note: ESTABLISHED PATIENT mgmt of GERD, CIC Chief Complaint; C.O. isolated N+V episode x3 days within the last 2 weeks. Pt states that it has not returned since then. Pt also reports abnormal sensation in the umbilical region, pt has concern for umbilical hernia. Generation Engineering Technologist Required: No Accompanied by: Self / Same As Patient Allergies seafood Allergy (Severe, Verified 12/18/24 08:53) Unknown adhesive tape Adverse Reaction (Verified 12/18/24 08:53) Redness of Skin HPI HPI 6 mo f/u Gerd, Discuss [place]: Details: LAST VISIT Hiatal hernia Diastasis recti Constipation by delayed colonic transit Pancreatic insufficiency Colon cancer screening RUQ abdominal pain IBS (irritable bowel syndrome) Hepatic steatosis GERD (gastroesophageal reflux disease) Plan Continue famotidine twice a day. Avoid dietary triggers and late night snacking. Staying upright for minimum 3 hours after meals discussed with patient. Patient will continue taking Creon with meals. Continue low FODMAP diet. Will refill her Trulance, patient can take Dulcolax as needed. Increase fluid intake and activity to promote better bowel motility. Patient will return in 6 months we will discuss going for colonoscopy. She is agreeable to this plan and verbalizes understanding of instructions. She was given the opportunity to ask questions and all questions answered. ? Thank you for allowing me to participate in her care Changed Changed From [id number] 24,000-76,000 -120,000 unit administer with meals and/or snacks 2 caps PO QID 240 caps 4RF K86.89 Changed To [id number] 24,000-76,000 -120,000 unit (Creon) administer with meals and/or snacks 2 caps PO QID 240 caps 4RF K86.89 Refilled famotidine 20 mg PO BID 180 tabs 3RF K29.70 plecanatide (Trulance) 3 mg PO DAILY 90 tabs 3RF K59.09 bisacodyl (Dulcolax (bisacodyl)) 10 mg (2 x 5 mg) PO BEDTIME 180 tabs 4RF TODAY'S VISIT: Patient is here today for follow-up and to discuss going for upper endoscopy and colonoscopy. Patient had suboptimal prep last colonoscopy. Patient will try to do 2 days of clears with extra Dulcolax. Currently patient is moving her bowels better. She is taking Trulance and occasionally Dulcolax as needed. Patient denies melena, hematochezia, unintentional weight loss or ribbon like stools. Patient reports abdominal discomfort and periumbilical hernia. Patient reports that it is visible more than before. Patient reports about 20 years ago she had abdominoplasty. Patient reports that she has normal muscle tone. Patient denies dyspepsia, dysphagia or odynophagia. Patient is taking famotidine twice a day. In denies any acid reflux. She is taking Creon with meals. Denies any abdominal bloating or pain. Patient reports that she had to start eating any bread or start. Patient was getting nausea, vomiting and palpitation. [facility] Medical History Dyslipidemia Depression Lumbar radiculopathy KRISTAL positive Tubular adenoma Pancreatic insufficiency Environmental allergies Arthritis Fibromyalgia Surgical History History of reversal of tubal ligation Hx of colonoscopy H/O tubal ligation H/O cosmetic surgery Family History Father HTN (hypertension) Blood infection Heart disease Social History Household Members Other:: daughter Housing: House Alcohol intake: never Patient Tobacco Use Status: Former Tobacco user e-Cigarette/Vaping Use: Never Used service: No Current occupational status: disabled Cognitive needs: No Hearing needs: No Vision needs: No Female Reproductive History Menstrual Age of Menarche: 10 Review of Systems Const Denies weight gain and Denies weight loss ENT Reports no additional complaints, Denies dysphagia and Denies odynophagia Card Reports no additional complaints Resp Reports no additional complaints GI Denies abdominal pain, Denies belching, Denies melena, Denies bloating, Denies change in bowel habits, Reports constipation (Occasional), Denies dysphagia, Denies excessive flatus, Denies dyspepsia, Reports heartburn (Occasional), Denies diarrhea, Denies loose stools, Denies nausea, Denies odynophagia and Denies vomiting Reports no additional complaints Musc Reports no additional complaints Neuro Reports no additional complaints Psych Reports no additional complaints Endo Reports no additional complaints Physical Exam Vital Signs: Last Vital Signs Pulse 74 12/18/24 09:01 BP 90/56 L 12/18/24 09:01 Pulse Ox 96 12/18/24 09:01 Oxygen Delivery Method Room Air 12/18/24 09:01 BMI result Body Mass Index 32.9 Const General: healthy appearing, no acute distress and well developed Nutritional Appearance: obese Orientation/consciousness: patient oriented x3 Resp Effort & Inspection: normal respiratory effort, able to speak in complete sentences, no tracheal deviation and symmetric chest movement Auscultation: clear to auscultation bilaterally Cardio Rate: regular rate GI Inspection: No distended, Yes obesity and Yes visible herniation Palpation (GI): Soft to palpation, not firm, nontender, No hepatosplenomegaly present and Hernia present umbilical Auscultation: normal bowel sounds General: Yes no CVA tenderness Back/Spine/Pelvis Back: no CVA tenderness Skin General skin exam: elasticity normal, turgor normal and dry skin Neuro General: patient oriented x3 Psych Appearance: grossly normal Mental Status: mental status grossly normal Assessment & Plan Assessment & Plan (1) Pancreatic insufficiency: Code(s): K86.89 - Other specified diseases of pancreas Category: Medical (2) Colon cancer screening: Code(s): Z12.11 - Encounter for screening for malignant neoplasm of colon Category: Medical (3) Constipation by delayed colonic transit: Code(s): K59.01 - Slow transit constipation Category: Medical (4) Hiatal hernia: Code(s): K44.9 - Diaphragmatic hernia without obstruction or gangrene Category: Medical (5) Irritable bowel syndrome: Code(s): K58.9 - Irritable bowel syndrome, unspecified Qualifiers: Irritable bowel syndrome type: without diarrhea Qualified Code(s): K58.9 - Irritable bowel syndrome, unspecified (6) Steatosis of liver: Code(s): K76.0 - Fatty (change of) liver, not elsewhere classified (7) Gastroesophageal reflux disease: Code(s): K21.9 - Gastro-esophageal reflux disease without esophagitis Qualifiers: Esophagitis presence: esophagitis presence not specified Qualified Code(s): K21.9 - Gastro-esophageal reflux disease without esophagitis Plan Patient will continue taking famotidine twice a day. Avoid dietary triggers in late night snacking. Patient will be sent for upper endoscopy. Continue with GERD precautions. Continue Creon. What to expect before during and after procedure discussed with patient. Stressed the importance of good bowel prep and clear liquid diet day for procedure. Patient will do 2 days of clear and will take additional Dulcolax 1 week before procedure. Periumbilical hernia palpated, referral to General surgery. I will see patient after the procedure, sooner on as needed basis. She is agreeable to this plan and verbalizes understanding of instructions. She was given the opportunity to ask questions and all questions answered. Orders: Referrals GI Procedure Notification K21.9 - Gastro-esophageal reflux disease without esophagitis, Z12.11 - Encounter for screening for malignant neoplasm of colon General Surgery Referral K42.9 - Umbilical hernia without obstruction or gangrene Medications: New polyethylene glycol 3350 (Miralax) As directed by gastroenterology department at [facility] 238 grams PO ONCE 238 grams 0RF Z12.11 - Encounter for screening for malignant neoplasm of colon Refilled bisacodyl (Dulcolax (bisacodyl)) 10 mg (2 x 5 mg) PO BEDTIME 180 tabs 4RF Coding Level of Care Code Est Pt Level 4 (22476) Complex EM visit Add On G2211 Diagnoses Pancreatic insufficiency K86.89 Colon cancer screening Z12.11 Constipation by delayed colonic transit K59.01 Hiatal hernia K44.9 Irritable bowel syndrome without diarrhea K58.9 Irritable bowel syndrome type: without diarrhea Steatosis of liver K76.0 Gastroesophageal reflux disease, unspecified whether esophagitis present K21.9 Esophagitis presence: esophagitis presence not specified Time Spent (min) 40 Comment 25 minutes spent with patient and additional 15 minutes spent reviewing her records
[2024-12-18 09:01] VITALS: BP 90/56; PULSE 74; O2SAT 96; BMI 32.9
--- OUTSIDE RECORDS SUMMARY | 2024-12-18 09:54 | XMS_ITS ---
[facility] Encounters Encounter Type Encounter Reason Primary Diagnosis Location Date Ambulatory [facility] 04/18/2023 Care Team Organization Name Specialty Phone Email Start Date End [facility] 04/18/2023 06/12/2024 [facility]18[facility]2023 [facility] NO PCP Primary Care 04/18/2023
--- OUTSIDE RECORDS SUMMARY | 2024-12-18 09:54 | XMS_ITS | Clinical Summary ---
Author Organization [facility] Address [address] [place] [address] Care Team Providers Care Resin Painter Name Role Phone Pcp, No Primary Care [...] COVID-19 Vaccine ( - 2023-2 5 season) 2024 RSV Vaccine 60 years and old er and Patients (1 - 1-dose 75+ series) 07/16/2038 Hepatitis B Vaccines Aged Out No long er eligible based on patient's age to complete this topic Care Teams Resin Painter Relationship Specialty Start Date End Date Pcp, No PCP - General General Medicine 04/18/23
== END 2024-12-18 11:14 | disposition home or self-care (01) ==
LOC: HO.HGI 08:45
PROVIDERS: PCP Internal Medicine; Visit Provider Nurse Practitioner Family
DX: K86.89 Other specified diseases of pancreas (principal); K59.01 Slow transit constipation; K44.9 Diaphragmatic hernia without obstruction or gangrene; K58.9 Irritable bowel syndrome, unspecified; K76.0 Fatty (change of) liver, not elsewhere classified
CPT/HCPCS: 99214; G2211

== ENCOUNTER → 2024-12-18 08:45 | Outpatient (BNVA) | payer OTHER, SELFPAY | PROVIDERS: PCP Internal Medicine; Visit Provider Nurse Practitioner Family | DX: Z12.11 Encounter for screening for malignant neoplasm of colon (principal); K86.89 Other specified diseases of pancreas; K59.01 Slow transit constipation; K44.9 Diaphragmatic hernia without obstruction or gangrene; K58.9 Irritable bowel syndrome, unspecified; K76.0 Fatty (change of) liver, not elsewhere classified; K21.9 Gastro-esophageal reflux disease without esophagitis | CPT/HCPCS: 99212 ==

== ENCOUNTER 2025-01-21 13:40 | Outpatient (AMB) | payer OTHER, SELFPAY ==
[2025-01-21 13:47] VITALS: BP 100/60; PULSE 76; RESP 16; TEMP 36.8; O2SAT 96; BMI 33.1
--- NOTE | 2025-01-21 13:47 | MHC.PC.OV ---
Vital Signs 01/21/25 13:47 Height 5 ft 2 in Weight 181 lb BMI 33.1 BP 100/60 Blood Pressure Location Rt brachial Position Sitting Respiration 16 Pulse 76 Pulse Source Pulse Oximeter Temp 98.3 F Temp Source Oral Pulse Oximetry (%) 96 Oxygen Delivery Method Room Air Intake Visit Reasons: Annual PE Allergies seafood Allergy (Severe, Verified 12/18/24 08:53) Unknown adhesive tape Adverse Reaction (Verified 12/18/24 08:53) Redness of Skin Medication List - Last Reconciled 01/21/25 by Cole Austin MD acetaminophen (Tylenol Extra Strength) 500 mg PO Q6H PRN bisacodyl (Dulcolax (bisacodyl)) 10 mg (2 x 5 mg) PO BEDTIME buspirone 5 mg PO BID diaper,brief,adult,disposable As directed duloxetine 30 mg PO BID estradiol 0.01%(0.1mg/gram) (Estrace) 1 g vaginal 3XW 90 days famotidine 20 mg PO BID fluoxetine 20 mg PO DAILY fluticasone propionate 50 mcg/actuation (Flonase Allergy Relief) 1 spray intranasal DAILY gabapentin 300 mg PO Q8H 30 days ketotifen fumarate 0.025%(0.035%) 1 drp ophthalmic (eye) BID umvcqr-fzxyltok-qmmwxnc (pork) 24,000-76,000 -120,000 unit (Creon) 2 caps PO QID loratadine 10 mg PO DAILY 90 days phenazopyridine (Azo Urinary Pain Relief) 99.5 mg PO TID PRN plecanatide (Trulance) 3 mg PO DAILY polyethylene glycol 3350 (Miralax) 238 grams PO ONCE sodium fluoride-pot nitrate 1.1-5 % 1 appl PO DAILY underpads (Maxicare Underpads) As directed, 3 nightly. wheat dextrin (Benefiber Sugar Free (dextrin)) 1 tab PO DAILY Tobacco use date assessed: 04/12/24 Dental Screening Dental Screen Date: 04/12/24 HPI Annual PE HPI Details History of Present Illness The patient is a 59-year-old female presenting for a physical examination. Fall: - The patient reports a fall approximately one week ago. - The fall occurred when getting out of bed; she does not recall if she was dizzy but notes having a lot of numbness in her leg at the time. 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 she was able to get up her self - The fall resulted in ecchymosis near her eye and a sensation of an electric shock in her hand. which is improving - She did not seek medical attention immediately after the incident. Chronic Pain Syndrome and Fibromyalgia: - The patient has a history of chronic pain syndrome, fibromyalgia, and generalized osteoarthritis. - She reports a recent, severe exacerbation of her pain - The pain is significantly disrupting her sleep, causing her to wake up as frequently as every 15 minutes. - Specific areas of pain include her shoulder, which is getting progressively worse and is associated with nocturnal numbness, and her feet, which are described as extremely painful. - Her current medications for these conditions include duloxetine 30 mg twice daily and gabapentin 300 mg at night. Anxiety: - The patient has a history of anxiety, for which she takes buspirone, duloxetine, and fluoxetine. - Her psychiatric medications are managed by a psychiatrist. History of tubular adenoma: - The patient has a history of tubular adenoma and is established with a soft water mechanic for colonoscopy surveillance. Obesity: - The patient's BMI is elevated at 33.1, and she is actively trying to lose weight. Other Chronic Conditions: - Additional chronic conditions include allergies, urge incontinence (managed by urology), lumbar radiculopathy, chronic constipation (managed by gastroenterology), headache syndrome, chronic vertigo, paresthesia in both feet, and a positive KRISTAL. Medical History: - Anxiety - Chronic pain syndrome - Fibromyalgia - Allergies - Urge incontinence - Lumbar radiculopathy - Generalized osteoarthritis - Chronic constipation - Headache syndrome - Obesity (BMI 33.1) - Positive KRISTAL - History of tubular adenoma - Chronic vertigo - Paresthesia in both feet - Negative for history of seizures or epilepsy Social History: - Lives at home with family. - Patient is attempting to lose weight. Health Maintenance - Vaccinations: Last tetanus vaccine was in 2013 and is currently due. - Zoster vaccine was administered in 2023. - Patient reports having received the influenza vaccine at a pharmacy. - Cancer Screening: Last mammogram was in December of the previous year, and she has an appointment scheduled for this year. - Breast exams are performed by her DIRECTOR VIDEO. - She follows with gastroenterology for colonoscopies due to a history of tubular adenoma. 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 [place] of Care - The patient sees a soft water mechanic for chronic constipation and colonoscopies. - She is managed by a urologist for urge incontinence. - She receives care from an DIRECTOR VIDEO at [facility] - psychiatrist. Patient Instructions - We will give you a tetanus vaccine injection today because your last one was in 2013. - After your visit, please go to the lab to have blood tests done. - I am sending a prescription for Tramadol to your pharmacy for your pain. Take it only at nighttime. - Be very careful when taking Tramadol, as it can make you dizzy. We do not want you to fall again. - Please book your next appointment at the [facility]. - Gabapentine script sent as well f/u 3 M Review of Systems - General: No fever no chills - Ear nose throat: No sore throat no hearing difficulty no ear pain - Cardiovascular: No syncope, no chest pain, no palpitations - Gastrointestinal: No nausea vomiting or diarrhea - Skin: No new complaints Physical Exam General: Cooperative, healthy appearing, comfortable, no acute distress Orientation: Patient oriented x3 Head: Normal to inspection Ears: Within normal limit visually Nose: Normal external nose present Face and sinus: Normal facial exam, except mild eccyhmosis under left eye JERONIMO, EOMI . Neck: Normal visual inspection and supple Respiratory: Normal respiratory effort and able to speak in complete sentences. Clear to auscultation, no stridor Cardiovascular: S1 and S2 RRR GI: Normal to inspection. Soft to palpation and nontender Skin: Turgor normal, no acute findings. Neuro: Patient oriented x3, motor , Balance off Extremities: Normal to inspection limited ROM both shoulders [ chronic ] . [facility] Medical History Dyslipidemia Depression Lumbar radiculopathy KRISTAL positive Tubular adenoma Pancreatic insufficiency Environmental allergies Arthritis Fibromyalgia Surgical History History of reversal of tubal ligation Hx of colonoscopy H/O tubal ligation H/O cosmetic surgery Family History Father HTN (hypertension) Blood infection Heart disease Social History Household Members Other:: daughter Housing: House Alcohol intake: never Patient Tobacco Use Status: Former Tobacco user e-Cigarette/Vaping Use: Never Used service: No Current occupational status: disabled Cognitive needs: No Hearing needs: No Vision needs: No Female Reproductive History Menstrual Age of Menarche: 10 Questionnaire Thrive Questionnaire Date Thrive assessed: 04/12/24 I am a: Patient What is your living situation today?: I have a place to live, but I am worried about losing it in the future Within the past 12 months, did the food you bought not last and you didn't have the money to get more?: Sometimes True Within the past 12 months, did you worry whether your food would run out before you got money to buy more?: Sometimes True Do you have trouble paying for medicines?: Yes Do you have trouble getting transportation to medical appointments?: I choose not to answer this question Do you have trouble paying your heating and electricity bill?: Yes Do you have trouble taking care of your child, family member or friend?: I choose not to answer this question Do you have trouble with day-to-day activities such as bathing, preparing meals, shopping, managing finances, etc.?: Yes Are you currently unemployed and looking for a job?: No Are you interested in more education?: No Currently or been in a relationship where the following occur: Controlled Financially THRIVE Score: 5 HEATHER-7 AMB Questionnaire HEATHER-7 Date HEATHER - 7 assessed: 04/12/24 Source: Developed by Drs. Justin Munguia, Bonnie Harding, Nick Hartley and colleagues, with an educational narda from [facility]. Physical exam (Primary Care) Vital Signs: Last Vital Signs Temp 98.3 F 01/21/25 13:47 Pulse 76 01/21/25 13:47 Resp 16 01/21/25 13:47 BP 100/60 01/21/25 13:47 Pulse Ox 96 01/21/25 13:47 Oxygen Delivery Method Room Air 01/21/25 13:47 BMI result Body Mass Index 33.1 Tobacco/Smoking Status: Tobacco use Status Tobacco use date assessed 04/12/24 01/21/25 13:48 Patient Tobacco Use Status Former Tobacco user 01/21/25 13:48 e-Cigarette/Vaping Use Never Used 01/21/25 13:48 Thrive Assessment: Date of Thrive Assessment Date Thrive assessed 04/12/24 01/21/25 13:48 Currently or been in a relationship where the following occur: Controlled Financially Immunizations Boostrix Tdap 2.5 Lf unit-8 mcg-5 Lf/0.5 mL intramuscular syringe Performing Provider: Cole Austin MD Performing Location: [facility] Administered by: Krystin Canchola CMA on 01/21/25 14:51 Dose Route Admin Location Dispensed Lot Number Expiration Date NDC Photographer Assistant 0.5 mL IM Right Deltoid 0.5 mL [id number] 05/17/26 58469-608-94 [employer] Total Dispensed Waste 0.5 mL 0 % VIS Given Date VIS Provided VIS Publication Date 01/21/25 Single Vaccine 20 Eligibility Eligibility Date Funding Source Not [facility] Eligible 01/21/25 Private Coding Level of Care Code Est Pt Level 4 (97744) Est Pt Prev Care 40-64y(09141) Diagnoses Encounter for general adult medical examination with abnormal findings Z00.01 Traumatic ecchymosis of face, sequela S00.83XS Encounter type: sequela Facial injury, sequela S09.93XS Encounter type: sequela Fall, initial encounter W19.XXXA Encounter type: initial encounter Chronic pain syndrome G89.4 Lumbar spondylosis M47.816 Lipid disorder E78.9 Fibromyalgia M79.7 KRISTAL positive R76.8 Tubular adenoma D36.9 Urinary incontinence, unspecified type R32 Urinary Incontinence type: unspecified incontinence Class 1 obesity due to excess calories without serious comorbidity with body mass index (BMI) of 32.0 to 32.9 in adult E66.09; Z68.32 Body mass index: BMI 32.0-32.9 Obesity classification: adult class 1 (BMI 30 - 34.9) Serious obesity comorbidity presence: without serious comorbidity Recurrent major depressive disorder, in partial remission F33.41 Active/Remission status: in partial remission Environmental allergies Z91.09 Immunizations incomplete Z28.39 Assessment & Plan Assessment & Plan (1) Encounter for general adult medical examination with abnormal findings: Code(s): Z00.01 - Encounter for general adult medical examination with abnormal findings Category: Medical (2) Traumatic ecchymosis of face: Code(s): S00.83XA - Contusion of other part of head, initial encounter Category: Medical Qualifiers: Encounter type: sequela Qualified Code(s): S00.83XS - Contusion of other part of head, sequela (3) Facial trauma: Code(s): S09.93XA - Unspecified injury of face, initial encounter Category: Medical Qualifiers: Encounter type: sequela Qualified Code(s): S09.93XS - Unspecified injury of face, sequela (4) Fall: Code(s): W19.XXXA - Unspecified fall, initial encounter Category: Medical Qualifiers: Encounter type: initial encounter Qualified Code(s): W19.XXXA - Unspecified fall, initial encounter (5) Chronic pain syndrome: Code(s): G89.4 - Chronic pain syndrome Category: Medical (6) Lumbar spondylosis: Code(s): M47.816 - Spondylosis without myelopathy or radiculopathy, lumbar region Category: Medical (7) Lipid disorder: Code(s): E78.9 - Disorder of lipoprotein metabolism, unspecified Category: Medical (8) Fibromyalgia: Code(s): M79.7 - Fibromyalgia Category: Medical (9) KRISTAL positive: Code(s): R76.8 - Other specified abnormal immunological findings in serum Category: Medical (10) Tubular adenoma: Code(s): D36.9 - Benign neoplasm, unspecified site Category: Medical (11) Urine incontinence: Code(s): R32 - Unspecified urinary incontinence Category: Medical Qualifiers: Urinary Incontinence type: unspecified incontinence Qualified Code(s): R32 - Unspecified urinary incontinence (12) Obesity due to excess calories: Code(s): E66.09 - Other obesity due to excess calories Category: Medical Qualifiers: Body mass index: BMI 32.0-32.9 Obesity classification: adult class 1 (BMI 30 - 34.9) Serious obesity comorbidity presence: without serious comorbidity Qualified Code(s): E66.09 - Other obesity due to excess calories; Z68.32 - Body mass index [BMI] 32.0-32.9, adult (13) Major depression, recurrent: Code(s): F33.9 - Major depressive disorder, recurrent, unspecified Category: Medical Qualifiers: Active/Remission status: in partial remission Qualified Code(s): F33.41 - Major depressive disorder, recurrent, in partial remission (14) Environmental allergies: Code(s): Z91.09 - Other allergy status, other than to drugs and biological substances Category: Medical (15) Immunizations incomplete: Code(s): Z28.39 - Other underimmunization status Category: Medical Plan Fall: - The patient reports a fall approximately one week ago. - The fall occurred when getting out of bed; she does not recall if she was dizzy but notes having a lot of numbness in her leg at the time. 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 she was able to get up her self - The fall resulted in ecchymosis near her eye and a sensation of an electric shock in her hand. which is improving - She did not seek medical attention immediately after the incident. Chronic Pain Syndrome and Fibromyalgia: - The patient has a history of chronic pain syndrome, fibromyalgia, and generalized osteoarthritis. - She reports a recent, severe exacerbation of her pain - The pain is significantly disrupting her sleep, causing her to wake up as frequently as every 15 minutes. - Specific areas of pain include her shoulder, which is getting progressively worse and is associated with nocturnal numbness, and her feet, which are described as extremely painful. - Her current medications for these conditions include duloxetine 30 mg twice daily and gabapentin 300 mg at night. Anxiety: - The patient has a history of anxiety, for which she takes buspirone, duloxetine, and fluoxetine. - Her psychiatric medications are managed by a psychiatrist. History of tubular adenoma: - The patient has a history of tubular adenoma and is established with a soft water mechanic for colonoscopy surveillance. Obesity: - The patient's BMI is elevated at 33.1, and she is actively trying to lose weight. Other Chronic Conditions: - Additional chronic conditions include allergies, urge incontinence (managed by urology), lumbar radiculopathy, chronic constipation (managed by gastroenterology), headache syndrome, chronic vertigo, paresthesia in both feet, and a positive KRISTAL. Medical History: - Anxiety - Chronic pain syndrome - Fibromyalgia - Allergies - Urge incontinence - Lumbar radiculopathy - Generalized osteoarthritis - Chronic constipation - Headache syndrome - Obesity (BMI 33.1) - Positive KRISTAL - History of tubular adenoma - Chronic vertigo - Paresthesia in both feet - Negative for history of seizures or epilepsy Social History: - Lives at home with family. - Patient is attempting to lose weight. Health Maintenance - Vaccinations: Last tetanus vaccine was in 2013 and is currently due. - Zoster vaccine was administered in 2023. - Patient reports having received the influenza vaccine at a pharmacy. - Cancer Screening: Last mammogram was in December of the previous year, and she has an appointment scheduled for this year. - Breast exams are performed by her DIRECTOR VIDEO. - She follows with gastroenterology for colonoscopies due to a history of tubular adenoma. 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 [place] of Care - The patient sees a soft water mechanic for chronic constipation and colonoscopies. - She is managed by a urologist for urge incontinence. - She receives care from an DIRECTOR VIDEO at [facility] - psychiatrist. Patient Instructions - We will give you a tetanus vaccine injection today because your last one was in 2013. - After your visit, please go to the lab to have blood tests done. - I am sending a prescription for Tramadol to your pharmacy for your pain. Take it only at nighttime. - Be very careful when taking Tramadol, as it can make you dizzy. We do not want you to fall again. - Please book your next appointment at the [facility]. - Gabapentine script sent as well f/u 3 M Orders: Orders Complete Blood Count Auto Diff Today D36.9 - Benign neoplasm, unspecified site, E66.09 - Other obesity due to excess calories, E78.9 - Disorder of lipoprotein metabolism, unspecified, F33.41 - Major depressive disorder, recurrent, in partial remission, G89.4 - Chronic pain syndrome, K86.89 - Other specified diseases of pancreas, M47.816 - Spondylosis without myelopathy or radiculopathy, lumbar region, M79.7 - Fibromyalgia, R32 - Unspecified urinary incontinence, R76.8 - Other specified abnormal immunological findings in serum, Z00.01 - Encounter for general adult medical examination with abnormal findings, Z68.32 - Body mass index [BMI] 32.0-32.9, adult, Z91.09 - Other allergy status, other than to drugs and biological substances Comprehensive Met. Panel Today D36.9 - Benign neoplasm, unspecified site, E66.09 - Other obesity due to excess calories, E78.9 - Disorder of lipoprotein metabolism, unspecified, F33.41 - Major depressive disorder, recurrent, in partial remission, G89.4 - Chronic pain syndrome, K86.89 - Other specified diseases of pancreas, M47.816 - Spondylosis without myelopathy or radiculopathy, lumbar region, M79.7 - Fibromyalgia, R32 - Unspecified urinary incontinence, R76.8 - Other specified abnormal immunological findings in serum, Z00.01 - Encounter for general adult medical examination with abnormal findings, Z68.32 - Body mass index [BMI] 32.0-32.9, adult, Z91.09 - Other allergy status, other than to drugs and biological substances LDL Cholesterol Direct Today D36.9 - Benign neoplasm, unspecified site, E66.09 - Other obesity due to excess calories, E78.9 - Disorder of lipoprotein metabolism, unspecified, F33.41 - Major depressive disorder, recurrent, in partial remission, G89.4 - Chronic pain syndrome, K86.89 - Other specified diseases of pancreas, M47.816 - Spondylosis without myelopathy or radiculopathy, lumbar region, M79.7 - Fibromyalgia, R32 - Unspecified urinary incontinence, R76.8 - Other specified abnormal immunological findings in serum, Z00.01 - Encounter for general adult medical examination with abnormal findings, Z68.32 - Body mass index [BMI] 32.0-32.9, adult, Z91.09 - Other allergy status, other than to drugs and biological substances TSH reflex Free T4 Today D36.9 - Benign neoplasm, unspecified site, E66.09 - Other obesity due to excess calories, E78.9 - Disorder of lipoprotein metabolism, unspecified, F33.41 - Major depressive disorder, recurrent, in partial remission, G89.4 - Chronic pain syndrome, K86.89 - Other specified diseases of pancreas, M47.816 - Spondylosis without myelopathy or radiculopathy, lumbar region, M79.7 - Fibromyalgia, R32 - Unspecified urinary incontinence, R76.8 - Other specified abnormal immunological findings in serum, Z00.01 - Encounter for general adult medical examination with abnormal findings, Z68.32 - Body mass index [BMI] 32.0-32.9, adult, Z91.09 - Other allergy status, other than to drugs and biological substances TDaP Immunization Today Z23 - Encounter for immunization Medications: New tramadol 50 mg PO BEDTIME PRN 90 tabs 0RF pain 90 days Refilled gabapentin 300 mg PO Q8H 90 caps 0RF 30 days
--- OUTSIDE RECORDS SUMMARY | 2025-01-21 17:45 | XMS_ITS | Clinical Summary ---
Author Organization [facility] Address [address] [place] [address] Care Team Providers Care Relay Repairer Name Role Phone Pcp, No Primary Care [...] - 2023-2 5 season) 2024 RSV Vaccine 50 years and old er and Patients (1 - 1-dose 75+ series) 07/16/2038 Hepatitis B Vaccines Aged Out No long er eligible based on patient's age to complete this topic Care Teams Relay Repairer Relationship Specialty Start Date End Date Pcp, No PCP - General General Medicine 04/18/23
== END 2025-01-21 14:33 | disposition home or self-care (01) ==
LOC: HO.HMCC 13:41
PROVIDERS: PCP Internal Medicine; Visit Provider Internal Medicine
DX: Z00.01 Encounter for general adult medical examination with abnormal findings (principal); S00.83XA Contusion of other part of head, initial encounter; S09.93XA Unspecified injury of face, initial encounter; W19.XXXA Unspecified fall, initial encounter; G89.4 Chronic pain syndrome; M47.816 Spondylosis without myelopathy or radiculopathy, lumbar region; M79.7 Fibromyalgia; E66.09 Other obesity due to excess calories; Z68.32 Body mass index [BMI] 32.0-32.9, adult; D36.9 Benign neoplasm, unspecified site; R32 Unspecified urinary incontinence; Z23 Encounter for immunization

== ENCOUNTER 2025-01-21 13:40 | Outpatient (REF) | payer OTHER, SELFPAY ==
[2025-01-21 16:28] LABS: MANUAL DIFF FLAG NO
[2025-01-21 16:56] LABS: Hematocrit 44.7 % (37.0-47.0); Hemoglobin 14.3 g/dl (12.0-16.0); Imm Gran Abs Auto 0.03 X10*3/uL (0.00-0.03); Imm Gran Pct Auto 0.3 % (0.0-0.4); Lymphocytes Absolute Auto 3.3 X10*3/uL (1.2-4.9); Mean Corpuscular HGB Conc 32.0 g/dl (31.0-35.0); Mean Corpuscular Hemoglobin 28.1 pg (27.0-33.0); Mean Corpuscular Volume 87.8 fL (80.0-98.0); NRBC Abs Auto 0.000 X10*3/uL (0.0-0.012); NRBC Pct Auto 0.0 /100WBC (0.0-0.2); Platelet Count 283 X10*3/uL (160-400); Red Blood Count 5.09 X10*6/uL (4.20-5.50); White Blood Count 8.7 X10*3/uL (4.8-10.8)
[2025-01-21 17:18] LABS: Alanine Aminotransferase 32 U/L (0-31); Albumin Level 4.8 g/dL (3.5-5.0); Alkaline Phosphatase 121 U/L (39-117); Anion Gap 11 (12-20); Aspartate Amino Transferase 32 U/L (5-31); Blood Urea Nitrogen 13 mg/dL (9-16); Calcium 9.8 mg/dL (8.4-10.2); Carbon Dioxide 26 mmol/L (22-29); Chloride 109 mmol/L (96-108); Estimated Glomerular Filt Rate > 60; Potassium 4.3 mmol/L (3.3-5.1); Sodium 142 mmol/L (135-145); Total Protein 8.1 g/dL (6.5-8.0)
== END 2025-01-21 13:41 | disposition home or self-care (01) ==
LOC: HO.HMGCLDS 13:40
PROVIDERS: PCP Internal Medicine; Visit Provider Internal Medicine
DX: Z00.01 Encounter for general adult medical examination with abnormal findings (principal); Z23 Encounter for immunization; M47.816 Spondylosis without myelopathy or radiculopathy, lumbar region; M79.7 Fibromyalgia; G89.4 Chronic pain syndrome; D36.9 Benign neoplasm, unspecified site; R32 Unspecified urinary incontinence; K86.89 Other specified diseases of pancreas; E66.09 Other obesity due to excess calories; E78.9 Disorder of lipoprotein metabolism, unspecified; F33.41 Major depressive disorder, recurrent, in partial remission; S09.93XS Unspecified injury of face, sequela; Z91.09 Other allergy status, other than to drugs and biological substances; R76.89 Other specified abnormal immunological findings in serum; Z28.39 Other underimmunization status; Z79.899 Other long term (current) drug therapy
CPT/HCPCS: 36415; 80053; 83721; 84443; 85025; 90471; 90715; 99212; 99396

== ENCOUNTER 2025-01-22 10:35 | Outpatient (AMB) | payer OTHER, SELFPAY ==
--- NOTE | 2025-01-22 10:56 | MHC.OFFVIS ---
Vital Signs 01/22/25 10:57 Height 5 ft 2 in Weight 180 lb 15.992 oz BMI 33.1 Intake Visit Reasons: umbilical hernia Intake Note: This patient presents for an assessment for an umbilical hernia. Pt c/o; Onset 2 years, increased in size, bulge. Director Oncology Required: Yes Director Oncology Language: Logger Services: Director Oncology Offered & Declined Accompanied by: Self / Same As Patient Allergies seafood Allergy (Severe, Verified 01/22/25 11:10) Unknown adhesive tape Adverse Reaction (Verified 01/22/25 11:10) Redness of Skin Medication List - Last Reconciled 01/22/25 by Serafin Roland MD acetaminophen (Tylenol Extra Strength) 500 mg PO Q6H PRN bisacodyl (Dulcolax (bisacodyl)) 10 mg (2 x 5 mg) PO BEDTIME buspirone 5 mg PO BID diaper,brief,adult,disposable As directed duloxetine 30 mg PO BID estradiol 0.01%(0.1mg/gram) (Estrace) 1 g vaginal 3XW 90 days famotidine 20 mg PO BID fluoxetine 20 mg PO DAILY fluticasone propionate 50 mcg/actuation (Flonase Allergy Relief) 1 spray intranasal DAILY gabapentin 300 mg PO Q8H 30 days ketotifen fumarate 0.025%(0.035%) 1 drp ophthalmic (eye) BID glbbze-dcxhozdd-rzaezqr (pork) 24,000-76,000 -120,000 unit (Creon) 2 caps PO QID loratadine 10 mg PO DAILY 90 days phenazopyridine (Azo Urinary Pain Relief) 99.5 mg PO TID PRN plecanatide (Trulance) 3 mg PO DAILY polyethylene glycol 3350 (Miralax) 238 grams PO ONCE sodium fluoride-pot nitrate 1.1-5 % 1 appl PO DAILY tramadol 50 mg PO BEDTIME PRN 90 days underpads (Maxicare Underpads) As directed, 3 nightly. wheat dextrin (Benefiber Sugar Free (dextrin)) 1 tab PO DAILY HPI HPI umbilical hernia: Details: [age] year old female referred for a question of an umbilical hernia. She says that she notices this protuberant on her umbilicus for years now. She feels that this has increasing. She denies any GI complaints. She does have a history of an abdominoplasty procedure about 19 years ago. She says she is healthy overall. [facility] Medical History (Updated 01/22/25 @ 11:22 by Serafin Roland MD) Umbilical mass Dyslipidemia Depression Lumbar radiculopathy KRSITAL positive Tubular adenoma Pancreatic insufficiency Environmental allergies Arthritis Fibromyalgia Surgical History History of reversal of tubal ligation Hx of colonoscopy H/O tubal ligation H/O cosmetic surgery Family History Father HTN (hypertension) Blood infection Heart disease Social History Household Members Other:: daughter Housing: House Alcohol intake: never Patient Tobacco Use Status: Former Tobacco user e-Cigarette/Vaping Use: Never Used service: No Current occupational status: disabled Cognitive needs: No Hearing needs: No Vision needs: No Female Reproductive History Menstrual Age of Menarche: 10 Review of Systems Const Denies chills and Denies fever(s) Card Denies chest pain, Denies dyspnea and Denies dyspnea on exertion Resp Denies cough, Denies dyspnea and Denies dyspnea on exertion GI Denies hematochezia and Denies change in bowel habits Denies hematuria Musc Denies back pain and Denies limited range of motion Neuro Denies focal weakness and Denies convulsions Psych Denies depression and Denies mood swings Physical Exam Vital Signs: BMI result Body Mass Index 33.1 Const General: comfortable and no acute distress Orientation/consciousness: patient oriented x3 Neck Neck: Yes no lymphadenopathy Resp Auscultation: clear to auscultation bilaterally Cardio Rhythm: regular rhythm GI Other: Protuberant on the abdominal wall around the umbilicus with Valsalva, no obvious fascial defect Palpation (GI): Soft to palpation, nontender and no guarding Neuro General: patient oriented x3 Assessment & Plan Assessment & Plan (1) Umbilical mass: Code(s): R19.09 - Other intra-abdominal and pelvic swelling, mass and lump Category: Medical Plan: She has this vague protuberant of the abdominal wall around the umbilicus with Valsalva. I do not feel any obvious fascial defect. I am uncertain as to whether this is a hernias so I am going to send her for a CAT scan of the abdomen and pelvis I will see her in the office again to review her CAT scan and we will plan on the next step in her care after that She is comfortable with the plan. Coding Level of Care Code New Pt Level 3 (96587) Diagnoses Umbilical mass R19.09
[2025-01-22 10:57] VITALS: BMI 33.1
--- OUTSIDE RECORDS SUMMARY | 2025-01-22 13:10 | XMS_ITS | Clinical Summary ---
Author Organization [facility] Address [address] [place] [address] Care Team Providers Care Hospitalist Medical Director Name Role Phone Pcp, No Primary Care [...] age to complete this topic Care Teams Hospitalist Medical Director Relationship Specialty Start Date End Date Pcp, No PCP - General General Medicine 04/18/23
== END 2025-01-22 11:51 | disposition home or self-care (01) ==
LOC: HO.HGS 10:36
PROVIDERS: PCP Internal Medicine; Visit Provider Surgery
DX: R19.09 Other intra-abdominal and pelvic swelling, mass and lump (principal)
CPT/HCPCS: 99203

== ENCOUNTER → 2025-01-22 10:35 | Outpatient (BNVA) | payer OTHER, SELFPAY | PROVIDERS: PCP Internal Medicine; Visit Provider Surgery | DX: R19.09 Other intra-abdominal and pelvic swelling, mass and lump (principal) | CPT/HCPCS: 99202 ==

== ENCOUNTER 2025-02-04 08:50 | Day surgery (SDC) | payer OTHER, SELFPAY ==
--- NOTE | 2025-01-30 10:11 | HO.ANESPROP2 ---
Documented by User: Denisse Blakely NP 01/30/25 10:12 HPI - Anesthesia Eval Consult details Narrative: 59yo F for Upper Endoscopy and Colonoscopy PMFSH Active Problems Active Problems: All Active Problems Umbilical mass (Acute) Immunizations incomplete (Acute) Traumatic ecchymosis of face (Acute) Facial trauma (Acute) Fall (Acute) Dysuria (Acute) Urinary tract infection (Acute) Ruptured left breast implant (Acute) Cyst of right breast (Acute) Breast lump (Acute) Multiple joint pain (Acute) Renal cyst (Acute) Back pain (Acute) Balance problem (Acute) Abnormal tandem walk (Acute) Microscopic hematuria (Acute) Nocturia (Acute) Mixed incontinence urge and stress (Acute) Urine incontinence (Acute) Paresthesia of both feet (Acute) Chest pain (Acute) Pain of right thumb (Acute) Knee pain, right (Acute) Hiatal hernia (Acute) Diastasis recti (Acute) Hip pain, left (Acute) Non-restorative sleep (Acute) Lumbar radiculopathy (Acute) Major depression, recurrent (Acute) Fibromyalgia (Acute) Elbow pain, right (Acute) Hip pain, right (Acute) Chronic pain syndrome (Acute) Osteoarthritis, generalized (Acute) Constipation by delayed colonic transit (Acute) Chronic lumbar pain (Acute) Right tennis elbow (Acute) Lipid disorder (Acute) Cervical high risk HPV (human papillomavirus) test positive (Acute) Lumbar spondylosis (Acute) Maxillary sinusitis, acute (Acute) Breast screening (Acute) Pre-op evaluation (Acute) Headache syndrome (Acute) Colon cancer screening (Acute) Encounter for general adult medical examination with abnormal findings (Acute) Obesity due to excess calories (Acute) Knee pain (Acute) Well woman exam (Acute) Shortness of breath (Acute) KRISTAL positive (Acute) Environmental allergies (Acute) Fibromyalgia (Acute) Tubular adenoma (Acute) Pancreatic insufficiency (Acute) Past Medical History Medical History Umbilical mass Dyslipidemia Depression Lumbar radiculopathy KRISTAL positive Tubular adenoma Pancreatic insufficiency Environmental allergies Arthritis Fibromyalgia Family History Family History Father HTN (hypertension) Blood infection Heart disease Family history of problems with anesthesia: No Surgical History Surgical History History of esophagogastroduodenoscopy (EGD) History of reversal of tubal ligation Hx of colonoscopy H/O tubal ligation H/O cosmetic surgery History of Problems with Anesthesia: No Social History Social History Household Members Other:: daughter Housing: House Alcohol intake: never Patient Tobacco Use Status: Former Tobacco user e-Cigarette/Vaping Use: Never Used Use of substances other than those prescribed or required for medical reasons: No Are you DNR?: No Advance Directives: No Advance Directives Information Provided: Yes Patient : No : No service: No Current occupational status: disabled Cognitive needs: No Hearing needs: No Vision needs: No Meds Allergies Allergy/AdvReac Type Severity Reaction Status Date / Time shellfish derived (shellfish) Allergy Severe Angioedema Verified 02/04/25 08:58 adhesive tape AdvReac Mild Redness of Verified 02/04/25 08:58 Skin Home Medications ?Medication ?Instructions ?Recorded ?Confirmed ?Last Taken ?Type ketotifen fumarate 0.025 % (0.035 1 drp ophthalmic (eye) BID 03/18/20 01/31/25 Unknown History %) eye drops buspirone 5 mg tablet 5 mg PO BID anxiety 04/13/22 01/31/25 Unknown History fluoxetine 20 mg capsule 20 mg PO DAILY 01/11/23 01/31/25 Unknown History sodium fluoride 1.1 %-potassium 1 appl PO DAILY 06/17/24 01/31/25 Unknown History nitrate 5 % dental paste phenazopyridine 99.5 mg tablet 99.5 mg PO TID PRN Bladder Spasms 08/12/24 01/31/25 Unknown History (Azo Urinary Pain Relief) duloxetine 30 mg capsule,delayed 30 mg PO BID 12/18/24 01/31/25 Unknown History release Exam Pertinent Lab Results Pertinent Lab Results: Laboratory Tests 01/21/25 14:40 WBC 8.7 Hgb 14.3 Hct 44.7 Plt Count 283 Sodium 142 Potassium 4.3 Chloride 109 H Carbon Dioxide 26 BUN 13 Creatinine 0.63 Assessment and Plan Assessment Anesthesia Assessment: Chart Reviewed Final Anesthetic Review Family History of Problems with Anesthesia: No History of Problems with Anesthesia: No Documented by User: Fili Henderson MD 02/04/25 09:34 [facility] Past Medical History Medical History Umbilical mass Dyslipidemia Depression Lumbar radiculopathy KRISTAL positive Tubular adenoma Pancreatic insufficiency Environmental allergies Arthritis Fibromyalgia Family History Family History Father HTN (hypertension) Blood infection Heart disease Surgical History Surgical History History of esophagogastroduodenoscopy (EGD) History of reversal of tubal ligation Hx of colonoscopy H/O tubal ligation H/O cosmetic surgery Social History Social History Household Members Other:: daughter Housing: House Alcohol intake: never Patient Tobacco Use Status: Former Tobacco user e-Cigarette/Vaping Use: Never Used Use of substances other than those prescribed or required for medical reasons: No Are you DNR?: No Advance Directives: No Advance Directives Information Provided: Yes Patient : No : No service: No Current occupational status: disabled Cognitive needs: No Hearing needs: No Vision needs: No Meds Allergies Allergy/AdvReac Type Severity Reaction Status Date / Time shellfish derived (shellfish) Allergy Severe Angioedema Verified 02/04/25 08:58 adhesive tape AdvReac Mild Redness of Verified 02/04/25 08:58 Skin Home Medications ?Medication ?Instructions ?Recorded ?Confirmed ?Last Taken ?Type ketotifen fumarate 0.025 % (0.035 1 drp ophthalmic (eye) BID 03/18/20 01/31/25 Unknown History %) eye drops buspirone 5 mg tablet 5 mg PO BID anxiety 04/13/22 01/31/25 Unknown History fluoxetine 20 mg capsule 20 mg PO DAILY 01/11/23 01/31/25 Unknown History sodium fluoride 1.1 %-potassium 1 appl PO DAILY 06/17/24 01/31/25 Unknown History nitrate 5 % dental paste phenazopyridine 99.5 mg tablet 99.5 mg PO TID PRN Bladder Spasms 08/12/24 01/31/25 Unknown History (Azo Urinary Pain Relief) duloxetine 30 mg capsule,delayed 30 mg PO BID 12/18/24 01/31/25 Unknown History release Exam Exam Date and Time: 02/04/2025 Airway Mallampati Class: II TM Dist: >3cm Neck ROM: Full Heart: rrr Lungs: ctab vesicular Assessment and Plan Assessment Anesthesia Assessment: Anesthesia Plan Discussed Final Anesthetic Review NPO: Yes ASA Class: II Final Preanesthetic Review: No Changes in Pt Med Stat, Meds/Allgs Chart Reviewed, Consent Obtained/Reviewed and Anes Risks/Benef Reviewed Patient Risk: Low Procedure Risk: Low Anesthetic Plan Anesthetic Plan: MAC: Disposition: Standard PACU
[2025-01-31 13:46] VITALS: BMI 33.1
[2025-02-04 09:01] VITALS: BMI 32.3
[2025-02-04 09:05] VITALS: BP 108/66; PULSE 76; RESP 16; TEMP 36.6; O2SAT 97
[2025-02-04] MEDS: Lactated Ringers 1,000 ML 100 ML IVCONT (09:17)
--- NOTE | 2025-02-04 09:19 | P.HPSUR_ITS ---
Pre-Procedural Eval Section A - 24 Hr Update-Section A only Date of Service: 02/04/25 Section B - Complete if H&P > 30 days Chief Complaint: gerd,screening Relevant Family History (Specify if Yes): No Relevant Social History: None Present Medications: see Short Stay Collaborative assessment Medical History: Significant History (Dyslipidemia Depression Lumbar radiculopathy KRISTAL positive Tubular adenoma Pancreatic insufficiency Environmental allergies Arthritis Fibromyalgia) History of Previous Operations: Relevant previous surgery/procedure and date(s) (History of reversal of tubal ligation Hx of colonoscopy H/O tubal ligation H/O cosmetic surgery) Allergies: Allergies Allergy/AdvReac Type Severity Reaction Status Date / Time shellfish derived (shellfish) Allergy Severe Angioedema Verified 02/04/25 08:58 adhesive tape AdvReac Mild Redness of Verified 02/04/25 08:58 Skin Review of Systems Sugical H&P ROS: Negative: Constitution, Cardiovascular, Respiratory, Neurological, Psychiatric, Hem-Onc, Allergic/Immunologic, Gastrointestinal, Gen itourinary, Musculoskeletal, Integumentary, Endocrine and Eyes/Ears/Nose/Throat Exam Surgical H&P Exam: Normal: HEENT, Normal: Heart, Normal: Lungs, Normal: Extremities, Normal: Abdomen, Normal: Skin and Normal: Neurological Plan Diagnosis/Plan: Unchanged I have reviewed the history and physical and performed a pertinent physical examination on my patient. No changes have occurred unless specified. Time Spent With Patient Time: Total time managing care of this patient today ____ minutes.
--- NOTE | 2025-02-04 10:05 | HO.OPN-COLON ---
Colonoscopy Operative Note Operative Note Date of Service: 02/04/25 Narrative: Operative Information Procedure Description: EGD, Colonoscopy Indication: GERD, screening Anesthesia: MAC FLEXIBLE TRANSORAL UPPER GASTROINTESTINAL ENDOSCOPY AND COLONOSCOPY PROCEDURE NOTE UPPER ENDOSCOPY Consent: Indications for the procedure and potential complications of bleeding, perforation, reaction to medications and missed diagnosis were discussed with the patient and informed consent was obtained. Instrument: Olympus GIF H 190 J mid size upper endoscope Monitoring: Vital signs and clinical assessment, continuous EKG monitoring, Pulse oximetry, Carbon Dioxide monitoring and blood pressure monitoring were done throughout the procedure. Procedure: The patient was placed in the left lateral decubitis position and pre-procedure medications were administered and a bite block was placed. The endoscope was inserted into the mouth and advanced under direct vision to the third part of duodenum. A careful inspection was made as the upper endoscope was withdrawn including a retroflexed examination of the proximal stomach; Findings and interventions are described below. Findings: Larynx:normal Esophagus: GE junction at 34 cm, diaphragm hiatus at 37 cm, consistent with 3 cm sliding hiatal hernia.The LES was lax. Small esophageal inlet patch noted. Stomach: Streaky gastritis in mid stomach. Biopsies were obtained. Grade 2 flap valve on retroflexed examination of the cardia. Duodenum: Normal bulb and descending duodenum, bx taken for disaccharidases Intervention: Biopsies as noted above- COLONOSCOPY Instrument: Olympus variable stiffness pediatric scope 190L Colonoscopy Monitoring: Vital signs and clinical assessment, continuous EKG monitoring, Pulse oximetry, Carbon Dioxide monitoring and blood pressure monitoring were done throughout the procedure. Colon withdrawal time was 10 minutes. Procedure: The patient was placed in the left lateral decubitis position and pre-procedure medications were administered. After a digital rectal examination of the ano-rectum, the video colonoscope was inserted into the rectum and advanced through the colon to the cecum/TI. The colonoscope was slowly withdrawn in a retrograde panoramic fashion and the colon mucosa was carefully examined including a retroflexed view of the rectum. Findings and interventions are described below. Procedure Difficulty:moderate Findings: Terminal Ileum-normal Cecum:normal Ascending Colon: normal Transverse Colon -normal Descending Colon:normal Sigmoid Colon: normal Rectum: Retroflexion with small internal hemorrhoids, grade I Anorectum - normal Colon preparation: [place] Bowel Preparation Scale Right colon; 1-2 Transverse colon: 2 Left colon; 1-2 (0 = Unprepared colon segment with mucosa not seen due to solid stool that cannot be cleared. 1 = Portion of mucosa of the colon segment seen, but other areas of the colon segment not well seen due to staining, residual stool and/or opaque liquid. 2 = Minor amount of residual staining, small fragments of stool and/or opaque liquid, but mucosa of colon segment seen well. 3 = Entire mucosa of colon segment seen well with no residual staining, small fragments of stool or opaque liquid) Impression and Post Procedure Diagnosis: Endoscopy Findings: hiatal hernia gastritis Colonoscopy Findings: internal hemorrhoids Plan: Await Pathology results Repeat Colonoscopy in 1 year due to areas of fair prep or earlier if clinically indicated High fiber diet leaflet avoid straining at stool, epsom salts and sitz bath, anusol supps or cream Above findings were reviewed with the patient and relevant handouts were provided if indicated.
[2025-02-04 10:10] VITALS: BP 105/62; PULSE 70; RESP 15; TEMP 36.4; O2SAT 96
[2025-02-04 10:25] VITALS: BP 107/63; PULSE 66; RESP 15; O2SAT 98
[2025-02-04 10:40] VITALS: BP 129/73; PULSE 52; RESP 15; O2SAT 98
[2025-02-04 10:45] VITALS: BP 123/62; PULSE 51; RESP 15; O2SAT 98
[2025-02-04 11:02] VITALS: BP 122/68; PULSE 58; RESP 18; TEMP 36.4; O2SAT 96
[2025-02-08 20:29] LABS: Lactase 5.2 (15.0-45.5); Maltase 212.5 (100.0-224.4); Palatinase 19.3 (5.0-26.3); Sucrase 69.1 (25.0-69.9)
== END 2025-02-04 11:43 | disposition home or self-care (01) ==
PROVIDERS: PCP Internal Medicine; Visit Provider Internal Medicine Gastroenterology
PROC: (CPT 43239; principal; 2025-02-04 11:00)
DX: Z12.11 Encounter for screening for malignant neoplasm of colon (principal); K21.9 Gastro-esophageal reflux disease without esophagitis; K59.01 Slow transit constipation; K44.9 Diaphragmatic hernia without obstruction or gangrene; K58.9 Irritable bowel syndrome, unspecified; K86.89 Other specified diseases of pancreas; K76.0 Fatty (change of) liver, not elsewhere classified; K64.8 Other hemorrhoids; K29.70 Gastritis, unspecified, without bleeding
CPT/HCPCS: 43239; G0105; 82657; 88305; 88313; 88342; J2003; J2704

== ENCOUNTER → 2025-02-04 08:50 | Outpatient (BNV) | payer OTHER, SELFPAY | PROVIDERS: PCP Internal Medicine; Visit Provider Internal Medicine Gastroenterology | DX: Z12.11 Encounter for screening for malignant neoplasm of colon (principal); K64.0 First degree hemorrhoids; K21.9 Gastro-esophageal reflux disease without esophagitis; K22.89 Other specified disease of esophagus; K29.70 Gastritis, unspecified, without bleeding | CPT/HCPCS: 43239; G0121 ==

== ENCOUNTER 2025-02-13 09:39 | Outpatient (REF) | payer OTHER, SELFPAY ==
[2025-02-13 11:08] LABS: Blood Urea Nitrogen 10 mg/dL (9-16); Estimated Glomerular Filt Rate > 60
== END 2025-02-13 09:40 | disposition home or self-care (01) ==
LOC: HO.LAB 09:39
PROVIDERS: PCP Internal Medicine; Visit Provider Surgery
DX: R19.09 Other intra-abdominal and pelvic swelling, mass and lump (principal)
CPT/HCPCS: 36415; 82565; 84520

== ENCOUNTER 2025-02-26 08:20 | Outpatient (REF) | payer OTHER, SELFPAY ==
--- OUTSIDE RECORDS SUMMARY | 2023-05-30 07:45 | XMS_ITS | Continuity of Care Document ---
Author Organization [facility] Address [address] [place] [address] Phone Care Team Providers Care Wordpress Developer Name Role Phone Huey SNYDER, RVT, KASSANDRA, Justin Unavailable U navailable Allergies, Adverse Reactions, Alerts Substance Reaction Status Criticality No Known Allergies Active No Inform ation Medications Medication Instructions Dosage Effective Dates (start - stop) Status Comments Tylenol 325 mg capsule - Act radha CREON (unknown strength) Not Available - Active FLONASE ALLERGY RELIEF (unknown strength) Not Available - Active GABAPENTIN (unknown strength) Not Available - Active Procedures Procedure Date Office/Outpt E&M Established 15 Mins May Sngl/mx Inj Scleros-veins; Vargas Office/Outpt E&M Established 15 Mins Mar No Charge For Services Office/Outpt E&M Established 15 Mins Mar Duplex Scan-extrem Veins; Uni/ Duplex Scan-extrem Veins; Uni/ Varithena, Single Truncal Vein Varithena, Multiple Truncal Veins Same L eg Offic/outpt E&m Estab 5 Min Trial - Tele medicine Duplex Scan-extrem Veins; Comp Office/Oupt E&M New Pt 30 Mins Advance Directives Directive Yes / No Effective Date File Name No Information Encounters Encounter Description Practice Location Reason(s) For Visit Diagnoses Date Provider Providers Copied on Encounter Office/Outpt E&M Established 15 Mins [facility], [address] [place] [address] Dr Eli 1000SuTrever abdalla [place], [id number], [place] tel:[phone] [place] Venous insufficiency (chronic) (peripheral)Ne vus, non-neoplastic 4 Huey SNYDER RVT, KASSANDRA Anderson. [address] [place] [address], [facility], [place], [id number] , [place]. tel: [phone] [facility], [address] [place] [address] Dr Eli 1000Suite [place], [id number], [place] tel:[phone] [place] Nevus, non-neoplastic 4 Mollperico Garces . [address] [place] [address], [facility], [place], [id number] , [place]. tel: [phone] Office/Outpt E&M Established 15 Mins [facility], [address] [place] [address] Dr Eli 1000SuTrever abdalla [place], [id number], [place] tel:[phone] [place] Venous insufficiency (chronic) (peripheral)Ne vus, non-neoplastic 4 Huey SNYDER RVT, KASSANDRA Anderson. [address] [place] [address], [facility], [place], [id number] , [place]. tel: [phone] Office/Outpt E&M Established 15 Mins [facility], [address] [place] [address] Dr Eli 1000SuTrever abdalla [place], [id number], [place] tel:[phone] [place] Chronic venous hypertension (idiopathic) without complications of left lower extremityObesi ty, unspecified 4 Huey SNYDER RVT, KASSANDRA Anderson. [address] [place] [address], [place] [address], [facility], [place], [id number] , [place]. tel: [phone] [facility], [address] [place] [address] Dr Eli 1000SuTrever abdalla [place], [id number], [place] tel:[phone] [place] Varicose veins of left lower extremity with pain 4 Huey SNYDER RVT, RPVI Robert. [address] [place] [address], [address] [facility], [facility] [place] [place], [id number] , [place]. tel:[phone] Referring Provider: Justin Arzate MD, RVT, KASSANDRA, [address] [place] [address] Suite [facility], [place], [address] . tel:[phone] [facility], [address] [place] [address] Dr Eli [address] 1000[place], [id number], [place] tel:[phone] [place] Encounter for follow-up examination after completed treatment for conditions other than malignant neoplasm 3 Hung Betancourt. [address] [place] [address], [place] [address], [place] [place], [address], [place]. tel:[phone] Referring Provider: Justin Arzate MD, RVT, KASSANDRA, [address] [place] [address] Suite [facility], [place], [address] . tel:[phone] [facility], [address] [place] [address] Dr Eli [address], [id number], tel:[phone] [place] Varicose veins of left lower extremity with inflammation 3 Huey SNYDER RVT, RPVI Robert. [address] [place] [address], [place], [id number] , [place]. tel:[phone] Referring Provider: Justin Arzate MD, RVT, KASSANDRA, [address] [place] [address] [address] [facility], [place], [address] . tel:[phone] [facility], [address] [place] [address] Dr Eli [address] 1000[place], [id number], tel:[phone] [place] Chronic venous hypertension (idiopathic) with inflammation of left lower extremity 3 Huey SNYDER RVT, RPVI Robert. [address] [place] [address], [place] [address], [facility] [place] [place], [id number] , [place]. [phone] Referring Provider: Justin Arzate MD, RVT, [facility], [address] [place] [address], [place], [address] . tel:[phone] Offic/outpt E&m Estab 5 Min Trial - Telemedicine [facility], [address] [place] [address] [facility] [address], [place], [id number], [place] tel:[phone] [place] Chronic venous hypertension (idiopathic) with other complications of bilateral lower extremity Oct-2 3- 3 Huey SNYDER, RVT, FABIO Anderson. [address] [place] [address], [place] [address], [place], [id number] , [place]. tel:[phone] Referring Provider: Avelino Persaud MD FACS T [facility], [address] [place] [address], [place], [address]. tel:[phone] [facility], [address] [place] [address] [address], [place], [id number], [place] tel:[phone] [place] Chronic venous htn w oth comp of bilateral low extrm Sep-0 3 Hung SNYDER FACS DEBBIE Betancourt. [address] [place] [address], [place] [address], [place], [address], [place]. tel:[phone] Referring Provider: Avelino Persaud MD FACS T [facility], [address] [place] [address], [place], [address]. tel:[phone] Office/Oupt E&M New Pt 30 Mins [facility], [address] [place] [address] [address], [id number], [place] tel:[phone] [place] Varicose veins of left lower extremities w oth complicationsL ocalized edemaCramp and spasmPruritus, unspecified Sep-0 8- 3 Hung BOSST KASSANDRA Betancourt. [address] [place] [address], [place] [address], [place] [place], [address], [place]. tel:[phone] Referring Provider: Avelino Persaud MD FACS RVT [facility], [address], [place], [address]. tel:[phone] Family History Family Member Type Diagnosis Age At Onset No Information Payers Payer name Insurance type Covered constitution party ID Authoriza tion(s) Self Pay 09 Social History Type Description Quantity Date Captured Comments Alcohol Use Details No Caffeine Use Details Unknown Tobacco Use Status Current non-smoker Smoking Status Never smoker Non-Smoking Tobacco Use Details : No Details Available : No Details Available Sex Female Chief Complaint And Reason For Visit No Information Reason For Referral Reason For Referral No Information Plan Of Treatment Date Type Action Status Goal Tobacco cessation counseling completed Goal Diet education completed Goal Diet education completed Referral Ordered: Weight management: Referral to physician timeframe: 3 Months (related to Body mass index (BMI) 32.0-32.9, adult) ordered Referral Ordered: Weight management: Referral to physician timeframe: 3 Months (related to Body mass index (BMI) 32.0-32.9, adult) ordered History Of Present Illness Encounter Date Complaint History Of Prese nt Illness No Information Functional Status Date Functional Assessmen t No Information Instructions Date Instruction Additional Infor mation Lifestyle education Related to B indra mass index (BMI) 32.0-32.9, adult Giving Encouragement to exercise Related to Body mass index (BMI) 32.0-32.9, adult Patient education booklet given Related to Chronic venous hypertension (idiopathic) without complications of left lower extremity Diet education Related to Body mass index (BMI) 32.0-32.9, adult Continue compression stocking us e Related to Chrn Vns Hyprtnsn w/Compl (Pain Edema Swelling); BILAT Patient education booklet given Related to Chrn Vns Hyprtnsn w/Compl (Pain Edema Swelling); BILAT Pre and post instruc tions reviewed and provided Related to Varicose veins of left lower extremities w oth complications Patient education booklet given Related to Varicose veins of left lower extremities w oth complications Lifestyle education Related to B indra mass index (BMI) 32.0-32.9, adult Giving Encouragement to exercise Related to Body mass index (BMI) 32.0-32.9, adult Diet education Related to Body mass index (BMI) 32.0-32.9, adult Assessments Type Assessment Date assessment Chronic venous hyper tension (idiopathic) without complications of bilateral lower extremity assessment Nevus, non-neoplastic Patient Care Teams Name Effective Dates (start - stop) Status Members No Information
--- NOTE | ~2025-02-26 | CT_ITS ---
CLINICAL HISTORY: R19.09 - Other intra-abdominal and pelvic swelling, mass and lump CT ABDOMEN AND PELVIS WITHOUT CONTRAST Comparison: None provided Findings: No basilar consolidation or pleural effusion. Bilateral breast prostheses are partly visualized. No acute abnormalities in the unenhanced solid organs. Tiny nonobstructing calculi in the mid and lower poles of the left kidney. Partly contracted gallbladder. No large calcified gallstone. No AAA. No bowel obstruction, pneumoperitoneum, or pneumatosis. No significant mesenteric or paracolic edema. No ascites or organized fluid collection. The appendix is identified. No acute appendicitis. CT appearance of the uterus unremarkable. Grossly unremarkable underdistended urinary bladder. No acute fracture. IMPRESSION: 1. No obstructive or acute inflammatory changes in the gastrointestinal and genitourinary tracts. 2. Nonobstructing punctate left nephrolithiasis. This document has been electronically signed by: Lynne Nunez DO on 02/26/2025 13:57:26
--- OUTSIDE RECORDS SUMMARY | 2025-02-26 08:29 | XMS_ITS | Clinical Summary ---
Author Organization [facility] Address [address] [place] [address] Care Team Providers Care Geographical Historian Name Role Phone Pcp, No Primary Care [...] age to complete this topic Care Teams Geographical Historian Relationship Specialty Start Date End Date Pcp, No PCP - General General Medicine 04/18/23
== END 2025-02-26 08:21 | disposition home or self-care (01) ==
LOC: HO.CT 08:20
PROVIDERS: PCP Internal Medicine; Visit Provider Surgery
DX: R19.09 Other intra-abdominal and pelvic swelling, mass and lump (principal)
CPT/HCPCS: 74176

== ENCOUNTER → 2025-02-26 08:22 | Outpatient (BNV) | payer OTHER, SELFPAY | PROVIDERS: PCP Internal Medicine; Visit Provider Radiology Diagnostic Radiology | DX: N20.0 Calculus of kidney (principal) | CPT/HCPCS: 74176 ==

== ENCOUNTER 2025-03-11 08:21 | Outpatient (REF) | payer OTHER, SELFPAY ==
--- OUTSIDE RECORDS SUMMARY | 2023-05-30 07:45 | XMS_ITS | Continuity of Care Document ---
Author Organization [facility] Address [address] [place] [address] Dr [address] [place] [address] Phone Care Team Providers Care Broadcast News Producer Name Role Phone Huey SNYDER, DEBBIE, Justin CANNON Unavailable U navailable Allergies, Adverse Reactions, Alerts Substance Reaction Status Criticality No Known Allergies Active No Inform ation Medications Medication Instructions Dosage Dose Quantity Effective Dates (start - stop) Status Indication Fill Status Comments Tylenol 325 mg capsule 3 - Active CREON (unknown strength) Not Availabl e - Active FLONASE ALLERGY RELIEF (unknown strength) Not Availabl e - Active GABAPENTIN (unknown strength) Not Availabl e - Active Procedures Procedure Date Office/Outpt E&M Established 15 Mins May Advance Directives Directive Yes / No Effective Date File Name No Information Encounters Encounter Description Practice Location Reason(s) For Visit Diagnoses Date Provider Encounter Disposition Office/Outpt E&M Established 15 Mins [place] [facility], [address] [place] [address] Dr Eli [address], [id number], [place] tel:[phone] R [facility] Venous insufficiency (chronic) (peripheral)N evus, non-neoplasti c 4 Huey SNYDER, DEBBIE, KASSANDRA Anderson. [address] [facility] [address], [place], [id number] , [place]. tel:[phone] [facility], [address] [place] [address] Dr Eli [address] 1000[place], [id number], [place] tel:[phone] CV[place] - [place] Nevus, non-neoplasti c 4 Bridget THAKUR Mili . [address] [place] [address], [place], [place], [id number] , [place]. tel: [phone] [facility], [address] [place] [address] Dr Eli 1000Tre[place] ab[place], [id number], [place] tel:[phone] CVR - [facility] Venous insufficiency (chronic) (peripheral)N evus, non-neoplasti c 4 Huey SNYDER RVT, KASSANDRA Anderson. [address] [place] [address], [place], [place], [id number] , [place]. tel: [phone] [place] [facility], [address] [place] [address] Dr Eli [address] [place], [id number], [place] tel:[phone] CVR - [facility] Chronic venous hypertension (idiopathic) without complications of left lower extremityObes ity, unspecified 4 Huey SNYDER RVT, KASSANDRA Anderson. [address] [place] [address], [place], [id number] , [place]. tel: [phone] [facility], [address] [place] [address] Dr Eli [address] [place], [id number], [place] tel:[phone] CVR - [facility] Varicose veins of left lower extremity with pain 4 Huey SNYDER RVT, KASSANDRA Anderson. [address] [place] [address], [place], [id number] , [place]. tel: [phone] [facility], [address] [place] [address] Dr Eli 1000[place], [id number], [place] tel:[phone] CVR - [facility] Encounter for follow-up examination after completed treatment for conditions other than malignant neoplasm 3 Hung Betancourt. [address] [place] [address], [place], [address], [place]. tel: [phone] [facility], [address] [place] [address] Dr Eli 1000SuTrever abdalla [place], [id number], [place] tel:[phone] CV[place] - [place] Varicose veins of left lower extremity with inflammation Dec-0 3 Huey SNYDER RVT, KASSANDRA Anderson. [address] [place] [address], [address] [facility], [place], [id number] , [place]. tel: [phone] [facility], [address] [place] [address] Dr Eli 1000Suite [place], [id number], [place] tel:[phone] CV[place] Chronic venous hypertension (idiopathic) with inflammation of left lower extremity Nov- 3 Huey SNYDER RVT, KASSANDRA Anderson. [address] [place] [address], [place] [address], [place], [place], [id number] , [place]. tel: [phone] [facility], [address] [place] [address] Dr Eli 1000[place], [id number], [place] tel:[phone] [place] Chronic venous hypertension (idiopathic) with other complications of bilateral lower extremity Oct-2 3 Huey SNYDER RVT, KASSANDRA Anderson. [address] [place] [address], [facility] [address], [place], [id number] , [place]. tel: [phone] [facility] [place] [facility] Dr Eli 1000SuTrever abdalla [place], [id number], [place] tel:[phone] [place] Chronic venous htn w oth comp of bilateral low extrm Sep-0 3 Hung Betancourt. [address] [place] [address], [place] [address], [facility], [address], [place]. tel: [phone] [facility], [address] [place] [address] Dr Eli 1000SuTrever [place]dalla MD, [id number], [place] tel:[phone] CV[place] Varicose veins of left lower extremities w oth complications Localized edemaCramp and spasmPruritus , unspecified 3 Hung SNYDER FACS RVT KASSANDRA Betancourt. [address] [facility], [address], [place], [address], [place]. tel:[phone] Family History Family Member Type Diagnosis Age At Onset No Information Payers Payer name Insurance type Identifiers Authorization(s) Com ments Self Pay 09 Member ID:Subscriber ID:Group Name: Coverage Status Eligibility Check on: UnknownRelationship to Subscriber: selfPayer Address: [address] [place] [address], [place], [address], [employer] Phone: Social History Type Description Quantity Date Captured Comments Alcohol Use Details No Caffeine Use Details Unknown Tobacco Use Status Current non-smoker Smoking Status Never smoker Non-Smoking Tobacco Use Details : No Details Available : No Details Available Sex Female Current Gender Female (finding) Unknown Chief Complaint And Reason For Visit No Information Plan Of Treatment Date Type [...] nt Illness No Information Functional Status Date Description Comments No Information Instructions Date Instruction Additional Infor mation Diet education Related to Body mass index (BMI) 32.0-32.9, adult Patient education booklet given Related to Chronic venous hypertension (idiopathic) without complications of left lower extremity Giving Encouragement to exercise Related to Body mass index (BMI) 32.0-32.9, adult Lifestyle education Related to B indra mass index (BMI) 32.0-32.9, adult Continue compression stocking us e Related to Chrn Vns Hyprtnsn w/Compl (Pain Edema Swelling); BILAT Patient education booklet given Related to Chrn Vns Hyprtnsn w/Compl (Pain Edema Swelling); BILAT Diet education Related to Body mass index (BMI) 32.0-32.9, adult Giving Encouragement to exercise Related to Body mass index (BMI) 32.0-32.9, adult Lifestyle education Related to B indra mass index (BMI) 32.0-32.9, adult Patient education booklet given Related to Varicose veins of left lower extremities w oth complications Pre and post instruc tions reviewed and provided Related to Varicose veins of left lower extremities w oth complications Assessments Type Assessment Date assessment Chronic venous hyper tension (idiopathic) without complications of bilateral lower extremity assessment Nevus, non-neoplastic
--- OUTSIDE RECORDS SUMMARY | 2025-03-11 20:34 | XMS_ITS | Clinical Summary ---
Author Organization [facility] Address [address] [place] [address] Care Team Providers Care Plastics Fabricator Name Role Phone Pcp, No Primary Care [...] of 2) 07/16/2013 COVID-19 Vaccine ( - 2024-2 6 season) 2024 RSV Vaccine 50 years and old er and Patients (1 - 1-dose 75+ series) 07/16/2038 Hepatitis B Vaccines Aged Out No long er eligible based on patient's age to complete this topic Care Teams Plastics Fabricator Relationship Specialty Start Date End Date Pcp, No PCP - General General Medicine 04/18/23
== END 2025-03-11 08:22 | disposition home or self-care (01) ==
LOC: HO.LNP 08:21
PROVIDERS: Nurse Practitioner Family; PCP Internal Medicine; Visit Provider Internal Medicine Gastroenterology
DX: K21.9 Gastro-esophageal reflux disease without esophagitis (principal); K59.01 Slow transit constipation
CPT/HCPCS: 83013; 99211

== ENCOUNTER 2025-03-11 08:21 | Outpatient (AMB) | payer OTHER, SELFPAY ==
--- NOTE | 2025-03-11 08:44 | AM.OFFVISNUR ---
Intake Visit Reasons: h pylori Intake Note: Patient presents for collection of?H Pylori?breath test. Patient has been fasting for 1 hour (nothing to eat, drink, no chewing gum or smoking) has not taken any antacid medication for at least 2 weeks and has no allergies to artificial sweeteners.?? Header Up Required: No Allergies shellfish derived (shellfish) Allergy (Severe, Verified 03/11/25 08:46) Angioedema adhesive tape Adverse Reaction (Mild, Verified 03/11/25 08:46) Redness of Skin Assessment & Plan Assessment & Plan (1) Constipation by delayed colonic transit: Code(s): K59.01 - Slow transit constipation Category: Medical Plan Patient presents for collection of?H Pylori?breath test. Patient has been fasting for 1 hour (nothing to eat, drink, no chewing gum or smoking) has not taken any antacid medication for at least 2 weeks and has no allergies to artificial sweeteners.???This test checks for an overgrowth of bacteria in your stomach. We all have bacteria but some may have more than others. It is treatable. if the test comes back negative there is nothing else to do. If the test result is positive we will treat you with 2 antibiotics and a medication to decrease the acid in your stomach (PPI) for 2 weeks. Two weeks after you have completed the treatment we will retest you to make sure the overgrowth has resolved. Orders: Orders H Pylori Breath Test Today K59.01 - Slow transit constipation Patient Instructions: Process for specimen collection and reason for testing was explained to the patient. Specimen collection. Patient instructed to take a deep breath and then exhale into the blue bag, filling it up as much as possible. Patient instructed to drink a mixture of water and the artificial sweetener with a straw. A 15 minute wait period was observed. Patient instructed to take a deep breath and then exhale into the pink bag, filling it up as much as possible.?? Coding Level of Care Code Est Pt Level 1 (47544) Diagnoses Constipation by delayed colonic transit K59.01
== END 2025-03-11 08:47 | disposition home or self-care (01) ==
LOC: HO.HGI 08:22
PROVIDERS: PCP Internal Medicine; Visit Provider Internal Medicine Gastroenterology
DX: K59.01 Slow transit constipation (principal)

== ENCOUNTER 2025-03-21 10:20 | Outpatient (REF) | payer OTHER, SELFPAY ==
[2025-03-22 09:47] LABS: Bacterial Vaginosis PCR NEGATIVE (Negative); Candida Group PCR NOT DETECTED (Not Detect); Candida glab krusei PCR NOT DETECTED (Not Detect); Trichomonas vaginalis PCR NOT DETECTED (Not Detect)
[2025-03-22 10:14] LABS: CT PCR NOT DETECTED (Not Detect.); NG PCR NOT DETECTED (Not Detect.)
== END 2025-03-21 10:21 | disposition home or self-care (01) ==
LOC: HO.LNP 10:20
PROVIDERS: PCP Internal Medicine; Visit Provider Advanced Practice Midwife
DX: Z01.419 Encounter for gynecological examination (general) (routine) without abnormal findings (principal); N64.4 Mastodynia; Z20.2 Contact with and (suspected) exposure to infections with a predominantly sexual mode of transmission; Z12.39 Encounter for other screening for malignant neoplasm of breast; Z98.51 Tubal ligation status
CPT/HCPCS: 81515; 87491; 87591

== ENCOUNTER 2025-03-21 10:20 | Outpatient (AMB) | payer OTHER, SELFPAY ==
--- NOTE | 2025-03-21 10:22 | MHC.OFFVIS ---
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 no concerns Staff Appraiser Required: No Information Interpreted: non-clinical & clinical Resident Assistant Cna: Resident Assistant Cna Present (Citlali Neri LPN) Accompanied by: Self / Same As Patient Allergies shellfish derived (shellfish) Allergy (Severe, Verified 03/21/25 10:25) Angioedema adhesive tape Adverse Reaction (Mild, Verified 03/21/25 10:25) Redness of Skin Medication List - Last Reconciled 03/21/25 by Citlali Neri LPN acetaminophen (Tylenol Extra Strength) 500 mg PO Q6H PRN buspirone 5 mg PO BID diaper,brief,adult,disposable As directed duloxetine 30 mg PO BID estradiol 0.01%(0.1mg/gram) (Estrace) 1 g vaginal 3XW 90 days famotidine 20 mg PO BID fluoxetine 20 mg PO DAILY fluticasone propionate 50 mcg/actuation (Flonase Allergy Relief) 1 spray intranasal DAILY gabapentin 300 mg PO Q8H 30 days ketotifen fumarate 0.025%(0.035%) 1 drp ophthalmic (eye) BID thjrtu-jzdlsckc-abcqchq (pork) 24,000-76,000 -120,000 unit (Creon) 2 caps PO QID loratadine 10 mg PO DAILY 90 days phenazopyridine (Azo Urinary Pain Relief) 99.5 mg PO TID PRN plecanatide (Trulance) 3 mg PO DAILY sodium fluoride-pot nitrate 1.1-5 % 1 appl PO DAILY tramadol 50 mg PO BEDTIME PRN 90 days underpads (Maxicare Underpads) As directed, 3 nightly. wheat dextrin (Benefiber Sugar Free (dextrin)) 1 tab PO DAILY Do you need a note to return to daycare/school/sports/work: No HPI Comments Details: Pt presents today for ANNUAL exam She has the following concerns: left breast pain hx ruptured left breast implant , replaced and now reports pain She is not in a steady relationship, but is sexually active with father of her daughter and requesting gc/ct screening. She denies any issues of DV Exercise: limited Nutrition/calcium: limited due to lactose intolerance causing gas Contraception: post menopause, denies any abnormal bleeding Last Pap: 2022 , Results: Neg Last mammo: 2023, Results Birads 2 PFSH Medical History Umbilical mass Dyslipidemia Depression Lumbar radiculopathy KRISTAL positive Tubular adenoma Pancreatic insufficiency Environmental allergies Arthritis Fibromyalgia Surgical History (Updated 03/21/25 @ 11:39 by Rola Castro CNM) History of esophagogastroduodenoscopy (EGD) History of reversal of tubal ligation Hx of colonoscopy H/O tubal ligation H/O cosmetic surgery Family History (Updated 03/21/25 @ 11:41 by Rola Castro CNM) Father HTN (hypertension) Blood infection Heart disease Mother No problems noted. Family/Other Breast CA Family/Other Throat cancer Diabetes Family/Other Brain mass Social History Household Members Other:: daughter Housing: House Alcohol intake: never Patient Tobacco Use Status: Former Tobacco user e-Cigarette/Vaping Use: Never Used service: No Current occupational status: disabled Cognitive needs: No Hearing needs: No Vision needs: No Female Reproductive History Menstrual Age of Menarche: 10 Total pregnancies: 4 Number of Living Children: 5 Date of last pap smear: 10/25/22 History of abnormal pap smear: No Date of Mammogram: 01/03/24 (Bi Rad 2 benign) History of abnormal mammogram: Yes Review of Systems Const Reports no additional complaints Eyes Reports no additional complaints ENT Reports no additional complaints Card Reports no additional complaints Resp Reports no additional complaints GI Reports no additional complaints Reports as per [facility] Skin/Breast Reports system reviewed and no additional complaints, except as documented Physical Exam Vital Signs: Last Vital Signs BP 104/72 03/21/25 10:35 BMI result Body Mass Index 31.9 Const General: cooperative, healthy appearing and no acute distress Orientation/consciousness: patient oriented x3 HEENT Head: Yes normal to inspection and Yes normocephalic Ears: external ears normal General nose exam: No nasal discharge present Neck Neck: Yes normal visual inspection Chest Other: Right breast normal palpation , no crepitous of implant Left breast significant tenderness at the Left upper outer quad 1 oclock region, though no crepitous noted Breast/axilla inspection: normal inspection of the breasts, normal inspection of the axillae and Other (No skin changes, peau d orange, or nipple discharge noted) Breast/axilla palpation: normal palpation of the axillae and no axillary lymphadenopathy Resp Effort & Inspection: normal respiratory effort and able to speak in complete sentences GI Inspection: No distended Palpation (GI): Soft to palpation, nontender and no masses Percussion: Yes normal to percussion Rectal Exam - Female: External hemorrhoid(s) present External Female Exam: normal external appearance and normal appearance of the urethra Speculum Exam - Vagina: normal appearance of the vagina Speculum Exam - Cervix: normal appearance of the cervix and normal palpation (neg CMT) Bimanual exam- vagina & uterus: normal bimanual exam, normal palpation (neg CMT), uterine mobility normal and non-tender Bimanual Exam- Adnexa, other: no masses, No adnexal tenderness and cystocele Skin General skin exam: no rashes or lesions noted Neuro General: patient oriented x3 and moves all extremities Extrem General: Yes full ROM Psych Speech and movement: Normal speech and movement present Affect: normal affect Attitude: cooperative Thought process: Normal thought process present Assessment & Plan Assessment & Plan (1) Breast screening: Code(s): Z12.39 - Encounter for other screening for malignant neoplasm of breast Category: Medical (2) Well woman exam with routine gynecological exam: Code(s): Z01.419 - Encounter for gynecological examination (general) (routine) without abnormal findings (3) Pain of left breast: Code(s): N64.4 - Mastodynia Plan: breast ultrasound ordered, pt is declining mammogram Plan During the visit, the following areas of concern were addressed: Regular exercise Healthy lifestyle STD strategies to avoid exposure Domestic violence Menopausal/jonel-menopausal signs and symptoms, including nonprescription strategies for management Health Maintenance and Screening -Reviewed ASCCP guidelines for Paps and yearly (bi-yearly ) pelvic exam. -Reviewed and encouraged diet and exercise for cardiovascular and bone health -Reviewed breast self-awareness. Importance of yearly mammogram after age 40 (earlier if first-degree relative with breast cancer at a younger age ) Discuss use of 3 times per week weight-bearing exercise, vitamin D3 and servings of dietary calcium daily for bone health. -continue to follow with PCP for general medical care, immunizations. Screening strategies for colon cancer after age 50. Discussion of Kegel exercises for urinary incontinence Family and personal history of cancer reviewed. Genetic screening - not indicated The patient has BMI: 31 Approaches towards weight loss are discussed including burning more calories than one takes in by frequent, small meals, portion control, avoiding eating before bedtime, regular exercise with an emphasis on duration rather than intensity, strength training exercise, referral to cad manager or to weight loss management center upon patient request. RTO one year or sooner ranjith Castro CNM Note about provider documentation : If you or the patient named in this chart and are reviewing your medical notes, please note that medical documentation is often written with abbreviations and medical terminology, and directed for other providers who may be involved in your care as well. Documentation is critical to record what has happened, what tests were ordered, and so they are interpreted with the resulting diagnoses. These notes have been made available for patient review but not specifically written for the patient. Important health information is always given to my patients in clinical instructions. Please review your after visit summary and our contact our clinical staff if you have any questions. Orders: Orders US breast LT complete 2 Weeks N64.4 - Mastodynia CT NG by PCR Vag/Cerv Today Z11.3 - Encounter for screening for infections with a predominantly sexual mode of transmission Bacterial Vaginosis Panel Today Z11.3 - Encounter for screening for infections with a predominantly sexual mode of transmission Medications: Refilled estradiol 0.01%(0.1mg/gram) (Estrace) Apply a PSAs amount to urethra daily x1 month and then 3 times per week thereafter 1 g vaginal 3XW 42.5 grams 1RF 90 days Coding Level of Care Code Est Pt Prev Care 40-64y(48077) Diagnoses Breast screening Z12.39 Well woman exam with routine gynecological exam Z01.419 Pain of left breast N64.4
--- OUTSIDE RECORDS SUMMARY | 2025-03-21 10:22 | XMS_ITS | Clinical Summary ---
Author Organization [facility] Address [address] [place] [address] Care Team Providers Care Congregational Care Pastor Name Role Phone Unavailable Primary Care Provider Unavailabl e Social History Tobacco Use Types Packs/Day Years Used Date Smoking Tobacco: Never Assessed Comments Unknown Sex and Gender Information Value Date Recorded Sex Assigned at Not on file Legal Sex Female 5:02 AM EST Gender Identity Not on file Sexual Orientation Not on file Plan of Treatment Not on file
--- OUTSIDE RECORDS SUMMARY | 2025-03-21 10:22 | XMS_ITS | Clinical Summary ---
Author Organization [facility] Address [address] [place] [address] Care Team Providers Care Helmet Hat Brim Cutter Name Role Phone Pcp, No Primary Care [...] age to complete this topic Care Teams Helmet Hat Brim Cutter Relationship Specialty Start Date End Date Pcp, No PCP - General General Medicine 04/18/23
[2025-03-21 10:35] VITALS: BP 104/72; BMI 31.9
== END 2025-03-21 11:48 | disposition home or self-care (01) ==
LOC: HO.HWS 10:20
PROVIDERS: PCP Internal Medicine; Visit Provider Advanced Practice Midwife
DX: Z01.419 Encounter for gynecological examination (general) (routine) without abnormal findings (principal); Z12.39 Encounter for other screening for malignant neoplasm of breast; N64.4 Mastodynia
CPT/HCPCS: 99396; 99459

== ENCOUNTER 2025-03-25 10:18 | Outpatient (AMB) | payer OTHER, SELFPAY ==
--- NOTE | 2025-03-25 10:24 | MHC.OFFVIS ---
Vital Signs 03/25/25 10:30 Height 5 ft 3 in Weight 180 lb BMI 31.9 BP 104/58 L Blood Pressure Location Rt brachial Position Sitting Pulse 74 Pulse Source Pulse Oximeter Pulse Oximetry (%) 96 Oxygen Delivery Method Room Air Intake Visit Reasons: s/p colo and egd Rojas Intake Note: ESTABLISHED PATIENT mgmt of GERD, CIC. S/P Double. Chief Complaint; C/O increased gas and bloating. Pt denies any additional sx or concerns at this time. She reports that her niece recently from cancer, and her nephew recently was diagnosed with esophageal cancer. Dispensary Attendant Required: No Dispensary Attendant Services: Dispensary Attendant Offered & Declined Accompanied by: Self / Same As Patient Allergies shellfish derived (shellfish) Allergy (Severe, Verified 03/25/25 10:24) Angioedema adhesive tape Adverse Reaction (Mild, Verified 03/25/25 10:24) Redness of Skin HPI HPI s/p colo and egd Rojas: Details: LAST VISIT: Pancreatic insufficiency Colon cancer screening Constipation by delayed colonic transit Hiatal hernia Irritable bowel syndrome Steatosis of liver Gastroesophageal reflux disease Plan Patient will continue taking famotidine twice a day. Avoid dietary triggers in late night snacking. Patient will be sent for upper endoscopy. Continue with GERD precautions. Continue Creon. What to expect before during and after procedure discussed with patient. Stressed the importance of good bowel prep and clear liquid diet day for procedure. Patient will do 2 days of clear and will take additional Dulcolax 1 week before procedure. Periumbilical hernia palpated, referral to General surgery. I will see patient after the procedure, sooner on as needed basis. She is agreeable to this plan and verbalizes understanding of instructions. She was given the opportunity to ask questions and all questions answered. Referrals GI Procedure Notification K21.9, Z12.11 General Surgery Referral K42.9 New polyethylene glycol 3350 (Miralax) As directed by gastroenterology department at [facility] 238 grams PO ONCE 238 grams 0RF Z12.11 Refilled bisacodyl (Dulcolax (bisacodyl)) 10 mg (2 x 5 mg) PO BEDTIME 180 tabs 4RF UPPER ENDOSCOPY AND COLONOSCOPY Findings: Larynx:normal Esophagus: GE junction at 34 cm, diaphragm hiatus at 37 cm, consistent with 3 cm sliding hiatal hernia.The LES was lax. Small esophageal inlet patch noted. Stomach: Streaky gastritis in mid stomach. Biopsies were obtained. Grade 2 flap valve on retroflexed examination of the cardia. Duodenum: Normal bulb and descending duodenum, bx taken for disaccharidases Intervention: Biopsies as noted above- COLONOSCOPY Instrument: Olympus variable stiffness pediatric scope 190L Colonoscopy Monitoring: Vital signs and clinical assessment, continuous EKG monitoring, Pulse oximetry, Carbon Dioxide monitoring and blood pressure monitoring were done throughout the procedure. Colon withdrawal time was 10 minutes. Procedure: The patient was placed in the left lateral decubitis position and pre-procedure medications were administered. After a digital rectal examination of the ano-rectum, the video colonoscope was inserted into the rectum and advanced through the colon to the cecum/TI. The colonoscope was slowly withdrawn in a retrograde panoramic fashion and the colon mucosa was carefully examined including a retroflexed view of the rectum. Findings and interventions are described below. Procedure Difficulty:moderate Findings: Terminal Ileum-normal Cecum:normal Ascending Colon: normal Transverse Colon -normal Descending Colon:normal Sigmoid Colon: normal Rectum: Retroflexion with small internal hemorrhoids, grade I Anorectum - normal Colon preparation: [place] Bowel Preparation Scale Right colon; 1-2 Transverse colon: 2 Left colon; 1-2 (0 = Unprepared colon segment with mucosa not seen due to solid stool that cannot be cleared. 1 = Portion of mucosa of the colon segment seen, but other areas of the colon segment not well seen due to staining, residual stool and/or opaque liquid. 2 = Minor amount of residual staining, small fragments of stool and/or opaque liquid, but mucosa of colon segment seen well. 3 = Entire mucosa of colon segment seen well with no residual staining, small fragments of stool or opaque liquid) Impression and Post Procedure Diagnosis: Endoscopy Findings: hiatal hernia gastritis Colonoscopy Findings: internal hemorrhoids Plan: Await Pathology results Repeat Colonoscopy in 1 year due to areas of fair prep or earlier if clinically indicated High fiber diet leaflet avoid straining at stool, epsom salts and sitz bath, anusol supps or cream PATHOLOGY RESULTS Diagnosis Small bowel, biopsy: - Antral-type and oxyntic mucosa with moderate chronic inactive inflammation; no Helicobacter organisms seen. - Combined small bowel and gastric mucosa with chronic inflammatory changes. TODAY'S VISIT Patient is here today for follow-up and to discuss upper endoscopy and colonoscopy results. Patient denies any ill effects from the prep, anesthesia or procedure itself. Patient reports to be feeling fairly well. Patient reports taking Pepcid twice a day and her symptoms of acid reflux or suppressed. Occasionally patient might have abdominal bloating. However patient is taking Trulance and is able to move her bowels better. Patient is taking Creon with meals which helps with bloating for the most part. Patient denies dyspepsia, dysphagia odynophagia. Denies melena, hematochezia, unintentional weight loss or ribbon like stools. PFSH Medical History Umbilical mass Dyslipidemia Depression Lumbar radiculopathy KRISTAL positive Tubular adenoma Pancreatic insufficiency Environmental allergies Arthritis Fibromyalgia Surgical History History of esophagogastroduodenoscopy (EGD) History of reversal of tubal ligation Hx of colonoscopy H/O tubal ligation H/O cosmetic surgery Family History Father HTN (hypertension) Blood infection Heart disease Mother No problems noted. Family/Other Breast CA Family/Other Throat cancer Diabetes Family/Other Brain mass Social History Household Members Other:: daughter Housing: House Alcohol intake: never Patient Tobacco Use Status: Former Tobacco user e-Cigarette/Vaping Use: Never Used service: No Current occupational status: disabled Cognitive needs: No Hearing needs: No Vision needs: No Female Reproductive History Menstrual Age of Menarche: 10 Review of Systems Const Denies weight gain and Denies weight loss ENT Reports no additional complaints, Denies dysphagia and Denies odynophagia Card Reports no additional complaints Resp Reports no additional complaints GI Denies abdominal pain, Denies belching, Denies melena, Denies bloating, Denies change in bowel habits, Reports constipation (Occasional), Denies dysphagia, Denies excessive flatus, Denies dyspepsia, Reports heartburn (Occasional), Denies diarrhea, Denies loose stools, Denies nausea, Denies odynophagia and Denies vomiting Reports no additional complaints Musc Reports no additional complaints Neuro Reports no additional complaints Psych Reports no additional complaints Endo Reports no additional complaints Physical Exam Const General: healthy appearing, no acute distress and well developed Nutritional Appearance: obese Orientation/consciousness: patient oriented x3 Resp Effort & Inspection: normal respiratory effort, able to speak in complete sentences, no tracheal deviation and symmetric chest movement Auscultation: clear to auscultation bilaterally Cardio Rate: regular rate GI Inspection: No distended, Yes obesity and Yes visible herniation Palpation (GI): Soft to palpation, not firm, nontender, No hepatosplenomegaly present and Hernia present umbilical Auscultation: normal bowel sounds General: Yes no CVA tenderness Back/Spine/Pelvis Back: no CVA tenderness Skin General skin exam: elasticity normal, turgor normal and dry skin Neuro General: patient oriented x3 Psych Appearance: grossly normal Mental Status: mental status grossly normal Assessment & Plan Assessment & Plan (1) Pancreatic insufficiency: Code(s): K86.89 - Other specified diseases of pancreas Category: Medical (2) Constipation by delayed colonic transit: Code(s): K59.01 - Slow transit constipation Category: Medical (3) Hiatal hernia: Code(s): K44.9 - Diaphragmatic hernia without obstruction or gangrene Category: Medical (4) Irritable bowel syndrome: Code(s): K58.9 - Irritable bowel syndrome, unspecified Qualifiers: Irritable bowel syndrome type: without diarrhea Qualified Code(s): K58.9 - Irritable bowel syndrome, unspecified (5) Steatosis of liver: Code(s): K76.0 - Fatty (change of) liver, not elsewhere classified (6) Gastroesophageal reflux disease: Code(s): K21.9 - Gastro-esophageal reflux disease without esophagitis Qualifiers: Esophagitis presence: without esophagitis Qualified Code(s): K21.9 - Gastro-esophageal reflux disease without esophagitis (7) Status post colonoscopy: Code(s): Z98.890 - Other specified postprocedural states Plan Patient will continue taking Trulance. Continue fiber. Increase fluid intake and activity to promote bowel motility. Patient will take famotidine as ordered. Avoid dietary triggers and late night snacking. Staying upright for minimum 3 hours after meals discussed with patient. Take Creon with meals. Follow-up in 6 months, sooner on as needed basis. Patient is agreeable to this plan and verbalizes understanding of instructions. She was given the opportunity to ask questions and all questions answered. Thank you for allowing me to participate in her care Medications: Refilled plecanatide (Trulance) 3 mg PO DAILY 90 tabs 3RF K59.09 - Other constipation ytnfjc-bznyaacw-rdghrur (pork) 24,000-76,000 -120,000 unit (Creon) take 2 caps by mouth four times a day with meals and/or snacks for a total of 8 caps per day 2 caps PO QID 240 caps 4RF K86.89 - Other specified diseases of pancreas famotidine 20 mg PO BID 180 tabs 3RF K29.70 - Gastritis, unspecified, without bleeding Coding Level of Care Code Est Pt Level 4 (41947) Add On Problem Visit Only Diagnoses Pancreatic insufficiency K86.89 Constipation by delayed colonic transit K59.01 Hiatal hernia K44.9 Irritable bowel syndrome without diarrhea K58.9 Irritable bowel syndrome type: without diarrhea Steatosis of liver K76.0 Gastroesophageal reflux disease without esophagitis K21.9 Esophagitis presence: without esophagitis Status post colonoscopy Z98.890 Time Spent (min) 40 Comment 25 minutes spent with patient and additional 15 minutes spent reviewing her records
[2025-03-25 10:30] VITALS: BP 104/58; PULSE 74; O2SAT 96; BMI 31.9
--- OUTSIDE RECORDS SUMMARY | 2025-03-25 13:40 | XMS_ITS | Clinical Summary ---
Author Organization [facility] Address [address] [place] [address] Care Team Providers Care Rubber Washer Name Role Phone Pcp, No Primary Care [...] age to complete this topic Care Teams Rubber Washer Relationship Specialty Start Date End Date Pcp, No PCP - General General Medicine 04/18/23
--- OUTSIDE RECORDS SUMMARY | 2025-03-25 13:40 | XMS_ITS | Clinical Summary ---
Author Organization [facility] Address [address] [place] [address] Care Team Providers Care Film Archivist Name Role Phone Unavailable Primary Care Provider [...]
== END 2025-03-25 10:44 | disposition home or self-care (01) ==
PROVIDERS: PCP Internal Medicine; Visit Provider Nurse Practitioner Family
DX: K86.89 Other specified diseases of pancreas (principal); K59.01 Slow transit constipation; K44.9 Diaphragmatic hernia without obstruction or gangrene; K58.9 Irritable bowel syndrome, unspecified; K76.0 Fatty (change of) liver, not elsewhere classified; K21.9 Gastro-esophageal reflux disease without esophagitis; Z98.890 Other specified postprocedural states
CPT/HCPCS: 99214; G2211

== ENCOUNTER → 2025-03-25 10:18 | Outpatient (BNVA) | payer OTHER, SELFPAY | PROVIDERS: PCP Internal Medicine; Visit Provider Nurse Practitioner Family | DX: K21.9 Gastro-esophageal reflux disease without esophagitis (principal); K86.89 Other specified diseases of pancreas; K59.01 Slow transit constipation; K44.9 Diaphragmatic hernia without obstruction or gangrene; K58.9 Irritable bowel syndrome, unspecified; K29.70 Gastritis, unspecified, without bleeding; K76.0 Fatty (change of) liver, not elsewhere classified; Z98.890 Other specified postprocedural states; Z79.899 Other long term (current) drug therapy | CPT/HCPCS: 99212 ==

== ENCOUNTER 2025-03-26 10:23 | Outpatient (AMB) | payer OTHER, SELFPAY ==
--- NOTE | 2025-03-26 10:29 | A.OFFVIS_ITS ---
Intake Visit Reasons: 2M/PVR/UA(SET) Intake Note: Patient is present for 2M/UA/PVR Urology Medication:ESTRADIOL Antibiotic Allergy:NONE Blood Thinner:NONE Last PVR:0ML'S Todays PVR:0ML'S Narcotics Agent Required: No Allergies shellfish derived (shellfish) Allergy (Severe, Verified 03/26/25 10:30) Angioedema adhesive tape Adverse Reaction (Mild, Verified 03/26/25 10:30) Redness of Skin HPI Comments Details: Marisel is a very pleasant 59-year-old female patient of Dr. Austin. She has a past medical history of fibromyalgia, dyslipidemia, depression, lumbar radiculopathy, environmental allergies and arthritis. She presents to the office today for follow-up. In discussion with the patient today she reports she has had no UTI like symptoms since her last office visit here. 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 We did discussed today further treatment options of these urological conditions and risks and benefits of these treatment options. She would like to continue with surveillance monitoring at this time as she feels episodes are infrequent and manageable. In review of patient's chart it does appear patient had recent CT of the abdomen and pelvis without IV contrast 03/20 that noted tiny nonobstructing calculi in the mid and lower poles of the left kidney. Otherwise no obstructive or acute inflammatory changes in the GI or tract. In office urinalysis results with the patient today. PVR 0 mL. She reports compliance with Estrace cream as pr escribed. Previous urine culture 08/18 notted 50,000 to 100,000 cfu/ml Mixed bacterial flor characteristic of urogenital contamination. We discussed in office cystoscopy and or urodynamics for further assessment evaluation however she declines at this. Previous urine cytology results reviewed with the patient today 12/18 and 11/18 Negative for high-grade urothelial carcinoma. She otherwise denies gross/visible hematuria, foul smelling urine, changes to urinary stream, fever, and or chills. [facility] Medical History Umbilical mass Dyslipidemia Depression Lumbar radiculopathy MARISEL positive Tubular adenoma Pancreatic insufficiency Environmental allergies Arthritis Fibromyalgia Surgical History History of esophagogastroduodenoscopy (EGD) History of reversal of tubal ligation Hx of colonoscopy H/O tubal ligation H/O cosmetic surgery Family History Father HTN (hypertension) Blood infection Heart disease Mother No problems noted. Family/Other Breast CA Family/Other Throat cancer Diabetes Family/Other Brain mass Unknown Breast CA Unknown Esophageal cancer Social History Household Members Other:: daughter Housing: House Alcohol intake: never Patient Tobacco Use Status: Former Tobacco user e-Cigarette/Vaping Use: Never Used service: No Current occupational status: disabled Cognitive needs: No Hearing needs: No Vision needs: No Female Reproductive History Menstrual Age of Menarche: 10 Review of Systems Const All systems reviewed & are unremarkable except as noted in HPI and below Physical Exam Const General: cooperative, healthy appearing, comfortable, no acute distress, well developed, alert and awake Orientation/consciousness: patient oriented x3 Limitations: no limitations HEENT Head: Yes normal to inspection, Yes normocephalic and Yes atraumatic Ears: hearing grossly normal bilaterally Eyes General: appearance normal, both eyes and all related structures Neck Neck: Yes normal visual inspection and Yes trachea midline Chest Chest palpation & inspection: normal inspection of the chest Resp Effort & Inspection: normal respiratory effort and able to speak in complete sentences Cardio Rate: regular rate GI Inspection: Yes normal to inspection General: Yes no CVA tenderness Back/Spine/Pelvis Back: no CVA tenderness Skin General skin exam: no rashes or lesions noted Neuro General: patient oriented x3 Extrem General: Yes normal to inspection Psych Appearance: grossly normal and well kempt Mental Status: mental status grossly normal Speech and movement: Normal speech and movement present and Clear speech present Affect: normal affect Attitude: cooperative Thought process: Normal thought process present Thought content: Normal thought content present Insight: Fair insight present (Psych) Judgement: Fair judgement present (Psych) Office Procedures Post Void Residual Post Residual Void Post Void Residual (PVR): 0 [id number]-[id number] Void Residual by ultrasound Results AMB Urinalysis, Automated UA Leukoctes 0 Van/uL Last Edit by ZECHARIAH Yu on 03/26/25 10:42 UA Nitrite Negative Last Edit by ZECHARIAH Yu on 03/26/25 10:42 UA Urobilinogen 0.2 mg/dL Last Edit [facility] 03/26/25 10:4 2 UA Protein 15 mg/dL Last Edit by Brandon Painting [facility] on 03/26/25 10:42 UA pH 6.0 Last Edit by Brandon Painting [facility] on 03/26/25 10:42 UA Blood 0 Alessio/uL Last Edit by Brandon Painting [facility] on 03/26/25 10:42 UA Specific [place] 1.015 Last Edit by Brandon Painting [facility] on 03/26/25 10: 42 UA Ketone Negative Last Edit by Brandon Painting [facility] on 03/26/25 10:42 UA Bilirubin 0 mg/dL Last Edit by Brandon Painting [facility] on 03/26/25 10:42 UA Glucose 0 mg/dL Last Edit by Brandon Painting [facility] on 03/26/25 10:42 Results Reviewed Results Reviewed: Laboratory Last Values Urine pH (Auto) 6.0 03/26/25 10:41 [address] [place] (Auto) 1.015 03/26/25 10:41 Urine Protein (Auto) 15 mg/dL 03/26/25 10:41 Glucose (UA)(Auto) 0 mg/dL 03/26/25 10:41 Urine Ketones (Auto) Negative 03/26/25 10:41 Urine Blood (Auto) 0 Alessio/uL 03/26/25 10:41 Urine Nitrite (Auto) Negative 03/26/25 10:41 Urine Bilirubin (Auto) 0 mg/dL 03/26/25 10:41 Urine Urobilinogen (Auto) 0.2 mg/dL 03/26/25 10:41 Leukocyte Esterase (Auto) 0 Van/uL 03/26/25 10:41 Assessment & Plan Assessment & Plan (1) Urine incontinence: Code(s): R32 - Unspecified urinary incontinence Category: Medical Qualifiers: Urinary Incontinence type: unspecified incontinence Qualified Code(s): R32 - Unspecified urinary incontinence (2) Mixed incontinence urge and stress: Code(s): N39.46 - Mixed incontinence Category: Medical (3) Nocturia: Code(s): R35.1 - Nocturia Category: Medical (4) Nephrolithiasis: Code(s): N20.0 - Calculus of kidney Category: Medical Plan In office urinalysis results with the patient today; as noted above. PVR 0 mL. We did discussed at length further treatment options of mixed urinary incontinence and nocturia; we discussed risks and benefits of these treatment options. She would like to continue with surveillance monitoring Continue Estrace cream as discussed and prescribed Most recent CT results reviewed with the patient today; as noted above. We did discuss importance of adequate hydration in relation to punctate stones noted on most recent CT We discussed adding 1 oz of lemon juice to water daily. All questions were answered. Renal ultrasound in 6 months Follow-up in 6 months with imaging; or sooner with any issues, concerns, and or questions. Orders: Orders AMB Urinalysis Automated Today Z13.9 - Encounter for screening, unspecified US renal BI 6 Months N20.0 - Calculus of kidney Patient Instructions: The patient had an opportunity to ask questions regarding the treatment plan. All questions were answered. Physical exam, labs, and imaging were discussed and reviewed in detail. As well as risks, benefits, and discussion of treatment choices. No major barriers to understanding were identified. The patient expressed understanding and agreement with the above treatment plan. The patient was made aware they should contact our office by phone for worsening of their current condition, the appearance of new symptoms, or with any questions or concerns. Compliance is encouraged with any medications and follow up testing that is ordered. It is a privilege to be allowed the opportunity to participate in? your urological care.? Again, if you have any questions or concerns If you have any questions or concerns please do not hesitate to contact me. The office is [phone]. This note is constructed using voice recognition software. While every effort has been made to ensure accuracy technician anatomic pathology errors may have been included. Yours sincerely, PATSY Franco Coding Level of Care Code Est Pt Level 3 (21177) Add On Problem Visit Only Diagnoses Urinary incontinence, unspecified type R32 Urinary Incontinence type: unspecified incontinence Mixed incontinence urge and stress N39.46 Nocturia R35.1 Nephrolithiasis N20.0 CPT Codes Post Residual Void - PVR CPT Code: 00838-[id number] Void Residual by ultrasound ([id number])
--- OUTSIDE RECORDS SUMMARY | 2025-03-26 11:36 | XMS_ITS | Clinical Summary ---
Author Organization [facility] Address [address] [place] [address] Care Team Providers Care Internal Communications Intern Name Role Phone Pcp, No Primary Care [...] age to complete this topic Care Teams Internal Communications Intern Relationship Specialty Start Date End Date Pcp, No PCP - General General Medicine 04/18/23
--- OUTSIDE RECORDS SUMMARY | 2025-03-26 11:36 | XMS_ITS | Clinical Summary ---
Author Organization [facility] Address [address] [place] [address] Care Team Providers Care Link Assembler Name Role Phone Unavailable Primary Care Provider [...]
== END 2025-03-26 11:02 | disposition home or self-care (01) ==
LOC: HO.HUSH 10:24
PROVIDERS: PCP Internal Medicine; Visit Provider Nurse Practitioner Family
DX: R32 Unspecified urinary incontinence (principal); N39.46 Mixed incontinence; R35.1 Nocturia; N20.0 Calculus of kidney; Z13.9 Encounter for screening, unspecified
CPT/HCPCS: 99213; G2211

== ENCOUNTER → 2025-03-26 10:23 | Outpatient (BNVA) | payer OTHER, SELFPAY | PROVIDERS: PCP Internal Medicine; Visit Provider Nurse Practitioner Family | DX: N39.46 Mixed incontinence (principal); N20.0 Calculus of kidney; R35.1 Nocturia | CPT/HCPCS: 51798; 81003; 99212 ==